=== PATIENT | female | born 1950 | race African-American/Black ===

== ENCOUNTER 2021-06-08 13:53 | Inpatient (IN) | payer OTHER ==
[2021-06-08 14:43] LABS: Protime INR 0.95
--- NOTE | 2021-06-08 14:44 | RAD REPORT ---
EXAM DESCRIPTION: RAD - Chest Single View - 06/08/2021 2:35 pm CLINICAL HISTORY: weakness Chest pain. COMPARISON: No comparisons FINDINGS: Portable technique limits examination quality. The lungs are grossly clear. The heart is normal in size. No displaced fractures. IMPRESSION: No acute intrathoracic process suspected.
[2021-06-08 14:50] LABS: Absolute Lymphocytes (CBC) 1.3 K/uL (0.7-4.9); Basophils % 0.3 % (0-1.3); Hematocrit 41.4 % (36.0-45.0); Lymphocytes % 19.4 % (15.3-44.8); MPV 8.2 fL (7.6-11.3); RBC Red Blood Cell Count 4.85 M/uL (3.86-4.86)
[2021-06-08 14:57] LABS: Albumin 3.6 g/dL (3.4-5.0); BUN Blood Urea Nitrogen 18 mg/dL (7-18); Bicarbonate 25 mmol/L (21-32); Glucose Level 352 mg/dL (74-106); Magnesium 1.9 mg/dL (1.8-2.4); Potassium 3.4 mmol/L (3.5-5.1); Sodium Level 138 mmol/L (136-145)
[2021-06-08 15:04] LABS: ALT/SGPT 20 U/L (12-78); AST/SGOT 14 U/L (15-37); Alkaline Phosphatase 104 U/L (45-117); Bilirubin Direct 0.2 mg/dL (0-0.2); Bilirubin Total 0.6 mg/dL (0.2-1.0); NT PRO-BNP 596 pg/mL (<125); Protein, Total 8.8 g/dL (6.4-8.2); Troponin (Emerg Dept Use Only) < 0.02 ng/mL (0.0-0.045)
--- NOTE | 2021-06-08 15:24 | RAD REPORT ---
EXAM DESCRIPTION: CT - Head Brain Wo Cont - 06/08/2021 3:14 pm CLINICAL HISTORY: DIZZINESS Headache, drowsiness COMPARISON: No comparisons TECHNIQUE: All CT scans are performed using dose optimization technique as appropriate and may inclu de automated exposure control or mA/KV adjustment according to patient size. FINDINGS: No intracranial hemorrhage, hydrocephalus or extra-axial fluid collection.No areas of brai n edema or evidence of midline shift. Hypodensity is seen in the kayla centrally likely related to jossy or infarct. The paranasal sinuses and mastoids are clear. The calvarium is intact. IMPRESSION: No acute intracranial abnormality. If there is continued clinical concern for CVA, MR i maging of the brain would be recommended.
--- NOTE | 2021-06-08 15:46 | ER ---
Nurse's Notes [facility] Name: Nida Gordon Age: 71 yrs Sex: Female : 1950 Arrival Date: 06/08/2021 Time: 13:57 Bed 5 Private MD: Diagnosis: Hypertension;Cerebral Infarction;Hyperglycemia;Dizziness Presentation: 06/08 14:20 Chief complaint: Patient states: Has been feeling weakness an dizziness for the past vg1 couple of days. States 'my talking feels slurred.' Pt denies headache, blurred vision, NV, injuries/fall, or chest pain. Coronavirus screen: Vaccine status: Patient reports receiving the 2nd dose of the covid vaccine. Client denies travel out of the [place] in the last 14 days. Ebola Screen: Patient negative for fever greater than or equal to 101.5 degrees Fahrenheit, and additional compatible Ebola Virus Disease symptoms. Initial Sepsis Screen: Does the patient meet any 2 criteria? No. Patient's initial sepsis screen is negative. Does the patient have a suspected source of infection? No. Patient's initial sepsis screen is negative. Risk Assessment: Do you want to hurt yourself or someone else? Patient reports no desire to harm self or others. Onset of symptoms was June 06, 2021. 14:20 Method Of Arrival: Ambulatory vg1 14:20 Acuity: MARK 3 vg1 Triage Assessment: 14:22 The onset of the patients symptoms was more than six hours ago. General: Appears in no vg1 apparent distress. uncomfortable, Behavior is calm, cooperative. Pain: Denies pain. Neuro: Level of Consciousness is awake, alert, obeys commands, Oriented to person, place, time, situation, Storm Sash Maker are equal bilaterally Moves all extremities. Gait is unsteady, Facial symmetry appears normal, Reports weakness. Historical: - Allergies: 14:22 No Known Allergies; vg1 - Home Meds: 14:22 None [Active]; vg1 - PMHx: 14:22 None; vg1 - PSHx: 14:22 None; vg1 - Immunization history:: Client reports receiving the 2nd dose of the Covid vaccine. - Social history:: Smoking status: Patient denies any tobacco usage or history of. Screenin:22 Abuse screen: Denies threats or abuse. Nutritional screening: No deficits noted. as6 Tuberculosis screening: No symptoms or risk factors identified. Fall Risk IV access (20 points). Gait- Weak (10 pts.). Total [place] Fall Scale indicates Low Risk Score (25-44 pts). Side Rails Up X 2 Frequent Obs/Assesments occuring As available Patient and Family Educated on Fall Prevention Program and strategies. Assessment: 14:30 General: Appears in no apparent distress. comfortable, Behavior is calm, cooperative. as6 Pain: Complains of pain in headache. Neuro: Level of Consciousness is awake, alert, obeys commands, Oriented to person, place, time, situation, Reports dizziness, headache. Cardiovascular: Capillary refill < 3 seconds Patient's skin is warm and dry. Respiratory: Airway is patent Trachea midline Respiratory effort is even, unlabored, Respiratory pattern is regular, symmetrical. Derm: Skin is intact, is healthy with good turgor. Musculoskeletal: Reports weakness in generalized. Vital Signs: 14:20 BP 221 / 121; Pulse 100; Resp 16; Temp 98.1(TE); Pulse Ox 100% ; Weight 68.04 kg; vg1 Height 5 ft. 6 in. (167.64 cm); Pain 0/10; 16:00 BP 215 / 111; Pulse 75; Resp 17 S; Pulse Ox 100% on R/A; as6 17:28 BP 186 / 89; Pulse 86; Resp 16 S; Pulse Ox 100% on R/A; as6 14:20 Body Mass Index 24.21 (68.04 kg, 167.64 cm) vg1 ED Course: 13:57 Patient arrived in ED. ds1 14:13 Franklin Poole PA is PHCP. [facility] 14:13 Tanvir Pimentel MD is Attending Physician. jmm 14:16 Jay Pham, [facility] is Primary Nurse. as6 14:22 Triage completed. vg1 14:22 Arm band placed on. vg1 14:32 Inserted saline lock: 22 gauge in left antecubital area, using aseptic technique. Blood as6 collected. 14:35 XRAY Chest (1 view) In Process Unspecified. EDMS 14:43 EKG done, by ED staff, reviewed by Franklin CAMPBELL. dh3 15:14 CT Head Brain wo Cont In Process Unspecified. EDMS 15:44 Domenico Pineda is Hospitalizing Provider. jmm 18:23 Bed in low position. Call light in reach. Side rails up X2. telemetry monitor on. Pulse as6 ox on. NIBP on. 20:26 No provider procedures requiring assistance completed. Patient admitted, IV remains in em place. Administered Medications: 16:38 Drug: Aspirin Chewable Tablet 324 mg Route: PO; as6 17:25 Follow up: Response: No adverse reaction as6 16:38 Drug: foLIC Acid 1 mg Route: IVPB; Site: left antecubital; as6 17:25 Follow up: Response: No adverse reaction; IV Status: Completed infusion as6 16:38 Drug: hydrALAZINE 10 mg Route: IVP; Site: left antecubital; as6 17:26 Follow up: Response: No adverse reaction as6 Outcome: 15:45 Decision to Hospitalize by Provider. raymundo 20:26 Admitted to Med/surg accompanied by tech, via wheelchair, room 229, with chart, Report em called to floor nurse 20:26 Condition: stable 20:26 Instructed on the need for admit, Demonstrated understanding of instructions. 20:35 Patient left the ED. em Signatures: Dispatcher [employer] EDMS Franklin Poole PA PA jmm Munoz, Edgar, RN RN Elisabeth Shrestha Dolly Osborn 3 Leann Franco, RN RN vg1 Jay Pham, RN RN as6 Corrections: (The following items were deleted from the chart) 14:25 14:20 BP 221 / 121; Pulse 100bpm; Resp 16bpm; Pulse Ox 100%; Height 5 ft. 6 in.; Pain vg1 0/10; vg1
--- NOTE | 2021-06-08 15:46 | EDPHYS ---
Physician Documentation [facility] Name: Nida Gordon Age: 71 yrs Sex: Female : 1950 Arrival Date: 06/08/2021 Time: 13:57 Bed 5 Private MD: ED Physician Tanvir Pimentel HPI: 06/08 14:14 This 71 yrs old Black Female presents to ER via Ambulatory with complaints of Weakness, jmm Dizziness. 14:14 The patient presents to the emergency department with weakness of the left upper jmm extremity, left lower extremity, difficult walking. Onset: The symptoms/episode began/occurred gradually, 3 day(s) ago. Associated signs and symptoms: Pertinent positives: weakness, Pertinent negatives: altered mental status, fever, double vision, loss of vision. Current symptoms: Currently, the patient is not experiencing any symptoms. This is a 71 year old female with no chronic medical conditions that presents to the ED with complaints of dizziness beginning 3 days ago with difficulty walking and left sided weakness. Family denies changes in speech pattern. . Historical: - Allergies: 14:22 No Known Allergies; vg1 - Home Meds: 14:22 None [Active]; vg1 - PMHx: 14:22 None; vg1 - PSHx: 14:22 None; vg1 - Immunization history:: Client reports receiving the 2nd dose of the Covid vaccine. - Social history:: Smoking status: Patient denies any tobacco usage or history of. ROS: 14:14 Constitutional: Negative for fever, chills, and weight loss, Cardiovascular: Negative jmm for chest pain, palpitations, and edema, Respiratory: Negative for shortness of breath, cough, wheezing, and pleuritic chest pain. 14:14 Neuro: Positive for dizziness, weakness. 14:14 All other systems are negative. Exam: 14:14 Constitutional: This is a well developed, well nourished patient who is awake, alert, jmm and in no acute distress. Eyes: EOMI, no conjunctival erythema appreciated Cardiovascular: Regular rate and rhythm. No edema appreciated Respiratory: Normal respirations, no respiratory distress appreciated 14:14 Abdomen/GI: Non distended, soft Back: Normal ROM Skin: General appearance color normal MS/ Extremity: Moves all extremities, no obvious deformities appreciated, no edema noted to the lower extremities Psych: Behavior is normal, Mood is normal, Patient is cooperative and pleasant 14:14 Neuro: Exam negative for Orientation: is normal, Mentation: is normal, Memory: is normal, Cerebellar function: normal finger to nose testing, heel to hunt testing is normal, Motor: is normal. 14:14 Psych: Behavior/mood is pleasant, cooperative. Vital Signs: 14:20 BP 221 / 121; Pulse 100; Resp 16; Temp 98.1(TE); Pulse Ox 100% ; Weight 68.04 kg; vg1 Height 5 ft. 6 in. (167.64 cm); Pain 0/10; 16:00 BP 215 / 111; Pulse 75; Resp 17 S; Pulse Ox 100% on R/A; as6 17:28 BP 186 / 89; Pulse 86; Resp 16 S; Pulse Ox 100% on R/A; as6 14:20 Body Mass Index 24.21 (68.04 kg, 167.64 cm) vg1 MDM: 14:25 Patient medically screened. [facility] 15:42 Data reviewed: vital signs, nurses notes. Counseling: I had a detailed discussion with [facility] the patient and/or guardian regarding: the historical points, exam findings, and any diagnostic results supporting the discharge/admit diagnosis, lab results, radiology results, the need for further work-up and treatment in the hospital. ED course: I discussed the patient with Dr. Pineda whom accepted the patient for admission. . 06/08 14:14 Order name: Basic Metabolic Panel; Complete Time: 15:05 [facility] 06/08 14:14 Order name: CBC with Diff; Complete Time: 15:02 [facility] 06/08 14:14 Order name: LFT's; Complete Time: 15:05 [facility] 06/08 14:14 Order name: Magnesium; Complete Time: 15:05 [facility] 06/08 14:14 Order name: NT PRO-BNP; Complete Time: 15:05 [facility] 06/08 14:14 Order name: PT-INR; Complete Time: 14:46 [facility] 06/08 14:14 Order name: Troponin (emerg Dept Use Only); Complete Time: 15:05 [facility] 06/08 14:14 Order name: XRAY Chest (1 view); Complete Time: 14:46 [facility] 06/08 14:14 Order name: EKG; Complete Time: 14:15 [facility] 06/08 14:14 Order name: SARS-COV-2 RT PCR (Document "Date of Onset" if Symptomatic); Complete Time: [facility] 15:45 06/08 14:19 Order name: CT Head Brain wo Cont; Complete Time: 15:28 [facility] 06/08 14:14 Order name: Cardiac monitoring; Complete Time: 14:30 [facility] 06/08 14:14 Order name: EKG - Nurse/Tech; Complete Time: 14:43 [facility] 06/08 14:14 Order name: IV Saline Lock; Complete Time: 14:30 [facility] 06/08 14:14 Order name: Labs collected and sent; Complete Time: 14:30 [facility] 06/08 14:14 Order name: O2 Per Protocol; Complete Time: 14:30 [facility] 06/08 14:14 Order name: O2 Sat Monitoring; Complete Time: 14:30 [facility] Administered Medications: 16:38 Drug: Aspirin Chewable Tablet 324 mg Route: PO; as6 17:25 Follow up: Response: No adverse reaction as6 16:38 Drug: foLIC Acid 1 mg Route: IVPB; Site: left antecubital; as6 17:25 Follow up: Response: No adverse reaction; IV Status: Completed infusion as6 16:38 Drug: hydrALAZINE 10 mg Route: IVP; Site: left antecubital; as6 17:26 Follow up: Response: No adverse reaction as6 Disposition: 06/09 07:53 Co-signature as Attending Physician, Tanvir Pimentel MD I agree with the assessment and rn plan of care. Attestation: The patient's history, exam findings, diagnostics, and a summary of any interventions or procedures was reviewed in detail with Franklin CAMPBELL. Disposition Summary: 06/08/21 15:45 Hospitalization Ordered Hospitalization Status: Inpatient Admission [facility] Provider: Domenico Pineda Location: Telemetry/MedSurg (Inpatient) jmm Condition: Stable jmm Problem: new jmm Symptoms: are unchanged [facility] Bed/Room Type: Standard [facility] Room Assignment: 229(06/08/21 18:33) dw Diagnosis - Hypertension jmm - Cerebral Infarction jmm - Hyperglycemia jmm - Dizziness jmm Forms: - Medication Reconciliation Form jmm - SBAR form m Signatures: Dispatcher [employer] Katt Ayala RN RN dw Mickail, Joel, PA PA jm Pimentel, Tanvir, MD MD rn Salvador, [facility] Noriega RN vg1 Jay Pham RN RN as6 Corrections: (The following items were deleted from the chart) 06/08 18:33 15:45 raymundo alvarado
[2021-06-08] MEDS ORDERED: HYDRALAZINE HCL 20 MG/ML VIAL ONE (16:26)
[2021-06-08] MEDS ORDERED: ASPIRIN 81 MG CHEWABLE TABLET ONE (16:26)
[2021-06-08] MEDS ORDERED: FOLIC ACID 5 MG/ML VIAL ONE (16:27)
--- NOTE | 2021-06-08 17:13 | P.HP ---
Certification for Inpatient Patient admitted to: Inpatient With expected LOS: >2 Midnights Practitioner: I am a practitioner with admitting privileges, knowledge of patient current condition, hospital course, and medical plan of care. Services: Services provided to patient in accordance with Admission requirements found in Title 42 Section 412.3 of the Code of Federal Regulations Patient History Date of Service: 06/08/21 Reason for admission: Left sided weakness History of Present Illness: 71-year-old woman with no known past medical history referred to the emergency department because she suddenly developed unsteady gait and almost fell. Patient was complaining of weakness in the left upper extremity. Also noted she has left facial droop. Patient also reports word finding difficulty sometimes. Her blood pressure in the emergency department was severely elevated with systolic in the 200s. Patient given hydralazine IV in the ED. CT head negative for acute CVA. Chest x-ray shows no acute disease. EKG shows sinus rhythm and premature atrial complexes with aberrant conduction. Patient has hyperglycemia with blood sugar in the 300s. She is admitted for further work-up and management for stroke. - Past Medical/Surgical History -: None -: None - Family History Sister -: Hypertension - Social History Smoking Status: Never smoker Alcohol use: No Place of Residence: Home Review of Systems Other: Patient denies any headache, denies any limb weakness. She denies any chest pain. Except as documented, all other systems reviewed and negative. Physical Examination - Physical Exam General: Alert, In no apparent distress, Oriented x3 HEENT: Atraumatic, Normocephalic, PERRLA, Mucous membr. moist/pink, EOMI, Sclerae nonicteric Neck: Supple, JVD not distended Respiratory: Clear to auscultation bilaterally, Normal air movement Cardiovascular: No edema, Regular rate/rhythm, Normal S1 S2 Gastrointestinal: Normal bowel sounds, Soft and benign, Non-distended, No tenderness Musculoskeletal: No swelling, No tenderness Integumentary: No rashes, No erythema Neurological: Normal strength at 5/5 x4 extr, Other (Left facial droop), Abnormal speech Lymphatics: No axilla or inguinal lymphadenopathy - Studies Laboratory Data (last 24 hrs) 06/08/21 14:26: PT 10.9, INR 0.95 06/08/21 14:26: WBC 6.50, Hgb 13.8, Hct 41.4, Plt Count 303 06/08/21 14:26: Sodium 138, Potassium 3.4 L, BUN 18, Creatinine 1.27, Glucose 352 H, Magnesium 1.9, Total Bilirubin 0.6, AST 14 L, ALT 20, Alkaline Phosphatase 104 Assessment and Plan - Problems (Diagnosis) (1) Acute CVA (cerebrovascular accident) Current Visit: Yes Status: Acute (2) Hyperglycemia Current Visit: Yes Status: Acute (3) Malignant hypertension Current Visit: Yes Status: Acute - Plan Admit patient to the medical floor. Stroke protocol initiated. Patient started on aspirin and Plavix. Lipitor MRI of the brain ordered. MRA of head and neck ordered. Echocardiogram. Consult to neurology. Check hemoglobin A1c Insulin sliding scale for glucose management. Permissive hypertension. Hydralazine IV as needed. Check UA. - Advance Directives Does patient have a Living Will: No Does patient have a Durable POA for Healthcare: No
[2021-06-08 21:05] VITALS: BMI 24.7
[2021-06-08] MEDS: HYDRALAZINE HCL 20 MG/ML VIAL IV PRN (21:54)
[2021-06-08] MEDS: INSULIN -REGULAR HUMAN 50 UNIT/0.5 ML ML SQ SCH (21:55)
[2021-06-08] MEDS: ATORVASTATIN 40 MG TAB PO SCH (21:56)
[2021-06-08] MEDS: NA CHLORIDE 0.9% 1,000 ML IV SCH (21:57)
[2021-06-08] MEDS ORDERED: ONDANSETRON 4 MG/2 ML VIAL IV PRN (22:55)
[2021-06-09 06:03] LABS: Absolute Lymphocytes (CBC) 1.1 K/uL (0.7-4.9); Basophils % 0.3 % (0-1.3); Hematocrit 38.8 % (36.0-45.0); Lymphocytes % 19.4 % (15.3-44.8); MPV 8.1 fL (7.6-11.3)
[2021-06-09 06:23] LABS: Magnesium 1.8 mg/dL (1.8-2.4); Potassium 3.4 mmol/L (3.5-5.1); Thyroid Stimulating Hormone 0.19 uIU/mL (0.360-3.740)
[2021-06-09] MEDS: INSULIN -REGULAR HUMAN 50 UNIT/0.5 ML ML SQ SCH ×4 (07:30→21:14)
[2021-06-09] MEDS: ENOXAPARIN 40 MG/0.4 ML SQ SCH (08:56)
[2021-06-09] MEDS: ASPIRIN EC 81 MG TAB PO SCH (08:56)
[2021-06-09] MEDS: CLOPIDOGREL 75 MG TABLET PO SCH (08:57)
[2021-06-09] MEDS: NA CHLORIDE 0.9% 1,000 ML IV SCH ×2 (08:58→22:31)
[2021-06-09] MEDS ORDERED: POTASSIUM 25 MEQ EFFERV TAB PO ONE (09:00)
--- NOTE | 2021-06-09 13:29 | P.PN ---
Subjective Date of Service: 06/09/21 Chief Complaint: Left sided weakness Patient states his speech is better and her left-sided weakness has improved. Blood pressure readings improved. Physical Examination - Vital Signs Temperature: 97.6 F Blood Pressure: 168/82 Pulse: 94 Respirations: 16 Pulse Ox (%): 97 - Physical Exam General: Alert, In no apparent distress, Oriented x3 HEENT: Mucous membr. moist/pink Neck: JVD not distended Respiratory: Clear to auscultation bilaterally, Normal air movement Cardiovascular: No edema, Regular rate/rhythm, Normal S1 S2, No murmurs Gastrointestinal: Normal bowel sounds, Soft and benign, Non-distended, No tenderness Musculoskeletal: No swelling, No tenderness Integumentary: No rashes, No erythema Neurological: Normal strength at 5/5 x4 extr, Other (Left facial droop) - Studies Laboratory Data (last 24 hrs) 06/08/21 14:26: PT 10.9, INR 0.95 06/08/21 14:26: WBC 6.50, Hgb 13.8, Hct 41.4, Plt Count 303 06/08/21 14:26: Sodium 138, Potassium 3.4 L, BUN 18, Creatinine 1.27, Glucose 3 52 H, Magnesium 1.9, Total Bilirubin 0.6, AST 14 L, ALT 20, Alkaline Phosphatase 104 Assessment And Plan - Current Problems (Diagnosis) (1) Acute CVA (cerebrovascular accident) Current Visit: Yes Status: Acute (2) Hyperglycemia Current Visit: Yes Status: Acute (3) Malignant hypertension Current Visit: Yes Status: Acute - Plan Continue aspirin and Plavix. LDL is significantly elevated. Continue Lipitor MRI of the brain ordered. MRA of head and neck ordered. Tests not available today. Will be done on Thursday-tomorrow Echocardiogram in a.m. Neurology consulted. Hemoglobin A1c is 12.7 Insulin sliding scale for glucose management. We will start Lantus insulin. Patient will need insulin therapy as outpatient. Permissive hypertension. Hydralazine IV as needed. UA is pending.
[2021-06-09] MEDS ORDERED: GLUCAGON 1 MG/VIAL IM PRN (13:32)
[2021-06-09] MEDS ORDERED: D50W 25 GM/50 ML SYRINGE IV PRN (13:32)
[2021-06-09] MEDS: INSULIN GLARGINE 100 UNIT/ML SQ SCH (21:00)
[2021-06-09] MEDS ORDERED: INSULIN GLARGINE 100 UNITS/ML SQ SCH (21:00)
[2021-06-09] MEDS: ATORVASTATIN 40 MG TAB PO SCH (21:14)
[2021-06-10] MEDS: HYDRALAZINE HCL 20 MG/ML VIAL IV PRN ×2 (04:25→11:07)
[2021-06-10] MEDS: INSULIN -REGULAR HUMAN 50 UNIT/0.5 ML ML SQ SCH ×4 (07:30→22:28)
[2021-06-10] MEDS ORDERED: PNEUMOCOCCAL VACCINE 0.5 ML IMVAC ONE (08:00)
[2021-06-10] MEDS ORDERED: INFLUENZA VACCINE (for 6+ mo) 0.5 ML DOSE IMVAC ONE (08:00)
[2021-06-10 09:19] VITALS: O2SAT 100
--- NOTE | 2021-06-10 09:28 | RAD REPORT ---
EXAM DESCRIPTION: MRI - Brain W/Wo Cont - 06/10/2021 8:18 am CLINICAL HISTORY: Left facial palsy Headache, drowsiness, CVA symptomology COMPARISON: MRA Head Wo Cont dated 06/10/2021; Head Brain Wo Cont dated 06/08/2021 TECHNIQUE: Multi-sequence, multiplanar MR imaging of the brain was performed with contrast. FINDINGS: No intracranial hemorrhage, hydrocephalus, or extra-axial fluid collection. No midline dwain ft.. No intracranial mass. 20 x 9 mm acute nonhemorrhagic CVA is seen in the kayla slightly to the right of midline. 9 x 4 mm cre scentic nonhemorrhagic acute CVA also seen in the posterior right external capsule. The midline structures are normally formed. Mastoid air cells and paranasal sinuses are clear. Post-contrast images show no abnormal enhancement to suggest tumor or infection. Developmental venous anomaly seen along the right superior frontal region, a normal variant. IMPRESSION: 20 x 9 mm acute nonhemorrhagic CVA involving the kayla. 9 x 4 crescentic nonhemorrhagic CVA involving the right posterior external capsule.
--- NOTE | 2021-06-10 09:34 | RAD REPORT ---
EXAM DESCRIPTION: MRI - MRA Head Wo Cont - 06/10/2021 8:11 am CLINICAL HISTORY: left facial droop CVA COMPARISON: Head Brain Wo Cont dated 06/08/2021 FINDINGS: 3D noncontrast [id number] MR angiography of the [place] was performed. No aneurysm, flow-limiting stenosis or vascular malformation is seen. Forward flow seen in codominant vertebral arteries. Very poor flow signal is seen in the basilar artery. Both vertebral arteries appear diminutive in siz e with diminished flow in the intracranial portions of both vertebral arteries. Normal variant anatom y including origin of both posterior communicating artery is noted, which appear to provide the dominant flow to both P1 segments. IMPRESSION: There is poor flow seen in the vertebrobasilar system, in particular the basilar artery with very little mid-basilar artery flow seen. This may indicate slow flow or occlusion.
--- NOTE | 2021-06-10 09:39 | RAD REPORT ---
EXAM DESCRIPTION: MRI - MRA Neck W/Wo Cont - 06/10/2021 8:19 am CLINICAL HISTORY: left facial droop Headache, drowsiness, CVA symptomology COMPARISON: No comparisons FINDINGS: Contrast enhance 2D [id number] MR angiography of the neck vessels was performed. A left aortic arch is noted. Both common carotid arteries are widely patent. No significant internal carotid artery stenosis identified. Antegrade flow is seen in both vertebral arteries. There is diminished flow seen in the basilar arter y. IMPRESSION: No significant carotid stenosis is identified. Diminished flow is evident within the basilar artery.
[2021-06-10] MEDS: ASPIRIN EC 81 MG TAB PO SCH (11:05)
[2021-06-10] MEDS: ENOXAPARIN 40 MG/0.4 ML SQ SCH (11:05)
[2021-06-10] MEDS: CLOPIDOGREL 75 MG TABLET PO SCH (11:06)
[2021-06-10] MEDS: KCL 20 MEQ/100 mL IVPB 20 MEQ/100 ML BAG IV SCH ×2 (11:06→14:30)
[2021-06-10] MEDS: NA CHLORIDE 0.9% 1,000 ML IV SCH (13:21)
--- NOTE | 2021-06-10 13:43 | P.DS ---
Admission Date: 06/08/21 Discharge Date: 06/10/21 Disposition: ROUTINE DISCHARGE Discharge Condition: FAIR Reason for Admission: Left sided weakness - Problems (1) Acute CVA (cerebrovascular accident) Current Visit: Yes Status: Acute (2) Hyperglycemia Current Visit: Yes Status: Acute (3) Malignant hypertension Current Visit: Yes Status: Acute Brief History of Present Illness: 71-year-old woman with no known past medical history referred to the emergency department because she suddenly developed unsteady gait and almost fell. Patient was complaining of weakness in the left upper extremity. Also noted she has left facial droop. Patient also reports word finding difficulty sometimes. Her blood pressure in the emergency department was severely elevated with systolic in the 200s. Patient given hydralazine IV in the ED. CT head negative for acute CVA. Chest x-ray shows no acute disease. EKG shows sinus rhythm and premature atrial complexes with aberrant conduction. Patient has hyperglycemia with blood sugar in the 300s. Patient admitted for further work-up and management for stroke. Hospital Course: Patient admitted to the medical floor. She was placed on aspirin and Plavix and folic acid. Her hemoglobin A1c of 12 indicating diabetes mellitus type 2 with. Patient started on long-acting insulin and insulin sliding scale. MRI of the brain demonstrated acute CVA in the kayla and the right external capsule. MRA head and neck suggested diminished blood flow in the vertebrobasilar system. Case discussed with neurology. Patient was asymptomatic for minimal and so Dr. Duggan recommended medical management and risk factor management. Patient is ambulatory and has no difficulty walking, no problem swallowing at this time. Her speech has improved. Patient instructed for Dr. Duggan as an outpatient. She may follow-up in [place] for further evaluation of the diminished vertebrobasilar blood flow. She is prescribed Lantus insulin on discharge for blood sugar control. Vital Signs/Physical Exam: Temp Pulse Resp BP Pulse Ox 97.6 F 93 H 18 189/101 H 98 06/10/21 11:58 06/10/21 11:58 06/10/21 11:58 06/10/21 11:58 06/10/21 11:58 General: Alert, In no apparent distress, Oriented x3 HEENT: Mucous membr. moist/pink, EOMI, Sclerae nonicteric Neck: JVD not distended Respiratory: Clear to auscultation bilaterally, Normal air movement Cardiovascular: No edema, Regular rate/rhythm, Normal S1 S2 Gastrointestinal: Soft and benign, Non-distended Musculoskeletal: No swelling Integumentary: No rashes Neurological: Normal strength at 5/5 x4 extr, Cranial nerves 3-12 intact, Other (Speech is mildly slurred) Laboratory Data at Discharge: WBC 5.60 K/uL (4.3-10.9) 06/09/21 05:29 Hgb 13.3 g/dL (12.0-15.0) 06/09/21 05:29 Hct 38.8 % (36.0-45.0) 06/09/21 05:29 Plt Count 305 K/uL (152-406) 06/09/21 05:29 PT 10.9 SECONDS (9.5-12.5) 06/08/21 14:26 INR 0.95 06/08/21 14:26 Sodium 139 mmol/L (136-145) 06/09/21 05:29 Potassium 3.1 mmol/L (3.5-5.1) L 06/10/21 06:33 BUN 17 mg/dL (7-18) 06/09/21 05:29 Creatinine 0.99 mg/dL (0.55-1.3) 06/09/21 05:29 Glucose 227 mg/dL (74-106) H 06/09/21 05:29 Phosphorus 3.0 mg/dL (2.5-4.9) 06/09/21 05:29 Magnesium 1.8 mg/dL (1.8-2.4) 06/09/21 05:29 Total Bilirubin 0.6 mg/dL (0.2-1.0) 06/08/21 14:26 AST 14 U/L (15-37) L 06/08/21 14:26 ALT 20 U/L (12-78) 06/08/21 14:26 Alkaline Phosphatase 104 U/L (45-117) 06/08/21 14:26 Troponin I < 0.02 ng/mL (0.0-0.045) 06/09/21 01:10 Triglycerides 149 mg/dL (<150) 06/09/21 05:29 Cholesterol 213 mg/dL (<200) H 06/09/21 05:29 HDL Cholesterol 40 mg/dL (40-60) 06/09/21 05:29 Cholesterol/HDL Ratio 5.33 06/09/21 05:29 Home Medications: Alcohol Antiseptic Pads [Alcohol Swabs] 1 each TP BID #100 med..pad 06/10/21 Aspirin [Aspirin EC] 81 mg PO DAILY #30 tablet.dr 06/10/21 Atorvastatin Calcium [Lipitor] 40 mg PO BEDTIME #30 tab 06/10/21 Blood Sugar Diagnostic [Glucose Test Strip] 1 each MC BID #60 strip 06/10/21 Clopidogrel Bisulfate [Plavix*] 75 mg PO DAILY #30 tablet 06/10/21 Folic Acid 1 mg PO DAILY #30 tablet 06/10/21 Insulin Glargine,Hum.rec.anlog [Lantus Solostar] 15 unit SQ DAILY #1 insuln.pen 06/10/21 Insulin Pump/Infus. Set/Meter [Accu-Chek Combo System] 1 ea MC BID #1 kit 06/10/21 New Medications: Insulin Pump/Infus. Set/Meter [Accu-Chek Combo System] 1 ea MC BID #1 kit Alcohol Antiseptic Pads [Alcohol Swabs] 1 each TP BID #100 med..pad Aspirin [Aspirin EC] 81 mg PO DAILY #30 tablet. Folic Acid 1 mg PO DAILY #30 tablet Blood Sugar Diagnostic [Glucose Test Strip] 1 each MC BID #60 strip Insulin Glargine,Hum.rec.anlog [Lantus Solostar] 15 unit SQ DAILY #1 insuln.pen Atorvastatin Calcium [Lipitor] 40 mg PO BEDTIME #30 tab Clopidogrel Bisulfate [Plavix*] 75 mg PO DAILY #30 tablet Diet: ADA Activity: Ad mine Followup: NONE,NONE [Primary Care Provider] - Isaiah Duggan MD [ASSOCIATE-ACTIVE - CAN ADMIT] - 1-2 Weeks Time spent managing pt's care (in minutes): 37
--- NOTE | 2021-06-10 15:05 | ECHO ---
HEIGHT: 5 ft 6 in WEIGHT: 153 lb 6.4 oz DATE OF STUDY: 06/10/[address]: autumn brock 2-DIMENSIONAL: YES M.MODE: YES DOPPLER: YES COLOR FLOW: YES TDS: NO PORTABLE: NO DEFINITY: NO BUBBLE STUDY: NO DIAGNOSIS: STROKE CARDIAC HISTORY: CATHERIZATION: NO SURGERY: NO PROSTHETIC VALVE: NO PACEMAKER: NO MEASUREMENTS (cm) DIASTOLIC (NORMALS) SYSTOLIC (NORMALS) IVSd 0.9 (0.6-1.2) LA Diam 2.2 (1.9-4.0) LVEF 68% LVIDd 3.8 (3.5-5.7) LVIDs 2.4 (2.0-3.5) %FS 37% LVPWd 1.0 (0.6-1.2) Ao Diam 1.8 (2.0-3.7) 2 DIMENSIONAL ASSESSMENT: RIGHT ATRIUM: NORMAL LEFT ATRIUM: NORMAL RIGHT VENTRICLE: NORMAL LEFT VENTRICLE: NORMAL TRICUSPID VALVE: NORMAL MITRAL VALVE: PULMONIC VALVE: NORMAL AORTIC VALVE: PERICARDIAL EFFUSION: NONE AORTIC ROOT: NORMAL LEFT VENTRICULAR WALL MOTION: NORMAL DOPPLER/COLOR FLOW: SEE BELOW. COMMENTS: NORMAL LEFT VENTRICULAR EJECTION FRACTION >60% WITH NORMAL WALL MOTION. MILD MITRAL AND AORTIC REGURGITATION. TECHNOLOGIST: Rafal LAFLEUR
[2021-06-10] MEDS ORDERED: lisinopriL 10 MG TAB PO ONE (21:39)
--- NOTE | 2021-06-10 22:15 | CON ---
Reason For Consultation: Consultation called because of stroke. History Of Present Illness: Ms. Gordon is a 71-year-old right-handed patient who denies significant past medical history, but reports developing weakness last Thursday involving the left side that is the arm and leg more than face, but also there was gait instability. Her symptoms seem to fluctuate, and she did not initially seek medical attention. Symptoms returned and worsened over the weekend. At [facility], she was found to have very elevated blood pressures, systolics over the 200s. She was treated with medication for lowering blood pressure, IV fluids, and a head CT scan was negative for any acute ischemic or hemorrhagic stroke. Rest of her workup including EKG showed sinus rhythm with premature atrial complexes. Chest x-ray did not show pneumonia. However, blood sugars showed numbers over the 300s. Subsequent brain MRI done earlier today identified a 20 x 9 mm acute nonhemorrhagic infarct in the pontine region slightly to the right of midline and a 9 x 4 mm centric nonhemorrhagic acute infarct in the posterior right external capsule. These findings likely explain patient's left-sided symptoms of weakness, some numbness with incoordination, and mild slurred speech. She was not taking an aspirin daily or medications for blood sugar or blood pressure. Since onset and hospitalization, she reports symptoms resolved significantly despite the findings of MRI. She is able to ambulate without assistive device and has mild slurred speech. Has no difficulty with swallowing and she has been cleared for swallowing. Past Medical History: As noted. Allergies: NO KNOWN DRUG ALLERGIES. Past Surgical History: Denies surgical history. Review of Systems: She denies any recent fevers, chills, nausea, vomiting, myalgias, arthralgias, rash, headache, weight change, any psychiatric issues. No gastrointestinal or genitourinary issues. Medications: Currently, she is on aspirin 81 mg, Plavix 75 mg, folic acid 1 mg. She is receiving insulin 10 units Semglee at bedtime, Apresoline, and Zofran as needed. Physical Examination: Vital Signs: Blood pressure 178/84, pulse 90, respiratory rate 18, temperature 97.4, oxygen saturation 97%. Weight 153 pounds, height 5 feet 6 inches, BMI 24.8. General: Ms. Gordon is resting comfortably. She is in no acute distress. She was actually standing, plugging in the plug at the time I came to her room. HEENT: She is normocephalic, atraumatic. Sclerae anicteric. Oropharynx is pink and moist. Neck: Supple. Chest: Clear. Heart: Regular. Extremities: Show no edema, cyanosis, or clubbing. Neurologic: She is alert and oriented to situation, place, and person. She has mild dysarthria. No aphasia. Cranial nerves show slight decrease of left nasolabial fold with good excursions and smiling. Motor examination, upper and lower extremities, subtle weakness in the left leg and arm around 4/5 proximally and distally. Right side fully strong, upper and lower extremities. Sensation decreased to light touch and temperature in the left compared with her right upper lower extremity. Coordination, intact in upper and lower extremities. Gait, she has mild ataxia, but otherwise is able to ambulate without an assistive device as well. Laboratory Studies: Total cholesterol 213, LDL cholesterol 143, TSH 0.190. Blood sugars 218-252. Hemoglobin A1c of 12.7. Potassium 3.4. Liver function studies unremarkable. Urinalysis unremarkable. COVID-19 test is negative. Echocardiogram: Ejection fraction 68% and mild aortic regurgitation along with mitral regurgitation. Assessment: Ms. Gordon is a 71-year-old patient with uncontrolled hypertension, uncontrolled diabetes mellitus, and dyslipidemia. She has lacunar strokes in brain stem and posterior limb external capsule on the right explaining her left-sided symptoms. Plan: 1. Aggressive management of her stroke risk factors hypertension, diabetes, cholesterol issues. 2. High-dose statin, aspirin, Plavix, folic acid. 3. She may benefit from aggressive outpatient physical therapy including speech for her articulation. 4. She should follow up in Dr. Duggan's clinic in 1 month after discharge. BENITO/FELECIA Voice ID: [id number] Report ID: [id number] SINA
[2021-06-10] MEDS: ATORVASTATIN 40 MG TAB PO SCH (22:28)
[2021-06-10] MEDS: INSULIN GLARGINE 100 UNIT/ML SQ SCH (22:29)
[2021-06-11] MEDS ORDERED: METOPROLOL TAR 25 MG TAB PO SCH (06:00)
[2021-06-11] MEDS: INSULIN -REGULAR HUMAN 50 UNIT/0.5 ML ML SQ SCH (07:30)
[2021-06-11 08:24] VITALS: BP 162/85; TEMP 97.9
--- NOTE | 2021-06-11 08:42 | P.DS ---
Admission Date: 06/08/21 Discharge Date: 06/11/21 Disposition: ROUTINE DISCHARGE Discharge Condition: FAIR Reason for Admission: Left sided weakness Vital Signs/Physical Exam: Temp Pulse Resp BP Pulse Ox 97.9 F 78 16 162/85 H 99 06/11/21 08:00 06/11/21 08:00 06/11/21 08:00 06/11/21 08:00 06/11/21 08:00 Laboratory Data at Discharge: WBC 5.60 K/uL (4.3-10.9) 06/09/21 05:29 Hgb 13.3 g/dL (12.0-15.0) 06/09/21 05:29 Hct 38.8 % (36.0-45.0) 06/09/21 05:29 Plt Count 305 K/uL (152-406) 06/09/21 05:29 PT 10.9 SECONDS (9.5-12.5) 06/08/21 14:26 INR 0.95 06/08/21 14:26 Sodium 139 mmol/L (136-145) 06/09/21 05:29 Potassium 3.8 mmol/L (3.5-5.1) 06/11/21 06:33 BUN 17 mg/dL (7-18) 06/09/21 05:29 Creatinine 0.99 mg/dL (0.55-1.3) 06/09/21 05:29 Glucose 227 mg/dL (74-106) H 06/09/21 05:29 Phosphorus 3.0 mg/dL (2.5-4.9) 06/09/21 05:29 Magnesium 1.8 mg/dL (1.8-2.4) 06/09/21 05:29 Total Bilirubin 0.6 mg/dL (0.2-1.0) 06/08/21 14:26 AST 14 U/L (15-37) L 06/08/21 14:26 ALT 20 U/L (12-78) 06/08/21 14:26 Alkaline Phosphatase 104 U/L (45-117) 06/08/21 14:26 Troponin I < 0.02 ng/mL (0.0-0.045) 06/09/21 01:10 Triglycerides 149 mg/dL (<150) 06/09/21 05:29 Cholesterol 213 mg/dL (<200) H 06/09/21 05:29 HDL Cholesterol 40 mg/dL (40-60) 06/09/21 05:29 Cholesterol/HDL Ratio 5.33 06/09/21 05:29 Home Medications: Alcohol Antiseptic Pads [Alcohol Swabs] 1 each TP BID #100 med..pad 06/10/21 Amlodipine Besylate 10 mg PO DAILY #30 tablet 06/10/21 Aspirin [Aspirin EC] 81 mg PO DAILY #30 tablet. 06/10/21 Atorvastatin Calcium [Lipitor] 40 mg PO BEDTIME #30 tab 06/10/21 Blood Sugar Diagnostic [Glucose Test Strip] 1 each MC BID #60 strip 06/10/21 Blood-Glucose Meter [Contour Next Glucose Meter] 1 each MC BID #1 kit 06/10/21 Clopidogrel Bisulfate [Plavix*] 75 mg PO DAILY #30 tablet 06/10/21 Folic Acid 1 mg PO DAILY #30 tablet 06/10/21 Insulin Glargine,Hum.rec.anlog [Lantus Solostar] 15 unit SQ DAILY #1 insuln.pen 06/10/21 Insulin Glargine,Hum.rec.anlog [Basaglar Kwikpen U-100] 15 unit SQ DAILY 30 Days #1 insuln.pen 06/11/21 New Medications: Alcohol Antiseptic Pads [Alcohol Swabs] 1 each TP BID #100 med..pad Amlodipine Besylate 10 mg PO DAILY #30 tablet Aspirin [Aspirin EC] 81 mg PO DAILY #30 tablet. Insulin JatinderHum.rec.anlog [Basaglar Kwikpen U-100] 15 unit SQ DAILY 30 Days #1 insuln.pen Blood-Glucose Meter [Contour Next Glucose Meter] 1 each MC BID #1 kit Folic Acid 1 mg PO DAILY #30 tablet Blood Sugar Diagnostic [Glucose Test Strip] 1 each MC BID #60 strip Insulin Glargine,Hum.rec.anlog [Lantus Solostar] 15 unit SQ DAILY #1 insuln.pen Atorvastatin Calcium [Lipitor] 40 mg PO BEDTIME #30 tab Clopidogrel Bisulfate [Plavix*] 75 mg PO DAILY #30 tablet Physician Discharge Instructions: Follow up with [facility] for diminished vertebrobasilar blood flow. Diet: ADA Activity: Ad mine Followup: Isaiah Duggan MD [ASSOCIATE-ACTIVE - CAN ADMIT] - 1-2 Weeks NONE,NONE [Primary Care Provider] -
[2021-06-11] MEDS ORDERED: POTASSIUM CL SA 10 MEQ TAB PO ONE (09:00)
[2021-06-11] MEDS ORDERED: AMLODIPINE 10 MG TAB PO SCH (09:00)
[2021-06-11] MEDS ORDERED: lisinopriL 10 MG TAB PO SCH (09:00)
--- NOTE | 2021-06-11 16:15 | P.PN ---
Date of Service: 06/11/21 Patient's discharge was held the evening of 06/10 due to significantly elevated systolic blood pressures. This improved with p.o. medication. Patient continues to feel well, wanting to be discharged home. Blood pressure much better controlled. Patient discharged. Please refer to discharge summary on 06/10.
--- NOTE | 2021-06-12 08:16 | EKG ---
Test Date: 2021-06-08 Test Time: 14:41:36 Protozoology Teacher: ELA MEASUREMENT RESULTS: Intervals: Rate: 84 MD: 112 QRSD: 74 QT: 368 QTc: 434 [place]: P: 58 MD: 112 QRS: 62 T: 87 INTERPRETIVE STATEMENTS: Sinus rhythm with premature atrial complexes with aberrant conduction ST abnormality, possible digitalis effect Abnormal ECG No previous ECG available for comparison Electronically Signed On 06-12-21 08:04:46 REGIONAL OPERATIONS DIRECTOR by Kai Cruz
== END 2021-06-11 10:55 | disposition home or self-care (01) | DRG 65 ==
LOC: ER 13:53 → ERHOLD 17:03 → 2ND 19:24
PROVIDERS: ADMIT Internal Medicine; ATTEND Internal Medicine
DX: I63.9 Cerebral infarction, unspecified (principal); G81.94 Hemiplegia, unspecified affecting left nondominant side; I16.1 Hypertensive emergency; R29.810 Facial weakness; R47.01 Aphasia; E11.65 Type 2 diabetes mellitus with hyperglycemia; Z20.822 Contact with and (suspected) exposure to COVID-19
CPT/HCPCS: 36415; 70450; 70544; 70549; 70553; 71045; 80048; 80061; 80076; 82947; 83036; 83735; 83880; 84100; 84132; 84443; 84484; 85025; 85610; 85652; 93005; 93306; 94760; 96365; 96375; 97112; 97116; 97161; 97530; 99285; A9577; J0360; J1650; J1815; J3480; J7030; U0003

== ENCOUNTER 2024-05-31 21:18 | Emergency (ER) | payer OTHER ==
--- OUTSIDE RECORDS SUMMARY | 2024-05-31 21:26 | XMS REPORT | Continuity of Care Document ---
Author Name Unknown Address [address] [facility] [place] [address] [facility] Address [address] [facility] [address] [place] [address] Care Team Providers Care Cloth Worker Name Role Phone MAGALI HENRIQUEZ Primary Care Physician Unavailab CAL Rene Attending Clinician Sharmaine vailaDIYA Ding Attending Clinician Unavailable LYDIA BARRIOS Attending Clinician Unavailable DANIELLE MATHEW Attending Clinician Unavailabl e RANJAN BARNES Attending Clinician Unavailable RANJAN BARNES Attending Clinician Unavailable DEREK LONDON Attending Clinician Unavailable ROGELIO FABIAN Attending Clinician Unavailable ROGELIO FABIAN Attending Clinician Unavailable Danielle Morales Attending Clinician Ranjan Barnes MD Attending Clinician [phone] Lab, Ang - Db Attending Clinician Unavailable GEOFFREY MOORE Attending Clinician Unavail able GEOFFREY MOORE Attending Clinician Unavail able Geoffrey Moore MD Attending Clinician Lydia Hawk Attending Clinician [phone] Magali Mccarty Attending Clinician [phone] Doctor Unassigned, [place] Attending Clinician U stanley Maynard MD, Phuc Arnett Attending Clinician [phone] Rhonda Owens MD Attending Clinician [phone] RHONDA OWENS Attending Clinician Unavailable RHONDA OWENS Attending Clinician Unavailable Diya Wynne MD Attending Clinician [phone] Tamela Huber Attending Clinician [phone] TAMELA GILLIAM Attending Clinician Unavailable Claus ESTEBAN, Maxi Nguyen Attending Clinician [phone] Blade Briscoe MD, Josh Attending Clinician [phone] Ricci BECLHER, Diya Attending Clinician [phone] Blade Briscoe MD, Josh Attending Clinician [phone] Visit, [facility] Nurse Attending Clinician Unavailable Florence CORDEROP, Magali Attending Clinician [phone] JOSH OROZCO JR Attending Clinician Unavaila vincenzo Mitchell MD, Alma Rosa Attending Clinician [phone] [facility] ERP, Maxi Nguyen Attending Clinician [phone] Salma MADRID, Mary Alice Attending Clinician Un available Pipo Castanon MD Attending Clinician [phone], [facility] Attending Clinician Unavailable RADIOLOGY Attending Clinician Unavailable Radiology Attending Clinician Unavailable Edmar Cortes MD Attending Clinician [phone] Draw, [facility] Attending Clinician UnavailEDMAR Paula Attending Clinician Unavailable JASEN MATOS Attending Clinician UnavailJASEN Schwartz Attending Clinician Unavailfanta Leary MD, Cal Loyd Attending Clinician Hellen Moss Attending Clinician Unavailabl e Lab, Ang - Db Attending Clinician Unavailable Phuc Maynard MD Attending Clinician [phone] PHUC MAYNARD Attending Clinician Unavailabl e Doctor Unassigned, [place] Attending Clinician U navailable Pob, [facility] Main Attending Clinician Unavailchan Bennett MD, Dong Attending Clinician [phone] HELLEN JENSEN Attending Clinician Unavailable Jostin Ayon MD Attending Clinician [phone] Brayden Mittal MD Attending Clinician Unavailfanta Moore MD, Geoffrey Contreras Attending Clinician [phone] MAGALI HENRIQUEZ Attending Clinician Unavailable BRAYDEN MITTAL Attending Clinician Unavailable Derek Tafoya MD Attending Clinician Familia_S_AH Attending Clinician Unavailable Nohemy_A_AH Attending Clinician Unavailable CAL LEARY Admitting Clinician DANIELLE Fisher Admitting Clinician UnavailRANJAN Donald Admitting Clinician Unavailable Ranjan Barnes MD Admitting Clinician [phone] JOSH OROZCO JR Admitting Clinician Unavailfanta Orozco Jr., MD, Josh Admitting Clinician + [phone] MAXI VILLANUEVA Admitting Clinician UnavailEdmar Paula MD Admitting Clinician [phone] DIYA WYNNE Admitting Clinician Unavailable MAGALI HENRIQUEZ Admitting Clinician Unavailable Cal Leary MD Admitting Clinician Familia_S_AH Admitting Clinician Unavailable Nohemy_A_AH Admitting Clinician Unavailable Payers Payer Name Policy Type Policy Number Effective Date Expirati on Date Source [facility] [place]MI[place] [id number] 2021 00:00:00 [place] [id number] 2021 00:00:00 [facility]ADVANT AGE - [facility]) [id number] 00:00:00 Problems Condition Name Condition Details Condition Category Status Onset Date Resolution Date Last Treatment Date Treating Clinician Comments Source 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, with long-term current use of insulin 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, with long-term current use of insulin Disease Active 2023-07 0-15 00:00: 00 [facility] Paroxysmal atrial fibrillati on Paroxysmal atrial fibrillati on Disease Active 2023-07 0-02 00:00: 00 [facility] PAF (paroxysma l atrial fibrillati on) PAF (paroxysma l atrial fibrillati on) Disease Active 8 00:00: 00 [facility] LORENZO (dyspnea on exertion) LORENZO (dyspnea on exertion) Disease Active 2024-0 8-20 00:00: 00 [facility] Hx of CABG Hx of CABG Disease Active 820 00:00: 00 [facility] 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 Disease Active 613 00:00: 00 [facility] Tricuspid valve insufficie ncy, unspecifie d etiology Tricuspid valve insufficie ncy, unspecifie d etiology Disease Active 613 00:00: 00 [facility] Pulmonary hypertensi on Pulmonary hypertensi on Disease Active 11-29 00:00: 00 [facility] Non-ST elevation myocardial infarction (NSTEMI) Non-ST elevation myocardial infarction (NSTEMI) Disease Active 11-29 00:00: 00 [facility] Cardiomyop athy, unspecifie d type Cardiomyop athy, unspecifie d type Disease Active 11-29 00:00: 00 [facility] Primary hypertensi on Primary hypertensi on Disease Active 10-28 00:00: 00 [facility] History of arterial ischemic stroke History of arterial ischemic stroke Disease Active 10-28 00:00: 00 [facility] Hyperlipid emia, unspecifie d hyperlipid emia type Hyperlipid emia, unspecifie d hyperlipid emia type Disease Active 10-28 00:00: 00 [facility] Abnormal EKG Abnormal EKG Disease Active 10-28 00:00: 00 [facility] Dyslipidem ia Dyslipidem ia Disease Active 10-28 00:00: 00 [facility] 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 Added automatic ally from request for surgery [id number] [facility] Allergies, Adverse Reactions, Alerts Allergy Name Allergy Type Status Severity Reaction(s) Onset Date Inactive Date Treating Clinician Comments Source NO KNOWN ALLERGIE S Drug Class Active [facility] Social History Social Habit Start Date Stop Date Quantity Comments Source [facility]coholic [facility] intake 2024-05-10 00:00:00 2024-05-10 00:00:00 Ex-drinker (finding) [facility] Education 2024-02-02 00:00:00 2024-02-02 00:00:00 21 [facility] History of Social function 2023-12-30 00:00:00 2023-12-30 00:00:00 [facility] Alcohol intake 2023-10-29 00:00:00 2023-10-29 00:00:00 Ex-drinker (finding) [facility] Exposure to SARS-CoV-2 (event) 2022-10-18 00:00:00 2022-10-28 11:05:00 Not sure [facility] Tobacco use and exposure 2022-06-09 00:00:00 2022-06-09 00:00:00 Smokeless tobacco non-user [facility] Sex assigned at 1950 00:00:00 1950 00:00:00 [facility] Smoking Status Start Date Stop Date Source Never smoked tobacco [facility] Medications Ordered Medication Name Filled Medication Name Start Date Stop Date Current Medication? Ordering Clinician Indication Dosage Frequency Signature (SIG) Comments Components Source lidocaine 1% (XYLOCAINE) 10 mg/mL (1 %) injection 2023-07 15:02: 27 05-17 15:05 :51 No ONCE INTRA PROCEDURE, Starting on Thu05/17/24 at 1002, Until Thu05/17/24 at 1005, Routine, CV Intraproce dure [facility] cephALEXin 500 mg capsule 2023-07 00:00: 00 05-23 05:59 :00 Yes 500mg Take 1 capsule by mouth every 6 (six) hours for 5 days. Indication s: loop recorder implant [facility] empaglifloz in (JARDIANCE) 10 mg tablet 2023-07 00:00: 00 Yes [id number] 10mg Take 1 tablet by mouth in the morning. [facility] magnesium oxide 400 mg magnesium Tab 2023-07 00:00: 00 Yes [id number] 400mg Take 400 mg by mouth at bedtime. [facility] gabapentin 300 mg capsule 2023-07 00:00: 00 Yes [id number] 300mg Take 1 capsule by mouth at bedtime. [facility] metformin ER 500 mg 24 hr tablet 2023-07 00:00: 00 05-10 00:00 :00 No [id number] 500mg Take 1 tablet by mouth daily with breakfast. [facility] amiodarone 200 mg tablet 2023-07 0 00:00: 00 Yes [id number] 200mg Take 1 tablet by mouth in the morning. [facility] clopidogreL 75 mg tablet 04-04 00:00: 00 Yes [id number] 75mg Take 1 tablet by mouth in the morning. [facility] metformin ER 500 mg 24 hr tablet 04-04 00:00: 00 05-03 00:00 :00 No [id number] TAKE 1 TABLET BY MOUTH TWICE DAILY BEFORE BREAKFAST AND BEFORE SUPPER [facility] metoprolol tartrate 25 mg tablet 03-14 00:00: 00 Yes [id number] 25mg Take 1 tablet by mouth in the morning and 1 tablet in the evening. [facility] ondansetron 4 mg disintegrat ing tablet 03-01 00:00: 00 Yes [id number] 4mg Take 1 tablet by mouth every 8 (eight) hours as needed for Nausea and Vomiting (N/V). [facility] METFORMIN ER 500 mg 24 hr tablet 03-01 00:00: 00 04-04 00:00 :00 No [id number] TAKE 1 TABLET BY MOUTH TWICE DAILY BEFORE BREAKFAST AND BEFORE SUPPER [facility] aspirin 81 mg chewable tablet 02-28 00:00: 00 Yes [id number] 81mg Take 1 tablet by mouth in the morning. [facility] losartan 100 mg tablet 02-28 00:00: 00 Yes [id number] 100mg Take 1 tablet by mouth in the morning. [facility] clopidogreL 75 mg tablet 02-28 00:00: 00 04-04 00:00 :00 No [id number] 75mg Take 1 tablet by mouth in the morning. [facility] amLODIPine 10 mg tablet 02-25 00:00: 00 05-03 00:00 :00 No 10mg Take 1 tablet by mouth in the morning. [facility] amiodarone 200 mg tablet 02-25 00:00: 00 04-21 00:00 :00 No [id number] 200mg TAKE 1 TABLET BY MOUTH IN THE MORNING [facility] furosemide 20 mg tablet 02-24 00:00: 00 03-10 00:00 :00 No 20mg Take 1 tablet by mouth in the morning. [facility] amiodarone 200 mg tablet 02-16 00:00: 00 02-25 00:00 :00 No [id number] 200mg Take 1 tablet by mouth in the morning. [facility] atorvastati n 80 mg tablet 02-15 00:00: 00 Yes [id number] 80mg Take 1 tablet by mouth in the morning. [facility] furosemide 20 mg tablet 02-11 00:00: 00 02-22 04:59 :00 No [id number] 20mg Take 1 tablet by mouth in the morning for 10 days. [facility] KCL 20 mEq tablet 02-08 00:00: 00 03-10 00:00 :00 No [id number] 20meq Take 1 tablet by mouth in the morning. [facility] clopidogreL 75 mg tablet 02-08 00:00: 00 02-28 00:00 :00 No [id number] 75mg Take 1 tablet by mouth in the morning. [facility] aspirin 81 mg chewable tablet 02-08 00:00: 00 02-28 00:00 :00 No [id number] 81mg Take 1 tablet by mouth in the morning. [facility] furosemide 20 mg tablet 02-08 00:00: 00 02-11 00:00 :00 No [id number] 10mg Take 0.5 tablets by mouth in the morning. [facility] gabapentin (NEURONTIN) capsule 100 mg 02-07 02:00: 00 Yes 100mg 100 mg, Oral, QHS, First dose on 02/07/24 at 2100, Until Discontinu ed, Routine [facility] DULoxetine 30 mg capsule 02-07 00:00: 00 Yes [id number] 30mg Take 1 capsule by mouth in the morning. [facility] lancets 28 gauge Misc 02-07 00:00: 00 Yes [id number] USE DIRECTED ONCE A DAY TO MONITOR BLOOD GLUCOSE [facility] blood sugar diagnostic (ONETOUCH ULTRA TEST) strip 02-07 00:00: 00 Yes [id number] USE 1 STRIP TO CHECK GLUCOSE ONCE DAILY [facility] gabapentin 100 mg capsule 02-07 00:00: 00 05-03 00:00 :00 No [id number] 100mg Take 1 capsule by mouth at bedtime. [facility] metoprolol tartrate 25 mg tablet 02-07 00:00: 00 03-14 00:00 :00 No [id number] 25mg Take 1 tablet by mouth in the morning and 1 tablet in the evening. [facility] acetaminoph en-codeine 300-30 mg tablet 02-07 00:00: 00 02-28 00:00 :00 No [id number] 1{tbl} Take 1 tablet by mouth every 6 (six) hours as needed for Pain (scale 7-10). Indication s: acute pain [facility] losartan 100 mg tablet 02-07 00:00: 00 02-28 00:00 :00 No [id number] 100mg Take 1 tablet by mouth in the morning. [facility] atorvastati n 80 mg tablet 02-07 00:00: 00 02-15 00:00 :00 No [id number] 80mg Take 1 tablet by mouth in the morning. [facility] acetaminoph en 325 mg tablet 02-07 00:00: 00 02-07 00:00 :00 No [id number] 650mg Take 2 tablets by mouth every 6 (six) hours as needed for Pain (scale 4-6). [facility] KCL (KLOR-CON M20) tablet 20 mEq 02-06 19:45: 00 Yes 20meq 20 mEq, Oral, DAILY, First dose on 02/07/24 at 1445, Until Discontinu ed, Routine [facility] furosemide (LASIX) tablet 10 mg 02-06 19:45: 00 Yes 10mg 10 mg, Oral, DAILY, First dose on 02/07/24 at 1445, Until Discontinu ed, Routine [facility] amLODIPine (NORVASC) tablet 10 mg 02-06 14:00: 00 Yes 10mg 10 mg, Oral, DAILY, First dose on 02/07/24 at 0900, Until Discontinu ed, Routine [facility] DULoxetine (CYMBALTA) capsule 30 mg 02-06 14:00: 00 Yes 30mg 30 mg, Oral, DAILY, First dose on 02/07/24 at 0900, Until Discontinu ed, Routine [facility] metoprolol tartrate (LOPRESSOR) tablet 25 mg 02-05 13:00: 00 Yes 25mg 25 mg, Oral, BID, First dose (after last modificati on) on Thu02/06/24 at 0800, Until Discontinu ed, Routine [facility] magnesium oxide (MAG-OX 400) tablet 400 mg 02-05 01:00: 00 Yes 400mg 400 mg, Oral, BID, First dose on Thu02/05/24 at 2000, Until Discontinu ed, Routine [facility] metoprolol tartrate (LOPRESSOR) tablet 12.5 mg 2024-0 7-20 00:15: 00 02-05 00:15 :00 No 12.5mg 12.5 mg, Oral, ONCE, 1 dose, On Thu02/05/24 at 1915, Routine [facility] magnesium sulfate in water 2 gram/50 mL (4 %) infusion 2 g 02-04 23:15: 00 02-05 00:31 :00 No 2g 2 g, IV Piggyback, Administer over 60 Minutes, ONCE, 1 dose, On Thu02/05/24 at 1815, Routine [facility] digoxin (LANOXIN) injection 500 mcg 02-04 23:15: 00 02-04 23:28 :00 No .5mg 500 mcg (0.5 mg), Slow IV Push, Administer over 6 Minutes, ONCE, 1 dose, On Thu02/05/24 at 1815, Routine [facility] digoxin (LANOXIN) injection 250 mcg 02-04 23:11: 35 Yes 250ug 250 mcg, Slow IV Push, Q2HPRN, 3 doses, Starting on Thu02/05/24 at 1811, Until Discontinu ed, Routine, If ventricula r rate remains > 120/minute [facility] tamsulosin (FLOMAX) capsule 0.4 mg 02-03 20:00: 00 Yes .4mg 0.4 mg, Oral, DAILY, First dose on Thu02/04/24 at 1500, Until Discontinu ed, Routine [facility] metoprolol tartrate (LOPRESSOR) tablet 12.5 mg 02-03 13:00: 00 02-04 23:13 :06 No 12.5mg 12.5 mg, Oral, BID, First dose on Thu02/04/24 at 0800, Until Discontinu ed, Routine [facility] atorvastati n (LIPITOR) tablet 80 mg 02-03 02:00: 00 Yes 80mg 80 mg, Oral, QHS, First dose on Thu02/03/24 at 2100, Until Discontinu ed, Routine [facility] proMETHazin e (PHENERGAN) 12.5 mg in NS 50 mL IV piggyback (CNR) 02-02 23:28: 46 Yes 12.5mg 12.5 mg, IV Piggyback, at 200 mL/hr Administer over 15 Minutes, Q4HPRN, Starting on Thu02/03/24 at 1828, Until Discontinu ed, Routine, N/V unresponsi ve to Ondansetro n [facility] phenoL (SORE THROAT (PHENOL)) 1.4 % spray bottle 1 [place] 02-02 23:27: 06 Yes 1{spray } 1 [place], Oral, PRN, Starting on Thu02/03/24 at 1827, Until Discontinu ed, Routine, Sore throat [facility] albumin (ALBUTEIN 5 %) 5 % injection 25 g 02-02 23:15: 00 02-02 23:09 :00 No 25g 25 g, IV Infusion, ONCE, 1 dose, On Thu02/03/24 at 1815, 500 mL, Indication : SEVERE SEPSIS AND SEPTIC SHOCK, Comments: First-line therapy: Crystalloi ds. Albumin in fluid resuscitat ion when patient requires substantia l amounts of crystalloi ds. [facility] Sliding Scale Insulin - Lispro (HumaLOG) 02-02 17:00: 00 Yes Subcutaneo us, TID MEALS+HS, First dose on Thu02/03/24 at 1200, Until Discontinu ed, Routine [facility] clopidogreL (PLAVIX) 75 mg tablet 75 mg 02-02 14:00: 00 Yes 75mg 75 mg, Oral, DAILY, First dose on Thu02/03/24 at 0900, Until Discontinu ed, Routine [facility] pantoprazol e (PROTONIX) EC tablet 40 mg 02-02 14:00: 00 Yes 40mg 40 mg, Oral, DAILY, First dose on Thu02/03/24 at 0900, Until Discontinu ed, Routine [facility] sennosides (SENOKOT) tablet 8.6 mg 02-02 14:00: 00 Yes 8.6mg 8.6 mg, Oral, DAILY, First dose on Thu02/03/24 at 0900, Until Discontinu ed, Routine [facility] docusate (COLACE) capsule 100 mg 02-02 14:00: 00 Yes 100mg 100 mg, Oral, DAILY, First dose on Thu02/03/24 at 0900, Until Discontinu ed, Routine [facility] heparin (porcine) injection 5,000 Units 02-02 13:00: 00 Yes 5000U 5,000 Units, Subcutaneo us, Q12H, First dose on Thu02/03/24 at 0800, Until Discontinu ed, Routine [facility] aspirin chewable tablet 81 mg 02-02 04:00: 00 Yes 81mg 81 mg, Oral, DAILY, First dose on Thu02/02/24 at 2300, Until Discontinu ed, Routine [facility] ceFAZolin (ANCEF) 2,000 mg in NaCl 0.9% (NS) 100 mL MINI-BAG 02-01 23:00: 00 02-02 15:07 :00 No 2000mg 2,000 mg, IV Piggyback, Q8H ABX, 3 doses, First dose on Thu02/02/24 at 1800, Last dose on Thu02/03/24 at 1000, Administer over 30 Minutes, 100 mL, Reason for Anti-Infec tive: Surgical Prophylaxi s, Surgical Prophylaxi s: Neurosurge ry, Duration of therapy: within 24 hours of surgery [facility] albumin (ALBUTEIN 5 %) 5 % injection 25 g 02-01 22:30: 00 02-01 22:39 :00 No 25g 25 g, IV Infusion, ONCE, 1 dose, On Thu02/02/24 at 1745, 500 mL, Indication : POST-OPERA TIVE VOLUME RESUSCITAT ION-CARDIA C SURGERY, Comments: May only be used if 3L or more of crystalloi d has been administer ed within a given 24 hour period without an adequate hemodynami c response. [facility] lactated ringers IV infusion 1,000 mL 02-01 22:15: 00 02-04 20:08 :04 No 1000mL at 50 mL/hr, 1,000 mL, IV Infusion, CONTINUOUS , Starting on Thu02/02/24 at 1715, Until Thu02/05/24 at 1508, Routine [facility] EPINEPHrine 4,000 mcg in NaCl 0.9% (NS) 250 mL infusion 02-01 20:55: 27 02-02 13:39 :27 No .01ug/k g/min 0.01-0.7 mcg/kg/min ?72.1 kg (2.7038-18 9.2625 mL/hr, rounded to 2.7-189.26 mL/hr), IV Infusion, TITRATE, MAP Goal > or = 65 mmHg, Starting on Thu02/02/24 at 1555, Initiate rate at 0.01 mcg/kg/min . Titrate by 0.05 mcg/kg/min every 30 seconds to 10 minutes as needed to reach and maintain goal blood pressure. Maximum dose = 0.7 mcg/kg/min . If goal not maintained at maximum allowed dose, contact prescriber . [facility] NORepinephr ine (LEVOPHED) 4 mg/250 mL in 0.9% NaCl infusion 02-01 20:53: 50 02-02 17:40 :09 No .05ug/k g/min 0.05-1.5 mcg/kg/min ?72.1 kg (13.5188-4 05.5625 mL/hr, rounded to 13.52-405. 56 mL/hr), IV Infusion, TITRATE, MAP Goal > or = 65 mmHg, Starting on Thu02/02/24 at 1553, Initiate titration at 0.01 mcg/kg/min . Increase by 0.01 mcg/kg/min every 30 seconds to 5 minutes as needed to reach and maintain goal blood pressure. Maximum dose = 1.5 mcg/kg/min . If goal not maintained at maximum allowed dose, contact prescriber . [facility] ondansetron (ZOFRAN (PF)) injection 4 mg 02-01 19:55: 04 Yes 4mg 4 mg, Slow IV Push, Q6HPRN, Starting on Thu02/02/24 at 1455, Until Discontinu ed, CASA, Nausea and Vomiting (N/V) [facility] furosemide (LASIX) injection 20 mg 02-01 19:53: 50 Yes 20mg 20 mg, IV Push, PRN, 2 doses, Starting on Thu02/02/24 at 1453, Until Discontinu ed, CASA, Pressure Maintenanc e [facility] NaCl 0.9% (NS) bolus infusion 250 mL 02-01 19:53: 50 Yes 250mL at 999 mL/hr, 250 mL, IV Infusion, PRN - SEE INSTRUCTIO NS, 3 doses, Starting on Thu02/02/24 at 1453, Until Discontinu ed, CASA [facility] dextrose 10% (D10W) bolus infusion 250 mL 02-01 19:53: 50 Yes 250mL 250 mL, IV Infusion, PRN - SEE INSTRUCTIO NS, Administer over 60 Minutes, Other, If blood glucose is < or = 70 mg/dL and patient is unable to swallow or has mental status changes, Starting on Thu02/02/24 at 1453, If blood glucose is < or = 70 mg/dL and patient is unable to swallow or has mental status changes (Give glucagon order if patient needs fluid restrictio n): IF IV access available: Dextrose 10%. 1. 125 mL (? bag) of D10W IV infusion - equivalent to 12.5 g dextrose 2. Blood glucose - draw blood glucose 15 minutes after D10W Administra tion. 3. If blood glucose is < 80 mg/dL, repeat. [facility] glucagon (GLUCAGEN DIAGNOSTIC KIT) injection 1 mg 02-01 19:53: 50 Yes 1mg 1 mg, Intramuscu lar, PRN, Starting on Thu02/02/24 at 1453, Until Discontinu ed, CASA, Blood Glucose < or = 70 mg/dL and patient is NPO, unable to swallow or has mental changes. [facility] dextrose 50 % in water (D50W) injection 25 mL 02-01 19:53: 50 Yes 25mL 25 mL, Slow IV Push, PRN, Starting on Thu02/02/24 at 1453, Until Discontinu ed, CASA, Blood Glucose < or = 70 mg/dL and patient is NPO, unable to swallow or has mental status changes. [facility] acetaminoph en (TYLENOL) suppository 650 mg 02-01 19:53: 50 Yes 650mg 650 mg, Rectal, Q6HPRN, Starting on Thu02/02/24 at 1453, Until Discontinu ed, CASA, Temp > 38 C [facility] acetaminoph en (TYLENOL) tablet 650 mg 02-01 19:53: 49 Yes 650mg 650 mg, Oral, Q6HPRN, Starting on Thu02/02/24 at 1453, Until Discontinu ed, CASA, Temp > 38 C [facility] acetamino en-codeine (TYLENOL #3) 300-30 mg tablet 1 tablet 02-01 19:53: 49 Yes 1{tbl} 1 tablet, Oral, Q6HPRN, Starting on Thu02/02/24 at 1453, Until Discontinu ed, Routine, Pain (scale 4-6) [facility] Transfuse Packed RBC (in units)~ 02-01 19:35: 25 02-01 20:34 :43 No Routine [facility] sugammadex (BRIDION) injection 02-01 19:24: 00 02-01 20:34 :43 No IV Push, ONCE INTRA PROCEDURE, Starting on Thu02/02/24 at 1424, Until Thu02/02/24 at 1534, Routine, Intra-op [facility] vasopressin (VASOSTRICT ) 20 Units in NaCl 0.9% (NS) 50 mL infusion 02-01 18:59: 00 02-01 20:34 :43 No IV Infusion, CONTINUOUS PRN, Starting on Thu02/02/24 at 1359, Until Thu02/02/24 at 1534, Intra-op [facility] albuterol (VENTOLIN) inhaler 02-01 18:58: 00 02-01 20:34 :43 No Inhalation , ONCE INTRA PROCEDURE, Starting on Thu02/02/24 at 1358, Until Thu02/02/24 at 1534, Routine, Intra-op [facility] ondansetron (ZOFRAN (PF)) injection 02-01 18:57: 00 02-01 20:34 :43 No Slow IV Push, ONCE INTRA PROCEDURE, Starting on Thu02/02/24 at 1357, Until Thu02/02/24 at 1534, Routine, Intra-op [facility] acetaminoph en (OFIRMEV) IV piggyback 02-01 18:57: 00 02-01 20:34 :43 No IV Infusion, Administer over 15 Minutes, ONCE INTRA PROCEDURE, Starting on Thu02/02/24 at 1357, Until Thu02/02/24 at 1534, Routine, Intra-op [facility] albumin (ALBUTEIN 5 %) 5 % injection 02-01 18:45: 00 02-01 20:34 :43 No IV Infusion, CONTINUOUS PRN, Starting on Thu02/02/24 at 1345, Until Thu02/02/24 at 1534, Intra-op [facility] calcium chloride 100 mg/mL (10 %) syringe 02-01 18:43: 00 02-01 20:34 :43 No Intravenou s, ONCE INTRA PROCEDURE, Starting on Thu02/02/24 at 1343, Until Thu02/02/24 at 1534, Routine, Intra-op [facility] protamine injection 02-01 18:42: 00 02-01 20:34 :43 No Intravenou s, ONCE INTRA PROCEDURE, Starting on Thu02/02/24 at 1342, Until Thu02/02/24 at 1534, Routine, Intra-op [facility] glycopyrrol ate (ROBINUL) injection 02-01 18:11: 00 02-01 20:34 :43 No Intravenou s, ONCE INTRA PROCEDURE, Starting on Thu02/02/24 at 1311, Until Thu02/02/24 at 1534, Routine, Intra-op [facility] EPINEPHrine 1:10,000 injection 02-01 18:11: 00 02-01 20:34 :43 No IV Push, ONCE INTRA PROCEDURE, Starting on Thu02/02/24 at 1311, Until Thu02/02/24 at 1534, Routine, Intra-op [facility] EPINEPHrine 4 mg in NaCl 0.9% (NS) 250 mL infusion 02-01 18:11: 00 02-01 20:34 :43 No IV Infusion, CONTINUOUS PRN, Starting on Thu02/02/24 at 1311, Intra-op [facility] magnesium sulfate in water 2 gram/50 mL (4 %) infusion 02-01 18:08: 00 02-01 20:34 :43 No IV Piggyback, Administer over 60 Minutes, ONCE INTRA PROCEDURE, Starting on Thu02/02/24 at 1308, Until Thu02/02/24 at 1534, Routine, Intra-op [facility] NORepinephr ine (LEVOPHED) 4 mg in NaCl 0.9% (NS) 250 mL infusion 02-01 14:42: 00 02-01 20:34 :43 No IV Infusion, CONTINUOUS PRN, Starting on Thu02/02/24 at 0942, Intra-op [facility] insulin regular human (HUMULIN R) 100 Units in NaCl 0.9% (NS) 100 mL infusion 02-01 14:16: 00 02-01 20:34 :43 No IV Infusion, CONTINUOUS PRN, Starting on Thu02/02/24 at 0916, Until Thu02/02/24 at 1534, Intra-op [facility] heparin 1,000 unit/mL injection 02-01 14:05: 00 02-01 20:34 :43 No Slow IV Push, ONCE INTRA PROCEDURE, Starting on Thu02/02/24 at 0905, Until Thu02/02/24 at 1534, Routine, Intra-op [facility] heparin 1,000 unit/mL 2,500 Units, papaverine 60 mg in NaCl 0.9% (NS) 100 mL OR irrigation 02-01 13:34: 00 02-02 13:39 :27 No PRN, Starting on Thu02/02/24 at 0834, Intra-op [facility] aminocaproi c acid (AMICAR) 5 g in NaCl 0.9% (NS) 250 mL infusion 02-01 12:55: 00 02-01 20:34 :43 No IV Infusion, CONTINUOUS PRN, Starting on Thu02/02/24 at 0755, Intra-op [facility] ceFAZolin (ANCEF) injection 02-01 12:55: 00 02-01 20:34 :43 No Intravenou s, ONCE INTRA PROCEDURE, Starting on Thu02/02/24 at 0755, Until Thu02/02/24 at 1534, CASA, Intra-op [facility] ceFAZolin (ANCEF) 1 g in NaCl 0.9% (NS) 600 mL OR irrigation 02-01 12:45: 00 02-02 13:39 :37 No PRN, Starting on Thu02/02/24 at 0745, Intra-op [facility] heparin 1,000 unit/mL 5,000 Units in NaCl 0.9% (NS) 500 mL OR irrigation 02-01 12:44: 00 02-02 13:39 :27 No PRN, Starting on Thu02/02/24 at 0744, Intra-op [facility] dexamethaso ne (DECADRON PHOSPHATE) injection 02-01 12:40: 00 02-01 20:34 :43 No Infiltrati on, ONCE INTRA PROCEDURE, Starting on Thu02/02/24 at 0740, Until Thu02/02/24 at 1534, Routine, Intra-op [facility] lidocaine in NaCl,iso-os mo(PF) 100 mg/10 mL (1 %) injection syringe 02-01 12:40: 00 02-01 20:34 :43 No Infiltrati on, ONCE INTRA PROCEDURE, Starting on Thu02/02/24 at 0740, Until Thu02/02/24 at 1534, Routine, Intra-op [facility] ropivacaine 0.5 % (NAROPIN (PF)) injection 02-01 12:40: 00 02-01 20:34 :43 No Infiltrati on, ONCE INTRA PROCEDURE, Starting on Thu02/02/24 at 0740, Until Thu02/02/24 at 1534, Routine, Intra-op [facility] bupivacaine (preserv free) (SENSORCAIN E MPF) 0.25 % (2.5 mg/mL) injection 02-01 12:40: 00 02-01 20:34 :43 No Infiltrati on, ONCE INTRA PROCEDURE, Starting on Thu02/02/24 at 0740, Until Thu02/02/24 at 1534, Routine, Intra-op [facility] EPINEPHrine 1:1,000 (1 mg/mL) (ADRENALIN) injection 02-01 12:40: 00 02-01 20:34 :43 No Infiltrati on, ONCE INTRA PROCEDURE, Starting on Thu02/02/24 at 0740, Until Thu02/02/24 at 1534, Routine, Intra-op [facility] dexmedeTOMI Dine (PRECEDEX) injection 02-01 12:40: 00 02-01 20:34 :43 No Intravenou s, ONCE INTRA PROCEDURE, Starting on Thu02/02/24 at 0740, Until Thu02/02/24 at 1534, Routine, Intra-op [facility] NaCl 0.9% (NS) IV infusion 02-01 12:35: 00 02-01 20:34 :43 No IV Infusion, CONTINUOUS PRN, Starting on Thu02/02/24 at 0735, Until Thu02/02/24 at 1534, Routine, Intra-op [facility] NaCl 0.9% (NS) IV infusion 02-01 12:31: 00 02-01 20:34 :43 No IV Infusion, CONTINUOUS PRN, Starting on Thu02/02/24 at 0731, Until Thu02/02/24 at 1534, Routine, Intra-op [facility] rocuronium (ZEMURON) injection 02-01 12:27: 00 02-01 20:34 :43 No IV Push, ONCE INTRA PROCEDURE, Starting on Thu02/02/24 at 0727, Until Thu02/02/24 at 1534, Routine, Intra-op [facility] propofoL IV infusion 02-01 12:27: 00 02-01 20:34 :43 No Intravenou s, ONCE INTRA PROCEDURE, Starting on Thu02/02/24 at 0727, Until Thu02/02/24 at 153, Routine, Intra-op [facility] lidocaine 1% (XYLOCAINE) 100 mg/10 mL (1 %) injection 02-01 12:27: 00 02-01 20:34 :43 No Intravenou s, ONCE INTRA PROCEDURE, Starting on Thu02/02/24 at 0727, Until Thu02/02/24 at 1534, Routine, Intra-op [facility] HYDROmorphO ne (DILAUDID) injection 02-01 12:27: 00 02-01 20:34 :43 No Slow IV Push, ONCE INTRA PROCEDURE, Starting on Thu02/02/24 at 0727, Until Thu02/02/24 at 1534, Routine, Intra-op [facility] lactated ringers IV infusion 02-01 12:10: 00 02-01 20:34 :43 No IV Infusion, CONTINUOUS PRN, Starting on Thu02/02/24 at 0710, Until Thu02/02/24 at 1534, Routine, Intra-op [facility] vasopressin (VASOSTRICT ) 20 Units in NaCl 0.9% (NS) 50 mL infusion 02-01 11:30: 00 02-02 02:36 :53 No .01U/mi n 0.01 Units/min (1.5 mL/hr), IV Infusion, CONTINUOUS , Starting on Thu02/02/24 at 0630, Until Thu02/02/24 at 2136, DSU Pre-op [facility] metoprolol tartrate (LOPRESSOR) tablet 25 mg 02-01 10:30: 00 02-01 11:01 :00 No 25mg 25 mg, Oral, ONCE NOW, 1 dose, On Thu02/02/24 at 0530, Routine, DSU Pre-op [facility] famotidine (PEPCID (PF)) injection 20 mg 02-01 10:26: 42 02-01 11:02 :00 No 20mg 20 mg, Slow IV Push, O.R. HOLDING ONCE, 1 dose, Starting on Thu02/02/24 at 0526, Until Thu02/02/24 at 0602, Routine, Surgery/Pr ocedure, DSU Pre-op [facility] atorvastati n 80 mg tablet 01-06 00:00: 00 02-07 00:00 :00 No [id number] 80mg Take 1 tablet by mouth in the morning. [facility] blood sugar diagnostic (ONETOUCH ULTRA TEST) strip 01-04 00:00: 00 02-07 00:00 :00 No [id number] USE 1 STRIP TO CHECK GLUCOSE ONCE DAILY [facility] aspirin 325 mg tablet 12-29 11:09: 44 02-07 00:00 :00 No 81mg Take 81 mg by mouth daily. [facility] aspirin 325 mg tablet 12-29 09:38: 34 Yes 81mg Take 81 mg by mouth daily. [facility] iopamidol (ISOVUE 300-500 mL) injection 12-21 16:17: 39 12-21 16:24 :16 No ONCE INTRA PROCEDURE, Starting on Thu12/22/23 at 1117, Until Thu12/22/23 at 1124, Routine, CV Intraproce dure [facility] verapamiL (ISOPTIN) injection 12-21 15:59: 19 12-21 16:24 :16 No ONCE INTRA PROCEDURE, Starting on e 12/22/23 at 1059, Until 12/22/23 at 1124, Routine, CV Intraproce dure [facility] nitroglycer in (TRIDIL) 2 mg in 10 mL D5W for Cardiac Cath 12-21 15:59: 03 12-21 16:24 :16 No ONCE INTRA PROCEDURE, Starting on e 12/22/23 at 1059, Until 12/22/23 at 1124, Routine, CV Intraproce dure [facility] heparin 1,000 unit/mL injection 12-21 15:58: 48 12-21 16:24 :16 No ONCE INTRA PROCEDURE, Starting on e 12/22/23 at 1058, Until 12/22/23 at 1124, Routine, CV Intraproce dure [facility] lidocaine 1% (XYLOCAINE) 10 mg/mL (1 %) injection 12-21 15:54: 39 12-21 16:24 :16 No ONCE INTRA PROCEDURE, Starting on e 12/22/23 at 1054, Until 12/22/23 at 1124, Routine, CV Intraproce dure [facility] midazolam (VERSED) injection 12-21 15:39: 36 12-21 16:24 :16 No ONCE INTRA PROCEDURE, Starting on Thu12/22/23 at 1039, Until 12/22/23 at 1124, Routine, CV Intraproce dure [facility] FENTanyl PF (SUBLIMAZE (PF)) injection 12-21 15:39: 25 12-21 16:24 :16 No ONCE INTRA PROCEDURE, Starting on e 12/22/23 at 1039, Until 12/22/23 at 1124, Routine, CV Intraproce dure [facility] aspirin 325 mg tablet 12-21 07:21: 38 Yes 81mg Take 81 mg by mouth daily. [facility] perflutren lipid microsphere s (DEFINITY) injection 2 mL 11-12 19:15: 00 11-12 19:05 :00 No [id number] 2mL 2 mL, IV Push, ONCE, 1 dose, On Thu11/13/23 at 1415, Routine [facility] amLODIPine 10 mg tablet 10-28 00:00: 00 02-07 00:00 :00 No [id number] 10mg Take 1 tablet by mouth in the morning. [facility] metoprolol succinate XL (TOPROL XL) 100 mg 24 hr tablet 10-28 00:00: 00 02-07 00:00 :00 No [id number] 100mg Take 1 tablet by mouth in the morning. [facility] losartan 100 mg tablet 10-28 00:00: 00 02-07 00:00 :00 No [id number] 100mg Take 1 tablet by mouth in the morning. [facility] atorvastati n 40 mg tablet 10-28 00:00: 00 01-06 00:00 :00 No [id number] 40mg Take 1 tablet by mouth in the morning. [facility] atorvastati n 40 mg tablet 10-22 00:00: 00 10-28 00:00 :00 No [id number] 40mg Take 1 tablet by mouth in the morning. [facility] amLODIPine 10 mg tablet 10-22 00:00: 00 10-28 00:00 :00 No [id number] 10mg Take 1 tablet by mouth in the morning. [facility] METFORMIN ER 500 mg 24 hr tablet 2022-07 225 00:00: 00 03-01 00:00 :00 No [id number] TAKE 1 TABLET BY MOUTH TWICE DAILY BEFORE BREAKFAST AND BEFORE SUPPER [facility] DULoxetine 30 mg capsule 2022-07 0-20 00:00: 00 02-07 00:00 :00 No [id number] 30mg Take 1 capsule by mouth in the morning. [facility] gabapentin 100 mg capsule 2022-07 0- 00:00: 00 02-07 00:00 :00 No [id number] 100mg Take 1 capsule by mouth at bedtime. [facility] gabapentin 100 mg capsule 4-17 00:00: 00 05-08 00:00 :00 No [id number] 100mg Take 1 capsule by mouth at bedtime. [facility] metoprolol succinate XL (TOPROL XL) 100 mg 24 hr tablet 2-13 00:00: 00 10-28 00:00 :00 No 100mg Take 1 tablet by mouth in the morning. [facility] blood sugar diagnostic (ONETOUCH ULTRA TEST) strip 08-06 00:00: 00 Yes [id number] USE 1 STRIP TO CHECK GLUCOSE ONCE DAILY [facility] blood sugar diagnostic (ONETOUCH ULTRA TEST) strip 08-06 00:00: 00 01-04 00:00 :00 No [id number] USE 1 STRIP TO CHECK GLUCOSE ONCE DAILY [facility] amLODIPine 10 mg tablet 2021-07 00:00: 00 10-22 00:00 :00 No [id number] 10mg Take 1 tablet by mouth in the morning. [facility] atorvastati n 40 mg tablet 2021-07 00:00: 00 10-22 00:00 :00 No [id number] 40mg Take 1 tablet by mouth in the morning. [facility] lancets (ONETOUCH DELICA LANCETS) 30 gauge Misc 2021-07 00:00: 00 02-07 00:00 :00 No [id number] USE DIRECTED ONCE A DAY TO MONITOR BLOOD GLUCOSE [facility] blood sugar diagnostic (ONETOUCH ULTRA TEST) strip 2021-07 00:00: 00 08-06 00:00 :00 No [id number] USE 1 STRIP TO CHECK GLUCOSE ONCE DAILY [facility] aspirin 325 mg tablet 2021-07 0 14:32: 55 Yes 81mg Take 81 mg by mouth daily. [facility] metformin ER 500 mg 24 hr tablet 2021-07 00:00: 00 07-13 00:00 :00 No [id number] 500mg Take 1 tablet by mouth 2 (two) times daily before breakfast and dinner. [facility] gabapentin 100 mg capsule 2021-07 0-14 00:00: 00 11-03 00:00 :00 No [id number] 100mg Take 1 capsule by mouth at bedtime. [facility] metformin ER 500 mg 24 hr tablet 9-29 00:00: 00 05-02 00:00 :00 No [id number] 500mg Take 1 tablet by mouth 2 (two) times daily before breakfast and dinner. [facility] losartan 100 mg tablet 5- 00:00: 00 10-28 00:00 :00 No [id number] 100mg Take 1 tablet by mouth daily. [facility] aspirin 325 mg tablet 11-15 11:13: 21 Yes 81mg Take 81 mg by mouth daily. [facility] gabapentin 100 mg capsule 4-22 00:00: 00 05-02 00:00 :00 No [id number] 100mg Take 1 capsule by mouth at bedtime. [facility] metformin ER 500 mg 24 hr tablet 4-07 00:00: 00 04-17 00:00 :00 No [id number] 500mg Take 1 tablet by mouth 2 (two) times daily before breakfast and dinner. [facility] blood sugar diagnostic (ONETOUCH ULTRA TEST) strip 2- 00:00: 00 05-09 00:00 :00 No [id number] USE 1 STRIP TO CHECK GLUCOSE ONCE DAILY [facility] metoprolol succinate XL (TOPROL XL) 100 mg 24 hr tablet 1-10 00:00: 00 09-01 00:00 :00 No 100mg Take 1 tablet by mouth daily. [facility] amLODIPine 10 mg tablet 1-10 00:00: 00 06-16 00:00 :00 No [id number] 10mg Take 1 tablet by mouth daily. [facility] atorvastati n 40 mg tablet 07-29 00:00: 00 06-16 00:00 :00 No [id number] 40mg Take 1 tablet by mouth daily. [facility] ONETOUCH DELICA LANCETS 30 gauge Misc 2020-07 00:00: 00 05-09 00:00 :00 No Use as directed, once a day to monitor blood glucose for ICD code E11.9 [facility] BASAGLCASEY BRAXTON U-100 INSULIN 100 unit/mL (3 mL) injection 2020-07 00:00: 00 05-02 00:00 :00 No [facility] foLIC acid 1 mg tablet 2020-07 00:00: 00 Yes [facility] Immunizations Ordered Immunization Name Filled Immunization Name Date Status Comments Source SARS-COV-2 COVID-19 PFIZER VACCINE 2021-06-27 00:00:00 Completed [facility] SARS-COV-2 COVID-19 PFIZER VACCINE 2021-06-27 00:00:00 Completed [facility] SARS-COV-2 COVID-19 PFIZER VACCINE 2021-06-27 00:00:00 Completed [facility] SARS-COV-2 COVID-19 PFIZER VACCINE 2021-06-27 00:00:00 Completed [facility] SARS-COV-2 COVID-19 PFIZER VACCINE 2021-06-27 00:00:00 Completed [facility] SARS-COV-2 COVID-19 PFIZER VACCINE 2021-06-27 00:00:00 Completed [facility] SARS-COV-2 COVID-19 PFIZER VACCINE 2021-06-27 00:00:00 Completed [facility] SARS-COV-2 COVID-19 PFIZER VACCINE 2021-06-27 00:00:00 Completed [facility] SARS-COV-2 COVID-19 PFIZER VACCINE 2021-06-27 00:00:00 Completed [facility] SARS-COV-2 COVID-19 PFIZER VACCINE 2021-06-27 00:00:00 Completed [facility] SARS-COV-2 COVID-19 PFIZER VACCINE 2021-06-27 00:00:00 Completed [facility] SARS-COV-2 COVID-19 PFIZER VACCINE 2021-06-27 00:00:00 Completed [facility] SARS-COV-2 COVID-19 PFIZER VACCINE 2021-06-27 00:00:00 Completed [facility] SARS-COV-2 COVID-19 PFIZER VACCINE 2021-06-27 00:00:00 Completed [facility] SARS-COV-2 COVID-19 PFIZER VACCINE 2021-06-27 00:00:00 Completed [facility] SARS-COV-2 COVID-19 PFIZER VACCINE 2021-06-27 00:00:00 Completed [facility] SARS-COV-2 COVID-19 PFIZER VACCINE 2021-06-27 00:00:00 Completed [facility] SARS-COV-2 COVID-19 PFIZER VACCINE 2021-06-27 00:00:00 Completed [facility] SARS-COV-2 COVID-19 PFIZER VACCINE 2021-06-27 00:00:00 Completed [facility] SARS-COV-2 COVID-19 PFIZER VACCINE 2021-06-27 00:00:00 Completed [facility] SARS-COV-2 COVID-19 PFIZER VACCINE 2021-06-27 00:00:00 Completed [facility] SARS-COV-2 COVID-19 SAM/J&J VACCINE 2020-09-28 00:00:00 Completed [facility] SARS-COV-2 COVID-19 SAM/J&J VACCINE 2020-09-28 00:00:00 Completed [facility] SARS-COV-2 COVID-19 SAM/J&J VACCINE 2020-09-28 00:00:00 Completed [facility] SARS-COV-2 COVID-19 SAM/J&J VACCINE 2020-09-28 00:00:00 Completed [facility] SARS-COV-2 COVID-19 SAM/J&J VACCINE 2020-09-28 00:00:00 Completed [facility] SARS-COV-2 COVID-19 SAM/J&J VACCINE 2020-09-28 00:00:00 Completed [facility] SARS-COV-2 COVID-19 SAM/J&J VACCINE 2020-09-28 00:00:00 Completed [facility] SARS-COV-2 COVID-19 SAM/J&J VACCINE 2020-09-28 00:00:00 Completed [facility] SARS-COV-2 COVID-19 SAM/J&J VACCINE 2020-09-28 00:00:00 Completed [facility] SARS-COV-2 COVID-19 SAM/J&J VACCINE 2020-09-28 00:00:00 Completed [facility] SARS-COV-2 COVID-19 SAM/J&J VACCINE 2020-09-28 00:00:00 Completed [facility] SARS-COV-2 COVID-19 SAM/J&J VACCINE 2020-09-28 00:00:00 Completed [facility] SARS-COV-2 COVID-19 SAM/J&J VACCINE 2020-09-28 00:00:00 Completed [facility] SARS-COV-2 COVID-19 SAM/J&J VACCINE 2020-09-28 00:00:00 Completed [facility] SARS-COV-2 COVID-19 SAM/J&J VACCINE 2020-09-28 00:00:00 Completed [facility] SARS-COV-2 COVID-19 SAM/J&J VACCINE 2020-09-28 00:00:00 Completed [facility] SARS-COV-2 COVID-19 SAM/J&J VACCINE 2020-09-28 00:00:00 Completed SARS-COV-2 COVID-19 SAM/J&J VACCINE 2020-09-28 00:00:00 Completed SARS-COV-2 COVID-19 SAM/J&J VACCINE 2020-09-28 00:00:00 Completed SARS-COV-2 COVID-19 SAM/J&J VACCINE 2020-09-28 00:00:00 Completed SARS-COV-2 COVID-19 SAM/J&J VACCINE 2020-09-28 00:00:00 Completed SARS-COV-2 COVID-19 SAM/J&J VACCINE Unknown Completed [facility] SARS-COV-2 COVID-19 PFIZER VACCINE Unknown Completed [facility] SARS-COV-2 COVID-19 SAM/J&J VACCINE Unknown Completed [facility] SARS-COV-2 COVID-19 PFIZER VACCINE Unknown Completed [facility] SARS-COV-2 COVID-19 SAM/J&J VACCINE Unknown Completed [facility] SARS-COV-2 COVID-19 PFIZER VACCINE Unknown Completed [facility] SARS-COV-2 COVID-19 SAM/J&J VACCINE Unknown Completed [facility] SARS-COV-2 COVID-19 PFIZER VACCINE Unknown Completed [facility] SARS-COV-2 COVID-19 SAM/J&J VACCINE Unknown Completed [facility] SARS-COV-2 COVID-19 PFIZER VACCINE Unknown Completed [facility] SARS-COV-2 COVID-19 SAM/J&J VACCINE Unknown Completed [facility] SARS-COV-2 COVID-19 PFIZER VACCINE Unknown Completed [facility] SARS-COV-2 COVID-19 SAM/J&J VACCINE Unknown Completed [facility] SARS-COV-2 COVID-19 PFIZER VACCINE Unknown Completed [facility] SARS-COV-2 COVID-19 SAM/J&J VACCINE Unknown Completed [facility] SARS-COV-2 COVID-19 PFIZER VACCINE Unknown Completed [facility] SARS-COV-2 COVID-19 SAM/J&J VACCINE Unknown Completed [facility] SARS-COV-2 COVID-19 PFIZER VACCINE Unknown Completed [facility] SARS-COV-2 COVID-19 SAM/J&J VACCINE Unknown Completed [facility] SARS-COV-2 COVID-19 PFIZER VACCINE Unknown Completed [facility] SARS-COV-2 COVID-19 SAM/J&J VACCINE Unknown Completed [facility] SARS-COV-2 COVID-19 PFIZER VACCINE Unknown Completed [facility] SARS-COV-2 COVID-19 SAM/J&J VACCINE Unknown Completed [facility] SARS-COV-2 COVID-19 PFIZER VACCINE Unknown Completed [facility] SARS-COV-2 COVID-19 SAM/J&J VACCINE Unknown Completed [facility] SARS-COV-2 COVID-19 PFIZER VACCINE Unknown Completed [facility] SARS-COV-2 COVID-19 SAM/J&J VACCINE Unknown Completed [facility] SARS-COV-2 COVID-19 PFIZER VACCINE Unknown Completed [facility] SARS-COV-2 COVID-19 SAM/J&J VACCINE Unknown Completed [facility] SARS-COV-2 COVID-19 PFIZER VACCINE Unknown Completed [facility] SARS-COV-2 COVID-19 SAM/J&J VACCINE Unknown Completed [facility] SARS-COV-2 COVID-19 PFIZER VACCINE Unknown Completed [facility] SARS-COV-2 COVID-19 SMA/J&J VACCINE Unknown Completed [facility] SARS-COV-2 COVID-19 PFIZER VACCINE Unknown Completed [facility] SARS-COV-2 COVID-19 SAM/J&J VACCINE Unknown Completed [facility] SARS-COV-2 COVID-19 PFIZER VACCINE Unknown Completed [facility] SARS-COV-2 COVID-19 SAM/J&J VACCINE Unknown Completed [facility] SARS-COV-2 COVID-19 PFIZER VACCINE Unknown Completed [facility] SARS-COV-2 COVID-19 SAM/J&J VACCINE Unknown Completed [facility] SARS-COV-2 COVID-19 PFIZER VACCINE Unknown Completed [facility] SARS-COV-2 COVID-19 SAM/J&J VACCINE Unknown Completed [facility] SARS-COV-2 COVID-19 PFIZER VACCINE Unknown Completed [facility] SARS-COV-2 COVID-19 SAM/J&J VACCINE Unknown Completed [facility] SARS-COV-2 COVID-19 PFIZER VACCINE Unknown Completed [facility] SARS-COV-2 COVID-19 SAM/J&J VACCINE Unknown Completed [facility] SARS-COV-2 COVID-19 PFIZER VACCINE Unknown Completed [facility] SARS-COV-2 COVID-19 SAM/J&J VACCINE Unknown Completed [facility] SARS-COV-2 COVID-19 PFIZER VACCINE Unknown Completed [facility] SARS-COV-2 COVID-19 SAM/J&J VACCINE Unknown Completed [facility] SARS-COV-2 COVID-19 PFIZER VACCINE Unknown Completed [facility] SARS-COV-2 COVID-19 SAM/J&J VACCINE Unknown Completed [facility] SARS-COV-2 COVID-19 PFIZER VACCINE Unknown Completed [facility] SARS-COV-2 COVID-19 SAM/J&J VACCINE Unknown Completed [facility] SARS-COV-2 COVID-19 PFIZER VACCINE Unknown Completed [facility] SARS-COV-2 COVID-19 SAM/J&J VACCINE Unknown Completed [facility] SARS-COV-2 COVID-19 PFIZER VACCINE Unknown Completed [facility] SARS-COV-2 COVID-19 SAM/J&J VACCINE Unknown Completed [facility] SARS-COV-2 COVID-19 PFIZER VACCINE Unknown Completed [facility] SARS-COV-2 COVID-19 SAM/J&J VACCINE Unknown Completed [facility] SARS-COV-2 COVID-19 PFIZER VACCINE Unknown Completed [facility] SARS-COV-2 COVID-19 SAM/J&J VACCINE Unknown Completed [facility] SARS-COV-2 COVID-19 PFIZER VACCINE Unknown Completed [facility] SARS-COV-2 COVID-19 SAM/J&J VACCINE Unknown Completed [facility] SARS-COV-2 COVID-19 PFIZER VACCINE Unknown Completed [facility] SARS-COV-2 COVID-19 SAM/J&J VACCINE Unknown Completed [facility] SARS-COV-2 COVID-19 PFIZER VACCINE Unknown Completed [facility] SARS-COV-2 COVID-19 SAM/J&J VACCINE Unknown Completed [facility] SARS-COV-2 COVID-19 PFIZER VACCINE Unknown Completed [facility] SARS-COV-2 COVID-19 SAM/J&J VACCINE Unknown Completed [facility] SARS-COV-2 COVID-19 PFIZER VACCINE Unknown Completed [facility] SARS-COV-2 COVID-19 SAM/J&J VACCINE Unknown Completed [facility] SARS-COV-2 COVID-19 PFIZER VACCINE Unknown Completed [facility] SARS-COV-2 COVID-19 SAM/J&J VACCINE Unknown Completed [facility] SARS-COV-2 COVID-19 PFIZER VACCINE Unknown Completed [facility] SARS-COV-2 COVID-19 SAM/J&J VACCINE Unknown Completed [facility] SARS-COV-2 COVID-19 PFIZER VACCINE Unknown Completed [facility] SARS-COV-2 COVID-19 SAM/J&J VACCINE Unknown Completed [facility] SARS-COV-2 COVID-19 PFIZER VACCINE Unknown Completed [facility] SARS-COV-2 COVID-19 SAM/J&J VACCINE Unknown Completed [facility] SARS-COV-2 COVID-19 PFIZER VACCINE Unknown Completed [facility] SARS-COV-2 COVID-19 SAM/J&J VACCINE Unknown Completed [facility] SARS-COV-2 COVID-19 PFIZER VACCINE Unknown Completed [facility] SARS-COV-2 COVID-19 SAM/J&J VACCINE Unknown Completed [facility] SARS-COV-2 COVID-19 PFIZER VACCINE Unknown Completed [facility] SARS-COV-2 COVID-19 SAM/J&J VACCINE Unknown Completed [facility] SARS-COV-2 COVID-19 PFIZER VACCINE Unknown Completed [facility] SARS-COV-2 COVID-19 SAM/J&J VACCINE Unknown Completed [facility] SARS-COV-2 COVID-19 PFIZER VACCINE Unknown Completed [facility] SARS-COV-2 COVID-19 SAM/J&J VACCINE Unknown Completed [facility] SARS-COV-2 COVID-19 PFIZER VACCINE Unknown Completed [facility] SARS-COV-2 COVID-19 SAM/J&J VACCINE Unknown Completed [facility] SARS-COV-2 COVID-19 PFIZER VACCINE Unknown Completed [facility] SARS-COV-2 COVID-19 SAM/J&J VACCINE Unknown Completed [facility] SARS-COV-2 COVID-19 PFIZER VACCINE Unknown Completed [facility] SARS-COV-2 COVID-19 SAM/J&J VACCINE Unknown Completed [facility] SARS-COV-2 COVID-19 PFIZER VACCINE Unknown Completed [facility] SARS-COV-2 COVID-19 SAM/J&J VACCINE Unknown Completed [facility] SARS-COV-2 COVID-19 PFIZER VACCINE Unknown Completed [facility] SARS-COV-2 COVID-19 SAM/J&J VACCINE Unknown Completed [facility] SARS-COV-2 COVID-19 PFIZER VACCINE Unknown Completed [facility] SARS-COV-2 COVID-19 SAM/J&J VACCINE Unknown Completed [facility] SARS-COV-2 COVID-19 PFIZER VACCINE Unknown Completed [facility] SARS-COV-2 COVID-19 SAM/J&J VACCINE Unknown Completed [facility] SARS-COV-2 COVID-19 PFIZER VACCINE Unknown Completed [facility] SARS-COV-2 COVID-19 SAM/J&J VACCINE Unknown Completed [facility] SARS-COV-2 COVID-19 PFIZER VACCINE Unknown Completed [facility] SARS-COV-2 COVID-19 SAM/J&J VACCINE Unknown Completed [facility] SARS-COV-2 COVID-19 PFIZER VACCINE Unknown Completed [facility] SARS-COV-2 COVID-19 SAM/J&J VACCINE Unknown Completed [facility] SARS-COV-2 COVID-19 PFIZER VACCINE Unknown Completed [facility] SARS-COV-2 COVID-19 SAM/J&J VACCINE Unknown Completed [facility] SARS-COV-2 COVID-19 PFIZER VACCINE Unknown Completed [facility] SARS-COV-2 COVID-19 SAM/J&J VACCINE Unknown Completed [facility] SARS-COV-2 COVID-19 PFIZER VACCINE Unknown Completed [facility] SARS-COV-2 COVID-19 SAM/J&J VACCINE Unknown Completed [facility] SARS-COV-2 COVID-19 PFIZER VACCINE Unknown Completed [facility] SARS-COV-2 COVID-19 SAM/J&J VACCINE Unknown Completed [facility] SARS-COV-2 COVID-19 PFIZER VACCINE Unknown Completed [facility] SARS-COV-2 COVID-19 SAM/J&J VACCINE Unknown Completed [facility] SARS-COV-2 COVID-19 PFIZER VACCINE Unknown Completed [facility] SARS-COV-2 COVID-19 SAM/J&J VACCINE Unknown Completed [facility] SARS-COV-2 COVID-19 PFIZER VACCINE Unknown Completed [facility] SARS-COV-2 COVID-19 SAM/J&J VACCINE Unknown Completed [facility] SARS-COV-2 COVID-19 PFIZER VACCINE Unknown Completed [facility] SARS-COV-2 COVID-19 SAM/J&J VACCINE Unknown Completed [facility] SARS-COV-2 COVID-19 PFIZER VACCINE Unknown Completed [facility] SARS-COV-2 COVID-19 SAM/J&J VACCINE Unknown Completed [facility] SARS-COV-2 COVID-19 PFIZER VACCINE Unknown Completed [facility] SARS-COV-2 COVID-19 SAM/J&J VACCINE Unknown Completed [facility] SARS-COV-2 COVID-19 PFIZER VACCINE Unknown Completed [facility] SARS-COV-2 COVID-19 SAM/J&J VACCINE Unknown Completed [facility] SARS-COV-2 COVID-19 PFIZER VACCINE Unknown Completed [facility] Vital Signs Vital Name Observation Time Observation Value Comments S ource Systolic blood pressure 2024-05-17 15:35:00 172 mm[Hg] [facility] Diastolic blood pressure 2024-05-17 15:35:00 93 mm[Hg] [facility] Heart rate 2024-05-17 15:35:00 78 /min [facility] Respiratory rate 2024-05-17 15:35:00 27 /min [facility] Oxygen saturation in Arterial blood by Pulse oximetry 2024-05-17 15:35:00 94 /min [facility] Body temperature 2024-05-17 14:33:00 36.94 Cher [facility] Body height 2024-05-17 14:33:00 162.6 cm [facility] Body weight 2024-05-17 14:33:00 66.225 kg [facility] BMI 2024-05-17 14:33:00 25.06 kg/m2 [facility] Systolic blood pressure 2024-05-17 15:20:00 177 mm[Hg] [facility] Diastolic blood pressure 2024-05-17 15:20:00 93 mm[Hg] [facility] Heart rate 2024-05-17 15:20:00 77 /min [facility] Respiratory rate 2024-05-17 15:20:00 26 /min [facility] Oxygen saturation in Arterial blood by Pulse oximetry 2024-05-17 15:20:00 93 /min [facility] Body temperature 2024-05-17 14:33:00 36.94 Cher [facility] Body height 2024-05-17 14:33:[address] [facility] 2024-05-17 14:33:[address] [facility] BMI 2024-05-17 14:33:00 25.06 kg/m2 [facility] Systolic blood pressure 2024-05-03 19:34:00 179 mm[Hg] [facility] Diastolic blood pressure 2024-05-03 19:34:00 112 mm[Hg] [facility] Heart rate 2024-05-03 19:34:00 83 /min [facility] Res[facility] 2024-05-03 19:34:00 18 /min [facility] Body height 2024-05-03 19:34:[address] Body weight 2024-05-03 19:34:00 66.3 kg [facility] BMI 2024-05-03 19:34:00 25.09 kg/m2 [facility] Oxygen saturation in Arterial blood by Pulse oximetry 2024-05-03 19:34:00 98 /min [facility] Systolic blood pressure 2024-05-03 18:23:00 177 mm[Hg] [facility] Diastolic blood pressure 2024-05-03 18:23:00 98 mm[Hg] [facility] Heart rate 2024-05-03 18:23:00 79 /min [facility] Body height 2024-05-03 18:23:[address] [facility] [facility] Body weight 2024-05-03 18:23:[address] [facility] BMI 2024-05-03 18:23:00 25.10 kg/m2 [facility] Oxygen saturation in Arterial blood by Pulse oximetry 2024-05-03 18:23:00 99 /min [facility] Systolic blood pressure 2024-04-20 19:04:00 177 mm[Hg] [facility] Diastolic blood pressure 2024-04-20 19:04:00 100 mm[Hg] [facility] Heart rate 2024-04-20 19:00:00 74 /min [facility]ive [facility] Body temperature 2024-04-20 19:00:00 36.39 Cher [facility] Respiratory rate 2024-04-20 19:00:00 20 /min [facility] Body height 2024-04-20 19:00:00 162.6 cm [facility] Body weight 2024-04-20 19:00:00 67.586 kg [facility] BMI 2024-04-20 19:00:00 25.58 kg/m2 [facility] Oxygen saturation in Arterial blood by Pulse oximetry 2024-04-20 19:00:00 98 /min [facility] Systolic blood pressure 2024-03-17 17:51:00 168 mm[Hg] [facility] Diastolic blood pressure 2024-03-17 17:51:00 94 mm[Hg] [facility] Heart rate 2024-03-17 17:46:00 75 /min [facility] Body temperature 2024-03-17 17:46:00 36.44 Cher [facility] Body height 2024-03-17 17:46:00 162.6 cm [facility] Body weight 2024-03-17 17:46:00 66.497 kg [facility] BMI 2024-03-17 17:46:00 25.16 kg/m2 [facility] Oxygen saturation in Arterial blood by Pulse oximetry 2024-03-17 17:46:00 99 /min [facility] Systolic blood pressure 2024-03-08 18:21:00 155 mm[Hg] [facility] Diastolic blood pressure 2024-03-08 18:21:00 86 mm[Hg] [facility] Heart rate 2024-03-08 18:21:00 73 /min [facility] Oxygen saturation in Arterial blood by Pulse oximetry 2024-03-08 18:21:00 99 /min [facility] Respiratory rate 2024-03-08 18:18:00 18 /min [facility] Body height 2024-03-08 18:18:[address] Body weight 2024-03-08 18:18:00 65.091 kg Univ [facility] BMI 2024-03-08 18:18:00 24.63 kg/m2 [facility] Systolic blood pressure 2024-03-02 14:13:00 130 mm[Hg] [facility] Diastolic blood pressure 2024-03-02 14:13:00 85 mm[Hg] [facility] Heart rate 2024-03-02 14:13:00 86 /min [facility] Respiratory rate 2024-03-02 14:13:00 17 /min [facility] Body height 2024-03-02 14:13:[address] Body weight 2024-03-02 14:13:[address] [facility] BMI 2024-03-02 14:13:00 24.20 kg/m2 [facility] Oxygen saturation in Arterial blood by Pulse oximetry 2024-03-02 14:13:00 99 /min [facility] Systolic blood pressure 2024-02-17 21:07:00 171 mm[Hg] [facility] Diastolic blood pressure 2024-02-17 21:07:00 104 mm[Hg] [facility] Heart rate 2024-02-17 21:07:00 102 /min [facility] Respiratory rate 2024-02-17 21:07:00 24 /min [facility] Oxygen saturation in Arterial blood by Pulse oximetry 2024-02-17 21:07:00 97 /min [facility] Body height 2024-02-17 21:06:00 165.1 cm [facility] Body weight 2024-02-17 21:06:00 70.761 kg [facility] BMI 2024-02-17 21:06:00 25.96 kg/m2 [facility] Systolic blood pressure 2024-02-17 17:16:00 166 mm[Hg] [facility] Diastolic blood pressure 2024-02-17 17:16:00 98 mm[Hg] [facility] Heart rate 2024-02-17 17:16:00 99 /min Un[facility] Body temperature 2024-02-17 17:16:00 37.11 Cher [facility] Respiratory rate 2024-02-17 17:16:00 18 /min [facility] Body height 2024-02-17 17:16:00 162.6 cm [facility] Body weight 2024-02-17 17:16:00 71.033 kg [facility] BMI 2024-02-17 17:16:00 26.88 kg/m2 [facility] Oxygen saturation in Arterial blood by Pulse oximetry 2024-02-17 17:16:00 96 /min [facility] Systolic blood pressure 2024-02-12 20:01:00 137 mm[Hg] [facility] Diastolic blood pressure 2024-02-12 20:01:00 82 mm[Hg] [facility] Heart rate 2024-02-12 20:01:00 85 /min [facility] Body temperature 2024-02-12 20:01:00 36.61 Cher [facility] Respiratory rate 2024-02-12 20:01:00 16 /min [facility] Body height 2024-02-12 20:01:00 162.6 cm [facility] Body weight 2024-02-12 20:01:00 72.122 kg [facility] BMI 2024-02-12 20:01:00 27.29 kg/m2 [facility] Oxygen saturation in Arterial blood by Pulse oximetry 2024-02-12 20:01:00 97 /min [facility] Heart rate 2024-02-08 18:00:00 84 /min [facility] Respiratory rate 2024-02-08 18:00:00 23 /min [facility] Oxygen saturation in Arterial blood by Pulse oximetry 2024-02-08 18:00:00 95 /min [facility] Systolic blood pressure 2024-02-08 17:00:00 126 mm[Hg] [facility] Diastolic blood pressure 2024-02-08 17:00:00 71 mm[Hg] [facility] Body temperature 2024-02-08 17:00:00 36.83 Cher [facility] Body height 2024-02-06 01:00:00 165.1 cm [facility] Body weight 2024-02-02 10:39:00 72.1 kg [facility] BMI 2024-02-02 10:39:00 26.45 kg/m2 [facility] Heart rate 2024-02-02 20:41:00 100 /min Unive [facility] Body temperature 2024-02-02 20:41:00 37.28 Cher [facility] Oxygen saturation in Arterial blood by Pulse oximetry 2024-02-02 20:41:00 100 /min [facility] Systolic blood pressure 2024-02-02 10:40:00 183 mm[Hg] [facility] Diastolic blood pressure 2024-02-02 10:40:00 107 mm[Hg] [facility] Respiratory rate 2024-02-02 10:39:00 20 /min [facility] Body height 2024-02-02 10:39:00 165.1 cm [facility] Body weight 2024-02-02 10:39:00 72.1 kg [facility] BMI 2024-02-02 10:39:00 26.45 kg/m2 [facility] Systolic blood pressure 2024-01-07 18:17:00 127 mm[Hg] [facility] Diastolic blood pressure 2024-01-07 18:17:00 76 mm[Hg] [facility] Heart rate 2024-01-07 18:17:00 58 /min [facility] Respiratory rate 2024-01-07 18:17:00 19 /min [facility] Body height 2024-01-07 18:17:00 165.1 cm [facility] Body weight 2024-01-07 18:17:00 71.85 kg [facility] BMI 2024-01-07 18:17:00 26.36 kg/m2 [facility] Oxygen saturation in Arterial blood by Pulse oximetry 2024-01-07 18:17:00 100 /min [facility] Systolic blood pressure 2023-12-30 14:41:00 148 mm[Hg] [facility] Diastolic blood pressure 2023-12-30 14:41:00 73 mm[Hg] [facility] Heart rate 2023-12-30 14:39:00 79 /min Unive [facility] Body temperature 2023-12-30 14:39:00 36.78 Cher [facility] Respiratory rate 2023-12-30 14:39:00 20 /min [facility] Body height 2023-12-30 14:39:00 162.6 cm [facility] Body weight 2023-12-30 14:39:00 71.668 kg [facility] BMI 2023-12-30 14:39:00 27.12 kg/m2 [facility] Oxygen saturation in Arterial blood by Pulse oximetry 2023-12-30 14:39:00 99 /min [facility] Systolic blood pressure 2023-12-22 19:00:00 145 mm[Hg] [facility] Diastolic blood pressure 2023-12-22 19:00:00 80 mm[Hg] [facility] Heart rate 2023-12-22 19:00:00 58 [facility] Oxygen saturation in Arterial blood by Pulse oximetry 2023-12-22 18:30:00 97 /min [facility] Respiratory rate 2023-12-22 16:30:00 11 /min [facility] Body temperature 2023-12-22 12:24:00 37.17 Cher [facility] Body height 2023-12-22 12:24:00 167.6 cm [facility] Body weight 2023-12-22 12:24:00 73.936 kg [facility] BMI 2023-12-22 12:24:00 26.31 kg/m2 [facility] Systolic blood pressure 2023-12-22 15:46:53 144 mm[Hg] [facility] Diastolic blood pressure 2023-12-22 15:46:53 83 mm[Hg] [facility] Respiratory rate 2023-12-22 15:46:53 15 /min [facility] Oxygen saturation in Arterial blood by Pulse oximetry 2023-12-22 15:46:53 94 /min [facility] Heart rate 2023-12-22 12:24:00 64 /min Un[facility] Body temperature 2023-12-22 12:24:00 37.17 Cher [facility] Body height 2023-12-22 12:24:00 167.6 cm [facility] Body weight 2023-12-22 12:24:00 73.936 kg [facility] BMI 2023-12-22 12:24:00 26.31 kg/m2 [facility] Systolic blood pressure 2023-11-30 18:28:00 169 mm[Hg] [facility] Diastolic blood pressure 2023-11-30 18:28:00 87 mm[Hg] [facility] Heart rate 2023-11-30 18:28:00 55 /min [facility] Oxygen saturation in Arterial blood by Pulse oximetry 2023-11-30 18:28:00 99 /min [facility] Respiratory rate 2023-11-30 18:25:00 18 /min [facility] Body height 2023-11-30 18:25:00 167.6 cm [facility] Body weight 2023-11-30 18:25:00 71.532 kg [facility] BMI 2023-11-30 18:25:00 25.45 kg/m2 [facility] Systolic blood pressure 2023-10-29 16:04:00 178 mm[Hg] [facility] Diastolic blood pressure 2023-10-29 16:04:00 115 mm[Hg] [facility] Heart rate 2023-10-29 16:04:00 90 /min Unive [facility] Body temperature 2023-10-29 16:04:00 36.33 Cher [facility] Respiratory rate 2023-10-29 16:04:00 19 /min [facility] Oxygen saturation in Arterial blood by Pulse oximetry 2023-10-29 16:04:00 100 /min [facility] Body height 2023-10-29 16:02:00 167.6 cm [facility] Body weight 2023-10-29 16:02:00 70.761 kg [facility] BMI 2023-10-29 16:02:00 25.18 kg/m2 [facility] Body weight 2023-10-09 14:58:00 72.122 kg [facility] BMI 2023-10-09 14:58:00 25.66 kg/m2 [facility] Systolic blood pressure 2023-05-08 19:24:00 171 mm[Hg] [facility] Diastolic blood pressure 2023-05-08 19:24:00 101 mm[Hg] [facility] Body height 2023-05-08 19:24:00 167.6 cm [facility] Body weight 2023-05-08 19:24:00 72.213 kg [facility] BMI 2023-05-08 19:24:00 25.70 kg/m2 [facility] Systolic blood pressure 2022-10-28 16:34:00 146 mm[Hg] [facility] Diastolic blood pressure 2022-10-28 16:34:00 80 mm[Hg] [facility] Heart rate 2022-10-28 16:34:00 65 /min [facility] Oxygen saturation in Arterial blood by Pulse oximetry 2022-10-28 16:34:00 99 /min [facility] Respiratory rate 2022-10-28 16:32:00 17 /min [facility] Body height 2022-10-28 16:32:00 167.6 cm [facility] Body weight 2022-10-28 16:32:00 66.588 kg [facility] BMI 2022-10-28 16:32:00 23.69 kg/m2 [facility] Body height 2022-06-09 20:08:00 162.6 cm [facility] Body weight 2022-06-09 20:08:00 60.328 kg [facility] BMI 2022-06-09 20:08:00 22.83 kg/m2 [facility] Systolic blood pressure 2022-05-02 19:21:00 162 mm[Hg] [facility] Diastolic blood pressure 2022-05-02 19:21:00 84 mm[Hg] [facility] Heart rate 2022-05-02 19:11:00 71 /min [facility] Body weight 2022-05-02 19:11:00 60.419 kg [facility] BMI 2022-05-02 19:11:00 22.86 kg/m2 [facility] Oxygen saturation in Arterial blood by Pulse oximetry 2022-05-02 19:11:00 98 /min [facility] Systolic blood pressure 2022 21:02:00 172 mm[Hg] [facility] Diastolic blood pressure 2022 21:02:00 85 mm[Hg] [facility] Heart rate 2022 21:01:00 86 /min [facility] Body weight 2022 21:01:00 61.236 kg [facility] BMI 2022 21:01:00 23.17 kg/m2 [facility] Oxygen saturation in Arterial blood by Pulse oximetry 2022 21:01:00 96 /min [facility] Procedures Procedure Date / Time Performed Performing Clinician Source US RETROPERITONEAL LIMITED 2024-05-19 18:29:41 Danielle Garcia [facility] ELECTROPHYSIOLOGY PROCEDURE 2024-05-17 15:05:27 Ranjan Olsen i [facility] POCT HEMOGLOBIN A1C TEST 2024-05-03 18:28:00 Margy Barrios [facility] HB ECG ROUTINE & RHYTHM STRIP 2024-04-20 19:09:47 Ranjan Barnes [facility] AMYLASE 2024-03-02 14:47:00 Tamela Gilliam [facility] LIPASE 2024-03-02 14:47:00 Tamela Gilliam [facility] COMP. METABOLIC PANEL ([id number]) 2024-03-02 14:47:00 Tamela Gilliam [facility] CBC WITH DIFF 2024-03-02 14:47:00 Tamela Gilliam [facility] POCT GLUCOSE (AUTOMATED) 2024-02-08 16:47:00 Stephen [facility] POCT GLUCOSE (AUTOMATED) 2024-02-08 12:28:00 Stephen [facility] POCT GLUCOSE (AUTOMATED) 2024-02-08 00:43:00 Stephen [facility] POCT GLUCOSE (AUTOMATED) 2024-02-07 22:10:00 Stephen [facility] POCT GLUCOSE (AUTOMATED) 2024-02-07 16:37:00 Stephen [facility] POCT GLUCOSE (AUTOMATED) 2024-02-07 13:13:00 Stephen [facility] POCT GLUCOSE (AUTOMATED) 2024-02-07 00:29:00 Stephen [facility] POCT GLUCOSE (AUTOMATED) 2024-02-06 22:48:00 Stephen , [facility] POCT GLUCOSE (AUTOMATED) 2024-02-06 16:15:00 Stephen [facility] POCT GLUCOSE (AUTOMATED) 2024-02-06 13:28:00 Stephen [facility] MAGNESIUM 2024-02-06 12:22:00 [facility]OLIC PANEL (NA, K, CL, CO2, GLUCOSE, BUN, CREATININE, CA) 2024-02-06 12:22:00 Mao, [facility] POCT GLUCOSE (AUTOMATED) 2024-02-06 02:05:00 [facility] 2024-02-05 23:26:00 [facility]ero [facility] BASIC METABOLIC PANEL (NA, K, CL, CO2, GLUCOSE, BUN, CREATININE, CA) 2024-02-05 23:26:00 Homero [facility] POCT GLUCOSE (AUTOMATED) 2024-02-05 20:47:00 Stephen [facility] POCT GLUCOSE (AUTOMATED) 2024-02-05 16:59:00 Stephen [facility] CBC WITH DIFF 2024-02-05 13:43:00 Ted Carlson [facility] POCT GLUCOSE (AUTOMATED) 2024-02-05 12:51:00 Stephen [facility] POCT GLUCOSE (AUTOMATED) 2024-02-05 00:43:00 Stephen [facility] POCT GLUCOSE (AUTOMATED) 2024-02-04 20:57:00 Stephen [facility] POCT GLUCOSE (AUTOMATED) 2024-02-04 16:57:00 Stephen [facility] TRANSFUSE PACKED RBC 2024-02-04 13:58:00 George Truong [facility] PREPARE PACKED RBC 2024-02-04 13:45:52 George Hare [facility] POCT GLUCOSE (AUTOMATED) 2024-02-04 13:06:00 Stephen [facility] CBC WITHOUT DIFF 2024-02-04 10:03:00 Shanna Meraz [facility] MAGNESIUM 2024-02-04 10:02:00 Edwards Shanna [facility] BASIC METABOLIC PANEL (NA, K, CL, CO2, GLUCOSE, BUN, CREATININE, CA) 2024-02-04 10:02:00 Raymond Fabiola, Shanna [facility] POCT GLUCOSE (AUTOMATED) 2024-02-04 01:13:00 Stephen [facility] POCT GLUCOSE (AUTOMATED) 2024-02-03 21:34:00 Stephen [facility] POCT GLUCOSE (AUTOMATED) 2024-02-03 17:54:00 Stephen [facility] POCT GLUCOSE (AUTOMATED) 2024-02-03 17:54:00 Stephen [facility] POCT GLUCOSE (AUTOMATED) 2024-02-03 13:55:00 Stephen , [facility] POCT GLUCOSE (AUTOMATED) 2024-02-03 13:55:00 Stephen [facility] XR CHEST 1 VW 2024-02-03 10:45:00 Alvin farley [facility] XR CHEST 1 VW 2024-02-03 10:45:00 Alvin farley [facility] BASIC METABOLIC PANEL (NA, K, CL, CO2, GLUCOSE, BUN, CREATININE, CA) 2024-02-03 10:03:00 Blade [facility] CBC WITHOUT DIFF 2024-02-03 10:03:00 Blade [facility] BASIC METABOLIC PANEL (NA, K, CL, CO2, GLUCOSE, BUN, CREATININE, CA) 2024-02-03 10:03:00 Blade [facility] CBC WITHOUT DIFF 2024-02-03 10:03:00 Blade [facility] POCT GLUCOSE (AUTOMATED) 2024-02-03 04:18:00 Stephen [facility] POCT GLUCOSE (AUTOMATED) 2024-02-03 04:18:00 Stephen [facility] POCT GLUCOSE (AUTOMATED) 2024-02-03 01:06:00 Stephen [facility] POCT GLUCOSE (AUTOMATED) 2024-02-03 01:06:00 Stephen [facility] POCT GLUCOSE (AUTOMATED) 2024-02-02 22:57:00 Stephen , [facility] POCT GLUCOSE (AUTOMATED) 2024-02-02 22:57:00 Stephen [facility] POCT GLUCOSE (AUTOMATED) 2024-02-02 22:02:00 Stephen [facility] POCT GLUCOSE (AUTOMATED) 2024-02-02 22:02:00 Stephen [facility] POCT GLUCOSE (AUTOMATED) 2024-02-02 21:05:00 Stephen [facility] POCT GLUCOSE (AUTOMATED) 2024-02-02 21:05:00 Stephen [facility] XR CHEST 1 VW 2024-02-02 20:52:31 Alvin farley [facility] XR CHEST 1 VW 2024-02-02 20:52:31 Alvin farley [facility] PREPARE PACKED RBC 2024-02-02 20:41:03 [facility] Wendy [facility] PREPARE PACKED RBC 2024-02-02 20:41:03 Maxi Villanueva [facility] PHOSPHORUS 2024-02-02 20:36:00 Alvin farley [facility] MAGNESIUM 2024-02-02 20:36:00 Alvin farley [facility] BASIC METABOLIC PANEL (NA, K, CL, CO2, GLUCOSE, BUN, CREATININE, CA) 2024-02-02 20:36:00 Alvin Fair [facility] CBC WITH DIFF 2024-02-02 20:36:00 Alvin farley [facility] ABG+COOX+NA+K+GLU+CA2+ 2024-02-02 20:36:00 Alvin Fair [facility] MRSA / MSSA SCREEN BY DENISSE DUMONT 2024-02-02 20:36:00 Alvin Fair [facility] PHOSPHORUS 2024-02-02 20:36:00 Alvin farley [facility] MAGNESIUM 2024-02-02 20:36:00 Alvin farley [facility] BASIC METABOLIC PANEL (NA, K, CL, CO2, GLUCOSE, BUN, CREATININE, CA) 2024-02-02 20:36:00 Alvin Fair [facility] CBC WITH DIFF 2024-02-02 20:36:00 Alvin farley [facility] ABG+COOX+NA+K+GLU+CA2+ 2024-02-02 20:36:00 Alvin Fair [facility] MRSA / MSSA SCREEN BY PCRDENISSE 2024-02-02 20:36:00 Alvin Fair [facility] POCT GLUCOSE (AUTOMATED) 2024-02-02 20:26:00 Stephen [facility] POCT GLUCOSE (AUTOMATED) 2024-02-02 20:26:00 Stephen [facility] TRANSFUSE PACKED RBC 2024-02-02 19:36:00 Kem Estrada [facility] TRANSFUSE PACKED RBC 2024-02-02 19:36:00 Kem Estrada [facility] 2024-02-02 19:18:00 Blade [facility] ACUTE CARE ARTERIAL 2024-02-02 19:18:00 [facility] ACT HIGH RANGE 2024-02-02 19:15:00 Elvie Orozco do [facility] POCT ACT HIGH RANGE 2024-02-02 19:15:00 Elvie Orozco do [facility] POCT VISCOELASTIC TESTING 2024-02-02 19:14:00 Josh Orozco [facility] POCT VISCOELASTIC TESTING 2024-02-02 19:14:00 Josh Orozco [facility] HEMOGLOBIN 2024-02-02 19:10:00 Timmy Fong [facility] HEMATOCRIT 2024-02-02 19:10:00 Timmy Fong [facility] PLATELET COUNT 2024-02-02 19:10:00 Timmy Fong [facility] PROTHROMBIN TIME / INR 2024-02-02 19:10:00 Demarco Fong [facility] ACTIVATED PARTIAL THRMPLAS GISELLE 2024-02-02 19:10:00 Timmy Fong [facility] FIBRINOGEN 2024-02-02 19:10:00 Timmy Fong [facility] HEMOGLOBIN 2024-02-02 19:10:00 Timmy Fong [facility] HEMATOCRIT 2024-02-02 19:10:00 Timmy Fong [facility] PLATELET COUNT 2024-02-02 19:10:00 Timmy Fong [facility] PROTHROMBIN TIME / INR 2024-02-02 19:10:00 Demarco Fong [facility] ACTIVATED PARTIAL THRMPLAS GISELLE 2024-02-02 19:10:00 Timmy Fong [facility] FIBRINOGEN 2024-02-02 19:10:00 Timmy Fong [facility] ISTA ACUTE CARE ARTERIAL 2024-02-02 18:04:00 Josh Orozco [facility] ISTA ACUTE CARE ARTERIAL 2024-02-02 18:04:00 Ab Bladeelardo [facility] POCT ACT HIGH RANGE 2024-02-02 18:02:00 Elvie Orozco do [facility] POCT ACT HIGH RANGE 2024-02-02 18:02:00 Elvie Orozco do [facility] ISTAT ACUTE CARE ARTERIAL 2024-02-02 17:31:00 Josh Orozco [facility] ISTAT ACUTE CARE ARTERIAL 2024-02-02 17:31:00 Josh Orozco [facility] POCT ACT HIGH RANGE 2024-02-02 17:30:00 Elvie Orozco do [facility] POCT ACT HIGH RANGE 2024-02-02 17:30:00 Elvie Orozco do [facility] ISTAT ACUTE CARE ARTERIAL 2024-02-02 17:03:00 Josh Orozco [facility] ISTAT ACUTE CARE ARTERIAL 2024-02-02 17:03:00 Josh Orozco [facility] POCT ACT HIGH RANGE 2024-02-02 17:02:00 Elvie Orozco do [facility] POCT ACT HIGH RANGE 2024-02-02 17:02:00 Elvie Orozco do [facility] CBC WITHOUT DIFF 2024-02-02 16:40:00 Timmy Fong [facility] CBC WITHOUT DIFF 2024-02-02 16:40:00 Timmy Fong [facility] ISTAT ACUTE CARE ARTERIAL 2024-02-02 16:36:00 Josh Orozco [facility] ISTA ACUTE CARE ARTERIAL 2024-02-02 16:36:00 Josh Orozco [facility] POCT ACT HIGH RANGE 2024-02-02 16:34:00 Elvie Orozco do [facility] POCT ACT HIGH RANGE 2024-02-02 16:34:00 Elvie Orozco do [facility] ISTAT ACUTE CARE ARTERIAL 2024-02-02 16:05:00 Josh Orozco [facility] ISTAT ACUTE CARE ARTERIAL 2024-02-02 16:05:00 Josh Orozco [facility] POCT ACT HIGH RANGE 2024-02-02 16:03:00 Elvie Orozco do [facility] POCT ACT HIGH RANGE 2024-02-02 16:03:00 Elvie Orozco do [facility] ISTAT ACUTE CARE ARTERIAL 2024-02-02 15:34:00 Josh Orozco [facility] ISTAT ACUTE CARE ARTERIAL 2024-02-02 15:34:00 Josh Orozco [facility] POCT ACT HIGH RANGE 2024-02-02 15:32:00 Elvie Orozco do [facility] POCT ACT HIGH RANGE 2024-02-02 15:32:00 Elvie Orozco do [facility] ISTAT ACUTE CARE ARTERIAL 2024-02-02 15:11:00 Josh Orozco [facility] ISTA ACUTE CARE ARTERIAL 2024-02-02 15:11:00 Josh Orozco [facility] POCT ACT HIGH RANGE 2024-02-02 15:09:00 Elvie Orozco do [facility] POCT ACT HIGH RANGE 2024-02-02 15:09:00 Elvie Orozco do [facility] ISTA ACUTE CARE ARTERIAL 2024-02-02 14:13:00 Josh Orozco [facility] 2024-02-02 14:13:00 Josh Orozco [facility] POCT ACT HIGH RANGE 2024-02-02 14:12:00 Elvie Orozco do [facility] POCT ACT HIGH RANGE 2024-02-02 14:12:00 Elvie Orozco do [facility] ISTA ACUTE CARE ARTERIAL 2024-02-02 12:48:00 Josh Orozco [facility] ISTA ACUTE CARE ARTERIAL 2024-02-02 12:48:00 Josh Orozco [facility] NERVE BLOCK 2024-02-02 12:47:30 Timmy Fong [facility] POCT ACT HIGH RANGE 2024-02-02 12:47:00 Elvie Orozco do [facility] POCT ACT HIGH RANGE 2024-02-02 12:47:00 Elvie Orozco do [facility] CENTRAL LINE 2024-02-02 12:33:00 Timmy Fong [facility] INTUBATION 2024-02-02 12:29:00 Timmy Fong [facility] ARTERIAL LINE 2024-02-02 11:47:00 Timmy Fong [facility] [id number] [place] CORONARY ARTERY BYP W/VEIN & ARTERY GRAFT 2 VEIN 2024-02-02 11:43:00 Josh Orozco [facility] [id number] [place] CABG W/ARTERIAL GRAFT SINGLE ARTERIAL GRAFT 2024-02-02 11:43:00 Blade [facility] [id number] [place] NDSC SURG W/VIDEO-ASSISTED HARVEST VEIN CABG 2024-02-02 11:43:00 Blade [facility] [id number] [place] VALVULOPLASTY TRICUSPID VALVE W/RING INSERTION 2024-02-02 11:43:00 Blade [facility] [id number] - [place] CORONARY ARTERY BYP W/VEIN & ARTERY GRAFT 2 VEIN 2024-02-02 11:43:00 Blade [facility] [id number] - [place] CABG W/ARTERIAL GRAFT SINGLE ARTERIAL GRAFT 2024-02-02 11:43:00 Blade [facility] [id number] - [place] NDSC SURG W/VIDEO-ASSISTED HARVEST VEIN CABG 2024-02-02 11:43:00 Blade [facility] [id number] - [place] VALVULOPLASTY TRICUSPID VALVE W/RING INSERTION 2024-02-02 11:43:00 Blade [facility] POCT GLUCOSE (AUTOMATED) 2024-02-02 11:24:00 Fanta Orozco [facility] POCT GLUCOSE (AUTOMATED) 2024-02-02 11:24:00 Fanta Orozco [facility] HB ABO GROUPING 2024-02-02 11:01:00 Maxi Villanueva [facility] HB ABO GROUPING 2024-02-02 11:01:00 Maxi Villanueva [facility] XR CHEST 2 VW 2023-12-30 16:37:08 [address] [facility]ED[facility] 2023-12-22 16:35:22 Doctor Un assigned, [place] [facility] CATH PROCEDURE LOG 2023-12-22 16:35:22 Doctor Un assigned, [place] [facility] CARDIAC CATHETERIZATION 2023-12-22 16:16:18 Viet Wynne [facility] CARDIAC CATHETERIZATION 2023-12-22 16:16:18 Viet Wynne [facility] BASIC METABOLIC PANEL (NA, K, CL, CO2, GLUCOSE, BUN, CREATININE, CA) 2023-12-22 12:35:00 Sebastian Edmar [facility] CBC WITH DIFF 2023-12-22 12:35:00 Edmar Cortes [facility] PROTHROMBIN TIME / INR 2023-12-22 12:35:00 Sebastian Edmar [facility] ACTIVATED PARTIAL THRMPLAS GISELLE 2023-12-22 12:35:00 Sebastian [facility] BASIC METABOLIC PANEL (NA, K, CL, CO2, GLUCOSE, BUN, CREATININE, CA) 2023-12-22 12:35:00 Sebastian [facility] CBC WITH DIFF 2023-12-22 12:35:00 Edmar Cortes [facility] PROTHROMBIN TIME / INR 2023-12-22 12:35:00 Sebastian [facility] ACTIVATED PARTIAL THRMPLAS GISELLE 2023-12-22 12:35:00 Sebastian [facility] POCT HEMOGLOBIN A1C TEST 2023-05-08 19:34:00 Phuc Maynard [facility] PATIENT QUESTIONNAIRE 2023-05-08 05:01:00 Doctor Unassigned, [place] [facility] ASSIGNMENT OF BENEFITS 2022-10-28 16:06:56 Docto r Unassigned, [place] [facility] POCT HEMOGLOBIN A1C TEST 2022-05-02 19:22:00 John Jensen [facility] PATIENT QUESTIONNAIRE 2022-05-02 05:01:00 Doctor Unassigned, [place] [facility] Encounters Start Date/Time End Date/Time Encounter Type Admission Type Attending Clinicians Care Facility Care Department Encounter ID Source 2021-10-24 15:19:34 Outpatient R CAL LEARY [email or web address] OPH [id number] [facility] 2021-10-24 08:06:45 Outpatient CAL LEARY [facility] [[email or web address] OPH [id number] [facility] 2024-08-10 14:30:00 2024-08-10 14:30:00 Outpatient R DANIELLE MATHEW [facility] [id number] [facility] 2024-08-05 13:30:00 2024-08-05 13:30:00 Outpatient R DANIELLE MATHEW [facility] [id number] [facility] 2024-06-13 13:00:00 2024-06-13 13:00:00 Outpatient R DIYA WYNNE [facility] [id number] [facility] 2024-06-08 13:00:00 2024-06-08 13:00:00 Outpatient R DEREK LONDON [facility] [id number] [facility] 2024-06-01 13:00:00 2024-06-01 13:00:00 Outpatient R RANJAN BARNES HAIDER [facility] [id number] [facility] 2024-05-25 10:30:00 2024-05-25 10:30:00 Outpatient R RANJAN BARNES HAIDER [facility] [id number] [facility] 2024-05-19 13:13:39 2024-05-19 23:59:00 Outpatient R DANIELLE MATHEW [facility] [id number] [facility] 2024-05-19 13:00:00 2024-05-19 23:59:00 Hospital Encounter Danielle Mathew [facility] [[email or web address] AT [facility] 1..840.114 350.1.13.10 4.2.7.2.686 [id number] [facility] 2024-05-17 08:46:00 2024-05-17 10:56:00 Outpatient R RANJAN BARNES RANJAN [facility] [[email or web address] CCA [id number] [facility] 2024-05-17 08:46:00 2024-05-17 10:56:00 Hospital Encounter Ranjan Barnes [facility] [[email or web address]] AT [place] ..840.114 350.1.13.10 4.2.7.2.686 [id number] [facility] 2024-05-17 09:45:00 2024-05-17 10:30:00 Surgery Ranjan Barnes [facility] [[email or web address]] AT [place] 1..840.114 350.1.13.10 4.2.7.2.686 [id number] [facility] 2024-05-10 15:00:00 2024-05-10 15:39:37 Outpatient R DANIELLE MATHEW [facility] [id number] [facility] 2024-05-03 15:45:00 2024-05-03 16:00:00 Book Cutter Visit Lab, Ang - Db Danielle Mathew Lab, Ang - Db [facility] [facility] 1..840.114 350.1.13.10 4.2.7.2.686 [id number] [facility] 2024-05-03 14:40:00 2024-05-03 15:52:42 Outpatient R GEOFFREY MOORE [facility] [id number] [facility] 2024-05-03 14:40:00 2024-05-03 15:52:42 Office Visit Geoffrey Moore [facility] 1..840.114 350.1.13.10 4.2.7.2.686 [id number] [facility] 2024-05-03 13:00:00 2024-05-03 14:22:03 Outpatient R LYDIA BARRIOS [facility] [id number] [facility] 2024-05-03 13:00:00 2024-05-03 14:22:03 [facility] 1..840.114 350.1.13.10 4.2.7.2.686 [id number] [facility] 2024-05-03 00:00:00 2024-05-03 13:11:49 Telephone Magali Henriquez [facility] 1.84.114 350.1.13.10 4.2.7.2.686 [id number] [facility] 2024-04-21 00:00:00 2024-04-28 11:13:11 Refill Pipo Maderabird [facility] PRIMARY AND SPECIALTY CARE 1..114 350.1.13.10 4.2.7.2.686 [id number] [facility] 2024-04-22 00:00:00 2024-04-22 15:48:12 Telephone [facility] 1..114 350.1.13.10 4.2.7.2.686 [id number] [facility] 2024-04-20 14:00:00 2024-04-20 14:17:34 Outpatient R RANJAN BARNES [facility] [id number] [facility] 2024-04-20 14:00:00 2024-04-20 14:17:34 Office Visit Pipo Tompkins [facility] PRIMARY AND SPECIALTY CARE 1.114 350.1.13.10 4.2.7.2.686 [id number] [facility] 2024-03-10 00:00:00 2024-04-16 18:27:18 Patient Secure Msg Doctor Unassigned, [place] Doctor Unassigned, [place] [facility] 1.114 350.1.13.10 4.2.7.2.686 [id number] [facility] 2024-03-16 00:00:00 2024-04-16 18:19:00 Patient Secure Msg Doctor Unassigned, [place] Doctor Unassigned, [place] [facility] 1.840.114 350.1.13.10 4.2.7.2.686 [id number] [facility] 2024-04-04 00:00:00 2024-04-04 15:39:13 Refill Phuc Maynard [facility] 1.2840.114 350.1.13.10 4.2.7.2.686 [id number] [facility] 2024-04-04 00:00:00 2024-04-04 10:51:31 [facility] [place] [facility] 1.20.114 350.1.13.10 4.2.7.2.686 [id number] [facility] 2024-03-17 13:00:00 2024-03-17 13:30:00 Office Visit Rhonda Owens [facility] [[email or web address] AT [place] 1.0.114 350.1.13.10 4.2.7.2.686 [id number] [facility] 2024-03-17 13:00:00 2024-03-17 13:00:00 Outpatient R RHONDA OWENS JULIA [facility] [id number] [facility] 2024-03-16 00:00:00 2024-03-16 15:49:28 [facility] [place] [facility] 1.2840.114 350.1.13.10 4.2.7.2.686 [id number] [facility] 2024-03-14 00:00:00 2024-03-14 09:46:52 Telephone Diya Wynne [facility] 1.2840.114 350.1.13.10 4.2.7.2.686 [id number] [facility] 2024-03-13 00:00:00 2024-03-14 08:20:55 Magali Conklin [facility] 1.2.840.114 350.1.13.10 4.2.7.2.686 [id number] [facility] 2024-03-10 00:00:00 2024-03-10 09:46:17 [facility]..840.114 350.1.13.10 4.2.7.2.686 [id number] [facility] 2024-03-08 14:00:00 2024-03-08 23:59:00 [id number] 2024-03-08 14:00:00 2024-03-08 23:59:00 [facility] 1..840.114 350.1.13.10 4.2.7.2.686 [id number] [facility] 2024-03-08 13:20:00 2024-03-08 13:39:54 [facility] 1.2.840.114 350.1.13.10 4.2.7.2.686 [id number] [facility] 2024-03-08 00:00:00 2024-03-08 09:17:39 Patient Secure Msg Doctor Unassigned, [place] Doctor Unassigned, [place] [facility] 1.2.840.114 350.1.13.10 4.2.7.2.686 [id number] [facility] 2024-03-04 14:00:00 2024-03-04 14:15:00 Book Cutter Visit Lab, Ang - Tamela Knutson Lab, Ang [facility] [place] [facility] 1.2.840.114 350.1.13.10 4.2.7.2.686 [id number] [facility] 2024-03-04 14:00:00 2024-03-04 14:00:00 Outpatient R TAMELA GILLIAM [facility] [id number] [facility] 2024-03-03 00:00:00 2024-03-03 20:32:07 Telephone Tamela Gilliam [facility] 1..840.114 350.1.13.10 4.2.7.2.686 [id number] [facility] 2024-03-03 00:00:00 2024-03-03 15:30:37 Telephone Magali Henriquez [facility] 1..840.114 350.1.13.10 4.2.7.2.686 [id number] [facility] 2024-03-02 09:45:00 2024-03-02 10:00:00 Book Cutter Visit Lab, Ang - Tamela Knutson Lab, Ang - Db [facility] [facility] 1.2.840.114 350.1.13.10 4.2.7.2.686 [id number] [facility] 2024-03-02 09:00:00 2024-03-02 09:39:28 Outpatient R TAMELA GILLIAM [facility] [id number] [facility] 2024-03-02 09:00:00 2024-03-02 09:39:28 Office Visit Tamela Gilliam [facility] [place] [facility] 1.2.840.114 350.1.13.10 4.2.7.2.686 [id number] [facility] 2024-03-01 00:00:00 2024-03-01 16:02:02 Telephone Diya Wynne [facility] 1.2.840.114 350.1.13.10 4.2.7.2.686 [id number] [facility] 2024-03-01 00:00:00 2024-03-01 10:28:57 Telephone Maxi Villanueva [facility] 1.2.840.114 350.1.13.10 4.2.7.2.686 [id number] [facility] 2024-02-25 00:00:00 2024-03-01 07:43:24 Refill Phuc Maynard [facility] [place] [facility] 1.2.840.114 350.1.13.10 4.2.7.2.686 [id number] [facility] 2024-02-29 00:00:00 2024-02-29 14:08:49 Telephone JennkandiMagali [facility] [place] [facility] 1.2.840.114 350.1.13.10 4.2.7.2.686 [id number] [facility] 2024-02-29 00:00:00 2024-02-29 09:16:44 Refill Maxi Villanueva [facility] 1.2.840.114 350.1.13.10 4.2.7.2.686 [id number] [facility] 2024-02-25 00:00:00 2024-02-26 14:46:01 Refill Ranjan Barnes [facility] 1.2.840.114 350.1.13.10 4.2.7.2.686 [id number] [facility] 2024-02-18 00:00:00 2024-02-22 11:09:18 Telephone Ranjan Barnes [facility] 1.2.840.114 350.1.13.10 4.2.7.2.686 [id number] 059 [id number] [facility] 2024-02-22 00:00:00 2024-02-22 09:45:23 [facility] 1.2.840.114 350.1.13.10 4.2.7.2.686 [id number] 059 [id number] [facility] 2024-02-11 00:00:00 2024-02-22 09:10:16 Telephone Josh Orozco [facility] MEDICAL OFFICE BUILDING 1.2.840.114 350.1.13.10 4.2.7.2.686 [id number] 185 [id number] [facility] 2024-02-18 00:00:00 2024-02-19 09:06:01 [facility] 1.2.840.114 350.1.13.10 4.2.7.2.686 [id number] 059 [id number] [facility] 2024-02-18 13:30:00 2024-02-18 13:30:00 Outpatient R [facility] [id number] [facility] 2024-02-17 00:00:00 2024-02-17 17:20:02 [facility] 1.2.840.114 350.1.13.10 4.2.7.2.686 [id number] 059 [id number] [facility] 2024-02-17 16:00:00 2024-02-17 16:27:20 Outpatient R RANJAN BARNES [facility] [id number] [facility] 2024-02-17 16:00:00 2024-02-17 16:27:20 Office Visit Al Ranjan Tompkins [facility] BUILDING 1.2.840.114 350.1.13.10 4.2.7.2.686 [id number] [facility] 2024-02-17 11:30:00 2024-02-17 11:45:00 Office Visit Josh Orozco [facility] OFFICE BUILDING 1.2.840.114 350.1.13.10 4.2.7.2.686 [id number] [facility] 2024-02-17 00:00:00 2024-02-17 08:44:23 [facility] 1.2.840.114 350.1.13.10 4.2.7.2.686 [id number] 059 [id number] [facility] 2024-02-16 15:30:00 2024-02-16 23:59:00 [facility] [id number] 2024-02-16 15:30:00 2024-02-16 23:59:00 Hospital [facility] 1.2.840.114 350.1.13.10 4.2.7.2.686 [id number] [facility] 2024-02-16 00:00:00 2024-02-16 16:30:28 Telephone Josh Orozco [email or web address] [place] 1.2.840.114 350.1.13.10 4.2.7.2.686 [id number] 185 [id number] [facility] 2024-02-16 13:30:00 2024-02-16 14:00:00 Nurse Visit Visit, Adc Nurse Ricci, [facility] BUILDING 1.2.840.114 350.1.13.10 4.2.7.2.686 [id number] 059 [id number] [facility] 2024-02-16 00:00:00 2024-02-16 10:55:23 [facility]phone [facility] 1.2.840.114 350.1.13.10 4.2.7.2.686 [id number] 059 [id number] [facility] 2024-02-11 00:00:00 2024-02-13 08:50:29 Telephone [facility] MEDICAL OFFICE BUILDING 1.2.840.114 350.1.13.10 4.2.7.2.686 [id number] 044 [id number] [facility] 2024-02-12 14:30:00 2024-02-12 14:45:00 [facility] 1.2.840.114 350.1.13.10 4.2.7.2.686 [id number] 185 [id number] [facility] 2024-02-12 14:30:00 2024-02-12 14:30:00 Outpatient R MANISHA OROZCO JRRDO [facility] [id number] [facility] 2024-02-11 00:00:00 2024-02-11 12:50:23 Telephone [place] [facility] [place] MEDICAL OFFICE BUILDING 1.2.840.114 350.1.13.10 4.2.7.2.686 [id number] 044 [id number] [facility] 2024-02-02 05:05:00 2024-02-08 15:59:00 Inpatient R [facility] [id number] [facility] 2024-02-02 05:05:00 2024-02-08 15:59:00 Hospital Encounter Josh Orozco Lauren [facility] ([facility]) 1.2.840.114 350.1.13.10 4.2.7.2.686 [id number] [facility] 2023-12-31 00:00:00 2024-02-06 18:22:22 Patient Secure Maxi Noland [facility] MEDICAL OFFICE BUILDING 1.2.840.114 350.1.13.10 4.2.7.2.686 [id number] 185 [id number] [facility] 2024-02-02 06:45:00 2024-02-02 15:41:00 Surgery [facility] 1.2.840.114 350.1.13.10 4.2.7.2.686 [id number] 020 [id number] [facility] 2024-02-02 07:14:00 2024-02-02 15:34:00 Anesthesia Event Felipe er, Mary Alice Castanon, Pipo khan, [facility] 1.2.840.114 350.1.13.10 4.2.7.2.686 [id number] 020 [id number] [facility] 2024-01-07 13:45:00 2024-01-07 14:00:00 Book Cutter Visit 2, Adc Lab [facility] 1.2.840.114 350.1.13.10 4.2.7.2.686 [id number] [facility] 2024-01-07 13:45:00 2024-01-07 13:45:00 [facility] [id number] [facility] 2024-01-07 13:20:00 2024-01-07 13:29:40 [facility] 1.2.840.114 350.1.13.10 4.2.7.2.686 [id number] 059 [id number] [facility] 2024-01-05 00:00:00 2024-01-05 16:14:17 Qian Conklinthia [facility] 1.2840.114 350.1.13.10 4.2.7.2.686 [id number] 044 [id number] [facility] 2023-12-31 00:00:00 2023-12-31 12:31:28 Case Management Maxi Villanueva [facility] MEDICAL OFFICE BUILDING 1.2840.114 350.1.13.10 4.2.7.2.686 [id number] [facility] 2023-12-30 11:14:36 2023-12-30 23:59:00 Outpatient R RADIOLOGY [facility] [id number] [facility] 2023-12-30 10:30:00 2023-12-30 23:59:00 Hospital Encounter Maxi Villanueva Radiology [facility] ([facility]) 1.2840.114 350.1.13.10 4.2.7.2.686 [id number] [facility] 2023-12-30 10:45:00 2023-12-30 11:00:00 Book Cutter Visit Nestor, [facility] 1.2840.114 350.1.13.10 4.2.7.2.686 [id number] 353 [id number] [facility] 2023-12-30 09:45:00 2023-12-30 10:00:00 Office Visit Josh Orozco [facility] MEDICAL OFFICE BUILDING 1.2840.114 350.1.13.10 4.2.7.2.686 [id number] 185 [id number] [facility] 2023-12-22 00:00:00 2023-12-23 07:15:48 Telephone Flroence Magali [facility] BU[facility] 1.2.840.114 350.1.13.10 4.2.7.2.686 [id number] 044 [id number] [facility] 2023-12-22 06:23:00 2023-12-22 18:00:00 Outpatient [facility] [id number] [facility] 2023-12-22 06:23:00 2023-12-22 18:00:00 Hospital Encounter [facility] ([facility]) 1..840.114 350.1.13.10 4.2.7.2.686 [id number] [facility] 2023-12-22 09:50:00 2023-12-22 10:50:00 Surgery [facility] ([facility]) 1..840.114 350.1.13.10 4.2.7.2.686 [id number] [facility] 2023-12-15 13:00:00 2023-12-15 13:00:00 Outpatient R JASEN MATOS STRAHIL [facility] [id number] [facility] 2023-11-30 13:40:00 2023-11-30 13:44:40 Outpatient R DIYA WYNNE [facility] [id number] [facility] 2023-11-30 13:40:00 2023-11-30 13:44:40 Office Visit Diya Wynne [facility] 1.2.840.114 350.1.13.10 4.2.7.2.686 [id number] 059 [id number] [facility] 2023-11-16 00:00:00 2023-11-16 00:00:00 Telephone [facility] 1.2.840.114 350.1.13.10 4.2.7.2.686 [id number] [id number] [facility] 2023-11-13 13:00:00 2023-11-13 23:59:00 [facility] [id number] [facility] 2023-11-13 13:00:00 2023-11-13 23:59:00 Hospital En[facility] 1.2.840.114 350.1.13.10 4.2.7.2.686 [id number] [facility] 2023-10-30 00:00:00 2023-10-30 00:00:00 Telephone [facility] 1.2.840.114 350.1.13.10 4.2.7.2.686 [id number] 059 [id number] [facility] 2023-10-29 11:30:00 2023-10-29 11:45:00 Book Cutter Visit 2, Adc Lab [facility] 1.2.840.114 350.1.13.10 4.2.7.2.686 [id number] [facility] 2023-10-29 11:00:00 2023-10-29 11:37:39 Outpatient [facility] [id number] [facility] 2023-10-29 11:00:00 2023-10-29 11:20:00 [facility] 1.2.840.114 350.1.13.10 4.2.7.2.686 [id number] 059 [id number] [facility] 2023-10-26 00:00:00 2023-10-26 00:00:00 Telephone Magali Henriquez [facility] BU[facility] 1.84.114 350.1.13.10 4.2.7.2.686 [id number] 044 [id number] [facility] 2023-10-21 00:00:00 2023-10-21 00:00:00 Telephone Diya Wynne [facility] PROFESSIO NAL BUILDING 1.114 350.1.13.10 4.2.7.2.686 [id number] 059 [id number] [facility] 2023-10-09 10:00:00 2023-10-09 10:44:20 Outpatient R CAL LEARY [facility] [id number] [facility] 2023-10-09 10:00:00 2023-10-09 10:15:00 Office [facility] 1.114 350.1.13.10 4.2.7.2.686 [id number] [facility] 2023-06-16 00:00:00 2023-06-16 00:00:00 Refholley CamilaHellen [facility] MEDICAL OFFICE BUILDING 1..114 350.1.13.10 4.2.7.2.686 [id number] [facility] 2023-05-08 15:15:00 2023-05-08 15:30:00 Book Cutter Visit Lab, Phuc Julien [facility] MEDICAL OFFICE BUILDING 1..114 350.1.13.10 4.2.7.2.686 [id number] [facility] 2023-05-08 14:30:00 2023-05-08 14:59:39 Outpatient R PHUC MAYNARD [facility] [id number] [facility] 2023-05-08 14:30:00 2023-05-08 14:59:39 [facility] 1.2.840.114 350.1.13.10 4.2.7.2.686 [id number] 220 [id number] [facility] 2023-05-08 00:00:00 2023-05-08 00:00:00 Orders Only Doctor Unassigned, [place] [facility] 1.2.840.114 350.1.13.10 4.2.7.2.686 [id number] 009 [id number] [facility] 2022-11-03 00:00:00 2022-11-03 00:00:00 Telephone Phuc Maynard [facility] BUILD[facility] 1..840.114 350.1.13.10 4.2.7.2.686 [id number] 220 [id number] [facility] 2022-10-29 00:00:00 2022-10-29 00:00:00 Telephone Manny Wynneaudelia [facility] BUILDING 1.2.840.114 350.1.13.10 4.2.7.2.686 [id number] 059 [id number] [facility] 2022-10-28 12:15:00 2022-10-28 12:30:00 Book Cutter Visit Pob, Adc Lab Main Dong Bennett [facility] BUILDING 1..840.114 350.1.13.10 4.2.7.2.686 [id number] 353 [id number] [facility] 2022-10-28 11:00:00 2022-10-28 11:45:50 Outpatient R DIYA WYNNE [facility] [id number] [facility] 2022-10-28 11:00:00 2022-10-28 11:45:50 [facility] 1.2840.114 350.1.13.10 4.2.7.2.686 [id number] [id number] [facility] 2022-10-28 11:00:00 2022-10-28 11:00:00 Outpatient R RICCI [facility] [id number] [facility] 2022-10-28 11:00:00 2022-10-28 11:00:00 Outpatient R RICCI [facility] [id number] [facility] 2022-10-28 00:00:00 2022-10-28 00:00:00 Orders Only Doctor Unassigned, [place] [facility] 1.2840.114 350.1.13.10 4.2.7.2.686 [id number] [id number] [facility] 2022-09-02 00:00:00 2022-09-02 00:00:00 Telephone [facility] 1.840.114 350.1.13.10 4.2.7.2.686 [id number] 059 [id number] [facility] 2022-09-01 00:00:00 2022-09-01 00:00:00 [facility]ill [facility] 1.2840.114 350.1.13.10 4.2.7.2.686 [id number] [id number] [facility] 2022-08-05 00:00:00 2022-08-05 00:00:00 Refill Magali Henriquez [facility] BUILD[facility] 1.2.840.114 350.1.13.10 4.2.7.2.686 [id number] 044 [id number] [facility] 2022-06-16 00:00:00 2022-06-16 00:00:00 Refill Diya Wynne [facility] PROFESSIO NAL BUILDING 1.84.114 350.1.13.10 4.2.7.2.686 [id number] [id number] [facility] 2022-06-09 13:45:00 2022-06-09 14:58:13 Outpatient R CAL LEARY [facility] [id number] [facility] 2022-06-09 13:45:00 2022-06-09 14:00:00 Office Visit Cal Leary [facility] 1.114 350.1.13.10 4.2.7.2.686 [id number] [facility] 2022-05-02 15:30:00 2022-05-02 15:30:00 Office Visit CamilaAppleOn license of [facility] MED[facility] OFF[facility] BUILDING 1.84.114 350.1.13.10 4.2.7.2.686 [id number] 220 [id number] [facility] 2022-05-02 15:30:00 2022-05-02 14:44:16 [facility] [id number] 2022-05-02 00:00:00 2022-05-02 00:00:00 Jostin Altman [facility] MED[facility] OFFICE BUILDING 1.84.114 350.1.13.10 4.2.7.2.686 [id number] 044 [id number] [facility] 2022-05-02 00:00:00 2022-05-02 00:00:00 Orders Only Doctor Unassigned, [place] [facility] 1..114 350.1.13.10 4.2.7.2.686 [id number] [id number] [facility] 2022-04-16 00:00:00 2022-04-16 00:00:00 Telephone Brayden Mittal [facility] MEDICAL OFFICE BUILDING 1.2.840.114 350.1.13.10 4.2.7.2.686 [id number] 220 [id number] [facility] 2022-04-13 00:00:00 2022-04-13 00:00:00 Patient Secure [facility] BU[facility] 1.2.840.114 350.1.13.10 4.2.7.2.686 [id number] 044 [id number] [facility] 2022-04-10 00:00:00 2022-04-10 00:00:00 Patient Secure Qian Palenciathia [facility] BUILD[facility] 1.2.840.114 350.1.13.10 4.2.7.2.686 [id number] 044 [id number] [facility] 2022 16:00:00 2022 16:40:03 Outpatient GEOFFREY LEE HOWARD [facility] [id number] [facility] 2022 16:00:00 2022 16:40:03 Office Visit Geoffrey Moore [facility] MEDICAL OFFICE BUILDING 1.2.840.114 350.1.13.10 4.2.7.2.686 [id number] [facility] 2022-01-21 11:20:00 2022-01-21 11:20:00 Outpatient GEOFFREY LEE HOWARD [facility] [id number] [facility] 2022-01-06 08:23:01 2022-01-06 23:59:00 Outpatient MAGALI POWERS [facility] [id number] [facility] 2021-12-09 10:00:00 2021-12-09 10:15:00 Office Visit Gibran, [facility] 1.840.114 350.1.13.10 4.2.7.2.686 [id number] 136 [id number] [facility] 2021-12-09 10:00:00 2021-12-09 10:00:00 [facility] [id number] [facility] 2021-11-26 00:00:00 2021-11-26 00:00:00 Refill Ricci [facility] 1.840.114 350.1.13.10 4.2.7.2.686 [id number] [id number] [facility] 2021-11-15 10:30:00 2021-11-15 11:33:54 [facility] [id number] [facility] 2021-11-15 10:30:00 2021-11-15 11:33:54 Office Visit Cal Leary [facility] 1.840.114 350.1.13.10 4.2.7.2.686 [id number] 136 [id number] [facility] 2021-11-15 10:30:00 2021-11-15 10:30:00 [facility] [id number] [facility] 2021-11-08 00:00:00 2021-11-08 00:00:00 Patient Secure Msg DineroBrayden michelle [facility] [place] [facility] 1.840.114 350.1.13.10 4.2.7.2.686 [id number] [facility] 2021-11-06 10:15:00 2021-11-06 10:46:54 Out[facility] [id number] [facility] 2021-11-06 10:15:00 2021-11-06 10:30:00 Office Visit Gibran Loboronda [facility] 1.114 350.1.13.10 4.2.7.2.686 [id number] 136 [id number] [facility] 2021-11-06 10:15:00 2021-11-06 10:15:00 Outpatient [facility] [id number] [facility] 2021-11-06 10:15:00 2021-11-06 10:15:00 Out[facility] [id number] [facility] 2021-11-05 10:00:00 2021-11-05 12:39:00 [facility] [id number] [facility] 2021-11-05 10:00:00 2021-11-05 12:39:00 Outpatient R GIBRAN [facility] [id number] [facility] 2021-11-05 10:00:00 2021-11-05 12:39:00 Hospital Encounter Gibran Loboronda [facility] ([facility] 1.114 350.1.13.10 4.2.7.2.686 [id number] [id number] [facility] 2021-11-05 10:38:00 2021-11-05 11:07:00 [facility] ..114 350.1.13.10 4.2.7.2.686 [id number] [facility] 2021-11-05 00:00:00 2021-11-05 00:00:00 Orders Only Doctor Unassigned, [place] [facility] 1..114 350.1.13.10 4.2.7.2.686 [id number] [facility] 2021-11-04 11:15:00 2021-11-04 11:15:00 Outpatient R CAL LEARY [facility] [id number] [facility] 2021-10-28 13:00:00 2021-10-28 13:53:22 [facility] [id number] [facility] 2021-10-28 13:00:00 2021-10-28 13:53:22 [facility] 1.840.114 350..13.10 4.2.7.2.686 [id number] [facility] 2021-10-28 13:00:00 2021-10-28 13:00:00 Outpatient [facility] [id number] [facility] 2021-10-25 00:00:00 2021-10-25 00:00:00 Orders Only Doctor Unassigned, [place] [facility] 1.840.114 350.1.13.10 4.2.7.2.686 [id number] [facility] 2021-10-24 09:30:00 2021-10-24 10:33:57 Outpatient R [facility] [id number] [facility] 2021-10-24 09:30:00 2021-10-24 10:33:57 Outpatient R [facility] [id number] [facility] 2021-10-24 09:30:00 2021-10-24 10:33:57 [facility] 1.840.114 350.1.13.10 4.2.7.2.686 [id number] [facility] 2021-10-24 09:30:00 2021-10-24 10:33:57 Out[facility] [id number] [facility] 2021-10-24 09:30:00 2021-10-24 09:30:00 Outpatient R [facility] [id number] [facility] 2021-10-24 00:00:00 2021-10-24 00:00:00 Orders Only Doctor Unassigned, [place] [facility] 1.840.114 350.1.13.10 4.2.7.2.686 [id number] [facility] 2021-10-23 10:15:00 2021-10-23 10:30:00 Office Visit Cal Leary [facility] 1.84.114 350.1.13.10 4.2.7.2.686 [id number] [facility] 2021-10-23 10:15:00 2021-10-23 10:15:00 Outpatient R CAL LEARY [facility] [id number] [facility] 2021-10-23 10:15:00 2021-10-23 10:15:00 Outpatient R CAL LEARY [facility] [id number] [facility] 2021-10-23 10:15:00 2021-10-23 10:15:00 [facility] [id number] [facility] 2021-10-23 00:00:00 2021-10-23 00:00:00 Orders Only Doctor Unassigned, [place] [facility] 1.2840.114 350.1.13.10 4.2.7.2.686 [id number] [facility] 2021-10-16 10:00:00 2021-10-16 11:11:02 Outpatient R [facility] [id number] [facility] 2021-10-16 10:00:00 2021-10-16 11:11:02 [facility] 1.114 350.1.13.10 4.2.7.2.686 [id number] [facility] 2021-10-16 10:00:00 2021-10-16 11:11:02 Outpatient R [facility] [id number] [facility] 2021-10-16 10:00:00 2021-10-16 10:00:00 Outpatient R [facility] [id number] [facility] 2021-10-15 10:38:00 2021-10-15 12:35:00 Outpatient R [facility] [id number] [facility] 2021-10-15 10:38:00 2021-10-15 12:35:00 Outpatient R [facility] [id number] [facility] 2021-10-15 11:36:00 2021-10-15 12:05:00 Surgery [facility] .114 350.1.13.10 4.2.7.2.686 [id number] [facility] 2021-10-15 00:00:00 2021-10-15 00:00:00 Orders Only Doctor Unassigned, [place] [facility] .114 350.1.13.10 4.2.7.2.686 [id number] [id number] [facility] 2021-10-05 00:00:00 2021-10-05 00:00:00 Orders Only Doctor Unassigned, [place] [facility] 1..114 350.1.13.10 4.2.7.2.686 [id number] [facility] 2021-09-25 15:00:00 2021-09-25 15:15:00 Office Visit Cal Leary [facility] 1.840.114 350..13.10 4.2.7.2.686 [id number] [facility] 2021-09-25 15:00:00 2021-09-25 15:00:00 Outpatient R [facility] [id number] [facility] 2021-09-25 15:00:00 2021-09-25 15:00:00 Outpatient R CAL LEARY [facility] [id number] [facility] 2021-09-24 10:30:00 2021-09-24 11:46:54 Outpatient R MAGALI HENRIQUEZ [facility] [id number] [facility] 2021-09-24 10:30:00 2021-09-24 10:30:00 Outpatient R MAGALI HENRIQUEZ [facility] [id number] [facility] 2021-08-30 00:00:00 2021-08-30 00:00:00 Telephone Magali Henriquez [facility] 1.840.114 350.1.13.10 4.2.7.2.686 [id number] [facility] 2021-08-29 00:00:00 2021-08-29 00:00:00 Diya Boy[facility] 1..840.114 350.1.13.10 4.2.7.2.686 [id number] [facility] 2021-08-28 00:00:00 2021-08-28 00:00:00 [facility] 1.840.114 350.1.13.10 4.2.7.2.686 [id number] [facility] 2021-08-20 00:00:00 2021-08-20 00:00:00 [facility] 1.284.114 350.1.13.10 4.2.7.2.686 [id number] [facility] 2021-07-31 16:00:00 2021-07-31 16:30:00 Nurse Visit Visit, Adc Nurse Ricci [facility] 1.84.114 350.1.13.10 4.2.7.2.686 [id number] [facility] 2021-07-31 16:00:00 2021-07-31 16:00:00 Outpatient R [facility]NY [facility] [facility] [id number] [facility] 2021-07-29 14:15:00 2021-07-29 14:15:00 [facility] [id number] [facility] 2021-07-29 14:15:00 2021-07-29 14:15:00 Book Cutter Visit 2, Adc Lab Ricci [facility] BUILDING 1.84.114 350.1.13.10 4.2.7.2.686 [id number] [facility] 2021-07-29 13:40:00 2021-07-29 14:00:00 [facility] 1.284.114 350.1.13.10 4.2.7.2.686 [id number] [facility] 2021-07-29 13:40:00 2021-07-29 13:40:00 Outpatient R DIYA WYNNE [facility] [id number] [facility] 2021-07-29 00:00:00 2021-07-29 00:00:00 Patient Secure M[facility] 1.2.840.114 350.1.13.10 4.2.7.2.686 [id number] [facility] 2021-07-08 00:00:00 2021-07-08 00:00:00 Patient Secure Msg Doctor Unassigned, [place] [facility] 1.2.840.114 350.1.13.10 4.2.7.2.686 [id number] [facility] 2021-07-03 00:00:00 2021-07-03 00:00:00 Telephone Derek Tafoya [facility] BUILDING 1.2.840.114 350.1.13.10 4.2.7.2.686 [id number] [facility] 2021-07-02 14:40:00 2021-07-02 15:42:03 [facility] [id number] [facility] 2021-07-02 14:40:00 2021-07-02 15:42:03 [facility] 1.2.840.114 350.1.13.10 4.2.7.2.686 [id number] [facility] 2021-07-02 14:40:00 2021-07-02 15:42:03 [facility] [id number] [facility] 2021-07-02 14:40:00 2021-07-02 14:40:00 [facility] [id number] [facility] 2021-07-01 13:40:00 2021-07-01 16:31:36 Outpatient GEOFFREY LEE [facility]ARD [facility] [id number] [facility] 2021-07-01 13:40:00 2021-07-01 16:31:36 Outpatient GEOFFREY LEE [facility]ARD [facility] [id number] [facility] 2021-07-01 13:40:00 2021-07-01 16:31:36 [facility] BUILDING 1.2.840.114 350.1.13.10 4.2.7.2.686 [id number] [facility] 2021-07-01 13:40:00 2021-07-01 13:40:00 Outpatient GEOFFREY LEE [facility] [id number] [facility] 2021-07-01 00:00:00 2021-07-01 00:00:00 Refill [facility]in [facility] BUILDING 1.2.840.114 350.1.13.10 4.2.7.2.686 [id number] [facility] 2021-06-27 11:41:31 2021-06-27 11:56:31 Book Cutter Visit Lab, Claudio [facility] [place] [facility] BUILDING 1.2.840.114 350.1.13.10 4.2.7.2.686 [id number] [facility] 2021-06-27 11:45:00 2021-06-27 11:45:00 Outpatient Margy HENRIQUEZ MAGALI [facility] [id number] [facility] 2021-06-27 09:00:56 2021-06-27 10:50:13 [facility] BUILD[facility] 1.2.840.114 350.1.13.10 4.2.7.2.686 [id number] [facility] 2021-06-27 09:00:00 2021-06-27 10:50:13 Outpatient MAGALI POWERS [facility] [id number] [facility] 2021-06-27 09:00:00 2021-06-27 10:50:13 Outpatient MAGALI POWERS [facility] [id number] [facility] 2021-01-14 06:06:00 2021-01-14 06:06:00 Outpatient Miller_S_AH VFP VFP [id number] [facility] 2019-09-07 07:18:00 2019-09-07 07:18:00 Outpatient Cristina-Mbayo _A_AH VFP VFP [id number] [facility] 2019-09-07 07:18:00 2019-09-07 07:18:00 Outpatient Cristina-Mbayo _A_AH VFP VFP [id number] [facility] 2019-09-07 07:18:00 2019-09-07 07:18:00 Outpatient Cristina-Mbayo _A_AH VFP VFP [id number] [facility] 2019-09-07 07:18:00 2019-09-07 07:18:00 Outpatient Cristina-Mbayo _A_AH VFP VFP [id number] [facility] Results Test Description Test Time Test Comments Results Result Comments Source US RETROPERITONEAL LIMITED 18:33:39 HISTORY: Elevated serum creatinine. TECHNIQUE: Both kidneys are evaluated in multiple planes with the patientin different positions. FINDINGS: No prior study available for comparison. RIGHT KIDNEY: Measures 9.7 x 3.4 x 4.8 cm with cortical thicknessmeasuring up to 7-10 mm. No hydronephrosis or perinephric fluid collectiondetected. Mild fullness noted in the right renal pelvis, measuring up to 7mm in diameter, likely a developmental variation. LEFT KIDNEY: Measures 9.9 x 5.3 x 4.1 cm in size with cortical thicknessmeasuring up to 15 mm. ?No hydronephrosis or perinephric fluid collection. CONCLUSIONS: Essentially normal study. [facility] (40350)2024-03-02 19:22:51* Test Item Value Reference Range Interpretation Comme nts NA (test code = 3235425022) 139 mmol/L 135-145 K (test code = 6121031801) 5.8 mmol/L 3.5-5.0 H CL (test code = 5345294143) 102 mmol/L 98-108 CO2 TOTAL (test code = 2139010327) 23 mmol/L 23-31 AGAP (test code = 4832595444) 14 2-16 BUN (test code = 1064855143) 23 mg/dL 7-23 GLUCOSE (test code = 2792583774) 127 mg/dL 70-110 H CREATININE (test code = 2160-0) 1.52 mg/dL 0.50-1.04 H TOTAL BILI (test code = 2854237692) 1.0 mg/dL 0.1-1.1 CALCIUM (test code = 4063775106) 9.9 mg/dL 8.6-10.6 T PROTEIN (test code = 9394725465) 9.2 g/dL 6.3-8.2 H ALBUMIN (test code = 7293109839) 4.5 g/dL 3.5-5.0 ALK PHOS (test code = 0865408885) 102 U/L 34-122 ALTv (test code = 1742-6) 15 U/L 5-35 AST(SGOT) (test code = 1968704057) 30 U/L 13-40 eGFR (test code = 03655-7) 35.8 mL/min/1.73m2 CKD-EPI eGFR (2020). Assuming creatinine has been stable day-to-day for at least three months, the eGFR indicates Category G3b (30 - 44 mL/min/1.73 m2) Lab Interpretation (test code = 09278-6) [facility]normal [facility] 19:22:50* Test Item Value Reference Range Interpretation Comme nts LIPASE (test code = 7720983275) 124 U/L 0-220 Lab Interpretation (test cod e = 61135-6) Normal [facility] Center[facility]ylase2024-[facility]-14 19:21:54* Test Item Value Reference Range Interpretation Comme nts LISA (test code = 8625184151) 140 U/L 35-110 H Lab Interpretation (test cod e = 13410-9) Abnormal [facility] CenterCb with Izxm2030-56-59 19:18:08* Test Item Value Reference Range Interpretation Comme nts WBC (test code = 6690-2) 7.11 4.30-11.10 RBC (test code = 789-8) 4.16 3.93-5.25 HGB (test code = 718-7) 11.8 g/dL 11.6-15.0 HCT (test code = 4544-3) 37.3 % 35.7-45.2 MCV (test code = 787-2) 89.7 fL 80.6-95.5 MCH (test code = 785-6) 28.4 pg 25.9-32.8 MCHC (test code = 786-4) 31.6 g/dL 31.6-35.1 RDW-SD (test code = 24858-7) 44.3 fL 39.0-49.9 RDW-CV (test code = 788-0) 13.6 % 12.0-15.5 PLT (test code = 777-3) 397 166-358 H MPV (test code = 99296-0) 9.7 fL 9.5-12.9 NRBC/100 WBC (test code = 9472243935) 0.0 0.0-10.0 NRBC x10^3 (test code = 5332512319) See_Comment [Automated messa ge] The system which generated this result transmitted reference range: 10*3/?L. The reference range was not used to interpret this result as normal/abnormal. GRAN MAT (NEUT) % (test code = 770-8) 60.9 % IMM GRAN % (test code = 9946452792) 0.30 % LYMPH % (test code = 736-9) 30.1 % MONO % (test code = 5905-5) 6.2 % EOS % (test code = 713-8) 1.7 % BASO % (test code = 706-2) 0.8 % GRAN MAT x10^3(ANC) (test code = 2867500920) 4.33 10*3/uL 1.88-7.09 IMM GRAN x10^3 (test code = 6092636737) 0.00-0.06 LYMPH x10^3 (test code = 731-0) 2.14 10*3/uL 1.32-3.29 MONO x10^3 (test code = 742-7) 0.44 10*3/uL 0.33-0.92 EOS x10^3 (test code = 711-2) 0.12 10*3/uL 0.03-0.39 BASO x10^3 (test code = 704-7) 0.06 10*3/uL 0.01-0.07 Lab Interpretation (test code = 05044-6) Abnormal [facility] GLUCOSE (AUTOMATED)2024-02-08 16:48:20* Test Item Value Reference Range Interpretation Comme nts POCT GLU (test code = 7381703647) 157 mg/dL 70-110 H Lab Interpretation (test cod e = 73173-4) Abnormal [facility] GLUCOSE (AUTOMATED)2024-02-08 12:29:35* Test Item Value Reference Range Interpretation Comme nts POCT GLU (test code = 8889063275) 120 mg/dL 70-110 H Lab Interpretation (test cod e = 49370-4) Abnormal [facility] GLUCOSE (AUTOMATED)2024-02-08 00:44:26* Test Item Value Reference Range Interpretation Comme nts POCT GLU (test code = 3716922408) 145 mg/dL 70-110 H Lab Interpretation (test cod e = 75885-0) Abnormal [facility] GLUCOSE (AUTOMATED)2024-02-07 22:12:51* Test Item Value Reference Range Interpretation Comme nts POCT GLU (test code = 1438468619) 122 mg/dL 70-110 H Lab Interpretation (test cod e = 92399-6) Abnormal [facility] GLUCOSE (AUTOMATED)2024-02-07 16:38:52* Test Item Value Reference Range Interpretation Comme nts POCT GLU (test code = 8536244776) 154 mg/dL 70-110 H Lab Interpretation (test cod e = 39565-7) Abnormal [facility] GLUCOSE (AUTOMATED)2024-02-07 13:18:16* Test Item Value Reference Range Interpretation Comme nts POCT GLU (test code = 6523699950) 119 mg/dL 70-110 H Lab Interpretation (test cod e = 49733-9) Abnormal [facility] GLUCOSE (AUTOMATED)2024-02-07 00:30:28* Test Item Value Reference Range Interpretation Comme nts POCT GLU (test code = 4103525740) 193 mg/dL 70-110 H Lab Interpretation (test cod e = 05574-2) Abnormal [facility] GLUCOSE (AUTOMATED)2024-02-06 22:53:28* Test Item Value Reference Range Interpretation Comme nts POCT GLU (test code = 3301823146) 150 mg/dL 70-110 H Lab Interpretation (test cod e = 10342-3) Abnormal [facility] GLUCOSE (AUTOMATED)2024-02-06 16:17:23* Test Item Value Reference Range Interpretation Comme nts POCT GLU (test code = 3028524181) 147 mg/dL 70-110 H Lab Interpretation (test cod e = 92402-6) Abnormal [facility] GLUCOSE (AUTOMATED)2024-02-06 13:36:15* Test Item Value Reference Range Interpretation Comme nts POCT GLU (test code = 8856218089) 106 mg/dL 70-110 Lab Interpretation (test cod e = 14232-9) Normal [facility] Center[facility]esium2024-07-20 12:43:46* Test Item Value Reference Range Interpretation Comme nts MAGNESIUM (test code = 3746382418) 2.7 mg/dL 1.7-2.4 H Lab Interpretation (test cod e = 26946-9) Abnormal [facility] Metabolic Panel (NA, K, CL, CO2, GLUCOSE, BUN, CREATININE, CA)2024-02-06 12:43:45* Test Item Value Reference Range Interpretation Comme nts NA (test code = 2670333967) 137 mmol/L 135-145 K (test code = 9098095763) 4.3 mmol/L 3.5-5.0 CL (test code = 6242582076) 112 mmol/L 98-108 H CO2 TOTAL (test code = 2414224932) 20 mmol/L 23-31 L AGAP (test code = 8051368822) 5 2-16 BUN (test code = 5567614849) 25 mg/dL 7-23 H GLUCOSE (test code = 2342440855) 106 mg/dL 70-110 CREATININE (test code = 2160-0) 0.94 mg/dL 0.50-1.04 CALCIUM (test code = 0104811730) 7.8 mg/dL 8.6-10.6 L eGFR (test code = 32351-3) 63.8 mL/min/1.73m2 CKD-EPI eGFR (2020). Assuming creatinine has been stable day-to-day for at least three months, the eGFR indicates Category G2 (60 - 89 mL/min/1.73 m2) Lab Interpretation (test code = 22277-0) Abnormal [facility] GLUCOSE (AUTOMATED)2024-02-06 02:06:38* Test Item Value Reference Range Interpretation Comme nts POCT GLU (test code = 8042941623) 151 mg/dL 70-110 H Lab Interpretation (test cod e = 98904-5) Abnormal [facility] GLUCOSE (AUTOMATED)2024-02-05 20:50:51* Test Item Value Reference Range Interpretation Comme nts POCT GLU (test code = 0998601832) 143 mg/dL 70-110 H Lab Interpretation (test cod e = 49743-4) Abnormal [facility] GLUCOSE (AUTOMATED)2024-02-05 17:01:29* Test Item Value Reference Range Interpretation Comme nts POCT GLU (test code = 8875285305) 191 mg/dL 70-110 H Lab Interpretation (test cod e = 45179-3) [facility] Hfen5244-53-59 14:44:06* Test Item Value Reference Range Interpretation Comme nts WBC (test code = 6690-2) 9.71 4.30-11.10 RBC (test code = 789-8) 2.37 3.93-5.25 L HGB (test code = 718-7) 6.8 g/dL 11.6-15.0 L HCT (test code = 4544-3) 21.1 % 35.7-45.2 L MCV (test code = 787-2) 89.0 fL 80.6-95.5 MCH (test code = 785-6) 28.7 pg 25.9-32.8 MCHC (test code = 786-4) 32.2 g/dL 31.6-35.1 RDW-SD (test code = 88879-2) 46.5 fL 39.0-49.9 RDW-CV (test code = 788-0) 14.4 % 12.0-15.5 PLT (test code = 777-3) 88 166-358 L MPV (test code = 52803-3) 10.2 fL 9.5-12.9 IPF % (test code = 2488140057) 2.4 % 1.3-7.7 Platelet count measured by fluorescence method. NRBC/100 WBC (test code = 4647470036) 0.0 0.0-10.0 NRBC x10^3 (test code = 1577647887) See_Comment [Automated Unight[employer] ge] The system which generated this result transmitted reference range: 10*3/?L. The reference range was not used to interpret this result as normal/abnormal. SEG % (test code = 37866-3) 80 % 33-76 H BAND % (test code = 07575-4) 1 % 0-1 LYMPH % (test code = 61395-5) 14 % 14-54 MONO % (test code = 98533-5) 5 % 0-4 H ANC (test code = 753-4) 7.87 10*3/uL 1.88-7.09 H VELVET CELLS (test code = 7790-9) 2+ See_Comment A [Automated [employer]] The system which generated this result transmitted reference range: (none). The reference range was not used to interpret this result as normal/abnormal. TOXIC CHANGES (test code = 803-7) Present A PLT ESTIMATE (test code = 9317-9) Decreased Normal A Lab Interpretation (test code = 22661-0) Abnormal [facility] GLUCOSE (AUTOMATED)2024-02-05 12:52:51* Test Item Value Reference Range Interpretation Comme nts POCT GLU (test code = 6993758649) 114 mg/dL 70-110 H Lab Interpretation (test cod e = 00755-8) Abnormal [facility] GLUCOSE (AUTOMATED)2024-02-05 00:45:57* Test Item Value Reference Range Interpretation Comme nts POCT GLU (test code = 1761081111) 128 mg/dL 70-110 H Lab Interpretation (test cod e = 46586-2) Abnormal [facility] GLUCOSE (AUTOMATED)2024-02-04 21:00:14* Test Item Value Reference Range Interpretation Comme nts POCT GLU (test code = 6989975158) 139 mg/dL 70-110 H Lab Interpretation (test cod e = 56900-4) Abnormal [facility] GLUCOSE (AUTOMATED)2024-02-04 17:00:02* Test Item Value Reference Range Interpretation Comme nts POCT GLU (test code = 3214272013) 157 mg/dL 70-110 H Lab Interpretation (test cod e = 66012-8) Abnormal [facility] Packed RBC (in units), 1 Units 2024-02-04 13:45:52* Test Item Value Reference Range Interpretation Comme nts Cross Match Result (test code = 4409) Compatible ISBT Blood Type Code (test code = 925416) 5100 Unit Blood Type (test code = 4410) O Pos Unit Number (test code = 4411) [id number] Blood Expiration Date & Time (test code = 888676) [id number] Status Information (test code = 4412) Issued Product Identification (test code = 4413) Red Blood Cells Product Code (test code = 4414) [id number] Performed at [facility] B Laboratory Services - [facility] Blood [address] [place] [address]Croj Free: [phone] No. [id number] [facility] GLUCOSE (AUTOMATED)2024-02-04 13:12:12* Test Item Value Reference Range Interpretation Comme nts POCT GLU (test code = 3095459912) 139 mg/dL 70-110 H Lab Interpretation (test cod e = 35248-2) Abnormal [facility] GLUCOSE (AUTOMATED)2024-02-04 01:15:13* Test Item Value Reference Range Interpretation Comme nts POCT GLU (test code = 6689640217) 126 mg/dL 70-110 H Lab Interpretation (test cod e = 20045-0) Abnormal [facility] GLUCOSE (AUTOMATED)2024-02-03 21:35:45* Test Item Value Reference Range Interpretation Comme nts POCT GLU (test code = 3636048114) 149 mg/dL 70-110 H Lab Interpretation (test cod e = 26315-1) Abnormal [facility] GLUCOSE (AUTOMATED)2024-02-03 17:56:44* Test Item Value Reference Range Interpretation Comme nts POCT GLU (test code = 8530205505) 133 mg/dL 70-110 H Lab Interpretation (test cod e = 64643-5) Abnormal [facility] GLUCOSE (AUTOMATED)2024-02-03 17:56:44* Test Item Value Reference Range Interpretation Comme nts POCT GLU (test code = 6820883790) 133 mg/dL 70-110 H Lab Interpretation (test cod e = 48581-1) Abnormal [facility] 1 Mrzc1768-10-94 17:34:00XR CHEST 1 VW COMPARISON: 02/02/2024, 12/30/2023 CLINICAL INDICATIONS: s/p open heart surgery TECHNIQUE: Routine radiographic technique FINDING: ? The area in question in the left lung apex appears to represent pleuraltenting. The Mendon-Osmin catheter is unchanged in position. As compared to the thepreoperative chest from 12/30/2023 there is questionable widening in themediastinum probably related to the current cardiac surgery. The heart isenlarged. Volume loss in left lung base with small left pleural effusion.The right lung is clear.[facility] Chest 1 [id number] 17:34:00XR CHEST 1 VW COMPARISON: 02/02/2024, 12/30/2023 CLINICAL INDICATIONS: s/p open heart surgery TECHNIQUE: Routine radiographic technique FINDING: ? The area in question in the left lung apex appears to r epresent pleuraltenting. The Mendon-Osmin catheter is unchanged in position. As compared to the thepreoperative chest from 12/30/2023 there is questionable widening in themediastinum probably related to the current cardiac surgery. The heart isenlarged. Volume loss in left lung base with small left pleural effusion.The right lung is clear.[facility] GLUCOSE (AUTOMATED)2024-02-03 14:14:35* Test Item Value Reference Range Interpretation Comme nts POCT GLU (test code = 4765268400) 143 mg/dL 70-110 H Lab Interpretation (test cod e = 28376-9) [facility]24-[facility]-03 14:14:35* Test Item Value Reference Range Interpretation Comme nts POCT GLU (test code = 7199903068) 143 mg/dL 70-110 H Lab Interpretation (test cod e = 75971-5) Abnormal [facility] GLUCOSE (AUTOMATED)2024-02-03 04:19:40* Test Item Value Reference Range Interpretation Comme nts POCT GLU (test code = 6162318796) 137 mg/dL 70-110 H Lab Interpretation (test cod e = 18884-0) Abnormal [facility] GLUCOSE (AUTOMATED)2024-02-03 04:19:40* Test Item Value Reference Range Interpretation Comme nts POCT GLU (test code = 9731422278) 137 mg/dL 70-110 H Lab Interpretation (test cod e = 47216-8) Abnormal [facility] GLUCOSE (AUTOMATED)2024-02-03 01:10:18* Test Item Value Reference Range Interpretation Comme nts POCT GLU (test code = 1606388104) 133 mg/dL 70-110 H Lab Interpretation (test cod e = 38138-3) Abnormal [facility] GLUCOSE (AUTOMATED)2024-02-03 01:10:18* Test Item Value Reference Range Interpretation Comme nts POCT GLU (test code = 5953906165) 133 mg/dL 70-110 H Lab Interpretation (test cod e = 99471-0) Abnormal [facility] GLUCOSE (AUTOMATED)2024-02-02 23:13:23* Test Item Value Reference Range Interpretation Comme nts POCT GLU (test code = 4437272665) 139 mg/dL 70-110 H Lab Interpretation (test cod e = 74352-1) Abnormal [facility] GLUCOSE (AUTOMATED)2024-02-02 23:13:23* Test Item Value Reference Range Interpretation Comme nts POCT GLU (test code = 1270629310) 139 mg/dL 70-110 H Lab Interpretation (test cod e = 51877-1) Abnormal [facility] GLUCOSE (AUTOMATED)2024-02-02 22:22:03* Test Item Value Reference Range Interpretation Comme nts POCT GLU (test code = 0415863388) 160 mg/dL 70-110 H Lab Interpretation (test cod e = 31995-8) Abnormal [facility] GLUCOSE (AUTOMATED)2024-02-02 22:22:03* Test Item Value Reference Range Interpretation Comme nts POCT GLU (test code = 4157257725) 160 mg/dL 70-110 H Lab Interpretation (test cod e = 46289-2) Abnormal [facility] GLUCOSE (AUTOMATED)2024-02-02 21:06:08* Test Item Value Reference Range Interpretation Comme nts POCT GLU (test code = 3929000367) 154 mg/dL 70-110 H Lab Interpretation (test cod e = 36076-9) Abnormal [facility] GLUCOSE (AUTOMATED)2024-02-02 21:06:08* Test Item Value Reference Range Interpretation Comme nts POCT GLU (test code = 4097682462) 154 mg/dL 70-110 H Lab Interpretation (test cod e = 84248-9) Abnormal [facility] 1 View (on admission)2024-02-02 20:57:25 CHEST ONE VIEW HISTORY: ?S/P open heart surgery TECHNIQUE: ?AP view of the chest is obtained. COMPARISON: 12/30/2023 FINDINGS: The Mendon-Osmin catheter is noted with its tip in the pulmonary outflowtract. A mediastinal drain and a left pleural drain are present. Changes ofmedian sternotomy are seen. Prominence of the central vascularity is noted. Heart size is enlarged.Aorta is significantly tortuous. Small left pleural effusion is seen. Traceleft apical pneumothorax is seen.. CONCLUSIONS:1. Traceleft apical pneumothorax.2. Mild pulmonary vascular congestion, cardiomegaly and left pleuraleffusionIm[facility] Center 1 View (on admission)2024-02-02 20:57:25CHEST ONE VIEW HISTORY: ?S/P open heart surgery TECHNIQUE: ?AP view of the chest is obtained. COMPARISON: 12/30/2023 FINDINGS: The Mendon-Osmin catheter is noted with its tip in the pulmonary outflowtract. A mediastinal drain and a left pleural drain are present. Changes ofmedian sternotomy are seen. Prominence of the central vascularity is noted. Heart size is enlarged.Aorta is significantly tortuous. Small left pleural effusion is seen. Traceleft apical pneumothorax is seen.. CONCLUSIONS:1. Traceleft apical pneumothorax.2. Mild pulmonary vascular congestion, cardiomegaly and left pleuraleffusionUnChildren[facility] Packed RBC (in units), 2 Fkmxc8218-49-05 20:41:03* Test Item Value Reference Range Interpretation Comme nts Cross Match Result (test code = 4409) Compatible ISBT Blood Type Code (test code = 681376) 5100 Unit Blood Type (test code = 4410) O Pos Unit Number (test code = 4411) [id number] Blood Expiration Date & Time (test code = 252859) [id number] Status Information (test code = 4412) Returned from Issue Product Identification (test code = 4413) Red Blood Cells Product Code (test code = 4414) [id number] Performed at [facility] [[email or web address]] Laboratory Services [facility] Blood [address] [place], [place] [id number] Free: [phone] No. [id number] [facility] Packed RBC (in units), 2 Units 2024-02-02 20:41:03* Test Item Value Reference Range Interpretation Comme nts Cross Match Result (test code = 4409) Compatible ISBT Blood Type Code (test code = 800810) 5100 Unit Blood Type (test code = 4410) O Pos Unit Number (test code = 4411) [id number] Blood Expiration Date & Time (test code = 523343) 119251653238 Status Information (test code = 4412) Returned from Issue Product Identification (test code = 4413) Red Blood Cells Product Code (test code = 4414) [id number] Performed at [facility] [[email or web address] Laboratory Services [facility] Blood [address] [place], [place] [address]Toll Free: [phone] No. [id number] [facility] CenterABG+COOX+NA+K+GLU+CA2+ (While Intubated) 2024-02-02 20:40:50* Test Item Value Reference Range Interpretation Comme nts PH (test code = 2) 7.21 7.35-7.45 L PCO2 (test code = 7403075183) 51 35-45 H PO2 (test code = 4108502553) 274 80-100 H HCO3 (test code = 9597987639) 20 22-26 L BE (test code = 3039662031) -7.7 -3.0-3.0 L THB (test code = 6417595081) 10.4 g/dL 12.0-16.0 L %O2HB (test code = 7192384611) 98.5 % 94.0-99.0 %COHB ART (test code = 2067213644) 0.3 % 0.0-1.5 %METHB ART (test code = 0054858937) 0.2 % 0.4-1.5 L VOL%O2 ART (test code = 0600318873) 15.1 % 15.0-23.0 QUES NA (test code = 4823075633) 141 mmol/L 135-145 K+ (test code = 4087108037) 4.7 mmol/L 3.5-5.0 AC CA IONZ (test code = 9645645168) 4.70 mg/dL 4.50-5.30 GLUCOSE (test code = 1027599753) 150 mg/dL 70-110 H Lab Interpretation (test cod e = 63969-8) Abnormal [facility] CenterABG+COOX+NA+K+GLU+CA2+ (While Intubated) 2024-02-02 20:40:50* Test Item Value Reference Range Interpretation Comme nts PH (test code = 2) 7.21 7.35-7.45 L PCO2 (test code = 4384915421) 51 35-45 H PO2 (test code = 9786344017) 274 80-100 H HCO3 (test code = 0205789178) 20 22-26 L BE (test code = 0056736449) -7.7 -3.0-3.0 L THB (test code = 2979061082) 10.4 g/dL 12.0-16.0 L %O2HB (test code = 1946371052) 98.5 % 94.0-99.0 %COHB ART (test code = 7965230065) 0.3 % 0.0-1.5 %METHB ART (test code = 8271315174) 0.2 % 0.4-1.5 L VOL%O2 ART (test code = 5409841139) 15.1 % 15.0-23.0 QUES NA (test code = 4535766697) 141 mmol/L 135-145 K+ (test code = 6099056266) 4.7 mmol/L 3.5-5.0 AC CA IONZ (test code = 2636429653) 4.70 mg/dL 4.50-5.30 GLUCOSE (test code = 9246593214) 150 mg/dL 70-110 H Lab Interpretation (test cod e = 34296-9) Abnormal [facility] GLUCOSE (AUTOMATED)2024-02-02 20:27:14* Test Item Value Reference Range Interpretation Comme [facility] POCT GLU (test code = 0241345950) 138 mg/dL 70-110 H Lab Interpretation (test cod e = 49427-7) Abnormal [facility] GLUCOSE (AUTOMATED)2024-02-02 20:27:14* Test Item Value Reference Range Interpretation Comme [facility] POCT GLU (test code = 6790277491) 138 mg/dL 70-110 H Lab Interpretation (test cod e = 28489-8) [facility] [id number] 19:47:00* Test Item Value Reference Range Interpretation Comme [facility] PROTIME PATIENT (test code = 5964-2) 19.1 10.1-12.6 H INR (test code = 6301-6) 1.7 Normal INR <1.1; Warfarin Therapeutic range 2.0 to 3.0 or 2.5 to 3.5, depending upon the indications. Lab Interpretation (test code = 73419-8) [facility] 19:47:[facility]* Test Item Value Reference Range Interpretation Comme [facility] APTT Patient (test code = 3173-2) 33 26-36 Lab Interpretation (test cod e = 92870-1) [facility] 19:47:00* Test Item Value Reference Range Interpretation Comme [facility] Fibrinogen (test code = 5741276574) 162 mg/dL 167-453 L Lab Interpretation (test cod e = 89618-5) [facility] / [id number] 19:47:00* Test Item Value Reference Range Interpretation Comme [facility] PROTIME PATIENT (test code = 5964-2) 19.1 10.1-12.6 H INR (test code = 6301-6) 1.7 Normal INR <1.1; Warfarin Therapeutic range 2.0 to 3.0 or 2.5 to 3.5, depending upon the indications. Lab Interpretation (test code = 21243-4) [facility] 19:47:00* Test Item Value Reference Range Interpretation Comme [facility] APTT Patient (test code = 3173-2) 33 26-36 Lab Interpretation (test cod e = 92744-6) [facility] 19:47:00* Test Item Value Reference Range Interpretation Comme [facility] Fibrinogen (test code = 6726237210) 162 mg/dL 167-453 L Lab Interpretation (test cod e = 81252-3) [facility]normal [facility]PO[facility] VISCOELASTIC OPQXHYC1509-92-14 19:39:31* Test Item Value Reference Range Interpretation Comme [facility] Clot Time (test code = 9374259633) 161 104-166 Heparinase Clot Time (test c ode = 8280192058) 154 103-153 H Clot Stiffness (test code = 9351137575) 15.6 hPa 13.0-33.2 Fibrinogen Contribution to C lot Stiffness (test code = 1227142016) 2.2 hPa 1.0-3.7 Platelet Contribution to Elissa t Stiffness (test code = 1258867312) 13.4 hPa 11.9-29.8 Clot Time Ratio (test code = 5370228541) 1.0 Ratio Lab Interpretation (test cod e = 93444-0) Abnormal [facility] VISCOELASTIC [id number] 19:39:31* Test Item Value Reference Range Interpretation Comme nts Clot Time (test code = 9494370422) 161 104-166 Heparinase Clot Time (test c ode = 5190885036) 154 103-153 H Clot Stiffness (test code = 3122338700) 15.6 hPa 13.0-33.2 Fibrinogen Contribution to C lot Stiffness (test code = 7404464422) 2.2 hPa 1.0-3.7 Platelet Contribution to Elissa t Stiffness (test code = 8435113733) 13.4 hPa 11.9-29.8 Clot Time Ratio (test code = 1256478441) 1.0 Ratio Lab Interpretation (test cod e = 48485-8) Abnormal [facility] Tkdazlti9629-69-68 19:37:16* Test Item Value Reference Range Interpretation Comme nts PH (test code = 2) 7.42 7.35-7.45 PCO2 (test code = 6530438493) 31 35-45 L PO2 (test code = 4742935239) 447 80-100 H BE (test code = 6374433676) -5.0 -3.0-3.0 L HCO3 (test code = 8597782097) 20 22-26 L %O2HB (test code = 1433629925) 100.0 % 95.0-98.0 H NA (test code = 4800566752) 144 mmol/L 135-145 K+ (test code = 9171078713) 3.7 mmol/L 3.5-5.0 AC CA IONZ (test code = 2683236993) 4.70 mg/dL 4.50-5.30 GLUCOSE (test code = 6732180343) 102 mg/dL 70-110 AC Hematocrit (test code = 6751889153) 16 40-54 LL THB (test code = 1982223502) 5.4 g/dL 12.0-16.0 LL AC TC02 (test code = 0937088601) 21 mmol/L See_Comment L [Automated messa ge] The system which generated this result transmitted reference range: 23-27 mmol/L. The reference range was not used to interpret this result as normal/abnormal. Lab Interpretation (test code = 05579-8) Abnormal [facility] Yrticzpd5583-47-21 19:37:16* Test Item Value Reference Range Interpretation Comme nts PH (test code = 2) 7.42 7.35-7.45 PCO2 (test code = 0861296141) 31 35-45 L PO2 (test code = 3009645387) 447 80-100 H BE (test code = 1188336204) -5.0 -3.0-3.0 L HCO3 (test code = 4792333872) 20 22-26 L %O2HB (test code = 6588167850) 100.0 % 95.0-98.0 H NA (test code = 8116357037) 144 mmol/L 135-145 K+ (test code = 6969976178) 3.7 mmol/L 3.5-5.0 AC CA IONZ (test code = 8849626725) 4.70 mg/dL 4.50-5.30 GLUCOSE (test code = 8346714458) 102 mg/dL 70-110 AC Hematocrit (test code = 6960440328) 16 40-54 LL THB (test code = 9492400152) 5.4 g/dL 12.0-16.0 LL AC TC02 (test code = 6585035908) 21 mmol/L See_Comment L [Automated messa ge] The system which generated this result transmitted reference range: 23-27 mmol/L. The reference range was not used to interpret this result as normal/abnormal. Lab Interpretation (test code = 81416-6) [facility]normal [facility] 19:27:35* Test Item Value Reference Range Interpretation Comme nts HGB (test code = 718-7) 6.6 g/dL 11.6-15.0 L Lab Interpretation (test cod e = 39894-9) [facility]normal [facility]IT20[facility] 19:27:35* Test Item Value Reference Range Interpretation Comme nts HCT (test code = 4544-3) 20.2 % 35.7-45.2 L Lab Interpretation (test cod e = 92364-9) [facility]normal [facility] CenterPLATELET BMWXX9786-92-88 19:27:35* Test Item Value Reference Range Interpretation Comme nts PLT (test code = 777-3) 106 166-358 L Lab Interpretation (test cod e = 09249-8) [facility]normal [facility]20[facility] 19:27:35* Test Item Value Reference Range Interpretation Comme nts HGB (test code = 718-7) 6.6 g/dL 11.6-15.0 L Lab Interpretation (test cod e = 26042-1) [facility]normal [facility] 19:27:35* Test Item Value Reference Range Interpretation Comme nts HCT (test code = 4544-3) 20.2 % 35.7-45.2 L Lab Interpretation (test cod e = 83095-2) [facility]normal [facility]PL[facility] FKAZR1015-79-74 19:27:35* Test Item Value Reference Range Interpretation Comme nts PLT (test code = 777-3) 106 166-358 L Lab Interpretation (test cod e = 25882-0) Abnormal [facility] Ixirmvin5896-95-10 19:27:15* Test Item Value Reference Range Interpretation Comme nts PH (test code = 2) 7.38 7.35-7.45 PCO2 (test code = 6456656314) 40 35-45 PO2 (test code = 5734449227) 331 80-100 H BE (test code = 0640121395) -2.0 -3.0-3.0 HCO3 (test code = 5045484315) 24 22-26 %O2HB (test code = 1471351718) 100.0 % 95.0-98.0 H NA (test code = 1483276769) 146 mmol/L 135-145 H K+ (test code = 8978419024) 3.9 mmol/L 3.5-5.0 AC CA IONZ (test code = 8779705676) 4.40 mg/dL 4.50-5.30 L GLUCOSE (test code = 3336347621) 102 mg/dL 70-110 AC Hematocrit (test code = 9265926624) 24 40-54 LL THB (test code = 6864942079) 8.2 g/dL 12.0-16.0 LL AC TC02 (test code = 7081595289) 25 mmol/L See_Comment [Automated messa ge] The system which generated this result transmitted reference range: 23-27 mmol/L. The reference range was not used to interpret this result as normal/abnormal. Lab Interpretation (test code = 46572-5) Abnormal [facility] Srasrwmh5268-71-54 19:27:15* Test Item Value Reference Range Interpretation Comme nts PH (test code = 2) 7.39 7.35-7.45 PCO2 (test code = 3772228579) 41 35-45 PO2 (test code = 6901709865) 313 80-100 H BE (test code = 0310891084) 0.0 -3.0-3.0 HCO3 (test code = 8898481069) 25 22-26 %O2HB (test code = 5739386666) 100.0 % 95.0-98.0 H NA (test code = 3951736795) 146 mmol/L 135-145 H K+ (test code = 0945179330) 4.2 mmol/L 3.5-5.0 AC CA IONZ (test code = 2449630699) 4.40 mg/dL 4.50-5.30 L GLUCOSE (test code = 0627796317) 99 mg/dL 70-110 AC Hematocrit (test code = 5224415285) 19 40-54 LL THB (test code = 3148102924) 6.5 g/dL 12.0-16.0 LL AC TC02 (test code = 0931915015) 26 mmol/L See_Comment [Automated Unighta ge] The system which generated this result transmitted reference range: 23-27 mmol/L. The reference range was not used to interpret this result as normal/abnormal. Lab Interpretation (test code = 01798-8) Abnormal [facility] Zwsscamf8783-86-98 19:27:15* Test Item Value Reference Range Interpretation Comme nts PH (test code = 2) 7.38 7.35-7.45 PCO2 (test code = 1262498311) 40 35-45 PO2 (test code = 8681706126) 331 80-100 H BE (test code = 8562017587) -2.0 -3.0-3.0 HCO3 (test code = 1280980008) 24 22-26 %O2HB (test code = 7655132462) 100.0 % 95.0-98.0 H NA (test code = 8469755978) 146 mmol/L 135-145 H K+ (test code = 5001556803) 3.9 mmol/L 3.5-5.0 AC CA IONZ (test code = 2913155840) 4.40 mg/dL 4.50-5.30 L GLUCOSE (test code = 9363710676) 102 mg/dL 70-110 AC Hematocrit (test code = 6877962649) 24 40-54 LL THB (test code = 6524893432) 8.2 g/dL 12.0-16.0 LL AC TC02 (test code = 6365687304) 25 mmol/L See_Comment [Automated messa ge] The system which generated this result transmitted reference range: 23-27 mmol/L. The reference range was not used to interpret this result as normal/abnormal. Lab Interpretation (test code = 19548-9) Abnormal [facility] Lulqxfcm5788-80-33 19:27:15* Test Item Value Reference Range Interpretation Comme nts PH (test code = 2) 7.39 7.35-7.45 PCO2 (test code = 9649128126) 41 35-45 PO2 (test code = 8944260842) 313 80-100 H BE (test code = 7697503455) 0.0 -3.0-3.0 HCO3 (test code = 7331538809) 25 22-26 %O2HB (test code = 8195071777) 100.0 % 95.0-98.0 H NA (test code = 3720551084) 146 mmol/L 135-145 H K+ (test code = 9564575007) 4.2 mmol/L 3.5-5.0 AC CA IONZ (test code = 5677523669) 4.40 mg/dL 4.50-5.30 L GLUCOSE (test code = 4249194135) 99 mg/dL 70-110 AC Hematocrit (test code = 8679226410) 19 40-54 LL THB (test code = 0655943911) 6.5 g/dL 12.0-16.0 LL AC TC02 (test code = 8488235505) 26 mmol/L See_Comment [Automated messa ge] The system which generated this result transmitted reference range: 23-27 mmol/L. The reference range was not used to interpret this result as normal/abnormal. Lab Interpretation (test code = 71924-4) Abnormal [facility] Nhhzdirq7250-19-22 19:27:09* Test Item Value Reference Range Interpretation Comme nts PH (test code = 2) 7.34 7.35-7.45 L PCO2 (test code = 2888553069) 37 35-45 PO2 (test code = 5484630872) 597 80-100 H BE (test code = 2242629643) -6.0 -3.0-3.0 L HCO3 (test code = 2234676768) 20 22-26 L %O2HB (test code = 4542144982) 100.0 % 95.0-98.0 H NA (test code = 4416735302) 140 mmol/L 135-145 K+ (test code = 3759793440) 3.8 mmol/L 3.5-5.0 AC CA IONZ (test code = 8486566270) 4.90 mg/dL 4.50-5.30 GLUCOSE (test code = 0211603858) 220 mg/dL 70-110 H AC Hematocrit (test code = 3052091686) 31 40-54 L THB (test code = 7371055660) 10.5 g/dL 12.0-16.0 L AC TC02 (test code = 5682915487) 21 mmol/L See_Comment L [Automated messa ge] The system which generated this result transmitted reference range: 23-27 mmol/L. The reference range was not used to interpret this result as normal/abnormal. Lab Interpretation (test code = 78226-6) Abnormal [facility] Savfkqms4181-11-94 19:27:09* Test Item Value Reference Range Interpretation Comme nts PH (test code = 2) 7.31 7.35-7.45 L PCO2 (test code = 0590791059) 38 35-45 PO2 (test code = 6881686673) 525 80-100 H BE (test code = 2938461295) -7.0 -3.0-3.0 L HCO3 (test code = 3418479470) 19 22-26 L %O2HB (test code = 7467223312) 100.0 % 95.0-98.0 H NA (test code = 9329367848) 139 mmol/L 135-145 K+ (test code = 3818984781) 5.1 mmol/L 3.5-5.0 H AC CA IONZ (test code = 8547610535) 4.10 mg/dL 4.50-5.30 L GLUCOSE (test code = 2931601632) 144 mg/dL 70-110 H AC Hematocrit (test code = 9383055923) 22 40-54 LL THB (test code = 6719340301) 7.5 g/dL 12.0-16.0 LL AC TC02 (test code = 0798981698) 20 mmol/L See_Comment L [Automated messa ge] The system which generated this result transmitted reference range: 23-27 mmol/L. The reference range was not used to interpret this result as normal/abnormal. Lab Interpretation (test code = 72508-3) Abnormal [facility] Rvbsznkl6031-88-46 19:27:09* Test Item Value Reference Range Interpretation Comme nts PH (test code = 2) 7.35 7.35-7.45 PCO2 (test code = 1820668920) 39 35-45 PO2 (test code = 2894157535) 298 80-100 H BE (test code = 0453859011) -4.0 -3.0-3.0 L HCO3 (test code = 1353180828) 22 22-26 %O2HB (test code = 0701146269) 100.0 % 95.0-98.0 H NA (test code = 5833843277) 142 mmol/L 135-145 K+ (test code = 3352710107) 4.2 mmol/L 3.5-5.0 AC CA IONZ (test code = 4578850231) 4.20 mg/dL 4.50-5.30 L GLUCOSE (test code = 6335705003) 129 mg/dL 70-110 H AC Hematocrit (test code = 1482850814) 19 40-54 LL THB (test code = 3952533069) 6.5 g/dL 12.0-16.0 LL AC TC02 (test code = 8735823390) 23 mmol/L See_Comment [Automated messa ge] The system which generated this result transmitted reference range: 23-27 mmol/L. The reference range was not used to interpret this result as normal/abnormal. Lab Interpretation (test code = 35522-9) Abnormal [facility] Glfdqcdo6036-62-19 19:27:09* Test Item Value Reference Range Interpretation Comme nts PH (test code = 2) 7.39 7.35-7.45 PCO2 (test code = 6817363251) 40 35-45 PO2 (test code = 9055253545) 258 80-100 H BE (test code = 9264300404) 0.0 -3.0-3.0 HCO3 (test code = 4972116159) 25 22-26 %O2HB (test code = 4840790359) 100.0 % 95.0-98.0 H NA (test code = 8336129888) 144 mmol/L 135-145 K+ (test code = 5546277880) 4.5 mmol/L 3.5-5.0 AC CA IONZ (test code = 1146743039) 4.30 mg/dL 4.50-5.30 L GLUCOSE (test code = 6486490707) 113 mg/dL 70-110 H AC Hematocrit (test code = 7290443949) 18 40-54 LL THB (test code = 2774309496) 6.1 g/dL 12.0-16.0 LL AC TC02 (test code = 0395769994) 26 mmol/L See_Comment [Automated Unighta ge] The system which generated this result transmitted reference range: 23-27 mmol/L. The reference range was not used to interpret this result as normal/abnormal. Lab Interpretation (test code = 43203-5) Abnormal [facility] Fllumwjz0420-76-48 19:27:09* Test Item Value Reference Range Interpretation Comme nts PH (test code = 2) 7.39 7.35-7.45 PCO2 (test code = 3459515032) 40 35-45 PO2 (test code = 4859243246) 255 80-100 H BE (test code = 0201804431) -1.0 -3.0-3.0 HCO3 (test code = 1136390122) 24 22-26 %O2HB (test code = 3783462119) 100.0 % 95.0-98.0 H NA (test code = 0350956113) 146 mmol/L 135-145 H K+ (test code = 1058926998) 3.7 mmol/L 3.5-5.0 AC CA IONZ (test code = 5034667895) 4.40 mg/dL 4.50-5.30 L GLUCOSE (test code = 3363302504) 107 mg/dL 70-110 AC Hematocrit (test code = 0845416594) 19 40-54 LL THB (test code = 1198983723) 6.5 g/dL 12.0-16.0 LL AC TC02 (test code = 1242629476) 25 mmol/L See_Comment [Automated messa ge] The system which generated this result transmitted reference range: 23-27 mmol/L. The reference range was not used to interpret this result as normal/abnormal. Lab Interpretation (test code = 41485-7) Abnormal [facility] Ikzrmcap2548-32-99 19:27:09* Test Item Value Reference Range Interpretation Comme nts PH (test code = 2) 7.39 7.35-7.45 PCO2 (test code = 6002485831) 40 35-45 PO2 (test code = 5954169997) 294 80-100 H BE (test code = 8162266920) -1.0 -3.0-3.0 HCO3 (test code = 8902108108) 24 22-26 %O2HB (test code = 2751608173) 100.0 % 95.0-98.0 H NA (test code = 0331323410) 145 mmol/L 135-145 K+ (test code = 7057438939) 3.9 mmol/L 3.5-5.0 AC CA IONZ (test code = 6014244862) 4.40 mg/dL 4.50-5.30 L GLUCOSE (test code = 4359160518) 100 mg/dL 70-110 AC Hematocrit (test code = 1302602450) 18 40-54 LL THB (test code = 4181765285) 6.1 g/dL 12.0-16.0 LL AC TC02 (test code = 8452390081) 25 mmol/L See_Comment [Automated messa ge] The system which generated this result transmitted reference range: 23-27 mmol/L. The reference range was not used to interpret this result as normal/abnormal. Lab Interpretation (test code = 21034-4) Abnormal [facility] Qvdjelev9902-27-80 19:27:09* Test Item Value Reference Range Interpretation Comme nts PH (test code = 2) 7.34 7.35-7.45 L PCO2 (test code = 4836354544) 37 35-45 PO2 (test code = 3144710620) 597 80-100 H BE (test code = 0638595457) -6.0 -3.0-3.0 L HCO3 (test code = 6997649436) 20 22-26 L %O2HB (test code = 5326168886) 100.0 % 95.0-98.0 H NA (test code = 9459245476) 140 mmol/L 135-145 K+ (test code = 9371819477) 3.8 mmol/L 3.5-5.0 AC CA IONZ (test code = 7887682489) 4.90 mg/dL 4.50-5.30 GLUCOSE (test code = 8882790976) 220 mg/dL 70-110 H AC Hematocrit (test code = 8274600236) 31 40-54 L THB (test code = 1966557323) 10.5 g/dL 12.0-16.0 L AC TC02 (test code = 2626279927) 21 mmol/L See_Comment L [Automated messa ge] The system which generated this result transmitted reference range: 23-27 mmol/L. The reference range was not used to interpret this result as normal/abnormal. Lab Interpretation (test code = 64332-8) Abnormal [facility] Synblgsu3071-32-44 19:27:09* Test Item Value Reference Range Interpretation Comme nts PH (test code = 2) 7.31 7.35-7.45 L PCO2 (test code = 7036491712) 38 35-45 PO2 (test code = 7769582214) 525 80-100 H BE (test code = 9539317589) -7.0 -3.0-3.0 L HCO3 (test code = 4271681823) 19 22-26 L %O2HB (test code = 5303423787) 100.0 % 95.0-98.0 H NA (test code = 7875691507) 139 mmol/L 135-145 K+ (test code = 3471245702) 5.1 mmol/L 3.5-5.0 H AC CA IONZ (test code = 8815406224) 4.10 mg/dL 4.50-5.30 L GLUCOSE (test code = 7261477508) 144 mg/dL 70-110 H AC Hematocrit (test code = 5730589046) 22 40-54 LL THB (test code = 1036870332) 7.5 g/dL 12.0-16.0 LL AC TC02 (test code = 4044053262) 20 mmol/L See_Comment L [Automated messa ge] The system which generated this result transmitted reference range: 23-27 mmol/L. The reference range was not used to interpret this result as normal/abnormal. Lab Interpretation (test code = 51075-7) Abnormal [facility] Rjimezfy9348-09-66 19:27:09* Test Item Value Reference Range Interpretation Comme nts PH (test code = 2) 7.35 7.35-7.45 PCO2 (test code = 2492453957) 39 35-45 PO2 (test code = 3987757910) 298 80-100 H BE (test code = 6407284106) -4.0 -3.0-3.0 L HCO3 (test code = 1384715426) 22 22-26 %O2HB (test code = 0692999036) 100.0 % 95.0-98.0 H NA (test code = 1578497940) 142 mmol/L 135-145 K+ (test code = 7636336260) 4.2 mmol/L 3.5-5.0 AC CA IONZ (test code = 0919130709) 4.20 mg/dL 4.50-5.30 L GLUCOSE (test code = 3639134823) 129 mg/dL 70-110 H AC Hematocrit (test code = 5029237212) 19 40-54 LL THB (test code = 3403411251) 6.5 g/dL 12.0-16.0 LL AC TC02 (test code = 2252082339) 23 mmol/L See_Comment [Automated messa ge] The system which generated this result transmitted reference range: 23-27 mmol/L. The reference range was not used to interpret this result as normal/abnormal. Lab Interpretation (test code = 25122-4) Abnormal [facility] Kpsabgza9093-43-46 19:27:09* Test Item Value Reference Range Interpretation Comme nts PH (test code = 2) 7.39 7.35-7.45 PCO2 (test code = 4460180812) 40 35-45 PO2 (test code = 4710401469) 258 80-100 H BE (test code = 9249719730) 0.0 -3.0-3.0 HCO3 (test code = 5555926994) 25 22-26 %O2HB (test code = 7633394233) 100.0 % 95.0-98.0 H NA (test code = 9850718609) 144 mmol/L 135-145 K+ (test code = 5502524598) 4.5 mmol/L 3.5-5.0 AC CA IONZ (test code = 9390507054) 4.30 mg/dL 4.50-5.30 L GLUCOSE (test code = 6102653506) 113 mg/dL 70-110 H AC Hematocrit (test code = 6458683176) 18 40-54 LL THB (test code = 3820355344) 6.1 g/dL 12.0-16.0 LL AC TC02 (test code = 8808984473) 26 mmol/L See_Comment [Automated Unighta ge] The system which generated this result transmitted reference range: 23-27 mmol/L. The reference range was not used to interpret this result as normal/abnormal. Lab Interpretation (test code = 92080-2) Abnormal [facility] Zhrrmjsu7255-72-46 19:27:09* Test Item Value Reference Range Interpretation Comme nts PH (test code = 2) 7.39 7.35-7.45 PCO2 (test code = 8402034841) 40 35-45 PO2 (test code = 7966365506) 255 80-100 H BE (test code = 2736535104) -1.0 -3.0-3.0 HCO3 (test code = 0793072662) 24 22-26 %O2HB (test code = 3347524481) 100.0 % 95.0-98.0 H NA (test code = 4633211590) 146 mmol/L 135-145 H K+ (test code = 7169942692) 3.7 mmol/L 3.5-5.0 AC CA IONZ (test code = 6268886714) 4.40 mg/dL 4.50-5.30 L GLUCOSE (test code = 0620332263) 107 mg/dL 70-110 AC Hematocrit (test code = 9169696096) 19 40-54 LL THB (test code = 1356844490) 6.5 g/dL 12.0-16.0 LL AC TC02 (test code = 8625075279) 25 mmol/L See_Comment [Automated messa ge] The system which generated this result transmitted reference range: 23-27 mmol/L. The reference range was not used to interpret this result as normal/abnormal. Lab Interpretation (test code = 97390-6) Abnormal [facility] Gwvtnrma7289-95-35 19:27:09* Test Item Value Reference Range Interpretation Comme nts PH (test code = 2) 7.39 7.35-7.45 PCO2 (test code = 3339193436) 40 35-45 PO2 (test code = 3606389620) 294 80-100 H BE (test code = 7646932806) -1.0 -3.0-3.0 HCO3 (test code = 8599716379) 24 22-26 %O2HB (test code = 7963299646) 100.0 % 95.0-98.0 H NA (test code = 0991276825) 145 mmol/L 135-145 K+ (test code = 1602146587) 3.9 mmol/L 3.5-5.0 AC CA IONZ (test code = 9738731141) 4.40 mg/dL 4.50-5.30 L GLUCOSE (test code = 4357711757) 100 mg/dL 70-110 AC Hematocrit (test code = 3813596114) 18 40-54 LL THB (test code = 0784160501) 6.1 g/dL 12.0-16.0 LL AC TC02 (test code = 7519685387) 25 mmol/L See_Comment [Automated messa ge] The system which generated this result transmitted reference range: 23-27 mmol/L. The reference range was not used to interpret this result as normal/abnormal. Lab Interpretation (test code = 57695-8) Abnormal [facility] ACT High [id number] 19:23:16* Test Item Value Reference Range Interpretation Comme nts ACTHR (test code = 0451027187) 445 96-152 H Lab Interpretation (test cod e = 89379-9) Abnormal [facility] ACT High [id number] 19:23:16* Test Item Value Reference Range Interpretation Comme nts ACTHR (test code = 5331488633) 102 96-152 Lab Interpretation (test cod e = 20052-0) Normal [facility] High [id number] 19:23:16* Test Item Value Reference Range Interpretation Comme nts ACTHR (test code = 3767738744) 445 96-152 H Lab Interpretation (test cod e = 13533-4) Abnormal [facility] ACT High [id number] 19:23:16* Test Item Value Reference Range Interpretation Comme nts ACTHR (test code = 4134671624) 102 96-152 Lab Interpretation (test cod e = 78024-6) Normal [facility] High [id number] 19:23:11* Test Item Value Reference Range Interpretation Comme nts ACTHR (test code = 6268985167) 491 96-152 H Lab Interpretation (test cod e = 39835-7) Abnormal [facility] ACT High [id number] 19:23:11* Test Item Value Reference Range Interpretation Comme nts ACTHR (test code = 5503029205) 491 96-152 H Lab Interpretation (test cod e = 09535-3) Abnormal [facility] ACT High [id number] 19:23:10* Test Item Value Reference Range Interpretation Comme nts ACTHR (test code = 4905670429) 469 96-152 H Lab Interpretation (test cod e = 05614-6) Abnormal [facility] ACT High [id number] 19:23:10* Test Item Value Reference Range Interpretation Comme nts ACTHR (test code = 5641249885) 520 96-152 H Lab Interpretation (test cod e = 82857-9) Abnormal [facility] ACT High [id number] 19:23:10* Test Item Value Reference Range Interpretation Comme nts ACTHR (test code = 0674588263) 507 96-152 H Lab Interpretation (test cod e = 93759-2) Abnormal [facility] High [id number] 19:23:10* Test Item Value Reference Range Interpretation Comme nts ACTHR (test code = 6657942064) 498 96-152 H Lab Interpretation (test cod e = 81525-3) Abnormal [facility] High [id number] 19:23:10* Test Item Value Reference Range Interpretation Comme nts ACTHR (test code = 2361118512) 536 96-152 H Lab Interpretation (test cod e = 74082-9) Abnormal [facility] High [id number] 19:23:10* Test Item Value Reference Range Interpretation Comme nts ACTHR (test code = 1178720470) 469 96-152 H Lab Interpretation (test cod e = 16641-7) Abnormal [facility] High [id number] 19:23:10* Test Item Value Reference Range Interpretation Comme nts ACTHR (test code = 4524013057) 520 96-152 H Lab Interpretation (test cod e = 97023-8) Abnormal [facility] High [id number] 19:23:10* Test Item Value Reference Range Interpretation Comme nts ACTHR (test code = 9701748817) 507 96-152 H Lab Interpretation (test cod e = 86215-9) Abnormal [facility] High [id number] 19:23:10* Test Item Value Reference Range Interpretation Comme nts ACTHR (test code = 5429576702) 498 96-152 H Lab Interpretation (test cod e = 39745-9) Abnormal [facility] High [id number] 19:23:10* Test Item Value Reference Range Interpretation Comme nts ACTHR (test code = 3639566886) 536 96-152 H Lab Interpretation (test cod e = 68777-3) Abnormal [facility] High [id number] 19:23:05* Test Item Value Reference Range Interpretation Comme nts ACTHR (test code = 9252348392) 96 96-152 Lab Interpretation (test cod e = 47343-9) Normal [facility] High [id number] 19:23:05* Test Item Value Reference Range Interpretation Comme nts ACTHR (test code = 9990682988) 595 96-152 H Lab Interpretation (test cod e = 95900-1) Abnormal [facility] ACT High [id number] 19:23:05* Test Item Value Reference Range Interpretation Comme nts ACTHR (test code = 8247754221) 96 96-152 Lab Interpretation (test cod e = 11407-5) Normal [facility] ACT High [id number] 19:23:05* Test Item Value Reference Range Interpretation Comme nts ACTHR (test code = 1279841031) 595 96-152 H Lab Interpretation (test cod e = 38364-9) Abnormal [facility] without [id number] 16:52:14* Test Item Value Reference Range Interpretation Comme nts WBC (test code = 6690-2) 7.30 4.30-11.10 RBC (test code = 789-8) 2.41 3.93-5.25 L HGB (test code = 718-7) 6.9 g/dL 11.6-15.0 L HCT (test code = 4544-3) 21.3 % 35.7-45.2 L MCH (test code = 785-6) 28.6 pg 25.9-32.8 MCV (test code = 787-2) 88.4 fL 80.6-95.5 MCHC (test code = 786-4) 32.4 g/dL 31.6-35.1 PLT (test code = 777-3) 140 166-358 L MPV (test code = 34554-8) 9.2 fL 9.5-12.9 L RDW-CV (test code = 788-0) 12.9 % 12.0-15.5 RDW-SD (test code = 80571-2) 42.0 fL 39.0-49.9 NRBC x10^3 (test code = 2650734825) See_Comment [Automated messa ge] The system which generated this result transmitted reference range: 10*3/?L. The reference range was not used to interpret this result as normal/abnormal. NRBC/100 WBC (test code = 3220209095) 0.0 0.0-10.0 IPF % (test code = 8694659875) Lab Interpretation (test code = 14275-4) Abnormal [facility] [id number] 16:52:14* Test Item Value Reference Range Interpretation Comme nts WBC (test code = 6690-2) 7.30 4.30-11.10 RBC (test code = 789-8) 2.41 3.93-5.25 L HGB (test code = 718-7) 6.9 g/dL 11.6-15.0 L HCT (test code = 4544-3) 21.3 % 35.7-45.2 L MCH (test code = 785-6) 28.6 pg 25.9-32.8 MCV (test code = 787-2) 88.4 fL 80.6-95.5 MCHC (test code = 786-4) 32.4 g/dL 31.6-35.1 PLT (test code = 777-3) 140 166-358 L MPV (test code = 74301-5) 9.2 fL 9.5-12.9 L RDW-CV (test code = 788-0) 12.9 % 12.0-15.5 RDW-SD (test code = 65286-1) 42.0 fL 39.0-49.9 NRBC x10^3 (test code = 0592834838) See_Comment [Automated messa ge] The system which generated this result transmitted reference range: 10*3/?L. The reference range was not used to interpret this result as normal/abnormal. NRBC/100 WBC (test code = 3981006198) 0.0 0.0-10.0 IPF % (test code = 3891788161) Lab Interpretation (test code = 71517-6) [facility] [id number] 13:11:44* Test Item Value Reference Range Interpretation Comme nts PH (test code = 2) 7.37 7.35-7.45 PCO2 (test code = 6262269121) 38 35-45 PO2 (test code = 4852979103) 570 80-100 H BE (test code = 7976146195) -4.0 -3.0-3.0 L HCO3 (test code = 5487813816) 22 22-26 %O2HB (test code = 9567182541) 100.0 % 95.0-98.0 H NA (test code = 8331304285) 141 mmol/L 135-145 K+ (test code = 1004373280) 3.7 mmol/L 3.5-5.0 AC CA IONZ (test code = 2419996229) 5.00 mg/dL 4.50-5.30 GLUCOSE (test code = 0107899280) 133 mg/dL 70-110 H AC Hematocrit (test code = 2417571179) 35 40-54 L THB (test code = 8698623748) 11.9 g/dL 12.0-16.0 L AC TC02 (test code = 0387330114) 23 mmol/L See_Comment [Automated Unighta ge] The system which generated this result transmitted reference range: 23-27 mmol/L. The reference range was not used to interpret this result as normal/abnormal. Lab Interpretation (test code = 57836-2) Abnormal [facility] [id number] 13:11:44* Test Item Value Reference Range Interpretation Comme nts PH (test code = 2) 7.37 7.35-7.45 PCO2 (test code = 3546612239) 38 35-45 PO2 (test code = 4883188504) 570 80-100 H BE (test code = 9561281225) -4.0 -3.0-3.0 L HCO3 (test code = 2754113894) 22 22-26 %O2HB (test code = 2384207898) 100.0 % 95.0-98.0 H NA (test code = 2485904635) 141 mmol/L 135-145 K+ (test code = 8228353498) 3.7 mmol/L 3.5-5.0 AC CA IONZ (test code = 4979810199) 5.00 mg/dL 4.50-5.30 GLUCOSE (test code = 4240781540) 133 mg/dL 70-110 H AC Hematocrit (test code = 5456991237) 35 40-54 L THB (test code = 4027218356) 11.9 g/dL 12.0-16.0 L AC TC02 (test code = 3537905710) 23 mmol/L See_Comment [Automated messa ge] The system which generated this result transmitted reference range: 23-27 mmol/L. The reference range was not used to interpret this result as normal/abnormal. Lab Interpretation (test code = 36968-9) [facility] [id number] 12:47:30Timmy Fong CRNA ? ? 02/02/2024 ?7:48 AM Nerve Block Procedure: Other Peripheral Nerve PatientLocation: ORLaterality: Bilateral (Parasternal Block (PIFB))Surgical Anesthesia: Post Op Pain: Start Time: 02/02/2024 7:40 AMEnd Time: 02/02/2024 7:43 AMPost Op Pain Management requested by surgeon persurgical: H&P, Progress Note, OR Posting and Post Op OrderAnesthesiologist: Pipo Castanon MDPerformed by: anesthesiologistPreanesthetic timeout completed prior to procedure: patient identified,IV checked, site marked, risks and benefits discussed, surgical consent, monitors and equipment checked, pre-op evaluation, timeout performedInformed consent obtained patient wishes to proceed: yesPatient Position: supineSterile Prep/Drape: YesMonitoring: continuous pulse ox, blood pressure and ECGInjection Technique: single-shotNeedle Type: StimuplexNeedle Gauge: 22 GNeedle Length: 2.0Number of Attempts: 1Technique: Ultrasound guided, Negative aspiration and Intermittent aspiration during injectionSensory Effect: AdequateEvents: Patient tolerated procedure well, Negative Aspiration, No paresthesia on incremental injection, Local anesthetic solution visualized around nerve and No symptoms of intraneural or IV injectionAdditional Notes:PIFB: Dexamethasone 40 mg & Lidocaine 1% 20 mL & Ropivacaine 0.5% 40 mL & Epinephrine 100 mcg & Precedex 30 mcg.Equal volumes given bilaterally. Sub- Xyphoid Block: Bupivacaine 0.25% 10 [facility]UnUniversity [facility]Central [id number] 12:33:00Timmy Fong CRNA ? ? 02/02/2024 ?7:43 AM Central Line Date/Time: 02/02/2024 7:33 AM Performed by: Lionel Estrada MDCentral Line Placement: ?Ultrasound-Guided: ultrasound guided ? ?Patient Location: ?OR ?Indication: central venous access and CVP monitoring ?Staff: ?Supervising Anesthesiologist: ?Pipo Castanon MD ?Resident: ?Lionel Estrada MDSterility and Timeout Preparation: hand hygiene performed prior to central venous catheter insertion, maximum sterile barriers were used: cap, mask, sterile gown, sterile gloves, and large sterile sheet, antiseptic used during central venous catheter insertion, skin prep agent completely dried prior to procedure and timeout occurred immediatelyprior to procedure ?Procedure Detail: ?Patient Position: ?Trendelenburg ?Laterality: ?Right ?Site: ?Internal jugular ?Prep: ?Chloraprep ?Cathether Size: ?9 Fr ?Cathether Type: ?Introducer (MAC 9 Fr) ?Number of Lumens: ?Double lumen ?Oximetric Catheter?: Yes ? ?target vein identified, needle advanced into vein and blood aspirated and guidewire advanced into vein ? ?Seldinger Technique?: Yes ?Ultrasound Guidance used?: Yes,Sterile Gel and Probe Cover used for Ultrasound? Yes. ?Intravenous Verification: verified by ultrasound and venous blood return ?all ports aspirated, all ports flushed easily, guidewire was removed intact, biopatch was applied, line was sutured in place and dressing was applied ? ?Confirmation for Venous Placement: ?IV tubing and UltrasoundEvents: ?Events: patient tolerated procedure well with no complications ?PA Catheter Placement: ?PA Catheter Placed?: Yes ? ?PA Catheter Type: ?Oximetric ?Laterality: ?Right ?Site: ?Internal jugular ?Placement Confirmation: pressuretracing changes and verified by DIYA ? ?Events: patient tolerated procedure well with no complications ?Comments: ? R-IJ 9 Fr MAC introducer placed in 1 attempt, transduced prior to dilation, wire out, MSBT. PAC floated in one attempt without difficulty. Tip confirmed in main PA on DIYA. ?No apparentcomplications. [facility] Center[facility]ubation2024-07-16 12:29:00Timmy Fong CRNA ? ? 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 Indications and Patient ConditionIndications for airway management: anesthesia and airway protectionSpontaneous Ventilation: absentSedation level: deepPreoxygenated: yesPatient position: sniffingMILS maintained throughoutMask difficulty assessment: 1 - vent by maskNo planned trial extubation Final Airway Deta ilsFinal airway type: endotracheal airway Successful airway: ETTCuffed: yes Successful intubation technique: direct laryngoscopyFacilitating devices/methods: intubating styletEndotracheal tube insertion site: oralBlade: Saint LouisBlade size: #2ETT size (mm): 7.5Cormack-Lehane Classification: grade I - f ull view of glottisPlacement verified by: chest auscultation, capnometry and palpation of cuff Cuffvolume (mL): 7Measured from: lipsETT to lips (cm): 21Number of attempts at approach: 1Ventilation between attempts: noneNumber of other approaches attempted: 0 Additional CommentsEyes taped prior to placement, smooth, atraumatic, dentition and lips unchanged from pre-op.[facility] CenterArterial [id number] 11:47:00Timmy Fong CRNA ? ? 02/02/2024 ?6:47 AM Arterial Line Date/Time: 02/02/2024 6:47 AM Performed by: Lionel Estrada MDArterial Line Placement: ?Ultrasound-Guided: surface landmarks ? ?Patient Location: ?Pre-op ?Indication: continuous blood pressure monitoring and blood sampling needed ?Staff:?Supervising Anesthesiologist: ?Pipo Castnaon MD ?Resident: ?Lionel Estrada MDProcedure Detail: ?Catheter Size: ?20 gauge ?Catheter Length: ?1 and 3/4 inch ?Catheter Type: ?Arrow ?Seldinger Technique?: No ? ?Laterality: ?Right ?Site: ?Radial artery ?Line Secured: ?Tape, Tegaderm and biopatch ?Preparation: ?Chloroprep, sterile gloves, drape, guidewire removed intact and biopatch appliedEvents: ?Events: ?Patient tolerated procedure well with no complications and all wires accounted forComments: ? (+) Local infiltration with Lidocaine, (+)USG, (+) STF, 1x attempt(s), smooth and atraumatic. ___ [facility] GLUCOSE (AUTOMATED)2024-02-02 11:26:51* Test Item Value Reference Range Interpretation Comme nts POCT GLU (test code = 2636051333) 113 mg/dL 70-110 H Lab Interpretation (test cod e = 75197-4) Abnormal [facility] GLUCOSE (AUTOMATED)2024-02-02 11:26:51* Test Item Value Reference Range Interpretation Comme nts POCT GLU (test code = 3407533083) 113 mg/dL 70-110 H Lab Interpretation (test cod e = 83553-9) Abnormal [facility] CenterType and Screen - This is a pre-surgical type and screen. ONCE [id number] 11:18:00* Test Item Value Reference Range Interpretation Comme nts ABO & RH (test code = 20) O POSITIVE IAT (test code = 1185) [facility] This is a pre-surgical type and screen. ONCE [id number] 11:18:00* Test Item Value Reference Range Interpretation Comme nts ABO & RH (test code = 20) O POSITIVE IAT (test code = 1185) Negative [facility] CenterXR CHEST 2 [id number] 20:51:08EXAM: XR CHEST 2 VW COMPARISON: None available HISTORY: preop exam prior to CABG and TVR FINDINGS: Lungs: The lungs are well expanded and clear. Subtle asymmetric focalopacity projected in the left apex.. Nipple shadows noted. Unremarkablepleura. Heart/Mediastinum: Mild cardiomegaly. Unfolded descending thoracic aorta Bones and soft tissues: Degenerative changes of the spine. Osteopenia.[facility] CenterCardiovascular Catheterization 2023-12-25 13:17:41Right/Left Heart Cath/Coronary Angiography Nida Bryan Date of Service: 12/22/2023 ?11:21 AM Attending faculty: Edmar Cortes MDFellow: Samia Meyer Physician: Diya Wynne MD Procedures Performed:L/RHC with coronary angiography Indication/Diagnosis: unstable angina, wall motion abnormality on TTE Consent: Risks, benefits, alternatives and complications of the procedure discussed with the self, who understood and agreed to proceed. Aseptic technique: Chlorprep Local Anesthesia: 1% lidocaine without epinephrine Sedation: Moderate Access site: Arterial: Right radial arteryVenous: Right internal jugular vein Closure Method: Arterial: TR bandVenous: Manual Compression Sterile dressing: yes Complications: none Procedures: After patient identification/verification, the patient was thereafter transferred to the laborer shipyard table. ?The access site was prepped and draped in usual sterile fashion. After administering sedation, time out was done. Under ultrasound guidance, using Seldinger technique, the Right radial artery was accessed and a 6 Fr Slender sheath was introduced intothe artery.Under ultrasound guidance, the Right internal jugular vein was accessed and a 7 Fr Fr sheath was introduced A5 Fr JL 3.5 catheter was used to cannulate the LM. Selective coronary angiography was done using several views. A 5 Fr JR 4.0 was used to cross the AV with the J wire and the catheter was advanced into the LV where selective LVEDP was measured. The catheter was then used to cannu late the RCA and selective coronary angiography was done using multiple views. A 7 Fr Mendon Osmin catheter was used to obtain RA/RV/PA and PCWP and for CO measurement. The attending physician was present throughout the procedure and provided the highest level of supervision. Findings: Coronary dominance: right Left main: Severe calcification, eccentric 30% stenosis LAD: Proximal: severe calcification, eccentric 70% stenosis involving the ostiumMid: diffuse 90% stenosis, distal vessel medium size D1: severe diffuse disease, small distal vessel D2: severe diffuse disease, small distal vessel LCX:Proximal: mild diffuse diseaseDistal: HOSPICE RN, distal vessel large size fills via R-L collaterals OM1: proximal diffuse 80% stenosis, distal vessel medium size OM2: severe diffuse disease, small distal vessel RCA: Proximal: mild diffuse diseaseMid: severe calcification, diffuse 80% stenosis, distal vessel large size PDA: tubular eccentric 70% stenosis, large distal vessel PLB: tubular 80% stenosis, large distal vessel LVEDP: 12 mmHg RHC: RA mean 6 mmHgRV 33/5 mmHgPA 35/9 mmHg (mean PA 21 mmHg)PCWP mean 12 mmHgCO 5.5 L/min (Sonu's method)CI 2.99 L/min/m2 (Sonu's method)CO 3.88 L/min (Thermodilution technique)CI 2.11 L/min/m2 (Thermodilution technique)TPG 9 mmHgPVR 186 D/S PA sat: 60%RA sat: 63% Post- Procedure Sedation AddendumImmediately prior to start of sedation, the patient was evaluated and there was no change from the pre-procedure evaluation. I was present and directed medical care.Thepatient underwent moderate sedation ?for the procedure. The medications administered were recorded in the MAR; oxygenation, ventilation and circulation were monitored continuously and were recorded in the EMR. I evaluated the patient after the procedure.The patient was evaluated immediately as recovering from sedation. Complications: none Impression:Severe multivessel CADMild PH Plan:Aspirin 81mgonce daily x lifelongHigh intensity statin therapyCTS consultation for CABG Edmar Crotes MD 1:21 AM Procedure DetailsRight/Left Heart Cath/Coronary AngiographyLinda Penny Bryan Date of Service: 12/22/2023 11:21 AMAttending faculty: Edmar Cortes MDFellow: Samia Meyer Physician: Diya Wynne MD Procedures Performed:1. L/RHC with coronary angiographyIndication/Diagnosis: unstable angina, wall motion abnormality on TTEConsent: Risks, benefits, alternatives and complications of the procedure discussed with the self, who understood and agreed to proceed.Aseptic technique: ChlorprepLocal Anesthesia: 1% lidocaine without epinephrineSedation: ModerateAccess site: Arterial: Right radial arteryVenous: Right internal jugular veinClosure Method: Arterial: TR bandVenous: Manual CompressionSterile dressing: yesComplications: noneProcedures: After patient identification/verification, the patient was thereafter transferred to the laborer shipyard table. The access site was prepped and draped in usual sterile fashion. After administering sedation, time out was done. Under ultrasound guidance, using Seldinger technique, the Right radial artery was accessed and a 6 Fr Slender sheath was introduced into the artery.Under ultrasound guidance, the Right internal jugular vein was accessed and a 7 Fr Fr sheath was introducedA5 Fr JL 3.5 catheter was used to cannulate the LM. Selective coronary angiography was done using several views. A 5 Fr JR 4.0 was used to cross the AV with the J wire and the catheter was advanced into the LV where selective LVEDP was measured. The catheter was then used to cannulate the RCA and selective coronary angiography was done using multiple views. A 7 FrSwan Osmin catheter was used to obtain RA/RV/PA and PCWP and for CO measurement. The attending physician was present throughout the procedure and provided the highest level of supervision.Findings:Coronary dominance: rightLeft main: Severe calcification, eccentric 30% stenosisLAD: Proximal: severe ca lcification, eccentric 70% stenosis involving the ostiumMid: diffuse 90% stenosis, distal vessel medium size D1: severe diffuse disease, small distal vessel D2: severe diffuse disease, small distal vesselLCX: Proximal: mild diffuse diseaseDistal: HOSPICE RN, distal vessel large size fills via R-L collaterals OM1: proximal diffuse 80% stenosis, distal vessel medium size OM2: severe diffuse disease, smalldistal vesselRCA: Proximal: mild diffuse diseaseMid: severe calcification, diffuse 80% stenosis, distal vessel large size PDA: tubular eccentric 70% stenosis, large distal vessel PLB: tubular 80% stenosis, large distal vesselLVEDP: 12 mmHgRHC:RA mean 6 mmHgRV 33/5 mmHgPA 35/9 mmHg (mean PA 21 mmHg)PCWP mean 12 mmHgCO 5.5 L/min (Sonu's method)CI 2.99 L/min/m2 (Sonu's method)CO 3.88 L/min (Thermodilution technique)CI 2.11 L/min/m2 (Thermodilution technique)TPG 9 mmHgPVR 186 D/SPA sat: 60%RA sat: 63%Post- Procedure Sedation AddendumImmediately prior to start of sedation, the patient was evaluatedand there was no change from the pre-procedure evaluation. I was present and directed medical care.The patient underwent moderate sedation for the procedure. The medications administered were recorded in the MAR; oxygenation, ventilation and circulation were monitored continuously and were recordedin the EMR. I evaluated the patient after the procedure.The patient was evaluated immediately as recovering from sedation. Complications: none Impression:1. Severe multivessel CAD2. Mild PHPlan:1. Aspirin 81mg once daily x lifelong2. High intensity statin therapy3. CTS consultation for CABGEdmar Cortes MD 12/22/2023 11:21 AMUnVal[facility] PROCED[facility] LOG 2023-12-22 16:35:22Ordered by an unspecified provider.[facility] HEMOGLOBIN A1C [id number] 19:34:00* Test Item Value Reference Range Interpretation Comme nts POCT HBA1C (test code = 4548-4) 5.9 % 4-6 [facility] HEMOGLOBIN A1C [id number] 19:34:00* Test Item Value Reference Range Interpretation Comme nts POCT HBA1C (test code = 4548-4) 5.9 % 4-6 [facility] HEMOGLOBIN A1C [id number] 19:23:00* Test Item Value Reference Range Interpretation Comme nts POCT HBA1C (test code = 4548-4) 5.3 % 4-6 [facility] HEMOGLOBIN A1C [id number] 19:23:00* Test Item Value Reference Range Interpretation Comme 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 Pt will also need a Bedside Commode- [facility] to [facility]. At 4:25 RW request was placed by PT, ISMAEL to follow up. Paula Holly LMSW Social Work/Care Management ED/OB/PEDI medical office worker Office.[phone]. Cell. [phone] Email. [email or web address] Weekend Case Management: p. [phone] [facility] 2024-02-03 11:22:00 Associated Order(s): CONSULT ADULT PHYSICAL THERAPY Images from the original note were not included. Patient agreeable to working with physical therapy. Patient met up in chair. Recommend nursing staff utilize RW to safely assist patient with mobility out of the bed or chair. Consult received, chart reviewed and evaluation completed in conjunction with Anisha ARREGUIN/Wendy due to anticipated level of care and for safety given patient's decreased activity, tolerance. Billing for PT portion only. PHYSICAL THERAPY EVALUATION Consult received, chart reviewed and evaluation complete this date. Patient is referred to PT for evaluation and treatment. Patient is a 74 year old female who presents to hospital for Atherosclerosis of [place] coronary artery of [place] heart with other form of angina pectoris [I25.118] Tricuspid valve insufficiency, unspecified etiology [I07.1] . CABG x 3 Discharge Recommendations: Therapy Needs and Potential: Patient would benefit from continued physical therapy services to address: decline in bed mobility decline in transfers decline in gait and/or balance decreased strength decreased endurance Patient demonstrates good potential to improve and meet therapy goals with further physical therapy services. Patient appears motivated to improve their functional mobility and return to their previous level of function. Patient demonstrates ability to tolerate atleast 30-60 minutes of physical therapy with active participation. Challenges to Home Transition: increased risk of falls decreased caregiver availability environmental barriers Equipment recommendations: rolling walker Rolling Walker : I certify that Nida Bryan is under my care and that I had a [id number] encounter with this patient on: 02/03/2024 . The primary reason for the durable medical equipment: unsteady gait. I am ordering and certify that, based on my findings, the following is medically necessary durable medical equipment: Rolling walker . Patient has a mobility limitation that significantly impairs his/her ability to participate in one or more mobility-related activities of daily living (MRADL) in the home and the patient is able to safely use the walker and the functional mobility deficit can be sufficiently resolved with use of a walker. Height: Ht Readings from Last 1 Encounters: 02/02/24 5' 5" (1.651 m) Weight: Wt Readings from Last 1 Encounters: 02/02/24 158 lb 15.2 oz (72.1 kg) Duration of need: 99 months. Current Functional Status and/or Treatment: AM-PAC 6 Clicks (Raw Score 0=Dependent, 24=Independent; Low function Raw Score 0= Dependent, 32=Independent): Raw Score - Basic Mobility : 15 T-Scale Score - Basic Mobility : 36.97 Bed Mobility: Patient already up in the chair Endorses she needed assistance to get out of the bed due to pain Transfers: sit-stand: Minimal Assistance with hands across chest Static/dynamic standing balance: Fair Verbal cueing provided for correct hand placement and correct use of AD in standing position Dizziness: Minimal PRE-GAIT ACTIVITIES: Pre-Gait activities: Static standing exercises with Double Stance support. Lateral weight shifting and progressed to marching in place. Ambulation: Assisted patient with ambulation as follows: 30 feet using rolling Walker. and Minimal Assistance. Patient presenting with Step-to gait pattern. Instructed patient in directional changes and head movements in all planes during gait trial resulting in minimal instability and no LOB. Limited by increasing weakness BP 80/48 (58) Dizziness Yes Therapeutic exercise: patient educated in Deep breathing, Fall prevention, Safety awareness, and Sternal precautions., instructed patient in the following: ankle pumps, and patient/caregiver verbalizes understanding of instructions. Functional Outcome Measures: (Values within the past 12 hours) PT Functional Outcomes Stops While Walking Test: No Tinetti Gait Score- # / 12 Initiation of gait: No hesitancy Step length: Neither foot passes the other Foot clearance: Both feet completely clear floor Step Symmetry: Step lengths not equal Step continuity: Stopping/dis-continuous steps Path: Mild/moderate deviation or uses AD Trunk: Marked sway or uses AD Walking: Heels almost touching Tinetti Gait Score: 5 Tinetti Gait Score Interpretation: < 7 - Increased risk for falls Start of PT: 113/67 (76) HR 8- SpO2 95% on 1 LPM Standin/59 (81) After 30 feet of Gait: 80/48 (58) and symptomatic After PT: 9159 (65) SpO2 100% on RA After session, patient up in chair. Call button provided. Patient's daughter in room. Nurse notified. PLAN OF CARE: While in the hospital, PT will follow patient at least 5 times per week,once or twice a day, per patient's tolerance and needs. See below for complete details. Admit Date: 02/02/2024 Hospital Diagnosis:Atherosclerosis of [place] coronary artery of [place] heart with other form of angina pectoris [I25.118] Tricuspid valve insufficiency, unspecified etiology [I07.1] PT Diagnosis: Weakness, Malaise/fatigue, Pain, and Abnormality of gait and balance Weight Bearing Precaution: WBAT; limitations on pushing/pulling General Precautions: PPE used:Gloves, General, Fall, Sternal,Chest tube 1, ICU vitals monnitoring, Pacer Bracing/Cast present or required:Pillow to brace sternum during exertion. PMH: Past Medical History: Diagnosis Date Cataract Diabetes mellitus Hyperlipidemia, unspecified hyperlipidemia type 10/29/2023 Hypertension Mixed hyperlipidemia Non-ST elevation myocardial infarction (NSTEMI) 11/30/2023 Stroke PSH: Past Surgical History: Procedure Laterality Date CORONARY ARTERY BYPASS GRAFT N/A 02/02/2024 Surgeon: Josh Orozco Jr., MD; Location: [facility] OR [facility] PHACOEMULSIFICATION OF CATARACT WITH INTRAOCULAR LENS IMPLANT Left 10/15/2021 Surgeon: Cal Leary MD; Location: [facility] OR [facility] PHACOEMULSIFICATION OF CATARACT WITH INTRAOCULAR LENS IMPLANT Right 11/05/2021 Surgeon: Cal Leary MD; Location: [facility] OR LOCATION TRICUSPID VALVE REPAIR N/A 02/02/2024 Surgeon: Josh Orozco Jr., MD; Location: [facility] OR [facility] Prior Living Situation: in a house and with daughter, Stairs: 5 steps with bilateral hand rails Able to negotiate: Yes Needs assistance: No DME: No device Prior level of Mobility: community ambulation, house hold ambulation, ambulates with no device. Suspected ischemic or hemorraghic stroke:No Subjective: Patient agreeable to PT. Patient states she was nauseous this morning. Patient/Family Goals: "To walk" Patient/Family verbalizes understanding of condition: Yes PAIN: -Pain Description: sharp -Pain Location: sternum -Pain rating before treatment: 6, After treatment: no change -Pain Management: Reports taking pain meds, Nursing Notified, and Decreased movement aides in some pain reduction COMMUNICATION Primary Language: [place] Able to Verbalize needs: Yes Vision:good; no issues reported Hearing:good; no issues reported ORIENTATION/COGNITION: Oriented to: person, place, date/time, and situation Awake: Yes Alert: Yes Dizzy: No Follows Commands: Yes 1-Step Yes Multi-Step Yes Inconsistent: No NEUROLOGICAL Light Touch: within functional limits bilateral LE Heel to hunt: Normal Tone: Normal BALANCE: Sitting: Static: Good Dynamic: Good Standing: Static: Fair+ Dynamic: Fair RANGE OF MOTION: within functional limits bilateral LE STRENGTH: 4/5 (Good), bilateral LE ENDURANCE: Fair, Nasal canula then weaned to no Oxygen. SpO2 100% on RA SKIN INTEGRITY: incision on sternum PROBLEM LIST: Decline in bed mobility, Decline in gait, Decline in transfers, Difficulty with stairs, Decreased strength, Decreased endurance, Decreased balance, and Pain ASSESSMENT: Patient is a 74 year old female seen secondary to the above listed diagnosis. Patient presents with pain on sternum area. Patient presents with weakness, decline in walking and standing balance due to dizziness and pain. Patient requires physical assistance due to decline in bed mobility, transfers and ambulation. Patient is currently unable to care for herself if patient is to be discharged to home and will require assistance from family and/or friends to complete all functional activities safely. Patient would benefit from continued PT to address the above listed deficits to maximize independence and safety with functional mobility. Rehabilitation Potential: good Goals: The following goals are to maximize independence and safety with functional mobility to eventually return to prior living situation and prior functional status. Upon discharge, patient and/or family will demonstrate the followin. Rolling: Independent Supine-sit: Independent Sitting balance Good 2. sit-stand: Independent Stand pivot transfer: Independent Standing Balance: good 3. Independent with ambulation, Feet: at least 300 using least assistive device. 4. Improve quality of gait to reduce risk of fall and to reduce energy expenditure to improve endurance 5. Improve Functional Outcome Measure Scores to reduce risk of fall 6. Independent on stairs: 5 steps with bilateral rails Treatment Plan: Gait training, Gait training on stairs, Therapeutic exercise, Transfer training, Balance training, Bed mobility training, Safety education, patient/caregiver education, Pain management, Neuromuscular Re-Education, and Functional Motor Training PATIENT EDUCATION: Patient provided with preferred teaching of verbal information and demonstration on role of PT, plan of care, HEp. Shows readiness to learn. Verbal instruction and Demonstration teaching provided. Individual is able to read and needs reinforcement of teaching. Total Time Tx Codes in Minutes: 25 min Total Treatment Time in Minutes: 37 min Haja Gaines PT, DPT, C/NDT License # [id number] [facility] Department of Rehabilitation Services [facility] A physical therapy evaluation of high complexity was completed based on meeting at the criteria below: A history of present problem with at least 3 or more personal factors (includes environmental factors) and/or comorbidities that impact the plan of care An examination of body systems using standardized tests and measures addressing a total of at least 4 or more elements from any of the following: body structures and functions, activity limitations, and/or participation limitations A clinical presentation with unstable and unpredictable characteristics Haja Gaines PT [facility] 2024-02-03 11:22:00 Associated Order(s): CONSULT ADULT OCCUPATIONAL THERAPY OT GENERAL EVALUATION Consult received via [employer], EMR reviewed and evaluation completed 02/03/24. Patient referred to occupational therapy for evaluation and treatment secondary to Atherosclerosis of wich[place] coronary artery of [place] heart with other form of angina pectoris [I25.118] Tricuspid valve insufficiency, unspecified etiology [I07.1]. Patient agreeable to participate in occupational therapy.Patient seen in conjunction with Haja Gaines PT, due to anticipated level of activity tolerance. OT charges this note reflect this session's OT interventions. Discharge Recommendations: Therapy Needs and Potential:- Patient would benefit from continued skilled occupational therapy services to address: Decline in basic activities of daily living, Decline in instrumental activities of daily living, Decreased strength, and Decreased endurance - Patient demonstrates good potential to improve and meet therapy goals with further skilled occupational therapy services. - Patient appears motivated to improve their B/IADLs and return to their previous level of function. - Patient demonstrates ability to tolerate at least 30-60 minutes of active participation in occupational therapy. - Patient able to follow commands: 1-step Yes, Multi-step Yes, Inconsistencies No Challenges to Home Transition:- Requires physical assistance for BADLS - Requires physical assistance for IADLS - Requires supervision or verbal cues for BADLS - Decreased safety awareness/judgement - Increased risk of falls - Environmental barriers Equipment Recommendations:Drop-arm bedside commode, Shower chair, Grab bars, Hand held shower, Long handled sponge, Long handled manager progressive care, and I certify that Nida Bryan is under my care and that I had a [id number] encounter with this patient on: 02/03/24 . The primary reason for the durable medical equipment: to promote safety and functional independence in BADLs and selfcare mobility. I am recommending that, based on my findings, the following is medically necessary durable medical equipment: 3 in 1 bedside commode. Height: Ht Readings from Last 1 Encounters: 02/02/24 5' 5" (1.651 m) Weight: Wt Readings from Last 1 Encounters: 02/02/24 158 lb 15.2 oz (72.1 kg) Duration of need: 99 months. Patient does not have access to regular toilet facilities because he/she is confined to: A single room. PLAN OF CARE: At least 3x/week Precautions: Weight bearing status: No lifting greater than 10 lbs. General: PPE Utilized: Gloves, Chest tube, Fall, logroll, O2 per NC , and Sternal Bracing: N/A Current Occupational Performance and/or Treatment: AM-PAC 6 Clicks (Raw Score 0=Dependent, 24=Independent; Low function Raw Score 0= Dependent, 32=Independent): Raw Score - Daily Activity: 13 T-Scale Score - Daily Activity: 32.03 -Patient provided education in sternal precautions, including log rolling, prior to activity. -Patient required moderate verbal cues to reinforce sternal precautions/pursed lip breathing rest breaks: Feeding: Supervision, with verbal cues for HOB fully elevated Grooming: Supervision, seated at recliner in face/hands hygiene with wash cloth UB Dressing: Supervision, donning hospital gown seated at recliner LB Dressing: Total Assistance, donning socks seated at recliner: limited by sternal discomfort in hip flexion to access feet Toilet Transfer: Moderate Assistance, simulated at recliner with use of Rolling Walker and verbal/tactile cues to reinforce sternal precautions/body positioning Functional Mobility: - Minimal Assistance sit <> stand at recliner with multisensory cueing to position buttocks, feet and hands/sternal precautions - Minimal Assistance walking recliner <> [address] way with daughter propelling recliner behind patient. Patient then reported fatigue required her to return to seated at recliner. Vitals: Seated at recliner BP 113/67 (76), HR 80, SpO2 95% on 1 LPM O2 NC Standing at recliner: BP 107/59 (81) Seated at recliner end of session: BP 91/59 (65) HR SpO2 100% on room air Patient/caregiver educated on:Adaptive equipment , ADL training, AROM, Compensatory techniques/adaptive strategies, Energy conservation, Fall prevention, Positioning, Post heart surgery, Relaxation/breathing techniques, Role of OT, Safety awareness, and Sternal precautions Patient left reclining in bedside chair with call garcia in reach. Daughter present, Vital signs stable , and RN present and informed of all . Please, see full evaluation below for more detail. OT EVALUATION: 74 year old female Admit date: 02/02/2024 Date of onset: 02/02/2024 Admit Diagnosis: Atherosclerosis of [place] coronary artery of [place] heart with other form of angina pectoris [I25.118] Tricuspid valve insufficiency, unspecified etiology [I07.1] OT Diagnosis: Impaired BADL independence, Impaired IADL independence, Weakness, Decreased endurance, Impaired self-care mobility, and Pain PMH: Past Medical History: Diagnosis Date Cataract Diabetes mellitus Hyperlipidemia, unspecified hyperlipidemia type 10/29/2023 Hypertension Mixed hyperlipidemia Non-ST elevation myocardial infarction (NSTEMI) 11/30/2023 Stroke PSH: Past Surgical History: Procedure Laterality Date CORONARY ARTERY BYPASS GRAFT N/A 02/02/2024 Surgeon: Josh Orozco Jr., MD; Location: [facility] OR [facility] PHACOEMULSIFICATION OF CATARACT WITH INTRAOCULAR LENS IMPLANT Left 10/15/2021 Surgeon: Cal Leary MD; Location: [facility] OR [facility] PHACOEMULSIFICATION OF CATARACT WITH INTRAOCULAR LENS IMPLANT Right 11/05/2021 Surgeon: Cal Leary MD; Location: [facility] OR LOCATION TRICUSPID VALVE REPAIR N/A 02/02/2024 Surgeon: Josh Orozco Jr., MD; Location: [facility] OR LOCATION PAIN: Pain Location: sternum Pain rating before treatment: 6, After treatment: 6 Pain Management: Reports taking pain meds, Nursing Notified, Use of assistive device aides in pain reduction during mobility, Repositioning Provided, and RN addressing pain OCCUPATIONAL ROLES/HOME ENVIRONMENT: Home environment: Lives with daughter, son-in-law and grandchildren and 5 steps with bilateral hand rails to access Single story home. Bathroom access: Yes Bathroom setup: Shower Occupation(s): Retired [employer] Employee in [employer] Function prior to admission: Household ambulation, Community ambulation, Independent with BADLs, Independent with IADLs, and "Fishing in the river." Suspected ischemic or hemorrhagic stroke patient: No Equipment prior to admission: None PERFORMANCE SKILLS/FACTORS: UE Muscle Tone: bilateral WNL UE ROM: bilateral AROM WFL as tested within sternal precautions UE Strength: 4-/5 BUE as tested within sternal precautions Hand dominance: right Dexterity/Coordination: bilateral Intact Endurance - Sitting: Fair Standing: Fair - Sitting Balance - Static: Good Dynamic: Good Standing: Balance - Static Fair - Dynamic: Fair - Dizziness: Yes, which improved with pursed lip breathing education Skin Integrity: chest tube and surgical incision Sensation: bilateral Intact to light touch Oral Motor: WFL Communication: Able to verbalize needs Yes Other: N/A Vision: WFL Yes Other: N/A Hearing: good; no issues reported COGNITION: Orientation: person, place, date/time, and situation Follows Commands: 1-step Yes Multi-step Yes Inconsistencies No Safety Awareness/Judgment: Fair PROBLEM LIST: Decreased independence with ADL, Impaired postural control, Decreased strength/endurance for functional activity, and Impaired safety awareness REHAB POTENTIAL/PROGNOSIS: good PATIENT/FAMILY GOALS: "To walk to the bathroom by myself." TREATMENT/INTERVENTION PLAN: Functional motor treatment, Patient/Caregiver Education, Equipment recommendations, Daily living activities, Therapeutic exercises, and Neuromuscular Re-Education GOAL(S): By discharge, patient will increase independence in daily living skills as follows: 1 Patient will perform toilet transfer with independence. 2 Patient will perform UB dressing with independence. 3 Patient will perform LB dressing with independence. 4 Patient will complete grooming tasks with independence while standing at the sink. 5 Patient will complete toileting hygiene, including clothing management, with independence. 6 Patient will increase endurance for functional activity as evidenced by ability to sustain 25 minutes of active participation. 7 Patient/caregiver will verbalize/demonstrate understanding/proficiency in the following home programs: Adaptive equipment , Energy conservation, Fall prevention, General strengthening, Sternal Precautions , and Safety awareness. PATIENT-FAMILY TEACHING Patient and Family member provided with preferred teaching of verbal information, written information, and demonstration on Adaptive equipment , ADL training, AROM, Compensatory techniques/adaptive strategies, Energy conservation, Fall prevention, Positioning, Post heart surgery, Relaxation/breathing techniques, Role of OT, Safety awareness, and Sternal precautions. Shows readiness to learn. Verbal instruction, Written material, and Demonstration teaching provided. Individual is able to read and verbalizes understanding of teaching provided. Anisha Matute-RODRÍGUEZ Gonzalez Total Timed Treatment Codes: 27 Min Total Treatment Time: 37 Min Patient Complexity Level High - An occupational therapy evaluation of high complexity was completed using the above tests and measures. The following information was obtained: An occupational profile and medical and therapy history, including review of medical and/or therapy records and extensive additional review of physical, cognitive, or psychosocial history related to current functional performance Anisha Gonzalez OT [facility] [[email or web address]] - Health History and Physical Notes Date/Time Note Provider Source 2024-02-02 15:19:12 Images from the original note were not included. Pulmonary Critical Care Admission H&P Note - [facility] [[email or web address]] Yellow Team Date of Service: 02/02/2024 15:19 LOS: 0 Code Status: Full CHIEF COMPLAINT: CAD, Triple vessel disease, Post CABG SUBJECTIVE: HPI: Nida Bryan is a 74 year old female with past medical history significant for IDDM, Hx of stroke with residual left sided weakness, CAD with triple vessel disease presented Post elective CABG and TV repair and admitted to MICU for close monitoring. She received 1 PRBC during the procedure for hgb of 6.6. On arrival, patient was drowsy but wakes up to command. Denies any pain. Hospital Course: PAST MEDICAL HISTORY Past Medical History: Diagnosis Date Cataract Diabetes mellitus Hyperlipidemia, unspecified hyperlipidemia type 10/29/2023 Hypertension Mixed hyperlipidemia Non-ST elevation myocardial infarction (NSTEMI) 11/30/2023 Stroke PAST SURGICAL HISTORY Past Surgical History: Procedure Laterality Date PHACOEMULSIFICATION OF CATARACT WITH INTRAOCULAR LENS IMPLANT Left 10/15/2021 Surgeon: Cal Leary MD; Location: [facility] OR [facility] PHACOEMULSIFICATION OF CATARACT WITH INTRAOCULAR LENS IMPLANT Right 11/05/2021 Surgeon: Cal Leary MD; Location: [facility] OR [facility] FAMILY HISTORY Family History Problem Relation Age of Onset Coronary Heart Disease Mother Hypertension Mother Heart Mother Hypertension Sister SOCIAL HISTORY Social History Socioeconomic History Marital status: Tobacco Use Smoking status: Never Smokeless tobacco: Never Vaping Use Vaping status: Never Used Substance and Sexual Activity Alcohol use: Not Currently Drug use: Never Sexual activity: Not Currently ALLERGIES No Known Allergies REVIEW OF SYSTEMS A 12 point review of systems was conducted and was negative except for what is noted in the HPI. The following systems were reviewed: constitutional, cardiovascular, respiratory, gastrointestinal, genitorurinary, musculoskeletal, neurologic, psychiatric, endocrinological and hematological. OBJECTIVE: PHYSICAL EXAMINATION Vitals: 02/02/24 0500 02/02/24 0539 02/02/24 0540 BP: (!) 184/113 (!) 183/107 Pulse: 116 Resp: 20 Temp: 36.3 ?C (97.4 ?F) TempSrc: Tympanic SpO2: 99% Weight: 158 lb 4.6 oz (71.8 kg) 158 lb 15.2 oz (72.1 kg) Height: 5' 5" (1.651 m) BP (!) 183/107 | Pulse 116 | Temp 36.3 ?C (97.4 ?F) (Tympanic) | Resp 20 | Ht 5' 5" (1.651 m) | Wt 158 lb 15.2 oz (72.1 kg) | SpO2 99% | BMI 26.45 kg/m? General: Patient drowsy but wakes up to verbal command. HEENT: Normocephalic atraumatic, extraocular muscles appear intact, mucosa moist, neck supple Heart: S1-S2, mid sternal dressing in place, mediastinal chest tube. Lungs: Clear to auscultation bilaterally, no rhonchi rales or wheezes noted GI: Soft, nontender, nondistended, positive bowel sounds ? quadrants Extremities: right lower extremity graft scar dressed Neurologic: patient is drowsy, left sided weakness. Intake/Output: Intake/Output Summary (Last 24 hours) at 02/02/2024 1519 Last data filed at 02/02/2024 1512 Gross per 24 hour Intake 3084 ml Output 1700 ml Net 1384 ml Lines/catheters: Gutierrez: Central line [place] Radial A line MEDICATIONS All inpatient medications reviewed Current Facility-Administered Medications Medication Dose Route Frequency Last Rate Last Admin acetaminophen (TYLENOL) suppository 650 mg 650 mg Rectal Q6HPRN acetaminophen (TYLENOL) tablet 650 mg 650 mg Oral Q6HPRN acetaminophen-codeine (TYLENOL #3) 300-30 mg tablet 1 tablet 1 tablet Oral Q6HPRN acetaminophen-codeine (TYLENOL #3) 300-30 mg tablet 2 tablet 2 tablet Oral Q4HPRN aspirin chewable tablet 81 mg 81 mg Oral DAILY ceFAZolin (ANCEF) 1 g in NaCl 0.9% (NS) 600 mL OR irrigation PRN Given at 02/02/24 0745 ceFAZolin (ANCEF) 2,000 mg in NaCl 0.9% (NS) 100 mL MINI-BAG 2,000 mg IV Piggyback Q8H ABX [id number] IV infusion 1,000 mL 1,000 mL IV Infusion CONTINUOUS dextrose 10% (D10W) bolus infusion 250 mL 250 mL IV Infusion PRN - SEE INSTRUCTIONS dextrose 50 % in water (D50W) injection 25 mL 25 mL Slow IV Push PRN [START ON 02/03/2024] docusate (COLACE) capsule 100 mg 100 mg Oral DAILY EPINEPHrine HCl in 0.9 % NaCL 4 mg/250 mL (16 mcg/mL) infusion RTU 0.01-0.7 mcg/kg/min IV Infusion TITRATE furosemide (LASIX) injection 20 mg 20 mg IV Push PRN glucagon (GLUCAGEN DIAGNOSTIC KIT) injection 1 mg 1 mg Intramuscular PRN [START ON 02/03/2024] heparin (porcine) injection 5,000 Units 5,000 Units Subcutaneous Q12H heparin 1,000 unit/mL 2,500 Units, papaverine 60 mg in NaCl 0.9% (NS) 100 mL OR irrigation PRN Given at 02/02/24 0834 heparin 1,000 unit/mL 5,000 Units in NaCl 0.9% (NS) 500 mL OR irrigation PRN Given at 02/02/24 0744 insulin regular human (HUMULIN R) 100 Units in NaCl 0.9% (NS) 100 mL infusion 0.1 Units/hr IV Infusion CONTINUOUS insulin regular human (HUMULIN R) 100 Units in NaCl 0.9% (NS) 100 mL infusion 2 Units/hr IV Infusion TITRATE NaCl 0.9% (NS) bolus infusion 250 mL 250 mL IV Infusion PRN - SEE INSTRUCTIONS NORepinephrine (LEVOPHED) 4 mg/250 mL in 0.9% NaCl infusion 0.05-1.5 mcg/kg/min IV Infusion TITRATE ondansetron (ZOFRAN (PF)) injection 4 mg 4 mg Slow IV Push Q6HPRN [START ON 02/03/2024] pantoprazole (PROTONIX) EC tablet 40 mg 40 mg Oral DAILY [START ON 02/03/2024] sennosides (SENOKOT) tablet 8.6 mg 8.6 mg Oral DAILY vasopressin (VASOSTRICT) 20 Units in NaCl 0.9% (NS) 50 mL infusion 0.01 Units/min IV Infusion CONTINUOUS Facility-Administered Medications Ordered in Other Encounters Medication Dose Route Frequency Last Rate Last Admin acetaminophen (OFIRMEV) IV piggyback IV Infusion ONCE INTRA PROCEDURE 1,000 mg at 02/02/24 1357 albumin (ALBUTEIN 5 %) 5 % injection IV Infusion CONTINUOUS PRN Stopped at 02/02/24 1416 albuterol (VENTOLIN) inhaler Inhalation ONCE INTRA PROCEDURE 2 Puff at 02/02/24 1358 aminocaproic acid (AMICAR) 5 g in NaCl 0.9% (NS) 250 mL infusion IV Infusion CONTINUOUS PRN 5 g at 02/02/24 1402 bupivacaine (preserv free) (SENSORCAINE MPF) 0.25 % (2.5 mg/mL) injection Infiltration ONCE INTRA PROCEDURE 10 mL at 02/02/24 0740 calcium chloride 100 mg/mL (10 %) syringe Intravenous ONCE INTRA PROCEDURE 250 mg at 02/02/24 1347 ceFAZolin (ANCEF) injection Intravenous ONCE INTRA PROCEDURE 2 g at 02/02/24 1155 dexamethasone (DECADRON PHOSPHATE) injection Infiltration ONCE INTRA PROCEDURE 40 mg at 02/02/24 0740 dexmedeTOMIDine (PRECEDEX) injection Intravenous ONCE INTRA PROCEDURE 30 mcg at 02/02/24 0740 EPINEPHrine 1:1,000 (1 mg/mL) (ADRENALIN) injection Infiltration ONCE INTRA PROCEDURE 0.1 mg at 02/02/24 0740 EPINEPHrine 1:10,000 injection IV Push ONCE INTRA PROCEDURE 0.01 mg at 02/02/24 1326 EPINEPHrine 4 mg in NaCl 0.9% (NS) 250 mL infusion IV Infusion CONTINUOUS PRN 2.704 mL/hr at 02/02/24 1451 0.01 mcg/kg/min at 02/02/24 1451 glycopyrrolate (ROBINUL) injection Intravenous ONCE INTRA PROCEDURE 0.2 mg at 02/02/24 1332 heparin 1,000 unit/mL injection Slow IV Push ONCE INTRA PROCEDURE 28,000 Units at 02/02/24 0905 HYDROmorphOne (DILAUDID) injection Slow IV Push ONCE INTRA PROCEDURE 0.4 mg at 02/02/24 1342 insulin regular human (HUMULIN R) 100 Units in NaCl 0.9% (NS) 100 mL infusion IV Infusion CONTINUOUS PRN Stopped at 02/02/24 1422 lactated ringers IV infusion IV Infusion CONTINUOUS PRN Stopped at 02/02/24 1509 lidocaine 1% (XYLOCAINE) 100 mg/10 mL (1 %) injection Intravenous ONCE INTRA PROCEDURE 10 mL at 02/02/24 1311 lidocaine in NaCl,iso-osmo(PF) 100 mg/10 mL (1 %) injection syringe Infiltration ONCE INTRA PROCEDURE 20 mL at 02/02/24 0740 magnesium sulfate in water 2 gram/50 mL (4 %) infusion IV Piggyback ONCE INTRA PROCEDURE 2 g at 02/02/24 1308 NaCl 0.9% (NS) IV infusion IV Infusion CONTINUOUS PRN New Bag at 02/02/24 0731 NaCl 0.9% (NS) IV infusion IV Infusion CONTINUOUS PRN 75 mL/hr at 02/02/24 0915 Rate Change at 02/02/24 0915 NORepinephrine (LEVOPHED) 4 mg in NaCl 0.9% (NS) 250 mL infusion IV Infusion CONTINUOUS PRN 2.704 mL/hr at 02/02/24 1451 0.01 mcg/kg/min at 02/02/24 1451 ondansetron (ZOFRAN (PF)) injection Slow IV Push ONCE INTRA PROCEDURE 4 mg at 02/02/24 1357 propofoL IV infusion Intravenous ONCE INTRA PROCEDURE 100 mg at 02/02/24 0727 protamine injection Intravenous ONCE INTRA PROCEDURE 20 mg at 02/02/24 1404 rocuronium (ZEMURON) injection IV Push ONCE INTRA PROCEDURE 25 mg at 02/02/24 1240 ropivacaine 0.5 % (NAROPIN (PF)) injection Infiltration ONCE INTRA PROCEDURE 40 mL at 02/02/24 0740 sugammadex (BRIDION) injection IV Push ONCE INTRA PROCEDURE 200 mg at 02/02/24 1424 vasopressin (VASOSTRICT) 20 Units in NaCl 0.9% (NS) 50 mL infusion IV Infusion CONTINUOUS PRN 4.5 mL/hr at 02/02/24 1359 0.03 Units/min at 02/02/24 1359 REVIEW OF DATA LABS - reviewed pertinent labs as below: Recent Results (from the past 24 hour(s)) Type and Screen - This is a pre-surgical type and screen. ONCE CASA Collection Time: 02/02/24 6:01 AM Result Value Ref Range ABO & RH O POSITIVE IAT Negative POCT GLUCOSE (AUTOMATED) Collection Time: 02/02/24 6:24 AM Result Value Ref Range POCT GLU 113 (H) 70 - 110 mg/dL Prepare Packed RBC (in units), 2 Units Collection Time: 02/02/24 7:31 AM Result Value Ref Range Cross Match Result Compatible ISBT Blood Type Code 5100 Unit Blood Type O Pos Unit Number [id number] Blood Expiration Date & Time [id number] Status Information Issued Product Identification Red Blood Cells Product Code [id number] Cross Match Result Compatible ISBT Blood Type Code 5100 Unit Blood Type O Pos Unit Number [id number] Blood Expiration Date & Time [id number] Status Information Issued Product Identification Red Blood Cells Product Code [id number] POCT ACT High Range Collection Time: 02/02/24 7:47 AM Result Value Ref Range ACTHR 96 96 - 152 Seconds Istat Acute Care Arterial Collection Time: 02/02/24 7:48 AM Result Value Ref Range PH 7.37 7.35 - 7.45 PCO2 38 35 - 45 mmHg PO2 570 (H) 80 - 100 mmHg BE -4.0 (L) -3.0 - 3.0 mEq/L HCO3 22 22 - 26 mEq/L %O2HB 100.0 (H) 95.0 - 98.0 % NA 141 135 - 145 mmol/L K+ 3.7 3.5 - 5.0 mmol/L AC CA IONZ 5.00 4.50 - 5.30 mg/dL GLUCOSE 133 (H) 70 - 110 mg/dL AC Hematocrit 35 (L) 40 - 54 VOL % THB 11.9 (L) 12.0 - 16.0 g/dL AC TC02 23 23-27 mmol/L mmol/L POCT ACT High Range Collection Time: 02/02/24 9:12 AM Result Value Ref Range ACTHR 595 (H) 96 - 152 Seconds Ista Acute Care Arterial Collection Time: 02/02/24 9:13 AM Result Value Ref Range PH 7.34 (L) 7.35 - 7.45 PCO2 37 35 - 45 mmHg PO2 597 (H) 80 - 100 mmHg BE -6.0 (L) -3.0 - 3.0 mEq/L HCO3 20 (L) 22 - 26 mEq/L %O2HB 100.0 (H) 95.0 - 98.0 % NA 140 135 - 145 mmol/L K+ 3.8 3.5 - 5.0 mmol/L AC CA IONZ 4.90 4.50 - 5.30 mg/dL GLUCOSE 220 (H) 70 - 110 mg/dL AC Hematocrit 31 (L) 40 - 54 VOL % THB 10.5 (L) 12.0 - 16.0 g/dL AC TC02 21 (L) 23-27 mmol/L mmol/L POCT ACT High Range Collection Time: 02/02/24 10:09 AM Result Value Ref Range ACTHR 469 (H) 96 - 152 [facility] Collection Time: 02/02/24 10:11 AM Result Value Ref Range PH 7.31 (L) 7.35 - 7.45 PCO2 38 35 - 45 mmHg PO2 525 (H) 80 - 100 mmHg BE -7.0 (L) -3.0 - 3.0 mEq/L HCO3 19 (L) 22 - 26 mEq/L %O2HB 100.0 (H) 95.0 - 98.0 % NA 139 135 - 145 mmol/L K+ 5.1 (H) 3.5 - 5.0 mmol/L AC CA IONZ 4.10 (L) 4.50 - 5.30 mg/dL GLUCOSE 144 (H) 70 - 110 mg/dL AC Hematocrit 22 (LL) 40 - 54 VOL % THB 7.5 (LL) 12.0 - 16.0 g/dL AC TC02 20 (L) 23-27 mmol/L mmol/L POCT ACT High Range Collection Time: 02/02/24 10:32 AM Result Value Ref Range ACTHR 520 (H) 96 - 152 Seconds Istat Acute Care Arterial Collection Time: 02/02/24 10:34 AM Result Value Ref Range PH 7.35 7.35 - 7.45 PCO2 39 35 - 45 mmHg PO2 298 (H) 80 - 100 mmHg BE -4.0 (L) -3.0 - 3.0 mEq/L HCO3 22 22 - 26 mEq/L %O2HB 100.0 (H) 95.0 - 98.0 % NA 142 135 - 145 mmol/L K+ 4.2 3.5 - 5.0 mmol/L AC CA IONZ 4.20 (L) 4.50 - 5.30 mg/dL GLUCOSE 129 (H) 70 - 110 mg/dL AC Hematocrit 19 (LL) 40 - 54 VOL % THB 6.5 (LL) 12.0 - 16.0 g/dL AC TC02 23 23-27 mmol/L mmol/L POCT ACT High Range Collection Time: 02/02/24 11:03 AM Result Value Ref Range ACTHR 507 (H) 96 - 152 Seconds Istat Acute Care Arterial Collection Time: 02/02/24 11:05 AM Result Value Ref Range PH 7.39 7.35 - 7.45 PCO2 40 35 - 45 mmHg PO2 258 (H) 80 - 100 mmHg BE 0.0 -3.0 - 3.0 mEq/L HCO3 25 22 - 26 mEq/L %O2HB 100.0 (H) 95.0 - 98.0 % NA 144 135 - 145 mmol/L K+ 4.5 3.5 - 5.0 mmol/L AC CA IONZ 4.30 (L) 4.50 - 5.30 mg/dL GLUCOSE 113 (H) 70 - 110 mg/dL AC Hematocrit 18 (LL) 40 - 54 VOL % THB 6.1 (LL) 12.0 - 16.0 g/dL AC TC02 26 23-27 mmol/L mmol/L POCT ACT High Range Collection Time: 02/02/24 11:34 AM Result Value Ref Range ACTHR 498 (H) 96 - 152 Seconds Istat Acute Care Arterial Collection Time: 02/02/24 11:36 AM Result Value Ref Range PH 7.39 7.35 - 7.45 PCO2 40 35 - 45 mmHg PO2 255 (H) 80 - 100 mmHg BE -1.0 -3.0 - 3.0 mEq/L HCO3 24 22 - 26 mEq/L %O2HB 100.0 (H) 95.0 - 98.0 % NA 146 (H) 135 - 145 mmol/L K+ 3.7 3.5 - 5.0 mmol/L AC CA IONZ 4.40 (L) 4.50 - 5.30 mg/dL GLUCOSE 107 70 - 110 mg/dL AC Hematocrit 19 (LL) 40 - 54 VOL % THB 6.5 (LL) 12.0 - 16.0 g/dL AC TC02 25 23-27 mmol/L mmol/L Cbc without Diff Collection Time: 02/02/24 11:40 AM Result Value Ref Range WBC 7.30 4.30 - 11.10 10*3/?L RBC 2.41 (L) 3.93 - 5.25 10*6/?L HGB 6.9 (L) 11.6 - 15.0 g/dL HCT 21.3 (L) 35.7 - 45.2 % MCH 28.6 25.9 - 32.8 pg MCV 88.4 80.6 - 95.5 fL MCHC 32.4 31.6 - 35.1 g/dL PLT 140 (L) 166 - 358 10*3/?L MPV 9.2 (L) 9.5 - 12.9 fL RDW-CV 12.9 12.0 - 15.5 % RDW-SD 42.0 39.0 - 49.9 fL NRBC x10 3 <0.01 10*3/?L NRBC/100 WBC 0.0 0.0 - 10.0 /100 WBCs IPF % POCT ACT High Range Collection Time: 02/02/24 12:02 PM Result Value Ref Range ACTHR 536 (H) 96 - 152 Seconds Istat Acute Care Arterial Collection Time: 02/02/24 12:03 PM Result Value Ref Range PH 7.39 7.35 - 7.45 PCO2 40 35 - 45 mmHg PO2 294 (H) 80 - 100 mmHg BE -1.0 -3.0 - 3.0 mEq/L HCO3 24 22 - 26 mEq/L %O2HB 100.0 (H) 95.0 - 98.0 % NA 145 135 - 145 mmol/L K+ 3.9 3.5 - 5.0 mmol/L AC CA IONZ 4.40 (L) 4.50 - 5.30 mg/dL GLUCOSE 100 70 - 110 mg/dL AC Hematocrit 18 (LL) 40 - 54 VOL % THB 6.1 (LL) 12.0 - 16.0 g/dL AC TC02 25 23-27 mmol/L mmol/L POCT ACT High Range Collection Time: 02/02/24 12:30 PM Result Value Ref Range ACTHR 491 (H) 96 - 152 Seconds Ista Acute Care Arterial Collection Time: 02/02/24 12:31 PM Result Value Ref Range PH 7.39 7.35 - 7.45 PCO2 41 35 - 45 mmHg PO2 313 (H) 80 - 100 mmHg BE 0.0 -3.0 - 3.0 mEq/L HCO3 25 22 - 26 mEq/L %O2HB 100.0 (H) 95.0 - 98.0 % NA 146 (H) 135 - 145 mmol/L K+ 4.2 3.5 - 5.0 mmol/L AC CA IONZ 4.40 (L) 4.50 - 5.30 mg/dL GLUCOSE 99 70 - 110 mg/dL AC Hematocrit 19 (LL) 40 - 54 VOL % THB 6.5 (LL) 12.0 - 16.0 g/dL AC TC02 26 23-27 mmol/L mmol/L POCT ACT High Range Collection Time: 02/02/24 1:02 PM Result Value Ref Range ACTHR 445 (H) 96 - 152 Seconds Ista Acute Care Arterial Collection Time: 02/02/24 1:04 PM Result Value Ref Range PH 7.38 7.35 - 7.45 PCO2 40 35 - 45 mmHg PO2 331 (H) 80 - 100 mmHg BE -2.0 -3.0 - 3.0 mEq/L HCO3 24 22 - 26 mEq/L %O2HB 100.0 (H) 95.0 - 98.0 % NA 146 (H) 135 - 145 mmol/L K+ 3.9 3.5 - 5.0 mmol/L AC CA IONZ 4.40 (L) 4.50 - 5.30 mg/dL GLUCOSE 102 70 - 110 mg/dL AC Hematocrit 24 (LL) 40 - 54 VOL % THB 8.2 (LL) 12.0 - 16.0 g/dL AC TC02 25 23-27 mmol/L mmol/L HEMOGLOBIN Collection Time: 02/02/24 2:10 PM Result Value Ref Range HGB 6.6 (L) 11.6 - 15.0 g/dL HEMATOCRIT Collection Time: 02/02/24 2:10 PM Result Value Ref Range HCT 20.2 (L) 35.7 - 45.2 % PLATELET COUNT Collection Time: 02/02/24 2:10 PM Result Value Ref Range PLT 106 (L) 166 - 358 10*3/?L PROTHROMBIN TIME / INR Collection Time: 02/02/24 2:10 PM Result Value Ref Range PROTIME PATIENT 19.1 (H) 10.1 - 12.6 Seconds INR 1.7 aPTT Collection Time: 02/02/24 2:10 PM Result Value Ref Range APTT Patient 33 26 - 36 Seconds FIBRINOGEN Collection Time: 02/02/24 2:10 PM Result Value Ref Range Fibrinogen 162 (L) 167 - 453 mg/dL POCT VISCOELASTIC TESTING Collection Time: 02/02/24 2:14 PM Result Value Ref Range Clot Time 161 104 - 166 Seconds Heparinase Clot Time 154 (H) 103 - 153 Seconds Clot Stiffness 15.6 13.0 - 33.2 hPa Fibrinogen Contribution to Clot Stiffness 2.2 1.0 - 3.7 hPa Platelet Contribution to Clot Stiffness 13.4 11.9 - 29.8 hPa Clot Time Ratio 1.0 Ratio POCT ACT High Range Collection Time: 02/02/24 2:15 PM Result Value Ref Range ACTHR 102 96 - 152 Seconds Istat Acute Care Arterial Collection Time: 02/02/24 2:18 PM Result Value Ref Range PH 7.42 7.35 - 7.45 PCO2 31 (L) 35 - 45 mmHg PO2 447 (H) 80 - 100 mmHg BE -5.0 (L) -3.0 - 3.0 mEq/L HCO3 20 (L) 22 - 26 mEq/L %O2HB 100.0 (H) 95.0 - 98.0 % NA 144 135 - 145 mmol/L K+ 3.7 3.5 - 5.0 mmol/L AC CA IONZ 4.70 4.50 - 5.30 mg/dL GLUCOSE 102 70 - 110 mg/dL AC Hematocrit 16 (LL) 40 - 54 VOL % THB 5.4 (LL) 12.0 - 16.0 g/dL AC TC02 21 (L) 23-27 mmol/L mmol/L IMAGING - reviewed, pertinent results as below: RADIOLOGY No final results containing an impression from the past 30 days were found. ASSESSMENT/PLAN: Nida Bryan is a 74 year old female admitted with Triple Vessel disease Tricuspid Valve disease S/P CABG and Tricuspid valve repair Type I DM HTN HLD Hx of NSTEMI Hx of Stroke with left sided residual weakness. Plan Continue post CABG Care per protocol CCI 2.4, SvO2 is 65, SVR 1261 Continue to monitor Cardiac index, Chest tube output, and vital signs. On minimal levo, epi and vaso. -Diet: NPO, will start on diabetic diet and Sliding scale once more awake. 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 -Monitor for hypo/hyperglycemia events & follow protocol DVT prophylaxis: will hold for now PPI prophylaxis: Famotidine Family Updated: At bedside Dispo: MICU Prognosis: Guarded. Len Greenberg MD PGY5 Pulmonary and Critical care fellow Associated attestation - Elmer Elena MD - 02/02/2024 5:19 PM CDT I personally examined the patient on 02/02/24 and agree with the fellow's note as written. I actively participated in the decision-making process. Please see the fellow's note for additional details. Due to a high probability of clinically significant deterioration, the patient required my highest level of preparedness for potential emergent intervention. I personally spent 45 minutes of critical care time directly managing the patient. This critical care time encompassed obtaining a history, examining the patient, ordering and reviewing studies, developing a management plan, evaluating the patient's response to treatment, frequent reassessment, and discussions with other physicians. Elmer Elena MD Board Certified Pulmonary, Critical Care, and Sleep Medicine [facility] 2024-02-02 06:31:52 CARDIOTHORACIC SURGERY H&P Date of Service: 02/02/24 HISTORY OF PRESENT ILLNESS (12/30/23): Nida Bryan, 74 year old, female, presents with Coronary Artery Disease asymptomatic with 3 vessel disease and tricuspid regurgitation. She has a family history of heart disease, does not smoke, does have IDDM. Asymptomatic, denies angina, SOB, fatigue. Previous stroke, has residual left sided weakness. CAD discovered after abnormal EKG consistent with prior NSTEMI. Interval HPI (02/02/24): No interval changes in symptoms. Presents today for elective CABG and possible TV repair. Medications: Current Facility-Administered Medications Medication Dose Route Frequency Last Rate Last Admin EPINEPRHine 4 mg in 0.9% NaCl 250 mL IV infusion (CNR) 0.01-0.7 mcg/kg/min IV Infusion TITRATE insulin regular human (HUMULIN R) 100 Units in NaCl 0.9% (NS) 100 mL infusion 0.1 Units/hr IV Infusion CONTINUOUS lactated ringers IV infusion 1,000 mL 1,000 mL IV Infusion ONCE vasopressin (VASOSTRICT) 20 Units in NaCl 0.9% (NS) 50 mL infusion 0.01 Units/min IV Infusion CONTINUOUS Allergies: No Known Allergies Review of Systems: See HPI PAST MEDICAL HISTORY: Past Medical History: Diagnosis Date Cataract Diabetes mellitus Hyperlipidemia, unspecified hyperlipidemia type 10/29/2023 Hypertension Mixed hyperlipidemia Non-ST elevation myocardial infarction (NSTEMI) 11/30/2023 Stroke Past Surgical History: Procedure Laterality Date PHACOEMULSIFICATION OF CATARACT WITH INTRAOCULAR LENS IMPLANT Left 10/15/2021 Surgeon: Cal Leary MD; Location: [facility] OR [facility] PHACOEMULSIFICATION OF CATARACT WITH INTRAOCULAR LENS IMPLANT Right 11/05/2021 Surgeon: Cal Leary MD; Location: [facility] OR [facility] Social History Socioeconomic History Marital status: Tobacco Use Smoking status: Never Smokeless tobacco: Never Vaping Use Vaping status: Never Used Substance and Sexual Activity Alcohol use: Not Currently Drug use: Never Sexual activity: Not Currently Family History Problem Relation Age of Onset Coronary Heart Disease Mother Hypertension Mother Heart Mother Hypertension Sister Physical Exam: BP (!) 183/107 | Pulse 116 | Temp 36.3 ?C (97.4 ?F) (Tympanic) | Resp 20 | Ht 1.651 m (5' 5") | Wt 72.1 kg (158 lb 15.2 oz) | SpO2 99% | BMI 26.45 kg/m? General: Patient is alert and oriented x4 and in no acute distress. Head: Head is normocephalic, atraumatic. Eyes: conjunctivae and sclerae normal Mouth/Throat-moist mucus membranes with clear oropharynx. Neck Jugular veins: positive- jugular venous distention -- mild Respiratory: Respiratory effort: breathing comfortably Auscultations of lungs:clear to auscultation, breath sounds normal, and respiratory effort unlabored Cardiovascular: Palpitation of heart: Normal/Nondisplaced PMI. No thrills or heaves. Chest - auscultation heart: rhythm: regular, murmur(s)- grade 2/6 Carotid Arteries (Bruits): normal - no bruits Medical Decision Making: LABS: CBC BMP PT/INR WBC (10*3/?L) Date Value 01/07/2024 7.25 NA (mmol/L) Date Value 01/07/2024 141 No results found for: "PT" RBC (10*6/?L) Date Value 01/07/2024 4.19 K (mmol/L) Date Value 01/07/2024 5.1 (H) INR (no units) Date Value 12/30/2023 1.0 PLT (10*3/?L) Date Value 01/07/2024 303 CALCIUM (mg/dL) Date Value 01/07/2024 9.9 HGB (g/dL) Date Value 01/07/2024 12.1 CL (mmol/L) Date Value 01/07/2024 106 aPTT HCT (%) Date Value 01/07/2024 38.5 BUN (mg/dL) Date Value 01/07/2024 26 (H) APTT Patient (Seconds) Date Value 12/30/2023 36 CREATININE (mg/dL) Date Value 01/07/2024 1.42 (H) GLUCOSE (mg/dL) Date Value 01/07/2024 110 PHENYTOIN CO2 TOTAL (mmol/L) Date Value 01/07/2024 25 No results found for: "PHENYTOIN" No results found for: "PHENYFREE" No results found for: "PHENYTLTD" Labs: I have reviewed the patient's labs. Significant abnormals are elevated creatinine. RADIOLOGY: Cath Data: abnormal: 3-vessel disease No new Radiology DIAGNOSIS: Ms. Bryan is a 74 yo female who presents for elective CABG and possible tricuspid valve repair MANAGEMENT OPTIONS / PLAN: - Appropriate pre procedure diet - To OR today for CABG x3 + TVr - Consent obtained and in chart Elias Fair MD PGY-5 General Surgery [facility] Surgery: Associated attestation - Josh Orozco Jr., MD - 02/02/2024 6:47 AM CDT was seen and examined on rounds today with Dr. Esquivel. Her findings are as noted in the resident's H&P , her current problems include: Active Problems: Atherosclerosis of [place] coronary artery of [place] heart with other form of angina pectoris Tricuspid valve insufficiency, unspecified etiology I actively participated in the decision-making process. Plan for CABG and TV repair. Please see the resident's note for additional details. Electronically signed by: Josh Orozco MD 02/02/2024 6:47 AM [facility] 2023-12-22 08:06:15 Cardiac Catheterization / PTCA History and Physical Date: 12/22/2023 TIME: 8:06 AM PATIENT NAME: Nida Bryan Age: [age] year old Race: Black or SEX:female Referring Physician: Diya Wynne MD HPI: 73 years old female with hx of DM, HTN and stroke [facility] for an elective coronary angiogram and right heart cath due to abnormal echocardiogram. Pre-Procedure Sedation Evaluation NPO Status Solids: >8 hours Clear liquids: >2 hours History History of anesthesia/sedation complications: No History of difficult airway: No History of neck problems, craniofacial abnormalities, head/neck surgery: No Increased risk for airway obstruction, sleep apnea, morbid obesity: No Airway Mallampati: II (full visibility of soft palate and part of uvula) Mouth opening: Normal Range of motion neck: Normal Dentition: Normal Assessment: ASA 3 Plan: Moderate sedation The risks, benefits, and treatment options of sedation were discussed with the patient/guardian and they desire to proceed. The consent form was completed and signed. [place] [employer] Functional Class: II [place] Angina Heart Class: III Current History: Past Medical History: Diagnosis Date Cataract Diabetes mellitus Hyperlipidemia, unspecified hyperlipidemia type 10/29/2023 Hypertension Mixed hyperlipidemia Non-ST elevation myocardial infarction (NSTEMI) 11/30/2023 Stroke Past Surgical History: Procedure Laterality Date PHACOEMULSIFICATION OF CATARACT WITH INTRAOCULAR LENS IMPLANT Left 10/15/2021 Surgeon: Cal Leary MD; Location: [facility] PHACOEMULSIFICATION OF CATARACT WITH INTRAOCULAR LENS IMPLANT Right 11/05/2021 Surgeon: Cal Leary MD; Location: [facility] OR [facility] No Known Allergies History of dye allergy: No Family History Problem Relation Age of Onset Coronary Heart Disease Mother Hypertension Mother Heart Mother Hypertension Sister Social History Socioeconomic History Marital status: Tobacco Use Smoking status: Never Smokeless tobacco: Never Vaping Use Vaping status: Never Used Substance and Sexual Activity Alcohol use: Not Currently Drug use: Never Sexual activity: Not Currently Current Medications: No current facility-administered medications for this encounter. Review of Systems: General: denies complaint Eyes: denies complaint Ears/Nose/Mouth/Throat: denies complaint Cardiovascular: denies complaint Respiratory: denies complaint Gastrointestinal: denies complaint Genital/urinary: denies complaint Musculoskeletal: denies complaint Skin: denies complaint Neurologic: denies complaint Psychiatric: denies complaint Endocrine: denies complaint Hematologic: denies complaint Allergy/Immunology: denies complaint Physical Exam: Vitals: Vitals: 12/22/23 0724 BP: (!) 163/91 Pulse: 64 Resp: 24 Temp: 37.2 ?C (98.9 ?F) TempSrc: Oral SpO2: 98% Weight: 163 lb (73.9 kg) Height: 5' 6" (1.676 m) General: alert and oriented x 4 (person, place, date/time and situation); no apparent distress HEENT: pupils equal, round, reactive to light; extraocular movements intact; oropharynx clear; moist mucous membranes, normocephalic atraumatic Neck: supple, no lymphadenopathy, no bruits, no JVD, full range of motion Lungs: clear to auscultation bilaterally Cardio: S1, S2 normal, regular; no murmurs, rubs or gallops Abdomen: soft; non-tender; non-distended; normoactive bowel sounds Extremities: no clubbing, cyanosis, or edema Skin: no rashes Bossman's Test: Yes LABS / DATA: CBC WBC (10*3/?L) Date Value 10/29/2023 7.32 RBC (10*6/?L) Date Value 10/29/2023 4.33 PLT (10*3/?L) Date Value 10/29/2023 258 HGB (g/dL) Date Value 10/29/2023 12.6 HCT (%) Date Value 10/29/2023 39.3 BMP NA (mmol/L) Date Value 12/22/2023 143 K (mmol/L) Date Value 12/22/2023 4.8 CALCIUM (mg/dL) Date Value 12/22/2023 9.6 CL (mmol/L) Date Value 12/22/2023 112 (H) BUN (mg/dL) Date Value 12/22/2023 27 (H) CREATININE (mg/dL) Date Value 12/22/2023 1.34 (H) GLUCOSE (mg/dL) Date Value 12/22/2023 131 (H) CO2 TOTAL (mmol/L) Date Value 12/22/2023 24 Hepatic Function Panel ALBUMIN (g/dL) Date Value 10/29/2023 4.4 T PROTEIN (g/dL) Date Value 10/29/2023 8.7 (H) TOTAL BILI (mg/dL) Date Value 10/29/2023 0.5 No results found for: "BILIUNCON" No results found for: "BILICONJ" ALTv (U/L) Date Value 10/29/2023 11 AST(SGOT) (U/L) Date Value 10/29/2023 24 ALK PHOS (U/L) Date Value 10/29/2023 95 PROTIME PATIENT (Seconds) Date Value 12/22/2023 10.8 Previous Coronary Angiogram: Previous Coronary Artery Bypass Graph: No PCI CHECKLIST History of prior PCI? No Previous Coronary Artery Bypass Graph: NoIf yes, is the report available or has it been requested? No IV contrast used within the past 72 hours?No Did the patient have a Stroke or TIA ? No Informed Consent: Did the patient agree to emergent CABG?Yes Is the patient DNR or DNI?NoAnd if yes, was it reversed? No Candidacy for ARRON Is the patient anemic?No Major Surgery in the past month or in the next year? No History of clinically overt bleeding?No Is the patient on chronic anticoagulation?NoIf yes, which one? History of medication non-adherence?No If the patient is willing to afford prolonged dual antiplatelet therapy if uninsured? Yes Candidacy for PCI Aspirin allergy?No Heparin allergy (HIT)? No Intolerance to Aspirin due to peptic ulcer disease?No Medications: Did the patient take ASA with in the past 24 hours Yes Did th patient take Clopidogrel within the past 24 hours?No Did the patient take Metformin within the past 24 hours? No Did the patient take Sildenafil (or equivalent) within the past 24 hours?No Is the patient on chronic anticoagulation?NoIf yes, which one? No Did the patient receive LMWH within the past 24 hours? No Impressions: 73 years old female with hx of DM, HTN and stroke [facility] for an elective coronary angiogram and right heart cath due to abnormal echocardiogram. Procedures: Coronary angiogram and RHC The benefits, alternatives, and risks including but not limited to pain, bleeding, infection, damage to the heart, lung, and/or blood vessels requiring surgery, kidney failure, heart attack, stroke, or were discussed in detail with the patient. The patient expressed understanding and are agreeable to proceed with the recommendations. Samia Jhaveri MD 12/22/2023 8:06 AM Associated attestation - Edmar Cortes MD - 12/22/2023 11:19 AM CDT After discussion with Dr. Jhaveri, I examined this patient. I agree with resident's note as written. IM-INTERVENTIONAL CARDIOLOGY [facility] [[email or web address]] - [facility] Procedure Notes Date/Time Note Provider Source 2024-05-17 10:13:38 Attending: Ranjan Barnes MD EBL: 2 ml (unless otherwise stated) Specimens: none Anesthesia: Local Anesthesia Fluoroscopy: None Complication: None Pre-Procedure Diagnosis: Pafib Monitor Afib burden. Details: The risks and benefits of the procedure were discussed with the patient and the patient consented for the procedure. The patient presented to the electrophysiology laboratory in a fasting, non-sedated state. The patient was prepped and draped in the usual sterile fashion for device implantation. 20 mL of 2% xylocaine was administered to the skin and subcutaneous tissues in the left parasternal area for local anesthesia. The supplied puncture blade was then used to make a small incision at the left 4th intercostal space just lateral to the sternum. The supplied tunneling tool was then used to make a pocket for the surveillance monitor. The surveillance monitor was then inserted into the pocket. Testing of the device confirmed adequate signal and the incision was then covered with sterile dressing. The patient tolerated the procedure well; there were no apparent complications at the end of the procedure. Device Information: -The implantable surveillance monitor model number M312 -VT parameter is set at 170 bpm for 4 beats. -Bradycardia parameter is set at 40 bpm for 1 sec. Night time less than 30 for one second. -Pause > 3 sec daytime and >5 sec night time. -PVC burden is on. - R waves were measured at 0.49 mV. Conclusions: Successful implantation of loop recorder was performed Plans: 1. The outer dressing needs to stay on and dry for 1 week after which it may be removed. 2. Cardiac Device Clinic follow up in 2 weeks. Patient voiced understanding her/his treatment plan. All her/his questions were answered during this visit. Advised to call the office with any further questions. Voice recognition software has been used to create portions of this document. An attempt to proofread has been made to minimize errors. Please do not hesitate to call with any questions. Ranjan Barnes MD Cardiac Electrophysiology [facility] 2024-02-02 17:55:54 Procedure(s): [place] CABG W/ARTERIAL GRAFT SINGLE ARTERIAL GRAFT; [place] CORONARY ARTERY BYP W/VEIN & ARTERY GRAFT 2 VEIN; [place] NDSC SURG W/VIDEO-ASSISTED HARVEST VEIN CABG; TRICUSPID VALVE REPAIR; OPEN CORONARY ENDARTERECTOMY Pre-Procedure Diagnose(s): Coronary artery disease involving [place] coronary artery of [place] heart without angina pectoris; Nonrheumatic tricuspid valve regurgitation Post-Procedure Diagnose(s): Coronary artery disease involving [place] coronary artery of [place] heart without angina pectoris; Nonrheumatic tricuspid valve regurgitation OPERATIVE NOTE DATE OF SURGERY: 02/02/2024 SURGEON: Ming Orozco Jr., MD COFFEE TASTER(S): MD Adwoa Byrne [facility] ANESTHESIOLOGIST: Pipo Castanon MD ANESTHETIC: GETA CARDIOPULMONARY BYPASS INFORMATION: Total Bypass Time: 221 minutes Crossclamp Time: 189 minutes COMPLICATIONS: None INDICATION: This is a 74 year old year-old female with multivessel CAD and tricuspid valve regurgitation, referred for CABG and TV repair. The risks and benefits of the procedure were discussed and she consented to proceed. GRAFTS: LOPEZ to LAD, LAD endarterectomy (5cm), SVG to PDA, SVG to OM, OM endarterectomy (2cm). TV repair, 30mm [place] ring. FINDINGS: Good conduit. Diffuse calcific coronary artery disease, moderate to severe eccentric TV regurgitation. LAD and OM needed endarterectomy to accomplish distal anastomosis. TV was quadrileaflet, large RV moderator band. DESCRIPTION OF PROCEDURE IN DETAIL: After informed consent was obtained, the patient was brought to the operating room, appropriately identified as part of the time-out procedure, and subsequently anesthetized and intubated. Appropriate invasive and non-invasive monitoring devices were placed as indicated. Subsequently the patient was prepped and draped in the usual fashion. We began with a sternotomy. Simultaneously the greater saphenous vein was harvested from the right lower extremity using an closed technique. After division of the sternum, the LOPEZ was identified and mobilized along its entire length, and after complete mobilization the patient was anticoagulated and the mammary divided distally with the distal stump being ligated and the proximal end prepared for later use. The pericardium was opened widely and the heart was then elevated in a pericardial cradle. Tapes were pass around the SVC and IVC. Purse-string sutures were placed on the distal ascending aorta and superior and inferior vena cava. The ACT was confirmed to be adequate, and the aorta and superior and inferior vena cava were cannulated and the cannula connected to the cardiopulmonary bypass circuit. An additional mattress stitch was placed on the proximal ascending aorta and an aortic root vent/cardioplegia line inserted. After once again confirming adequacy of anti-coagulation we went on bypass. The root was vented and the ascending aorta cross-clamped. Warm cardioplegia was delivered into the root until ECG silence noted, then converted to cold. A total of 1000 cc's was delivered. Cardioplegia was delivered in intermittent doses during the remainder of the case. The PDA was identified and opened on its anterior surface. The vein graft was then anastomosed to the artery in an end-to-side fashion using a running suture of 7-0 prolene. Cardioplegia was then delivered down the vein graft. Next, the OM was identified and opened on its anterior surface. This was severely diseased and a limited endarterectomy was performed to enlarge to vessel. The vein graft was then anastomosed to the artery in an end-to-side fashion using a running suture of 7-0 prolene. Cardioplegia was then delivered down the vein graft. Finally, the LAD was identified and opened on its anterior surface. The vessel was diffused disease with a 1mm lumen, this necessitated a long endarterectomy to enlarge to 2.5mm, the LAD was patched with SVG and the LOPEZ graft was then anastomosed to the patch in an end-to-end fashion using a running suture of 7-0 prolene. Cardioplegia was then delivered down the root. Aortotomies were created on the right and left side of the ascending aorta, enlarged with a 4mm punch, and the proximal vein graft anastomoses created with a 5-0 prolene. The right heart was then isolated with the caval tapes, and the right atrium opened. The valve was inspected and a 30mm ring selected. This was sewn in with interrupted 2-0 vicryls. A warm shot of blood was then delivered antegrade into the root and after delivery, the root vented and the crossclamp removed. We then began resuscitation of the heart. During this time the atriotomy was closed with a double layer of 4-0 prolene. A temporary ventricular pacing wire was placed on the diaphragmatic surface of the right ventricle and brought out through the left upper quadrant. Chest tubes were inserted into the mediastinum and left chest and secured to the chest wall. After an adequate period of rewarming and resuscitation we slowly came off bypass. After coming off, the root vent was removed and the insertion site closed with a previously placed mattress stitch. Protamine was started and while infusing, the venous cannulae were removed and the insertion sites oversewn with the previously placed pursestring suture. Remaining pump blood was returned via the aortic cannula and after infusion was completed, the aortic cannula was removed and its insertion site closed with the previously placed purse-string suture. Sternal wires were placed, and after confirming adequacy of hemostasis in the surgical field, the sternum was closed. The fascial and deep tissue planes were closed, and the skin closed with a subcuticular suture. Sterile dressings were then placed on the wound and the patient was awakened, extubated, and transferred to the ICU. The skilled assistance of Lizbeth Carmen was necessary for the successful endoscopic harvesting of the saphenous vein as there is no qualified resident available or trained in endoscopic vein harvesting. The skilled assistance of Lizbeth Carmen was necessary for the successful completion of this case, they were essential for providing services as a first-compounding assistant for the entire case. There was no qualified resident available. DISPOSITION: The patient arrived in the ICU awake, extubated, and hemodynamically stable, and she will be admitted for routine post-operative care. CASE TYPE: Clean DRAINS: Chest tubes x 2 SPECIMEN(S): Endarterectomy x 2 ESTIMATE BLOOD LOSS: 300cc's Ming Orozco Jr., MD, FACS Electronically signed by: Josh Orozco MD 02/02/2024 5:57 PM TS-THORACIC SURGERY (CARDIOTHORACIC VASCULAR SURGERY) STAFF [facility] 2024-02-02 11:05:09 Procedure(s): AN DIYA Pre-Procedure Diagnose(s): Coronary artery disease involving [place] coronary artery of [place] heart, unspecified whether angina present Post-Procedure Diagnose(s): Coronary artery disease involving [place] coronary artery of [place] heart, unspecified whether angina present Anesthesiology Intraoperative Transesophageal Echocardiogram Report Diagnosis: CAD and Tricuspid Insufficiency Procedure: CABG x 3 (LOPEZ to LAD/Endarterectomy; SVG to OM/Endarterectomy; SVG to PDA); Repair of Tricuspid Valve and placement of 30mm TV Ring After the induction of anesthesia, DIYA probe inserted and removed atraumatically. All significant findings discussed with surgeon. Preop DIYA Aortic valve: Trileaflet; Cusps appear thickened; presence of mobile filamentous like strands at the tips of leaflets projecting into ascending aorta (Dr. Orozco aware); No aortic stenosis or aortic insufficiency Mitral valve: Central mild mitral insufficiency; Mitral annulus appears dilated Tricuspid valve: Moderate tricuspid insufficiency; TR jet appears eccentric, Vena Contracta width 0.6cm; Hepatic vein flow systolic blunting; TV annulus appears dilated. Pulmonic valve: Not well visualized LV: - Mild to moderately thickened - Systolic function: EF 50-55% - [place] appears moderately hypokinetic - No apical thrombus RV: Normal function LA: Appears severely dilated. No thrombus in LA/DANIELLE. Velocity in the left atrial appendage is 0.4 m/s. RA: Appears moderately to severely dilated Intraatrial septum: No ASD/PFO by CFD; Negative bubble study Ascending aorta: Nonaneurysmal; Extensive intimal thickening Descending aorta: Grade 2 atherosclerotic disease (1 - Normal / 2 - Extensive intimal thickening / 3 - Protruding atheroma < 5 mm / 4 - Sessile atheroma >=5 mm / 5 - mobile plaques) Post-op DIYA: S/P CAB x 3 and TV Ring LV - EF 55-60% - Improved global function RV - Normal function TV - Residual eccentric tricuspid insufficiency appears mild to moderate (Dr. Orozco aware) No significant pericardial effusion Mild left pleural effusion Aorta intact post aortic decannulation All findings pre and post CPB have been discussed with Dr. Orozco. Pipo Castanon MD 02/02/2024 11:05 AM AN-ANESTHESIOLOGY ANESTHESIOLOGIST [facility] 2024-02-02 08:45:03 Procedure(s): NERVE BLOCK Pre-Procedure Diagnose(s): Acute post-operative pain Post-Procedure Diagnose(s): Acute post-operative pain Acute Pain Services Pre/Post-op Block Request 02/02/2024, 8:45 AM After discussion with Dr. Orozco on 02/02/2024, a request has been made to evaluate for regional anesthesia for post-operative pain. Consent obtained after discussion of the risks/benefits/alternatives of block with all parties involved. The patient agrees to proceed with block. This note serves as documentation of that request. Please see EPIC for additional block details. Pipo Castanon MD, 8:45 AM Associated attestation - Josh Orozco Jr., MD - 02/02/2024 3:21 PM CDT Agree with assessment and plan for regional block to aid in post-operative pain management. [facility] 2024-02-02 07:47:30 Associated Order(s): Nerve Block Nerve Block Procedure: Other Peripheral Nerve Patient Location: OR Laterality: Bilateral (Parasternal Block (PIFB)) Surgical Anesthesia: Post Op Pain: Start Time: 02/02/2024 7:40 AM End Time: 02/02/2024 7:43 AM Post Op Pain Management requested by surgeon per surgical: H&P, Progress Note, OR Posting and Post Op Order Anesthesiologist: Pipo Castanon MD Performed by: anesthesiologist Preanesthetic timeout completed prior to procedure: patient identified,IV checked, site marked, risks and benefits discussed, surgical consent, monitors and equipment checked, pre-op evaluation, timeout performed Informed consent obtained patient wishes to proceed: yes Patient Position: supine Sterile Prep/Drape: Yes Monitoring: continuous pulse ox, blood pressure and ECG Injection Technique: single-shot Needle Type: Stimuplex Needle Gauge: 22 G Needle Length: 2.0 Number of Attempts: 1 Technique: Ultrasound guided, Negative aspiration and Intermittent aspiration during injection Sensory Effect: Adequate Events: Patient tolerated procedure well, Negative Aspiration, No paresthesia on incremental injection, Local anesthetic solution visualized around nerve and No symptoms of intraneural or IV injection Additional Notes:PIFB: Dexamethasone 40 mg & Lidocaine 1% 20 mL & Ropivacaine 0.5% 40 mL & Epinephrine 100 mcg & Precedex 30 mcg. Equal volumes given bilaterally. 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 Performed by: Timmy Fong CRNA Authorized by: Timmy Fong CRNA Indications and Patient Condition Indications for airway management: anesthesia and airway protection Spontaneous Ventilation: absent Sedation level: deep Preoxygenated: yes Patient position: sniffing MILS maintained throughout Mask difficulty assessment: 1 - vent by mask No planned trial extubation Final Airway Details Final airway type: endotracheal airway Successful airway: ETT Cuffed: yes Successful intubation technique: direct laryngoscopy Facilitating devices/methods: intubating stylet Endotracheal tube insertion site: oral Blade: [place] Blade size: #2 ETT size (mm): 7.5 Cormack-Lehane Classification: grade I - full view of glottis Placement verified by: chest auscultation, capnometry and palpation of cuff Cuff volume (mL): 7 Measured from: lips ETT to lips (cm): 21 Number of attempts at approach: 1 Ventilation between attempts: none Number of other approaches attempted: 0 Additional Comments Eyes taped prior to placement, smooth, atraumatic, dentition and lips unchanged from pre-op. [facility] 2024-02-02 07:43:04 Associated Order(s): Central Line Central Line Date/Time: 02/02/2024 7:33 AM Performed by: Lionel Estrada MD Central Line Placement: Ultrasound-Guided: ultrasound guided Patient Location: OR Indication: central venous access and CVP monitoring Staff: Supervising Anesthesiologist: Pipo Castanon MD Resident: Lionel Estrada MD Sterility and Timeout Preparation: hand hygiene performed prior to central venous catheter insertion, maximum sterile barriers were used: cap, mask, sterile gown, sterile gloves, and large sterile sheet, antiseptic used during central venous catheter insertion, skin prep agent completely dried prior to procedure and timeout occurred immediately prior to procedure Procedure Detail: Patient Position: Trendelenburg Laterality: Right Site: Internal jugular Prep: Chloraprep Cathether Size: 9 Fr Cathether Type: Introducer (MAC 9 Fr) Number of Lumens: Double lumen Oximetric Catheter?: Yes target vein identified, needle advanced into vein and blood aspirated and guidewire advanced into vein Seldinger Technique?: Yes Ultrasound Guidance used?: Yes, Sterile Gel and Probe Cover used for Ultrasound? Yes. Intravenous Verification: verified by ultrasound and venous blood return all ports aspirated, all ports flushed easily, guidewire was removed intact, biopatch was applied, line was sutured in place and dressing was applied Confirmation for Venous Placement: IV tubing and Ultrasound Events: Events: patient tolerated procedure well with no complications PA Catheter Placement: PA Catheter Placed?: Yes PA Catheter Type: Oximetric Laterality: Right Site: Internal jugular Placement Confirmation: pressure tracing changes and verified by DIYA Events: patient tolerated procedure well with no complications Comments: R-IJ 9 Fr MAC introducer placed in 1 attempt, transduced prior to dilation, wire out, MSBT. PAC floated in one attempt without difficulty. Tip confirmed in main PA on DIYA. No apparent complications. [facility] 2024-02-02 06:47:05 Associated Order(s): Arterial Line Arterial Line Date/Time: 02/02/2024 6:47 AM Performed by: Lionel Estrada MD Arterial Line Placement: Ultrasound-Guided: surface landmarks Patient Location: Pre-op Indication: continuous blood pressure monitoring and blood sampling needed Staff: Supervising Anesthesiologist: Pipo Castanon MD Resident: Lionel Estrada MD Procedure Detail: Catheter Size: 20 gauge Catheter Length: 1 and 3/4 inch Catheter Type: Arrow Seldinger Technique?: No Laterality: Right Site: Radial artery Line Secured: Tape, Tegaderm and biopatch Preparation: Chloroprep, sterile gloves, drape, guidewire removed intact and biopatch applied Events: Events: Patient tolerated procedure well with no complications and all wires accounted for Comments: (+) Local infiltration with Lidocaine, (+)USG, (+) STF, 1x attempt(s), smooth and atraumatic. [facility] 2023-12-22 11:21:13 Right/Left Heart Cath/Coronary Angiography Nida Bryan Date of Service: 12/22/2023 11:21 AM Attending faculty: Edmar Cortes MD Fellow: Samia Jhaveri Referring Physician: Diya Wynne MD Procedures Performed: L/RHC with coronary angiography Indication/Diagnosis: unstable angina, wall motion abnormality on TTE Consent: Risks, benefits, alternatives and complications of the procedure discussed with the self, who understood and agreed to proceed. Aseptic technique: Chlorprep Local Anesthesia: 1% lidocaine without epinephrine Sedation: Moderate Access site: Arterial: Right radial artery Venous: Right internal jugular vein Closure Method: Arterial: TR band Venous: Manual Compression Sterile dressing: yes Complications: none Procedures: After patient identification/verification , the patient was thereafter transferred to the laborer ship[facility] table. The access site was prepped and draped in usual sterile fashion. After administering sedation, time out was done. Under ultrasound guidance, using Seldinger technique, the Right radial artery was accessed and a 6 Fr Slender sheath was introduced into the artery. Under ultrasound guidance, the Right internal jugular vein was accessed and a 7 Fr Fr sheath was introduced A5 Fr JL 3.5 catheter was used to cannulate the LM. Selective coronary angiography was done using several views. A 5 Fr JR 4.0 was used to cross the AV with the J wire and the catheter was advanced into the LV where selective LVEDP was measured. The catheter was then used to cannulate the RCA and selective coronary angiography was done using multiple views. A 7 Fr [place] Osmin catheter was used to obtain RA/RV/PA and PCWP and for CO measurement. The attending physician was present throughout the procedure and provided the highest level of supervision. Findings: Coronary dominance: right Left main: Severe calcification, eccentric 30% stenosis LAD: Proximal: severe calcification, eccentric 70% stenosis involving the ostium Mid: diffuse 90% stenosis, distal vessel medium size D1: severe diffuse disease, small distal vessel D2: severe diffuse disease, small distal vessel LCX: Proximal: mild diffuse disease Distal: HOSPICE RN, distal vessel large size fills via R-L collaterals OM1: proximal diffuse 80% stenosis, distal vessel medium size OM2: severe diffuse disease, small distal vessel RCA: Proximal: mild diffuse disease Mid: severe calcification, diffuse 80% stenosis, distal vessel large size PDA: tubular eccentric 70% stenosis, large distal vessel PLB: tubular 80% stenosis, large distal vessel LVEDP: 12 mmHg RHC: RA mean 6 mmHg RV 33/5 mmHg PA 35/9 mmHg (mean PA 21 mmHg) PCWP mean 12 mmHg CO 5.5 L/min (Sonu's method) CI 2.99 L/min/m2 (Sonu's method) CO 3.88 L/min (Thermodilution technique) CI 2.11 L/min/m2 (Thermodilution technique) TPG 9 mmHg PVR 186 D/S PA sat: 60% RA sat: 63% Post-Procedure Sedation Addendum Immediately prior to start of sedation, the patient was evaluated and there was no change from the pre-procedure evaluation. I was present and directed medical care. The patient underwent moderate sedation for the procedure. The medications administered were recorded in the MAR; oxygenation, ventilation and circulation were monitored continuously and were recorded in the EMR. I evaluated the patient after the procedure. The patient was evaluated immediately as recovering from sedation. Complications: none Impression: Severe multivessel CAD Mild PH Plan: Aspirin 81mg once daily x lifelong High intensity statin therapy CTS consultation for CABG Edmar Cortes MD 12/22/2023 11:21 AM IM-CARDIOVASCULAR DISEASE STAFF [facility] Notes Date/Time Note Provider Source 2024-05-03 15:45:00 Images from the original note were not included. Venipuncture collection performed by clean technique on the left forearm(s). Total of 1 attempts were made. Slight pressure and a bandage/dressing were applied to the site(s). The patient experienced no complications. The following specimens were processed according to instructions and sent to [facility] [[email or web address]] laboratories per lab order on 05/03/2024 : LT BLUE SST RED LAV 1 PPT DK GREEN (LiHep) DK GREEN (SodH) KATE DK BLUE (K2) DK BLUE (S) ACD Blood Culture NIPT/NTD 2 lt green Patient has been identified by and name and was provided with cup, antiseptic towelette, and clean catch instructions. 3 urine specimen(s) sent. Unpreserved 3 Urine Culture Aptima tube Other urine [facility] 2024-05-03 13:10:19 Referral placed [facility] 2024-04-25 16:41:25 Requested Prescriptions Pending Prescriptions Disp Refills amiodarone 200 mg tablet 60 tablet 1 Sig: Take 1 tablet by mouth in the morning. Amiodarone Failed - 04/25/2024 9:45 AM Failed - PFT completed within past year Failed - TSH in normal range and within 180 days TSH Date Value Ref Range Status 06/27/2021 0.45 0.45 - 4.70 mIU/L Final Failed - T3 Total in normal range and within 180 days No results found for: "B0RPKOTA", "[id number]", "[id number]", "[id number]", "[id number]", "T3", "FT3", "EFT3", "FREET3", "[id number]", "[id number]", "[id number]" Failed - T4 in normal range and within 180 days No results found for: "T4", "[id number]", "R1TMGKU", "[id number]", "[id number]" Failed - Amiodarone Level in normal range and within 180 days No results found for: "AMIODARONE", "NDESAMIO" Passed - Valid encounter within last 12 months Recent Visits Date Type Provider Dept 04/20/24 Office Visit Ranjan Barnes MD [facility] Faculty 03/08/24 Office Visit Diya Wynne MD [facility]iology [facility] 02/17/24 Office Visit Ranjan Barnes MD [facility] 02/16/24 Nurse Visit Visit, Adc Nurse [facility] 01/07/24 Office Visit Diya Wynne MD [facility] 11/30/23 Office Visit Diya Wynne MD [facility] 10/29/23 Office Visit Diya yWnne MD [facility] Showing recent visits within past 365 days and meeting all other requirements Future Appointments Date Type Provider Dept 06/13/24 Appointment Diya Wynne MD [facility] 06/29/24 Appointment Ranjan Barnes MD [facility]-Cardiology [facility] 10/27/24 Appointment Diya Wynne MD [facility] Showing future appointments within next 365 days and meeting all other requirements Farzana Cuadra MA [facility] 2024-04-25 09:44:11 Faxed to Cardiology for fyi of thread below. Maximino Pitts MA [facility] 2024-04-22 08:44:46 Images from the original note were not included. Sir patient requesting refill. Lots of non passing factors for us to do the automatic refill. Procedure pending for 05.17.24. ok to proceed with refill? [facility] 2024-04-08 08:10:23 I have never prescribed to patient so she will need to follow-up for refills. [facility] 2024-04-04 15:33:35 Refill has been sent to pharmacy on file. Future Appointments Date Type Provider Dept 05/03/24 Appointment Lydia Barrios AGPCNP [facility] Showing future appointments within next 150 days with a meds authorizing provider and meeting all other requirements Komal Hayden RN [facility] 2024-04-04 10:50:02 Last Refilled: Disp Refills Start End TAM clopidogreL 75 mg tablet 90 tablet 0 02/29/2024 -- No Sig: Take 1 tablet by mouth in the morning. Sent to pharmacy as: clopidogreL 75 mg tablet (PLAVIX) Class: eRX Route: Oral Order: [id number] Date/Time Signed: 02/29/2024 09:16 E-Prescribing Status: Receipt confirmed by pharmacy (02/29/2024 9:16 AM CDT) Notes: Recent Visits Date Type Provider Dept 03/02/24 Office Visit Tamela Gilliam PA [facility] Showing recent visits within past 540 days with a meds authorizing provider and meeting all other requirements Future Appointments No visits were found meeting these conditions. Showing future appointments within next 150 days with a meds authorizing provider and meeting all other requirements [facility] Visit on 03/04/2024 Component Date Value NA 03/04/2024 135 K 03/04/2024 4.7 CL 03/04/2024 100 CO2 TOTAL 03/04/2024 23 AGAP 03/04/2024 12 BUN 03/04/2024 21 GLUCOSE 03/04/2024 113 (H) CREATININE 03/04/2024 1.60 (H) CALCIUM 03/04/2024 9.6 eGFR 03/04/2024 33.7 Office Visit on 03/02/2024 Component Date Value WBC 03/02/2024 7.11 RBC 03/02/2024 4.16 HGB 03/02/2024 11.8 HCT 03/02/2024 37.3 MCV 03/02/2024 89.7 MCH 03/02/2024 28.4 MCHC 03/02/2024 31.6 RDW-SD 03/02/2024 44.3 RDW-CV 03/02/2024 13.6 PLT 03/02/2024 397 (H) MPV 03/02/2024 9.7 NRBC/100 WBC 03/02/2024 0.0 NRBC x10 3 03/02/2024 <0.01 GRAN MAT (NEUT) % 03/02/2024 60.9 IMM GRAN % 03/02/2024 0.30 LYMPH % 03/02/2024 30.1 MONO % 03/02/2024 6.2 EOS % 03/02/2024 1.7 BASO % 03/02/2024 0.8 GRAN MAT x10 3 (ANC) 03/02/2024 4.33 IMM GRAN x10 3 03/02/2024 <0.03 LYMPH x10 3 03/02/2024 2.14 MONO x10 3 03/02/2024 0.44 EOS x10 3 03/02/2024 0.12 BASO x10 3 03/02/2024 0.06 NA 03/02/2024 139 K 03/02/2024 5.8 (H) CL 03/02/2024 102 CO2 TOTAL 03/02/2024 23 AGAP 03/02/2024 14 BUN 03/02/2024 23 GLUCOSE 03/02/2024 127 (H) CREATININE 03/02/2024 1.52 (H) TOTAL BILI 03/02/2024 1.0 CALCIUM 03/02/2024 9.9 T PROTEIN 03/02/2024 9.2 (H) ALBUMIN 03/02/2024 4.5 ALK PHOS 03/02/2024 102 ALTv 03/02/2024 15 AST(SGOT) 03/02/2024 30 eGFR 03/02/2024 35.8 LIPASE 03/02/2024 124 LISA 03/02/2024 140 (H) No results displayed because visit has over 200 results. Book Cutter Visit on 01/07/2024 Component Date Value WBC 01/07/2024 7.25 RBC 01/07/2024 4.19 HGB 01/07/2024 12.1 HCT 01/07/2024 38.5 MCV 01/07/2024 91.9 MCH 01/07/2024 28.9 MCHC 01/07/2024 31.4 (L) RDW-SD 01/07/2024 42.5 RDW-CV 01/07/2024 12.8 PLT 01/07/2024 303 MPV 01/07/2024 10.0 NRBC/100 WBC 01/07/2024 0.0 NRBC x10 3 01/07/2024 <0.01 GRAN MAT (NEUT) % 01/07/2024 53.4 IMM GRAN % 01/07/2024 0.30 LYMPH % 01/07/2024 36.0 MONO % 01/07/2024 6.3 EOS % 01/07/2024 3.2 BASO % 01/07/2024 0.8 GRAN MAT x10 3 (ANC) 01/07/2024 3.87 IMM GRAN x10 3 01/07/2024 <0.03 LYMPH x10 3 01/07/2024 2.61 MONO x10 3 01/07/2024 0.46 EOS x10 3 01/07/2024 0.23 BASO x10 3 01/07/2024 0.06 NA 01/07/2024 141 K 01/07/2024 5.1 (H) CL 01/07/2024 106 CO2 TOTAL 01/07/2024 25 AGAP 01/07/2024 10 BUN 01/07/2024 26 (H) GLUCOSE 01/07/2024 110 CREATININE 01/07/2024 1.42 (H) CALCIUM 01/07/2024 9.9 eGFR 01/07/2024 39.1 ABO & RH 01/07/2024 O POSITIVE IAT 01/07/2024 Negative Book Cutter Visit on 12/30/2023 Component Date Value PROTIME PATIENT 12/30/2023 11.5 INR 12/30/2023 1.0 APTT Patient 12/30/2023 36 MAGNESIUM 12/30/2023 1.9 WBC 12/30/2023 8.74 RBC 12/30/2023 4.41 HGB 12/30/2023 12.8 HCT 12/30/2023 39.0 MCV 12/30/2023 88.4 MCH 12/30/2023 29.0 MCHC 12/30/2023 32.8 RDW-SD 12/30/2023 42.4 RDW-CV 12/30/2023 13.1 PLT 12/30/2023 288 MPV 12/30/2023 10.8 NRBC/100 WBC 12/30/2023 0.0 NRBC x10 3 12/30/2023 <0.01 GRAN MAT (NEUT) % 12/30/2023 70.2 IMM GRAN % 12/30/2023 0.20 LYMPH % 12/30/2023 20.8 MONO % 12/30/2023 6.5 EOS % 12/30/2023 1.8 BASO % 12/30/2023 0.5 GRAN MAT x10 3 (ANC) 12/30/2023 6.13 IMM GRAN x10 3 12/30/2023 <0.03 LYMPH x10 3 12/30/2023 1.82 MONO x10 3 12/30/2023 0.57 EOS x10 3 12/30/2023 0.16 BASO x10 3 12/30/2023 0.04 NA 12/30/2023 143 K 12/30/2023 4.5 CL 12/30/2023 108 CO2 TOTAL 12/30/2023 24 AGAP 12/30/2023 11 BUN 12/30/2023 26 (H) GLUCOSE 12/30/2023 129 (H) CREATININE 12/30/2023 1.15 (H) TOTAL BILI 12/30/2023 0.8 CALCIUM 12/30/2023 9.3 T PROTEIN 12/30/2023 8.4 (H) ALBUMIN 12/30/2023 4.5 ALK PHOS 12/30/2023 102 ALTv 12/30/2023 15 AST(SGOT) 12/30/2023 22 eGFR 12/30/2023 50.4 HGB A1C 12/30/2023 5.6 Admission on 12/22/2023, Discharged on 12/22/2023 Component Date Value PROTIME PATIENT 12/22/2023 10.8 INR 12/22/2023 0.9 APTT Patient 12/22/2023 35 WBC 12/22/2023 6.35 RBC 12/22/2023 4.18 HGB 12/22/2023 12.1 HCT 12/22/2023 38.2 MCV 12/22/2023 91.4 MCH 12/22/2023 28.9 MCHC 12/22/2023 31.7 RDW-SD 12/22/2023 46.5 RDW-CV 12/22/2023 13.8 PLT 12/22/2023 260 MPV 12/22/2023 10.7 NRBC/100 WBC 12/22/2023 0.0 NRBC x10 3 12/22/2023 <0.01 GRAN MAT (NEUT) % 12/22/2023 58.3 IMM GRAN % 12/22/2023 0.30 LYMPH % 12/22/2023 29.6 MONO % 12/22/2023 7.9 EOS % 12/22/2023 3.3 BASO % 12/22/2023 0.6 GRAN MAT x10 3 (ANC) 12/22/2023 3.70 IMM GRAN x10 3 12/22/2023 <0.03 LYMPH x10 3 12/22/2023 1.88 MONO x10 3 12/22/2023 0.50 EOS x10 3 12/22/2023 0.21 BASO x10 3 12/22/2023 0.04 NA 12/22/2023 143 K 12/22/2023 4.8 CL 12/22/2023 112 (H) CO2 TOTAL 12/22/2023 24 AGAP 12/22/2023 7 BUN 12/22/2023 27 (H) GLUCOSE 12/22/2023 131 (H) CREATININE 12/22/2023 1.34 (H) CALCIUM 12/22/2023 9.6 eGFR 12/22/2023 42.0 Hospital Outpatient Visit on 11/13/2023 Component Date Value Height 11/13/2023 66 Weight 11/13/2023 156 Systolic BP 11/13/2023 149 Diastolic BP 11/13/2023 79 Heart Rate 11/13/2023 73 RVOT diameter 11/13/2023 1.79 RVOT Proximal Diameter 11/13/2023 2.50 MR max PG 11/13/2023 93.60 MR max elen 11/13/2023 483.70 Ao root diam 11/13/2023 2.70 Mr max elen 11/13/2023 483.7 Aortic root 11/13/2023 2.7 Ao root annulus 11/13/2023 2.7 BSA 11/13/2023 1.80 LVOT diameter 11/13/2023 1.51 LVOT area 11/13/2023 1.80 LA size 11/13/2023 3.8 ACS 11/13/2023 1.46 PV PEAK VELOCITY 11/13/2023 78.6 PV peak gradient 11/13/2023 2.47 TR Peak Elen 11/13/2023 436.3 Triscuspid Valve Regurgi* 11/13/2023 64.6 LVIDD 11/13/2023 4.10 Left Ventricular End Silvia* 11/13/2023 75.5 IVS 11/13/2023 1.49 Interventricular Septum * 11/13/2023 1.49 LVPWD 11/13/2023 1.41 PW 11/13/2023 1.41 EF(Teich) 11/13/2023 44.30 LVIDS 11/13/2023 3.20 Left Ventricular End Sys* 11/13/2023 42.1 FS 11/13/2023 22 EF - 2D 11/13/2023 44.30 MV E-F slope 11/13/2023 25.80 MV Peak E Elen 11/13/2023 106.9 MV valve area p 1/2 meth* 11/13/2023 3.80 MV dec slope 11/13/2023 527.40 MV P1/2t max elen 11/13/2023 105.30 MV Peak A Elen 11/13/2023 69.7 E/A ratio 11/13/2023 1.53 LVOT stroke volume 11/13/2023 33.30 LVOT peak elen 11/13/2023 84.9 LVOT mn grad 11/13/2023 1.3 AV LVOT peak gradient 11/13/2023 2.9 LVOT peak VTI 11/13/2023 18.5 LV V1 mean 11/13/2023 51.10 Aortic valve mean veloci* 11/13/2023 106.1 Ao peak elen 11/13/2023 167.8 Ao VTI 11/13/2023 38.1 AV area by cont VTI 11/13/2023 0.9 AV area peak elen 11/13/2023 0.9 Ao max PG 11/13/2023 11.30 AV peak gradient 11/13/2023 11.3 AV valve area 11/13/2023 0.87 AV mean gradient 11/13/2023 5.1 AV regurgitation pressur* 11/13/2023 685.5 AI dec slope 11/13/2023 139.20 AI max elen 11/13/2023 325.80 AI max PG 11/13/2023 42.50 LAV(MOD-sp4) 11/13/2023 67.10 LA Volume Index (BP) 11/13/2023 38.7 LA volume (BP) 11/13/2023 69.6 LAV(MOD-sp2) 11/13/2023 69.90 A4C EF 11/13/2023 39.40 EF(sp4-el) 11/13/2023 39.50 SV(MOD-sp4) 11/13/2023 30.40 SV(sp4-el) 11/13/2023 32.40 RVOT area 11/13/2023 2.52 Book Cutter Visit on 10/29/2023 Component Date Value WBC 10/29/2023 7.32 RBC 10/29/2023 4.33 HGB 10/29/2023 12.6 HCT 10/29/2023 39.3 MCH 10/29/2023 29.1 MCV 10/29/2023 90.8 MCHC 10/29/2023 32.1 PLT 10/29/2023 258 MPV 10/29/2023 10.3 RDW-CV 10/29/2023 13.0 RDW-SD 10/29/2023 42.5 NRBC x10 3 10/29/2023 <0.01 NRBC/100 WBC 10/29/2023 0.0 NA 10/29/2023 142 K 10/29/2023 5.3 (H) CL 10/29/2023 108 CO2 TOTAL 10/29/2023 25 AGAP 10/29/2023 9 BUN 10/29/2023 20 GLUCOSE 10/29/2023 114 (H) CREATININE 10/29/2023 1.06 (H) TOTAL BILI 10/29/2023 0.5 CALCIUM 10/29/2023 9.7 T PROTEIN 10/29/2023 8.7 (H) ALBUMIN 10/29/2023 4.4 ALK PHOS 10/29/2023 95 ALTv 10/29/2023 11 AST(SGOT) 10/29/2023 24 eGFR 10/29/2023 55.6 CHOL 10/29/2023 184 HDL 10/29/2023 65 HDLC RATIO 10/29/2023 2.8 TRIG 10/29/2023 104 LDL CHOL 10/29/2023 98 VLDL 10/29/2023 21 Book Cutter Visit on 05/08/2023 Component Date Value CREAT U 05/08/2023 36.7 MICROALB U 05/08/2023 38 MICROAL/CR 05/08/2023 104 (H) Office Visit on 05/08/2023 Component Date Value POCT HBA1C 05/08/2023 5.9 There may be more visits with results that are not included. [facility] [place][NOTE 2] Meseret Guzman RN [facility] 2024-03-14 09:44:44 Spoke with pharmacy, they said the last refill was metoprolol 100 mg tablets. When speaking with daughter, she confirms that patient has been taking metoprolol 25 mg tablets. My chart message sent to confirm again. [facility] 2024-03-14 09:03:20 No amlodipine Metoprolol 25 mg BID [facility] 2024-03-14 08:48:01 Spoke with patient's daughter. Regarding amlodipine, patient has not been taking this medications since she had her bypass surgery. It was discontinued at discharge. Patient's daughter reports that home BP has been 110s-120s. Should amlodipine be restarted? Regarding metoprolol, per notes, patient should be taking metoprolol 25 mg BID. No changes made by Dr. Wynne at [facility]. This is what she has been taking, except pharmacy recently refilled 100 mg tablets. Patient used to be on Toprol XL 100 mg, will contact pharmacy as they may have filled an old prescription. [facility] 2024-03-14 08:31:55 Pts child is calling in with a rx question- pt was prescribed metoprolol 25mg after her surgery, it was refilled by Dr Wynne 100 ER mg. She is wanting to see what is the difference between the two and if it is still good to take. Amlodipine- before surgery she was told to stop taking this medication but pt is wanting to see if she is still needing to take this medication. Please advise, thank you. Ev Barrera [facility] 2024-03-10 09:37:51 Images from the original note were not included. Notified pt of physician review and recommendations from CXR. Pt received education on importance of weighing every morning to monitor for changes. Pt verbalized understanding. Diya Wynne MD P Cardiology Nurse CXR improved. Stop lasix and KCL. Watch volume status closely. Nhi Bowman RN [facility] 2024-03-04 14:00:00 Images from the original note were not included. Venipuncture collection performed by clean technique on the right anticubitus. Total of 1 attempts were made. Slight pressure and a bandage/dressing were applied to the site(s). The patient experienced no complications. The following specimens were processed according to instructions and sent to [email or web address] laboratories per lab order on 03/04/2024 : LT BLUE SST RED LAV PPT DK GREEN (LiHep) DK GREEN (SodH) KATE DK BLUE (K2) DK BLUE (S) ACD Blood Culture NIPT/NTD 1 lt green T [facility] 2024-03-04 07:38:34 Thank you! T [facility] 2024-03-04 07:32:01 Patient notified of all and she stated that she would be in today for recollection. The following ER precautions were provided and she verbalized understanding: If she is having any chest pain, palpitations, dizziness, syncope, weakness, vomiting, diaphoresis, difficulty breathing then she should go to the ED immediately. No complaints or needs were voiced at this time. Brenda Diana LVN [facility] 2024-03-03 20:26:43 Repeat bmp order placed. Recommend completing casa. Increase water: min 64 oz daily. Avoid nsaids. Follow-up with nephrology. 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 T [facility] 2024-03-03 13:55:51 Nida Bryan is a 74 year old female Daughter is returning missed call to clinic, would like a call back to discuss lab results T Andres Nair [facility] 2024-03-02 09:45:00 Images from the original note were not included. Venipuncture collection performed by clean technique on the right anticubitus. Total of 1 attempts were made. Slight pressure and a bandage/dressing were applied to the site(s). The patient experienced no complications. The following specimens were processed according to instructions and sent to [facility] [[email or web address] laboratories per lab order on 03/02/2024 : LT BLUE SST 1 RED LAV 1 PPT DK GREEN (LiHep) DK GREEN (SodH) KATE DK BLUE (K2) DK BLUE (S) ACD Blood Culture NIPT/NTD T [facility] 2024-03-01 16:00:58 Attempted to call patient's daughter to discuss Dr. Wynne's recommendations. Patient has not been on lasix since February. Discussed again with Dr. Wynne. Plan for patient to be evaluated in In person by PCP tomorrow and will follow up with Dr. Wynne next week unless PCP feels patient should be seen sooner. T Vivian Clements RN [facility] 2024-03-01 12:07:04 Common to feel SOB post op due to anemia, atelectasis, deconditioning, fluid retention etc. Increase lasix per Dr. Barnes. Will f/u. [facility] 2024-03-01 11:34:15 Patient's daughter came by the clinic with a question about patient's medications. She states she thought there was a medication Dr Barnes prescribed that patient was supposed to take three times per day? I couldn't find any medication that she was supposed to take [address] Barnes's note 02/17/24, "Recommendations Increase dose of furosemide to 40 mg daily for 3 days. Start amiodarone 200 mg daily. Continue metoprolol 25 mg twice daily. Continue losartan 100 mg daily. Follow-up with clinical cardiology next week." Patient never increased the dose of lasix. She is not taking this medication. Not sure if this needs to be sent to the pharmacy. Patient's daughter states that patient is not having any swelling but her breathing is still shallow, which has been going on since her CABG. Provided patient's daughter with a copy of Dr. Barnes's JEROMY note and a copy of her current medication list. Patient has follow up with her PCP tomorrow 03/02/[address] Wynne 03/08/24 T [facility] [employer] 2024-03-01 10:26:32 Patient not eating much after open heart surgery, expected. She is having some nausea after taking morning medications due to lack of appetite. PRN Rx sent for Cherri. I also reminded daughter to make a follow up appointment with her PCP in next 2-3 weeks. Maxi Villanueva APRN, FNP-C Cardiovascular Surgery T [facility] [employer] 2024-03-01 07:36:57 Refilled: Last office visit: 05/08/23 Next office visit: 05/03/24 Requested Prescriptions Pending Prescriptions Disp Refills METFORMIN ER 500 mg 24 hr tablet [Pharmacy Med Name: metFORMIN HCl ER 500 MG Oral Tablet Extended Release 24 Hour] 180 tablet 0 Sig: TAKE 1 TABLET BY MOUTH TWICE DAILY BEFORE BREAKFAST AND BEFORE SUPPER Last fill date: 07/13/23 Labs: HGB A1C (%) Date Value 12/30/2023 5.6 Notes: Type 2 diabetes mellitus with diabetic polyneuropathy, with long-term current use of insulin Plan: - Continue metformin ER 500 mg -- one tablet twice daily with meals T Brenda Diana LVN [facility] [employer] 2024-02-29 14:07:31 Received medication list from [employer] via mail. Placed in Providers box. Mihaela Soares [facility] 2024-02-26 14:40:40 Images from the original note were not included. JEROMY: 02/17/2024 (Pipo Tompkins) EK02/16/2024 Refill approved per cardio guidelines. Per JEROMY: Bunny Kramer RN [facility] 2024-02-22 09:44:18 Cardiac Report received via fax and placed in Dr Wynne's folder to be reviewed. Cardiac Report Day 5 Ofelia Franco MA [facility] 2024-02-22 09:10:05 Saw Blade 7.26.24 Celia Holly RN [facility] 2024-02-18 11:22:52 Images from the original note were not included. Called and spoke to pt. She states she was going to bathroom at that time. She was asymptomatic. She started the Amio as prescribed yesterday. Celia Holly RN [facility] 2024-02-18 11:08:00 Nida Bryan is a 74 year old female ViSSee with a serious EKG Please advise Celine Silva [facility] 2024-02-18 08:52:26 Nida Bryan is a 74 year old female Pt's daughter is calling and has questions regarding her medication . amiodarone 200 mg Pt's daughter is also wanting to know if her mother is supposed to keep taking the furosemide 20 mg tablet And if she is she will need a refill for this medication Please advise Paula Hamilton [facility] 2024-02-17 17:00:20 ViSSee calling regarding auto detected recording at 1519 this afternoon. Patient had an episode of afib with RVR lasting 31.6 seconds. 13 PVCs also noted during the 1 minute recording. The provider is aware of atrial fibrillation. Patient was seen this afternoon by Dr. Barnes and has been prescribed amiodarone. Routing to provider as Bird. Vivian Clements RN [facility] 2024-02-17 16:55:37 Nida Bryan is a 74 year old female Chayito herrera/ [employer] calling to report serious EKG. I see pt had a visit today but she's states pt still having serious readings. Escalated to cardio nurse chat. Per nurse Vivian call warm transferred. Created for documentation. Kenny Torres [facility] 2024-02-17 08:28:54 Images from the original note were not included. ViSSee calling to report two events on the heart monitor. 6:25 am auto triggered event atrial fibrillation with RVR, 4 beats of NSVT, 26 PVCs noted in 1 minute. A second event at 7:35 am afib with RVR, auto triggered. Patient contacted. Around that time she went to the bathroom and was getting dressed. She wasn't feeling. She was breathing heavily. She took her morning medications about 20 minutes ago and is starting to feel better. BP while on the phone 179/115, HR 111. Recheck 159/102, HR 106 Dr. Wynne notified. He has already reviewed the EKG strips. He recommends an casa appointment with EP. Patient has been scheduled to see Dr. Barnes today at 4 pm.. She has an appointment with Dr. Orozco today at 11:30 in [place]. Patient was given ER precautions, advised to go to ER for shortness of breath, chest pain. Vivian Clements RN [facility] 2024-02-17 08:28:31 Nida Bryan is a 74 year old female [employer]/Vi[employer] calling with a Critical EKG. Please call [phone] Cammy Willingham [facility] 2024-02-17 08:27:59 Nida Bryan is a 74 year old female Maggi w/ViSSee calling to report a serious EKG Kenny Torres [facility] 2024-02-17 08:22:39 Addended by: DIYA WYNNE MD on: 02/17/2024 08:22 AM Modules accepted: Orders [facility] 2024-02-17 08:07:13 Nida Bryan is a 74 year old female [employer]NT [employer] with a serious EKG Please advise Celine Silva [facility] 2024-02-16 16:23:57 Patient in cardiology clinic. Daughter stating that they are needing refills of: acetaminophen-codeine 300-30 mg tablet KCL 20 mEq tablet atorvastatin 80 mg tablet (needing this sent to [facility] in [place]) Will send atorvastatin to local pharmacy in [place]. They will need to discuss with provider regarding pain medication and potassium. Patient has appointment tomorrow 02/17/[address] Orozco. [facility] 2024-02-16 15:30:00 ViSSee 30-day event monitor applied to patient. Wear and care explained. Patient verbalized understanding. Patient given instruction on how to return monitor on 03/18/2024 to ViSSee . Vivian Clements RN [facility] 2024-02-16 14:27:19 Addended by: DIYA WYNNE MD on: 02/16/2024 02:27 PM Modules accepted: Orders [facility] 2024-02-16 10:47:44 Spoke with patient and her daughter. They state that starting yesterday they have noticed patient's HR is elevated. Yesterday they noted high of 163 when patient was walking but the HR has been consistently 90s-100s. Today BP 148/80 HR 95. Prior to yesterday her HR was always in the 60s-70s occasionally as high as 85. The did confirm she is taking metoprolol tartrate 25 mg BID. She is a little short of breath with exertion. 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 Dr. Wynne notified of patient's current symptoms and recommends patient to come for EKG for further evaluation. Patient and daughter agreeable. Vivian Clements RN [facility] 2024-02-16 10:34:10 Nida Bryan is a 74 year old female Pt EC Ms. Salomon calling and concerned about patient Pulse being in mid 100s such as 163 and BP this morning 148/80 [phone] Warm transferred to clinic nurse. Farzana Franco [facility] 2024-02-11 23:02:43 Nida Bryan is a 74 year old female Patient daughter calling regarding mom having coronary artery bypass on 02/02/[address] Orozco. Patient was trying to get out of chair and started bleeding from incision. Paged cardio thoracic surgery no number for clear piper Told to call general surgery kristian piper Paged General surgery clear piper 1105 pm 1111pm Spoke with tax services intern for general surgery kristian piper. He is going to call Dr. Orozco then call patient daughter back. October Rita [facility] 2024-02-11 16:55:44 Dr. Aguilera covering for Magali, that should be fine. FM-FAMILY MEDICINE STAFF [facility] 2024-02-11 13:07:25 Please review and advise Aileen Means LVN 02/11/2024 1:07 PM Aileen Means LVN [facility] 2024-02-11 13:03:13 Nida Bryan is a 74 year old female. [place] with [employer] [facility] is asking if Ms. Henriquez will follow the pt's homehealth. All order information will be sent through suture sign. Please advise. Alma Lopez [phone] Bertha Pelaez [facility] 2024-02-11 12:48:52 Contacted [facility] And notified patient was last seen 09/24/2021 and would need office visit before any orders could be placed for mcc, PT/OT. She verbalized understanding. Aileen Means LVN 02/11/2024 12:49 PM Aileen Means LVN [facility] 2024-02-11 11:44:25 Last seen > 2 years ago Needs OV for hospital follow up to sign orders Maggi Cerna MD FM-FAMILY MEDICINE STAFF [facility] 2024-02-11 11:32:37 [facility] is calling to verify that PCP will sign for orders For [facility], [facility] & OT. Patient was discharged from ER 02/09 Please advise P) [phone] F) [phone] Ailyn Mcdonnell [facility] 2024-02-08 14:55:51 Problem: Skin integrity Impaired (Risk or Actual) Goal: Wound healing 02/08/2024 1455 by Cassandra Hernandez RN Outcome: Resolved 02/08/2024 1133 by Cassandra Hernandez RN Outcome: Progressing as expected Goal: Prevention of new skin breakdown 02/08/2024 1455 by Cassandra Hernandez, [facility] Outcome: Resolved 02/08/2024 1133 by Cassandra Hernandez, [facility] Outcome: Progressing as expected Problem: Cardiac Output - Decreased Goal: Cardiac output within specified parameters 02/08/2024 1455 by Cassandra Hernandez RN Outcome: Resolved 02/08/2024 1133 by Cassandra Hernandez, [facility] Outcome: Progressing as expected Goal: Absence of signs and symptoms of decreased cardiac output 02/08/2024 1455 by Cassandra Hernandez, [facility] Outcome: Resolved 02/08/2024 1133 by Cassandra Hernandez, [facility] Outcome: Progressing as expected Problem: Respiratory Function - Impaired Goal: Able to cough effectively 02/08/2024 1455 by Cassandra Hernandez RN Outcome: Resolved 02/08/2024 1133 by Cassandra Hernandez RN Outcome: Progressing as expected Goal: Adequate oxygenation 02/08/2024 1455 by Cassandra Hernandez RN Outcome: Resolved 02/08/2024 1133 by Cassandra Hernandez RN Outcome: Progressing as expected Goal: Adequate work of breathing 02/08/2024 1455 by Cassandra Hernandez RN Outcome: Resolved 02/08/2024 1133 by Cassandra Hernandez RN Outcome: Progressing as expected Goal: Patent airway 02/08/2024 1455 by Cassandra Hernandez RN Outcome: Resolved 02/08/2024 1133 by Cassandra Hernandez RN Outcome: Progressing as expected Problem: Discharge Planning Goal: Adequate for discharge 02/08/2024 1455 by Cassandra Hernandez RN Outcome: Resolved 02/08/2024 1133 by Cassandra Hernandez RN Outcome: Progressing as expected Goal: Effective communication 02/08/2024 1455 by Cassandra Hernandez RN Outcome: Resolved 02/08/2024 1133 by Cassandra Hernandez RN Outcome: Progressing as expected Problem: Falls, Risk of Goal: Absence of falls 02/08/2024 1455 by Cassandra Hernandez RN Outcome: Resolved 02/08/2024 1133 by Cassandra Hernandez RN Outcome: Progressing as expected Problem: Glucose Control - Initiated in Adult CC Goal: Glucose level within specified parameters 02/08/2024 1455 by Cassandra Hernandez, [facility] Outcome: Resolved 02/08/2024 1133 by Cassandra Hernandez RN Outcome: Progressing as expected Problem: Infection, Risk of or Actual Goal: Absence of infection 02/08/2024 1455 by Cassandra Hernandez RN Outcome: Resolved 02/08/2024 1133 by Cassandra Hernandez, [facility] Outcome: Progressing as expected Problem: Pain Goal: Control of pain at or below patient's documented comfort goal 02/08/2024 1455 by Cassandra Hernandez, [facility] Outcome: Resolved 02/08/2024 1133 by Cassandra Hernandez RN Outcome: Progressing as expected Goal: Reduction in pain sensation 02/08/2024 1455 by Cassandra Hernandez, [facility] Outcome: Resolved 02/08/2024 1133 by Cassandra Hernandez RN Outcome: Progressing as expected Cassandra Hernandez RN [facility] 2024-02-08 08:00:00 Problem: Skin integrity Impaired (Risk or Actual) Goal: Wound healing Outcome: Progressing as expected Goal: Prevention of new skin breakdown Outcome: Progressing as expected Problem: Cardiac Output - Decreased Goal: Cardiac output within specified parameters Outcome: Progressing as expected Goal: Absence of signs and symptoms of decreased cardiac output Outcome: Progressing as expected Problem: Respiratory Function - Impaired Goal: Able to cough effectively Outcome: Progressing as expected Goal: Adequate oxygenation Outcome: Progressing as expected Goal: Adequate work of breathing Outcome: Progressing as expected Goal: Patent airway Outcome: Progressing as expected Problem: Discharge Planning Goal: Adequate for discharge Outcome: Progressing as expected Goal: Effective communication Outcome: Progressing as expected Problem: Falls, Risk of Goal: Absence of falls Outcome: Progressing as expected Problem: Glucose Control - Initiated in Adult CC Goal: Glucose level within specified parameters Outcome: Progressing as expected Problem: Pain Goal: Control of pain at or below patient's documented comfort goal Outcome: Progressing as expected Goal: Reduction in pain sensation Outcome: Progressing as expected Problem: Infection, Risk of or Actual Goal: Absence of infection Outcome: Progressing as expected T [facility] 2024-02-07 21:57:57 Problem: Skin integrity Impaired (Risk or Actual) Goal: Wound healing Outcome: Progressing as expected Goal: Prevention of new skin breakdown Outcome: Progressing as expected Problem: Cardiac Output - Decreased Goal: Cardiac output within specified parameters Outcome: Progressing as expected Goal: Absence of signs and symptoms of decreased cardiac output Outcome: Progressing as expected Problem: Respiratory Function - Impaired Goal: Able to cough effectively Outcome: Progressing as expected Goal: Adequate oxygenation Outcome: Progressing as expected Goal: Adequate work of breathing Outcome: Progressing as expected Goal: Patent airway Outcome: Progressing as expected Problem: Discharge Planning Goal: Adequate for discharge Outcome: Progressing as expected Goal: Effective communication Outcome: Progressing as expected Problem: Falls, Risk of Goal: Absence of falls Outcome: Progressing as expected Problem: Glucose Control - Initiated in Adult CC Goal: Glucose level within specified parameters Outcome: Progressing as expected Problem: Infection, Risk of or Actual Goal: Absence of infection Outcome: Progressing as expected Problem: Pain Goal: Control of pain at or below patient's documented comfort goal Outcome: Progressing as expected Goal: Reduction in pain sensation Outcome: Progressing as expected Anne-Marie Philip RN [facility] 2024-02-07 08:00:00 Problem: Skin integrity Impaired (Risk or Actual) Goal: Wound healing Outcome: Progressing as expected Goal: Prevention of new skin breakdown Outcome: Progressing as expected Problem: Cardiac Output - Decreased Goal: Cardiac output within specified parameters Outcome: Progressing as expected Goal: Absence of signs and symptoms of decreased cardiac output Outcome: Progressing as expected Problem: Respiratory Function - Impaired Goal: Able to cough effectively Outcome: Progressing as expected Goal: Adequate oxygenation Outcome: Progressing as expected Goal: Adequate work of breathing Outcome: Progressing as expected Goal: Patent airway Outcome: Progressing as expected Problem: Discharge Planning Goal: Adequate for discharge Outcome: Progressing as expected Goal: Effective communication Outcome: Progressing as expected Problem: Falls, Risk of Goal: Absence of falls Outcome: Progressing as expected Problem: Glucose Control - Initiated in Adult CC Goal: Glucose level within specified parameters Outcome: Progressing as expected Problem: Infection, Risk of or Actual Goal: Absence of infection Outcome: Progressing as expected Problem: Pain Goal: Control of pain at or below patient's documented comfort goal Outcome: Progressing as expected Goal: Reduction in pain sensation Outcome: Progressing as expected [facility] 2024-02-06 22:02:37 Problem: Skin integrity Impaired (Risk or Actual) Goal: Wound healing Outcome: Progressing as expected Goal: Prevention of new skin breakdown Outcome: Progressing as expected Problem: Cardiac Output - Decreased Goal: Cardiac output within specified parameters Outcome: Progressing as expected Goal: Absence of signs and symptoms of decreased cardiac output Outcome: Progressing as expected Problem: Respiratory Function - Impaired Goal: Able to cough effectively Outcome: Progressing as expected Goal: Adequate oxygenation Outcome: Progressing as expected Goal: Adequate work of breathing Outcome: Progressing as expected Goal: Patent airway Outcome: Progressing as expected Problem: Discharge Planning Goal: Adequate for discharge Outcome: Progressing as expected Goal: Effective communication Outcome: Progressing as expected Problem: Falls, Risk of Goal: Absence of falls Outcome: Progressing as expected Problem: Glucose Control - Initiated in Adult CC Goal: Glucose level within specified parameters Outcome: Progressing as expected Problem: Infection, Risk of or Actual Goal: Absence of infection Outcome: Progressing as expected Problem: Pain Goal: Control of pain at or below patient's documented comfort goal Outcome: Progressing as expected Goal: Reduction in pain sensation Outcome: Progressing as expected [facility] [place][NOTE 2] [employer] 2024-02-06 08:00:00 Problem: Skin integrity Impaired (Risk or Actual) Goal: Wound healing Outcome: Progressing as expected Goal: Prevention of new skin breakdown Outcome: Progressing as expected Problem: Cardiac Output - Decreased Goal: Cardiac output within specified parameters Outcome: Progressing as expected Goal: Absence of signs and symptoms of decreased cardiac output Outcome: Progressing as expected Problem: Respiratory Function - Impaired Goal: Able to cough effectively Outcome: Progressing as expected Goal: Adequate oxygenation Outcome: Progressing as expected Goal: Adequate work of breathing Outcome: Progressing as expected Goal: Patent airway Outcome: Progressing as expected Problem: Discharge Planning Goal: Adequate for discharge Outcome: Progressing as expected Goal: Effective communication Outcome: Progressing as expected Problem: Falls, Risk of Goal: Absence of falls Outcome: Progressing as expected Problem: Glucose Control - Initiated in Adult CC Goal: Glucose level within specified parameters Outcome: Progressing as expected Problem: Infection, Risk of or Actual Goal: Absence of infection Outcome: Progressing as expected Problem: Pain Goal: Control of pain at or below patient's documented comfort goal Outcome: Progressing as expected Goal: Reduction in pain sensation Outcome: Progressing as expected [facility] [employer] 2024-02-06 02:29:12 Problem: Skin integrity Impaired (Risk or Actual) Goal: Wound healing Outcome: Progressing as expected Goal: Prevention of new skin breakdown Outcome: Progressing as expected Problem: Cardiac Output - Decreased Goal: Cardiac output within specified parameters Outcome: Progressing as expected Goal: Absence of signs and symptoms of decreased cardiac output Outcome: Progressing as expected Problem: Respiratory Function - Impaired Goal: Able to cough effectively Outcome: Progressing as expected Goal: Adequate oxygenation Outcome: Progressing as expected Goal: Adequate work of breathing Outcome: Progressing as expected Goal: Patent airway Outcome: Progressing as expected Problem: Discharge Planning Goal: Adequate for discharge Outcome: Progressing as expected Goal: Effective communication Outcome: Progressing as expected Problem: Falls, Risk of Goal: Absence of falls Outcome: Progressing as expected Problem: Infection, Risk of or Actual Goal: Absence of infection Outcome: Progressing as expected Problem: Pain Goal: Control of pain at or below patient's documented comfort goal Outcome: Progressing as expected Goal: Reduction in pain sensation Outcome: Progressing as expected Aubree Atkinson RN [facility] 2024-02-05 18:09:24 Patient in a fib rate 180-200 after using the restroom and getting back in bed at approximately 1755. CT surgery resident phoned. Telephone order for EKG and oral metoprolol dose received. Digoxin per protocol order to be placed by CT surgery. Geena Scruggs RN [facility] 2024-02-05 09:19:23 Problem: Skin integrity Impaired (Risk or Actual) Goal: Wound healing Outcome: Progressing as expected Goal: Prevention of new skin breakdown Outcome: Progressing as expected Problem: Cardiac Output - Decreased Goal: Cardiac output within specified parameters Outcome: Progressing as expected Goal: Absence of signs and symptoms of decreased cardiac output Outcome: Progressing as expected Problem: Respiratory Function - Impaired Goal: Able to cough effectively Outcome: Progressing as expected Goal: Adequate oxygenation Outcome: Progressing as expected Goal: Adequate work of breathing Outcome: Progressing as expected Goal: Patent airway Outcome: Progressing as expected Problem: Discharge Planning Goal: Adequate for discharge Outcome: Progressing as expected Goal: Effective communication Outcome: Progressing as expected Problem: Falls, Risk of Goal: Absence of falls Outcome: Progressing as expected Problem: Glucose Control - Initiated in Adult CC Goal: Glucose level within specified parameters Outcome: Progressing as expected Problem: Infection, Risk of or Actual Goal: Absence of infection Outcome: Progressing as expected Problem: Pain Goal: Control of pain at or below patient's documented comfort goal Outcome: Progressing as expected Goal: Reduction in pain sensation Outcome: Progressing as expected [facility] [employer] 2024-02-05 03:28:28 Problem: Skin integrity Impaired (Risk or Actual) Goal: Wound healing Outcome: Progressing as expected Goal: Prevention of new skin breakdown Outcome: Progressing as expected Problem: Cardiac Output - Decreased Goal: Cardiac output within specified parameters Outcome: Progressing as expected Goal: Absence of signs and symptoms of decreased cardiac output Outcome: Progressing as expected Problem: Respiratory Function - Impaired Goal: Able to cough effectively Outcome: Progressing as expected Goal: Adequate oxygenation Outcome: Progressing as expected Goal: Adequate work of breathing Outcome: Progressing as expected Goal: Patent airway Outcome: Progressing as expected Problem: Discharge Planning Goal: Adequate for discharge Outcome: Progressing as expected Goal: Effective communication Outcome: Progressing as expected Problem: Falls, Risk of Goal: Absence of falls Outcome: Progressing as expected Problem: Glucose Control - Initiated in Adult CC Goal: Glucose level within specified parameters Outcome: Progressing as expected Problem: Infection, Risk of or Actual Goal: Absence of infection Outcome: Progressing as expected Problem: Pain Goal: Control of pain at or below patient's documented comfort goal Outcome: Progressing as expected Goal: Reduction in pain sensation Outcome: Progressing as expected [facility] [employer] 2024-02-04 16:30:30 Problem: Skin integrity Impaired (Risk or Actual) Goal: Wound healing Outcome: Progressing as expected Goal: Prevention of new skin breakdown Outcome: Progressing as expected Problem: Cardiac Output - Decreased Goal: Cardiac output within specified parameters Outcome: Progressing as expected Goal: Absence of signs and symptoms of decreased cardiac output Outcome: Progressing as expected Problem: Respiratory Function - Impaired Goal: Able to cough effectively Outcome: Progressing as expected Goal: Adequate oxygenation Outcome: Progressing as expected Goal: Adequate work of breathing Outcome: Progressing as expected Goal: Patent airway Outcome: Progressing as expected Problem: Discharge Planning Goal: Adequate for discharge Outcome: Progressing as expected Goal: Effective communication Outcome: Progressing as expected Problem: Falls, Risk of Goal: Absence of falls Outcome: Progressing as expected Problem: Glucose Control - Initiated in Adult CC Goal: Glucose level within specified parameters Outcome: Progressing as expected Problem: Infection, Risk of or Actual Goal: Absence of infection Outcome: Progressing as expected Problem: Pain Goal: Control of pain at or below patient's documented comfort goal Outcome: Progressing as expected Goal: Reduction in pain sensation Outcome: Progressing as expected Kiki Short RN [facility] 2024-02-04 05:18:56 Pt went into afib for 5min (04:23-04:33) EKG done but were not able to capture then pt converted to sinus with multiple PACs and PVCs. Pt then went into afib again at 04:[address] surgery resident notified and orders for labs received. Tele strips printed and placed in physical chart. Jalyn Bain RN [facility] 2024-02-03 23:19:57 Problem: Skin integrity Impaired (Risk or Actual) Goal: Wound healing Outcome: Progressing as expected Goal: Prevention of new skin breakdown Outcome: Progressing as expected Problem: Cardiac Output - Decreased Goal: Cardiac output within specified parameters Outcome: Progressing as expected Goal: Absence of signs and symptoms of decreased cardiac output Outcome: Progressing as expected Problem: Respiratory Function - Impaired Goal: Able to cough effectively Outcome: Progressing as expected Goal: Adequate oxygenation Outcome: Progressing as expected Goal: Adequate work of breathing Outcome: Progressing as expected Goal: Patent airway Outcome: Progressing as expected Problem: Discharge Planning Goal: Adequate for discharge Outcome: Progressing as expected Goal: Effective communication Outcome: Progressing as expected Problem: Falls, Risk of Goal: Absence of falls Outcome: Progressing as expected Problem: Glucose Control - Initiated in Adult CC Goal: Glucose level within specified parameters Outcome: Progressing as expected Problem: Infection, Risk of or Actual Goal: Absence of infection Outcome: Progressing as expected Problem: Pain Goal: Control of pain at or below patient's documented comfort goal Outcome: Progressing as expected Goal: Reduction in pain sensation Outcome: Progressing as expected [facility] 2024-02-03 09:20:42 Problem: Skin integrity Impaired (Risk or Actual) Goal: Wound healing Outcome: Progressing as expected Goal: Prevention of new skin breakdown Outcome: Progressing as expected Problem: Cardiac Output - Decreased Goal: Cardiac output within specified parameters Outcome: Progressing as expected Goal: Absence of signs and symptoms of decreased cardiac output Outcome: Progressing as expected Problem: Respiratory Function - Impaired Goal: Able to cough effectively Outcome: Progressing as expected Goal: Adequate oxygenation Outcome: Progressing as expected Goal: Adequate work of breathing Outcome: Progressing as expected Goal: Patent airway Outcome: Progressing as expected T Barry Diana RN [facility] 2024-02-03 01:54:54 Problem: Skin integrity Impaired (Risk or Actual) Goal: Wound healing Outcome: Progressing as expected Problem: Cardiac Output - Decreased Goal: Cardiac output within specified parameters Outcome: Progressing as expected Problem: Respiratory Function - Impaired Goal: Able to cough effectively Outcome: Progressing as expected Goal: Adequate oxygenation Outcome: Progressing as expected Goal: Adequate work of breathing Outcome: Progressing as expected Goal: Patent airway Outcome: Progressing as expected Problem: Skin integrity Impaired (Risk or Actual) Goal: Wound healing Outcome: Progressing as expected Problem: Cardiac Output - Decreased Goal: Cardiac output within specified parameters Outcome: Progressing as expected Problem: Respiratory Function - Impaired Goal: Able to cough effectively Outcome: Progressing as expected Problem: Respiratory Function - Impaired Goal: Adequate oxygenation Outcome: Progressing as expected Problem: Respiratory Function - Impaired Goal: Adequate work of breathing Outcome: Progressing as expected Problem: Respiratory Function - Impaired Goal: Patent airway Outcome: Progressing as expected [facility] [employer] 2024-02-02 18:01:21 Problem: Skin integrity Impaired (Risk or Actual) Goal: Wound healing Outcome: Progressing as expected Goal: Prevention of new skin breakdown Outcome: Progressing as expected Problem: Cardiac Output - Decreased Goal: Cardiac output within specified parameters Outcome: Progressing as expected Goal: Absence of signs and symptoms of decreased cardiac output Outcome: Progressing as expected Problem: Respiratory Function - Impaired Goal: Able to cough effectively Outcome: Progressing as expected Goal: Adequate oxygenation Outcome: Progressing as expected Goal: Adequate work of breathing Outcome: Progressing as expected Goal: Patent airway Outcome: Progressing as expected [facility] 2024-02-02 16:28:58 02/01 15:27 Initial Temporary pacer wires: BPM 60 Ventricular output: 17 mA, capture at 12mA Sensitivity: 2.5 mV Yuli Iverson RN [facility] 2024-02-02 15:35:26 Patient: Nida Bryan Procedure Summary Date: 02/02/24 Room / Location: [address] OR LOCATION Anesthesia Start: 713 Anesthesia Stop: 4 Procedures: CORONARY ARTERY BYPASS GRAFT (Chest) TRICUSPID VALVE REPAIR (Chest) Diagnosis: Atherosclerosis of [place] coronary artery of [place] heart with other form of angina pectoris Tricuspid valve insufficiency, unspecified etiology (Atherosclerosis of [place] coronary artery of [place] heart with other form of angina pectoris [I25.118]Tricuspid valve insufficiency, unspecified etiology [I07.1]) Surgeons: Josh Orozco Jr., MD Responsible Provider: Pipo Castanon MD Anesthesia Type: General ASA Status: 4 Anesthesia Type: General Last vitals BP Temp Pulse Resp SpO2 There were no known notable events for this encounter. Anesthesia Post Evaluation Patient location during evaluation: ICU Patient participation: waiting for patient participation Level of consciousness: sleepy but conscious Pain management: adequate Multimodal analgesia pain management approach Airway patency: patent Two or more strategies used to mitigate risk of obstructive sleep apnea Cardiovascular status: acceptable and hemodynamically stable Respiratory status: acceptable, face mask, spontaneous ventilation, nonlabored ventilation and unassisted Hydration status: acceptable Comments: Full report given to ICU team and Vp Director Of Finance. VSS. BP 117/66 mmHg HR 88 NSR SpO2 100% CVP 7 mmHg PAP 28/11 mmHg SvO2 = Pending CI Pending AN-ANESTHESIOLOGY ANESTHESIOLOGIST [facility] 2024-02-02 08:08:00 BRIEF OPERATIVE NOTE Date of Surgery: 02/02/2024 Surgeons and Role: * Josh Orozco Jr., MD - Primary * Elias Goncalves MD - Resident - Assisting Pre-Op Diagnosis: Atherosclerosis of [place] coronary artery of [place] heart with other form of angina pectoris [I25.118] Tricuspid valve insufficiency, unspecified etiology [I07.1] Post-Op Diagnosis Codes: * Atherosclerosis of [place] coronary artery of [place] heart with other form of angina pectoris [I25.118] * Tricuspid valve insufficiency, unspecified etiology [I07.1] Procedures: Procedure(s) (LRB): CORONARY ARTERY BYPASS GRAFT (N/A) TRICUSPID VALVE REPAIR (N/A) CPT: 88732, 15726, 17186, 54252, Any Complications Encounters: None Estimated Blood Loss: 500 cc Specimens Removed: ID Type Source Tests Collected by Time Destination 1 : OM Endarterectomy Tissue HEART SURGICAL PATHOLOGY EXAM Josh Orozco Jr., MD 02/02/2024 1114 2 : LAD Endarterectomy Tissue HEART SURGICAL PATHOLOGY EXAM Josh Orozco Jr., MD 02/02/2024 1109 Implant Name Type Inv. Item Serial No. Mat Machine Operator Lot No. LRB No. Used Action RING SJM ESTEFANI ANNULOPLASTY 30MM #[id number]-30 - [id number] Ring RING SJM ESTEFANI ANNULOPLASTY 30MM #[id number] [employer] N/A N/A 1 Implanted Patient's Condition: Critical but stable Findings: Multi-vessel CAD, large PDA target, medium sized OM and LAD targets with significant disease Endarterectomy of LAD and OM performed CABG x3 (LOPEZ-LAD, SVG-OM, SVG-PDA) Tricuspid valve annuloplasty with 30 mm ring Please see dictated operative report for additional detail. Elias Fair MD PGY-5 General Surgery [facility] Surgery: [facility] 2024-02-02 06:13:35 Name/ MRN / Age / Gender: Nida Bryan, [id number] 71 year old female BMI: Estimated body mass index is 26.45 kg/m? as calculated from the following: Height as of this encounter: 1.651 m (5' 5"). Weight as of this encounter: 72.1 kg (158 lb 15.2 oz). Allergies: Patient has no known allergies. Last Vitals: BP Readings from Last 1 Encounters: 02/02/24 (!) 183/107 Pulse Readings from Last 1 Encounters: 02/02/24 116 SpO2 Readings from Last 1 Encounters: 02/02/24 99% Date of Surgery: 11/05/2021 Surgeon: Cal Leary MD Procedure: CORONARY ARTERY BYPASS GRAFT (Chest) TRICUSPID VALVE REPAIR OR [facility] [facility] Anesthesia Preop Eval (physical exam) Copied forward and updated from: 11/05/2021 Anesthesia Preop: Chart Review and [id number] [facility] Communication: Nida Bryan is a 73 years old female with history of HTN, DM and stroke. In 05/2021 she was admitted to [facility] for stroke--speech disturbance with left sided weakness. She was found to have HTN and DM as well. Did not see a doctor prior to that. Her home BP has been normal since last visit. CAD--left heart cath in December 2023 showed three-vessel CAD. Bypass surgery scheduled in January 2024. Continue aspirin, Lipitor and metoprolol. Increase Lipitor to 80 mg daily. Goal LDL less than 55-70. Abnormal echocardiogram-it shows apical hypokinesis. Preserved ejection fraction. EKG also showed anterolateral ST-T abnormalities suggesting previous infarct. Likely silent myocardial infarction at some point since 2020. Pulm hypertension and elevated venous pressure-right heart cath showed no significant pulmonary hypertension. Normal wedge pressure. Recommend home sleep study to assess obstructive sleep apnea. HTN--her BP is well-controlled. Feeling well. Nurse visit--home BP device accurate. Given DM, we added losartan 100 mg daily. Continue metoprolol. Will continue amlodipine. BP log paper provided. Advised to check BP daily. Discussed low salt diet. OSH records reviewed. ECHO normal LVEF in 05/2021. BMP 09/24/2021--normal K and stable Cr. I reviewed her home BP log. EKG--10/28/2022--reviewed and discussed with patient Normal EKG--10/29/2023 NSR, possible inferior and anterolateral infarct Recent acute ischemic stroke--continue ASA/lipitor. We stopped plavix since it has been over a month since stroke per Neurology. Hyperlipidemia-continue high intensity Lipitor. Fasting lipid panel and liver function test reviewed. Patient was counseled for lifestyle modifications including: diet and exercise RTC after CABG NPO Status Verified Anesthesia History Anesthesia History Negative Anesthesia History Negative per Chart Review Previous Anesthetics/Airways Additional Comments: 10/15/2021 MAC Cardiovascular Comments: 10/28/2021 Cardiology OV F/U for HTN. D/c plavix. RTC 12 months 24-Sep-2021 Sinus bradycardia Otherwise normal ECG When compared with ECG of 02-JUL-2021 15:15, Nonspecific T wave abnormality no longer evident in Inferior leads ECHO 06/08/2021--normal LVEF, mild MR and AR METS: 5-6 (+) Hypertension ( Losartan, Metoprolol, Amlodipine) and on beta al therapy (+) Dyslipidemia ( statin) (-) Patient does not report prior WI (+) CAD and NSTEMI (+) Valvular problems/murmurs and TR Pulmonary Pulmonary ROS Negative per Chart Review (-) Sleep apnea (-) COPD (-) Asthma (-) Recent bronchitis or URI Neuro/Musculoskeletal Comments: In 05/2021 she was admitted to [facility] for stroke--speech disturbance with left sided weakness. She was found to have HTN and DM as well (+) CVA ( left sided weakness, hx of arterial ischemic stroke )CVA Date: 06/09 (-) Seizures GI/Hepatic GI/Hepatic ROS Negative per Chart Review (-) GERD (-) Liver disease Hematology Comments: 09/24/2021 12:00 WBC x10 3 : 6.93 RBC x10 6 : 4.24 HGB: 12.1 HCT: 37.0 PLT x10 3 : 345 (+) On anti-coagulant therapy ( ASA 325 mg) Renal Renal ROS Negative per Chart Review (-) Renal disease Skin Skin ROS Negative per Chart Review Endo/Other (+) Diabetes Mellitus and on oral meds Other Comments: HEENT: CC: age related cataract UPPER DOUBLER UPPER DOUBLER ROS Negative per Chart Review Pediatric Pediatric N/A N/A Preoperative Medication Instructions Continue taking all prescribed medications except: BENJAMÍN inhibitors, ARBs, diuretics, all oral diabetes medications Anticoagulant Therapy: Defer to surgeons Insulin: Take 1/2 dose the night prior to surgery. Hold on DOS. Phentermine: Alert [facility] anesthesiologist SGLT2 Inhibitors: "gliflozins" to be held for 3 days prior to elective surgeries GLP1 Agonosit: stop 7 days prior to surgery MAC Cases: Continue taking BENJAMÍN inhibitors and ARBs ASA Classification ASA: 4 ASA Comments: Patient Active Problem List: Combined forms of age-related cataract of both eyes HTN CVA DM2 Current Medications: No outpatient medications have been marked as taking for the 02/02/24 encounter (Hospital Encounter). Previous Surgeries: Past Surgical History: Procedure Laterality Date PHACOEMULSIFICATION OF CATARACT WITH INTRAOCULAR LENS IMPLANT Left 10/15/2021 Surgeon: Cal Leary MD; Location: [facility] PHACOEMULSIFICATION OF CATARACT WITH INTRAOCULAR LENS IMPLANT Right 11/05/2021 Surgeon: Cal Leary MD; Location: [facility] Anesthesia Physical Exam General no apparent distress and alert and oriented x 3 Neuro/Psych LUE weakness Dental lower dentures and upper dentures Abdominal GI exam normal Airway Mallampati score:III TM distance:< 5 cm Neck ROM: full Mouth opening:normal Extremity Pulmonary bilateral clear to auscultation Other Cardiovascular Rhythm:regular Rate: normal Anesthesia Plan ASA Status: 4 Plan discussed during pre-op evaluation: General Anesthetic plan on DOS: General Plan to include: IV induction and ETT Anesthesia plan discussed with: patient or shipping services sales representative Post-Operative Analgesia: routine analgesia & antiemetics Recovery Plan: ICU Additional comments: I reviewed the preoperative history, labs, medications and pertinent studies and performed a physical exam preoperatively. The anesthetic plan is GETA, parasternal nerve block, arterial line, CVC/PAC, and DIYA with planned emergence in OR vs. postop intubation/ventilation and recovery in ICU. I discussed this anesthetic plan with all of its components at length with the patient, including the risks, benefits, and alternatives. I answered all of their questions and consent, ID, and npo status were verified. The patient agrees with the plan and desires to proceed with the surgery. T [facility] 2024-01-07 13:45:00 Images from the original note were not included. Venipuncture collection performed by clean technique on the left anticubitus. Total of 1 attempts were made. Slight pressure and a bandage/dressing were applied to the site(s). The patient experienced no complications. The following specimens were processed according to instructions and sent to [email or web address] laboratories per lab order on 01/07/2024: LT BLUE SST 1 RED LAV 2 PPT DK GREEN (LiHep) DK GREEN (SodH) KATE DK BLUE (K2) DK BLUE (S) ACD Blood Culture NIPT/NTD T [facility] 2023-12-30 10:45:00 Images from the original note were not included. Venipuncture collection performed by clean technique on the right anticubitus. Total of 1 attempts were made. Slight pressure and a bandage/dressing were applied to the site(s). The patient experienced no complications. The following specimens were processed according to instructions and sent to [facility] [[email or web address] laboratories per lab order on 12/30/2023 : LT BLUE 1 SST 1 RED LAV 2 PPT DK GREEN (LiHep) DK GREEN (SodH) KATE DK BLUE (K2) DK BLUE (S) ACD Blood Culture NIPT/NTD T [facility] 2023-12-22 16:42:41 You may add referral T [facility] 2023-12-22 13:23:14 Please review and advise if okay to place referral. Aileen Means LVN [facility] 2023-12-22 12:13:04 Nida Bryan is a 73 year old female Pt EC Danilo calling and pt will be needing referral due to HMO insurance for appts on: 12/30/23 Cardiovascular Dept 01/07/24 Cardiology-MD Wynne Please assist [phone] Farzana Franco [facility] 2023-11-17 08:53:13 Pt scheduled for sooner f/u appt. Andria Barnes [facility] 2023-11-16 13:45:00 Images from the original note were not included. Patient given results. And informed PSS will call for sooner follow up to discuss testt/options. All verbally understood. Diya Wynne MD P Cardiology Nurse Echo showed regional wall motion abnormality and severe pulmonary hypertension. Please make appointment with me to discuss heart cath. [facility] 2023-10-30 09:40:26 Images from the original note were not included. Patient was notified of the results below, she verbally understood and agreed to the plan. She stated she still has medication will call back when she need more since we increased her dosage. Thank you Diya Wynne MD P Cardiology Nurse Her cholesterol is higher than before. Increase Lipitor to 80 mg daily. Aggressive lifestyle changes. Milagro Sandra MA [facility] 2023-10-29 11:30:00 Images from the original note were not included. Venipuncture collection performed by clean technique on the left anticubitus. Total of 1 attempts were made. Slight pressure and a bandage/dressing were applied to the site(s). The patient experienced no complications. The following specimens were processed according to instructions and sent to [facility] [[email or web address] laboratories per lab order on 10/29/2023 : LT BLUE SST 1 RED LAV 1 PPT DK GREEN (LiHep) DK GREEN (SodH) KATE DK BLUE (K2) DK BLUE (S) ACD Blood Culture NIPT/NTD T [facility] 2023-10-26 10:36:29 Good morning, patient is coming in 10/28 for cardiology and with her insurance she is needing a PCP referral. Can someone assist with this please? T Ev Barrera [facility] 2023-10-23 09:48:02 Pt has annual next week. Will send one time refill til ov incase changes at annual. [facility] 2023-10-21 16:54:33 Copied from [facility] #[id number]. Topic: Clinical - Medical Advice >> Oct 21, 2023 4:52 PM Patient Chief Counsel wrote: Nida Bryan is a 73 year old female [facility] pharmacy calling to check the status of refill request sent to provider for: amLODIPine 10 mg tablet atorvastatin 40 mg tablet The state that they have sent the request 3 times Please advise Hi Lawrence [facility] 2023-07-13 14:13:32 JEROMY:05/08/2023 NOV: 05/03/2024 Plan: - Continue metformin ER 500 mg -- one tablet twice daily with meals Follow Up: 1 YEAR Refills sent to pharmacy. Namita Serrato MA 07/13/2023 2:14 PM ITECTURE DEPARTMENT CHAIR Namita Serrato MA [facility]
[2024-05-31] MEDS ORDERED: IPRATROPIUM BROM 0.5MG/2.5ML ONE (22:00)
[2024-05-31] MEDS ORDERED: ALBUTEROL 2.5 MG/3 ML NEB SOL ONE (22:00)
[2024-05-31] MEDS ORDERED: METHYLPREDNISOLONE 125 MG INJ ONE (22:00)
--- NOTE | 2024-05-31 22:06 | RAD REPORT ---
EXAMINATION: ONE VIEW CHEST XR CLINICAL INDICATION: CHEST PAIN TECHNIQUE: Frontal chest projection is submitted. Examination is limited by patient positioning and t echnique. COMPARISON: 06/08/2021 FINDINGS: [id number] bilateral pulmonary opacities are noted likely representing pulmonary edema. Mild el evation of the left hemidiaphragm is seen. The heart is upper limit of normal in size. Sternotomy wires. IMPRESSION: [id number] CHF.
[2024-05-31 22:58] LABS: D-Dimer 2.641 FEUug/mL (0-0.500); PT Prothrombin Time 12.2 SECONDS (9.4-12.5); PTT, Activated Partial Thromb 30.2 SECONDS (24.3-36.9); Protime INR 1.09
[2024-05-31 22:59] LABS: Absolute Basophils 0.1 K/uL (0-0.5); Absolute Eosinophils 0.1 K/uL (0-0.5); Absolute Lymphocytes (CBC) 0.8 K/uL (0.7-4.9); Absolute Monocytes 0.5 K/uL (0.1-1.3); Absolute Neutrophil 11.1 K/uL (1.8-8.0); Basophils % 0.6 % (0-1.3); Eosinophils % 0.7 % (0-4.4); Hematocrit 33.9 % (36.0-45.0); Hemoglobin 10.8 g/dL (12.0-15.0); Lymphocytes % 6.2 % (15.3-44.8); MCH 28.2 pg (27.0-35.0); MCV 88.1 fL (80-100); MPV 8.5 fL (7.6-11.3); Monocytes % 3.9 % (3.3-12.3); Neutrophils % 88.6 % (41.7-73.7); Nucleated Red Blood Cells % 0.1 % (0-0); Platelets 275 thou/uL (152-406); RBC Red Blood Cell Count 3.84 M/uL (3.86-4.86)
[2024-05-31 23:05] LABS: Albumin 3.5 g/dL (3.4-5.0); Albumin/Globulin Ratio 0.7 (1.1-1.8); Anion Gap 10.4 mEq/L (5.0-15.0); Bilirubin Direct 0.2 mg/dL (0-0.2); Bilirubin Indirect, Calculated 0.2 mg/dL (0.2-0.8); Bilirubin Total 0.4 mg/dL (0.2-1.0); Globulin 4.7 g/dL (2.3-3.5); Magnesium 2.3 mg/dL (1.6-2.4); Potassium 4.4 mEq/L (3.5-5.1); Protein, Total 8.2 g/dL (6.4-8.2); Troponin High Sensitivity 42.7 pg/mL (<58.9)
[2024-05-31 23:39] LABS: Band Neutrophils 9 % (0-1); Differential Total Cells Count 100; Lymphocytes 5 % (15-42); Monocytes 3 % (0-10); Reactive Lymphocytes 1 %; Segmented Neutrophils 81 % (40-80)
[2024-05-31 23:40] LABS: Blood Morphology Comment NOTED (NOT SEEN); Platelet Estimate ADEQ
--- NOTE | 2024-06-01 00:30 | ER ---
Nurse's Notes [facility] Name: Nida Gordon Age: 74 yrs Sex: Female : 1950 Arrival Date: 05/31/2024 Time: 21:18 Bed 4 Private MD: Diagnosis: Acute on chronic combined systolic (congestive) and diastolic (congestive) heart failure;Acute pulmonary edema Presentation: 05/31 21:26 Chief complaint: EMS states: PT just found out her son family called 911 because bm8 of shortness of breath and pt went unresponsive. We gave a DUO NEB enroute, and she became more alert. she is now speaking slowy but has high blood pressure. Coronavirus screen: At this time, the client does not indicate any symptoms associated with coronavirus-19. Ebola Screen: Patient negative for fever greater than or equal to 101.5 degrees Fahrenheit, and additional compatible Ebola Virus Disease symptoms Patient denies exposure to infectious person. Patient denies travel to an Ebola-affected area in the 21 days before illness onset. No symptoms or risks identified at this time. Initial Sepsis Screen: Does the patient meet any 2 criteria? RR > 20 per min. Altered Mental Status. Yes Does the patient have a suspected source of infection? No. Patient's initial sepsis screen is negative. Risk Assessment: Do you want to hurt yourself or someone else? Patient reports no desire to harm self or others. Onset of symptoms was May 31, 2024 at 19:00. Care prior to arrival: Medication(s) given: duo neb. 21:26 Method Of Arrival: EMS: [facility] bm8 21:26 Acuity: MARK 3 bm8 Triage Assessment: 21:26 General: Appears in no apparent distress. uncomfortable, Behavior is cooperative, flat. bm8 Pain: Denies pain. EENT: No deficits noted. No signs and/or symptoms were reported regarding the EENT system. Neuro: Level of Consciousness is awake, alert, obeys commands, lethargic, Oriented to person, place, time, situation, Appropriate for age. Neuro: [employer] are equal bilaterally Moves all extremities. Speech normal but slow. Facial symmetry appears normal, Pupils are PERRLA, Intact. Cardiovascular: Denies chest pain, Heart tones S1 S2 present Capillary refill < 3 seconds is sluggish in bilateral fingers skin is cool and dry to touch. Rhythm is sinus rhythm. Respiratory: Reports shortness of breath Airway is patent Respiratory effort is labored, Respiratory pattern is regular, symmetrical, Breath sounds are diminished bilaterally. Onset: The symptoms/episode began/occurred just prior to arrival, the patient has moderate shortness of breath. GI: No deficits noted. No signs and/or symptoms were reported involving the gastrointestinal system. : No deficits noted. No signs and/or symptoms were reported regarding the genitourinary system. Derm: No deficits noted. No signs and/or symptoms reported regarding the dermatologic system. Musculoskeletal: No deficits noted. No signs and/or symptoms reported regarding the musculoskeletal system. Historical: - Allergies: 22:08 No Known Allergies; bm8 - Home Meds: 22:08 Amiodarone Oral [Active]; Aspirin Oral [Active]; atorvastatin oral [Active]; Plavix bm8 Oral [Active]; gabapentin oral [Active]; Jardiance oral [Active]; losartan oral [Active]; Magnesium Oxide Oral [Active]; Metformin Oral [Active]; - PMHx: 22:08 Diabetes mellitus; heart arrythmia; Hypertensive disorder; Hypercholesterolemia; bm8 neuropathy; - PSHx: 22:08 heart sx; bm8 - Immunization history:: Adult Immunizations up to date. - Infectious Disease History:: Denies. - Social history:: Smoking status: unknown. - Family history:: not pertinent. Screenin:17 [facility] ED Fall Risk Assessment (Adult) History of falling in the last 3 months, bm8 including since admission No falls in past 3 months (0 pts) Confusion or Disorientation No (0 pts) Intoxicated or Sedated No (0 pts) Impaired Gait No (0 pts) Mobility Assist Device Used No (0 pt) Altered Elimination No (0 pt) Score/Fall Risk Level 0 - 2 = Low Risk Oriented to surroundings, Maintained a safe environment, Educated pt \T\ family on fall prevention, incl call for assistance when getting out of bed, Assessed \T\ reinforced patient's understanding of fall precautions, Hourly rounding (assess needs \T\ fall precautionary measures) done, Used ambulatory aids as needed (educated on \T\ assisted with), Used gait belt as appropriate. Abuse screen: Denies threats or abuse. Nutritional screening: No deficits noted. Tuberculosis screening: No symptoms or risk factors identified. Assessment: 22:17 Reassessment: see triage assessment. bm8 23:29 Reassessment: Patient appears in no apparent distress at this time. Patient and/or bm8 family updated on plan of care and expected duration. Pain level reassessed. Patient is alert, oriented x 3, equal unlabored respirations, skin warm/dry/pink. Patient denies pain at this time. Patient states feeling better. Patient states symptoms have improved. General: Appears in no apparent distress. comfortable, Behavior is calm, cooperative, appropriate for age. Pain: Denies pain. Neuro: No deficits noted. Level of Consciousness is awake, alert, obeys commands, Oriented to person, place, time, situation, Appropriate for age. Cardiovascular: Denies chest pain, Heart tones S1 S2 present Capillary refill < 3 seconds in bilateral fingers Patient's skin is warm and dry. Rhythm is sinus bradycardia. Respiratory: Airway is patent Respiratory effort is even, unlabored, shallow, Respiratory pattern is regular, symmetrical, Breath sounds are diminished bilaterally. the patient has mild shortness of breath. GI: No signs and/or symptoms were reported involving the gastrointestinal system. : No signs and/or symptoms were reported regarding the genitourinary system. EENT: No signs and/or symptoms were reported regarding the EENT system. Derm: No signs and/or symptoms reported regarding the dermatologic system. Musculoskeletal: No signs and/or symptoms reported regarding the musculoskeletal system. 06/01 00:59 Reassessment: Patient appears in no apparent distress at this time. Patient and/or bm8 family updated on plan of care and expected duration. Pain level reassessed. Patient is alert, oriented x 3, equal unlabored respirations, skin warm/dry/pink. applied purwic to pt. set to continuous suction Patient denies pain at this time. Patient states feeling better. Patient states symptoms have improved. Vital Signs: 05/31 21:26 BP 170 / 89; Pulse 71; Resp 30; Temp 98.2; Pulse Ox 89% on R/A; Weight 75.75 kg; Height bm8 5 ft. 4 in. ; Pain 0/10; 23:29 BP 122 / 66; Pulse 50; Resp 32; Temp 98.2; Pulse Ox 100% on 10 lpm Nebulizer Mask; Pain bm8 0/10; 06/01 00:59 BP 156 / 72; Pulse 68; Resp 19; Temp 98.2; Pulse Ox 100% ; Pain 0/10; bm8 05/31 21:26 Body Mass Index 28.67 (75.75 kg, 162.56 cm) bm8 05/31 21:26 Pain Scale: Adult bm8 23:29 Pain Scale: Adult bm8 06/01 00:59 Pain Scale: Adult bm8 [place] Coma Score: 05/31 22:17 Eye Response: spontaneous(4). Motor Response: obeys commands(6). Verbal Response: bm8 oriented(5). Total: 15. 23:29 Eye Response: spontaneous(4). Motor Response: obeys commands(6). Verbal Response: bm8 oriented(5). Total: 15. 06/01 00:26 Eye Response: spontaneous(4). Motor Response: obeys commands(6). Verbal Response: sp4 oriented(5). Total: 15. 00:59 Eye Response: spontaneous(4). Motor Response: obeys commands(6). Verbal Response: bm8 oriented(5). Total: 15. ED Course: 05/31 21:26 Patient arrived in ED. rv1 21:26 Cristhian Davis MD is Attending Physician. sp4 21:26 Arm band placed on right wrist. bm8 21:59 XRAY CXR (1 view) In Process Unspecified. EDMS 22:05 Randall Cobian, RN is Primary Nurse. bm8 22:08 Triage completed. bm8 22:17 Patient has correct armband on for positive identification. Bed in low position. Call 8 light in reach. Client placed on continuous cardiac and pulse oximetry monitoring. NIBP monitoring applied. Pulse ox on. NIBP on. Door closed. 22:17 No provider procedures requiring assistance completed. Initial lab(s) drawn, by patricia benjamin sent to lab. EKG done, by ED staff, reviewed by Cristhian Davis MD. Inserted saline lock: 20 gauge in right antecubital area, using aseptic technique. Blood collected. Flushed with 10 mL NS. Patient maintains SpO2 saturation greater than 95% on room air. 06/01 00:34 Initiated transfer with Jesenia at [facility]. rv1 00:59 Provided Education on: need for transfer. bm8 00:59 Patient transferred, IV remains in place. bm8 01:[address] Gomez [address] [place]. Report #[phone]. rv1 Administered Medications: 05/31 21:50 Drug: Albuterol Inhalation 2.5 mg Inhalation every 20 minutes x3 Route: Inhalation; bm8 21:50 Drug: Ipratropium Inhalation Aerosol 0.5 mg Inhalation once; Every 20 min for a total bm8 of 3 treatments x3 Route: Inhalation; 22:10 Drug: Albuterol Inhalation 2.5 mg Inhalation every 20 minutes x3 Route: Inhalation; bm8 22:10 Drug: Ipratropium Inhalation Aerosol 0.5 mg Inhalation once; Every 20 min for a total bm8 of 3 treatments x3 Route: Inhalation; 22:20 Drug: Albuterol Inhalation 2.5 mg Inhalation every 20 minutes x3 Route: Inhalation; bm8 06/01 00:45 Follow up: Response: No adverse reaction bm8 05/31 22:20 Drug: MethylPrednisoLONE IVP 125 mg IVP once Route: IVP; Site: right antecubital; bm8 06/01 00:45 Follow up: Response: No adverse reaction bm8 05/31 22:20 Drug: Ipratropium Inhalation Aerosol 0.5 mg Inhalation once; Every 20 min for a total bm8 of 3 treatments x3 Route: Inhalation; 06/01 00:44 Follow up: Response: No adverse reaction bm8 00:58 Drug: Furosemide IVP 40 mg IVP once; give over 2 minutes Route: IVP; Site: right bm8 antecubital; 01:16 Follow up: Response: No adverse reaction bm8 Medication: 05/31 22:17 VIS not applicable for this client. bm8 Outcome: 06/01 00:30 ER care complete, transfer ordered by . sp4 02:21 Transferred by ground EMS to [facility], Transfer form bm8 completed. X-rays sent w/ patient. 02:21 Condition: stable 02:21 Instructed on the need for transfer, Demonstrated understanding of instructions, follow-up care, 02:24 Patient left the ED. bm8 Signatures: Dispatcher [employer] EDIzabel Pena rv1 Cristhian Davis MD MD sp4 Randall Cobian RN RN bm8
--- NOTE | 2024-06-01 00:31 | EDPHYS ---
Physician Documentation [facility] Name: Nida Gordon Age: 74 yrs Sex: Female : 1950 Arrival Date: 05/31/2024 Time: 21:18 Bed 4 Private MD: ED Physician Cristhian Davis HPI: 05/31 21:26 This 74 yrs old Black Female presents to ER via Unassigned with complaints of dyspnea . sp4 06/01 00:21 74-year-old black female presents with EMS with acute worsening dyspnea. This has sp4 happened just prior to arrival. Patient has history of CVA, malignant hypertension, congestive heart failure. History of prior left-sided hemiparesis. 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 . 00:21 EMS reported hypoxemia 70% prior to arrival.. sp4 Historical: - Allergies: 05/31 22:08 No Known Allergies; bm8 - Home Meds: 22:08 Amiodarone Oral [Active]; Aspirin Oral [Active]; atorvastatin oral [Active]; Plavix bm8 Oral [Active]; gabapentin oral [Active]; Jardiance oral [Active]; losartan oral [Active]; Magnesium Oxide Oral [Active]; Metformin Oral [Active]; - PMHx: 22:08 Diabetes mellitus; heart arrythmia; Hypertensive disorder; Hypercholesterolemia; bm8 neuropathy; - PSHx: 22:08 heart sx; bm8 - Immunization history:: Adult Immunizations up to date. - Infectious Disease History:: Denies. - Social history:: Smoking status: unknown. - Family history:: not pertinent. ROS: 06/01 00:21 Constitutional: Negative for fever, chills, and weight loss, positive generalized sp4 weakness and positive shortness of breath. All other systems are negative, Exam: 00:26 Constitutional: This is a well developed, well nourished patient who is awake, alert, sp4 patient is frail thin female who is dyspneic on arrival. Head/Face: Normocephalic, atraumatic. Eyes: Pupils equal round and reactive to light, extra-ocular motions intact. Lids and lashes normal. Conjunctiva and sclera are not injected. Cornea within normal limits. Periorbital areas with no swelling, redness, or edema. ENT: Nares patent. No nasal discharge, no septal abnormalities noted. Tympanic membranes are normal and external auditory canals are clear. Oropharynx with no redness, swelling, or masses, exudates, or evidence of obstruction, uvula midline. Mucous membranes moist. Neck: Trachea midline, no thyromegaly or masses palpated, and no cervical lymphadenopathy. Supple, full range of motion without nuchal rigidity, or vertebral point tenderness. Chest/axilla: Normal chest wall appearance and motion. Nontender with no deformity. No lesions are appreciated. Cardiovascular: Bradycardia on arrival, no gallops, murmurs, or rubs. Normal PMI, no JVD. No pulse deficits. Respiratory: Lungs have equal breath sounds bilaterally, bilateral crackles, dyspnea and tachypnea on arrival. Abdomen/GI: Soft, with normal bowel sounds. No distension or tympany. No guarding or rebound. No evidence of tenderness throughout. Back: No spinal tenderness. No costovertebral tenderness. Skin: Warm, dry with normal turgor. Normal color with no rashes, no lesions, and no evidence of cellulitis. MS/ Extremity: Pulses equal, no cyanosis. Neurovascular intact. Full, normal range of motion. Neuro: Awake and alert, GCS 15, oriented to person, place, time, and situation. Cranial nerves II-XII grossly intact. Motor strength 5/5 in all extremities. Sensory grossly intact. Psych: Awake, alert, with orientation to person, place and time. Behavior, mood, and affect are within normal limits 00:26 ECG was reviewed by the Attending Physician. EKG at 2136 normal sinus rhythm rate 66, Vital Signs: 05/31 21:26 BP 170 / 89; Pulse 71; Resp 30; Temp 98.2; Pulse Ox 89% on R/A; Weight 75.75 kg; Height bm8 5 ft. 4 in. ; Pain 0/10; 23:29 BP 122 / 66; Pulse 50; Resp 32; Temp 98.2; Pulse Ox 100% on 10 lpm Nebulizer Mask; Pain bm8 0/10; 06/01 00:59 BP 156 / 72; Pulse 68; Resp 19; Temp 98.2; Pulse Ox 100% ; Pain 0/10; bm8 05/31 21:26 Body Mass Index 28.67 (75.75 kg, 162.56 cm) 8 05/31 21:26 Pain Scale: Adult bm8 23:29 Pain Scale: Adult bm8 06/01 00:59 Pain Scale: Adult bm8 Doris Coma Score: 05/31 22:17 Eye Response: spontaneous(4). Motor Response: obeys commands(6). Verbal Response: bm8 oriented(5). Total: 15. 23:29 Eye Response: spontaneous(4). Motor Response: obeys commands(6). Verbal Response: bm8 oriented(5). Total: 15. 06/01 00:26 Eye Response: spontaneous(4). Motor Response: obeys commands(6). Verbal Response: sp4 oriented(5). Total: 15. 00:59 Eye Response: spontaneous(4). Motor Response: obeys commands(6). Verbal Response: bm8 oriented(5). Total: 15. MDM: 05/31 21:28 Medical Screening Exam initiated [facility] 06/01 00:28 Differential diagnosis: Anxiety Reaction asthma, Bronchitis CHF exacerbation, Chronic sp4 Obstructive Pulmonary Disease Myocardial Infarction pneumonia. Data reviewed: vital signs, nurses notes, EMS record, old medical records, lab test result(s), EKG, radiologic studies, plain films. ED course: EXAMINATION: ONE VIEW CHEST XR CLINICAL INDICATION: CHEST PAIN TECHNIQUE: Frontal chest projection is submitted. Examination is limited by patient positioning and technique. COMPARISON: 06/08/2021 FINDINGS: [id number] bilateral pulmonary opacities are noted likely representing pulmonary edema. Mild elevation of the left hemidiaphragm is seen. The heart is upper limit of normal in size. Sternotomy wires. IMPRESSION: [id number] CHF. . 05/31 21:27 Order name: BMP; Complete Time: 23:30 4 05/31 21:27 Order name: Blood Culture Adult (2) [facility] 05/31 21:27 Order name: CBC with Diff; Complete Time: 00:06 [facility] 05/31 21:27 Order name: CPK; Complete Time: 23:30 4 05/31 21:27 Order name: D-Dimer; Complete Time: 23:30 4 05/31 21:27 Order name: Hepatic Function; Complete Time: 23:30 4 05/31 21:27 Order name: Lipase; Complete Time: 23:30 4 05/31 21:27 Order name: Magnesium; Complete Time: 23:30 sp4 05/31 21:27 Order name: NT PRO-BNP; Complete Time: 23:30 sp4 05/31 21:27 Order name: PT-INR; Complete Time: 23:30 sp4 05/31 21:27 Order name: Ptt, Activated; Complete Time: 23:30 sp4 05/31 21:27 Order name: Troponin HS; Complete Time: 23:30 4 05/31 23:03 Order name: Manual Differential; Complete Time: 00:06 EDMS 05/31 21:27 Order name: XRAY CXR (1 view); Complete Time: 23:30 sp4 05/31 21:27 Order name: Call RT; Complete Time: 01:29 4 05/31 21:27 Order name: Cardiac monitoring; Complete Time: 22:20 sp4 05/31 21:27 Order name: EKG - Nurse/Tech; Complete Time: 22:20 4 05/31 21:27 Order name: IV Saline Lock; Complete Time: 22:20 4 05/31 21:27 Order name: Labs collected and sent; Complete Time: 22:20 sp4 05/31 21:27 Order name: O2 Per Protocol; Complete Time: 22:20 sp4 05/31 21:27 Order name: O2 Sat Monitoring; Complete Time: :20 sp4 EC:26 Rate is 66 beats/min. Rhythm is regular, Normal Sinus Rhythm. QRS [place] is Normal. NV sp4 interval is normal. QRS interval is normal. QT interval is normal. No Q waves. T waves are Normal. No ST changes noted. Clinical impression: No evidence of ischemia. Interpreted by me. Reviewed by me. Administered Medications: 05/31 21:50 Drug: Albuterol Inhalation 2.5 mg Inhalation every 20 minutes x3 Route: Inhalation; bm8 21:50 Drug: Ipratropium Inhalation Aerosol 0.5 mg Inhalation once; Every 20 min for a total bm8 of 3 treatments x3 Route: Inhalation; 22:10 Drug: Albuterol Inhalation 2.5 mg Inhalation every 20 minutes x3 Route: Inhalation; bm8 22:10 Drug: Ipratropium Inhalation Aerosol 0.5 mg Inhalation once; Every 20 min for a total bm8 of 3 treatments x3 Route: Inhalation; 22:20 Drug: Albuterol Inhalation 2.5 mg Inhalation every 20 minutes x3 Route: Inhalation; bm8 06/01 00:45 Follow up: Response: No adverse reaction 8 05/31 22:20 Drug: MethylPrednisoLONE IVP 125 mg IVP once Route: IVP; Site: right antecubital; bm8 06/01 00:45 Follow up: Response: No adverse reaction 8 05/31 22:20 Drug: Ipratropium Inhalation Aerosol 0.5 mg Inhalation once; Every 20 min for a total bm8 of 3 treatments x3 Route: Inhalation; 06/01 00:44 Follow up: Response: No adverse reaction 8 00:58 Drug: Furosemide IVP 40 mg IVP once; give over 2 minutes Route: IVP; Site: right bm8 antecubital; 01:16 Follow up: Response: No adverse reaction bm8 Disposition Summary: 06/01/24 00:30 Transfer Ordered Notes: Transfer Location: [facility] sp4 Reason: Higher level of care sp4 Condition: Stable sp4 Problem: new sp4 Symptoms: have improved sp4 Accepting Physician: [facility] Attending MD (06/01/24 02:24) bm8 Diagnosis - Acute on chronic combined systolic (congestive) and diastolic (congestive) heart sp4 failure - Acute pulmonary edema sp4 Forms: - Medication Reconciliation Form sp4 - SBAR form sp4 Signatures: Dispatcher [employer] Cristhian Rossi MD MD sp4 Randall Cobian, RN RN bm8 Komal Verma RN RN al5 Corrections: (The following items were deleted from the chart) 05/31 21:28 21:27 BASIC METABOLIC PANEL+C.LAB.BRZ ordered. EDMS EDMS 21:28 21:27 BLOOD CULTURE*+BA.LAB.BRZ ordered. EDMS EDMS 21:28 21:27 CBC+H.LAB.BRZ ordered. EDMS EDMS 21:28 21:28 CREATINE PHOSPHOKINASE+C.LAB.BRZ ordered. EDMS EDMS 21:28 21:28 D-DIMER+COAG.LAB.BRZ ordered. EDMS EDMS 21:28 21:28 HEPATIC FUNCTION+C.LAB.BRZ ordered. EDMS EDMS 21:28 21:28 LIPASE+C.LAB.BRZ ordered. EDMS EDMS 21:28 21:28 MAGNESIUM+C.LAB.BRZ ordered. EDMS EDMS 21:28 PROBNP+C.LAB.BRZ ordered. EDMS EDMS 21:28 PROTIME (+INR)+COAG.LAB.BRZ ordered. EDMS EDMS 21:28 PTT, ACTIVATED+COAG.LAB.BRZ ordered. EDMS EDMS 21:28 Troponin High Sensitivity+C.LAB.BRZ ordered. EDMS EDMS 21:28 Chest Single View+RAD.RAD.BRZ ordered. EDMS EDMS 21:28 Arterial Blood Gas+RC.LAB.BRZ ordered. EDMS EDMS 21:28 Urinalysis W/Microscopic+U.LAB.BRZ ordered. EDMS EDMS 21:28 URINE DRUG SCREEN+UC.LAB.BRZ ordered. EDMS EDMS 06/01 02:24 00:30 [facility] Attending sp4 bm8
[2024-06-01] MEDS ORDERED: FUROSEMIDE 40 MG/4 ML VIAL ONE (00:56)
[2024-06-01 02:28] VITALS: TEMP 98.2
[2024-06-01 02:30] VITALS: O2SAT 100
[2024-06-01 02:31] VITALS: BP 156/72
== END 2024-06-01 02:24 | disposition short-term general hospital (02) ==
LOC: ER 21:18
DX: I50.43 Acute on chronic combined systolic (congestive) and diastolic (congestive) heart failure (principal); J81.0 Acute pulmonary edema; I10 Essential (primary) hypertension; E11.9 Type 2 diabetes mellitus without complications; Z79.01 Long term (current) use of anticoagulants
CPT/HCPCS: 93005; 87040 ×2; 85025; 80048; 36415; 83735; 82550; 85610; 85379; 80076; 85730; 84484; 83690; 83880; 71045; J1940; J7613; J7644; J2919